=== PATIENT | female | born 1980 | race Caucasian/White ===

== ENCOUNTER 2018-12-19 12:07 | Inpatient (IN) | payer OTHER ==
[2018-12-19 12:41] VITALS: BMI 32.9
--- NOTE | 2018-12-19 13:43 | HP ---
CIWA Score Nausea/Vomitin-Mild Nausea/No Vomiting Muscle Tremors: 3 Anxiety: 2 Agitation: 1-Slight > Activity Paroxysmal Sweats: 3 Orientation: 0-Oriented Tacttile Disturbances: 0-None Auditory Disturbances: 0-None Visual Disturbances: 0-None Headache: 2-Mild CIWA-Ar Total Score: 12 - Admission Criteria OASAS Guidelines: Admission for Medically Managed Detox: Requires at least one of the followin. CIWA greater than 12 2. Seizures within the past 24 hours 3. Delirium tremens within the past 24 hours 4. Hallucinations within the past 24 hours 5. Acute intervention needed for co occurring medical disorder 6. Acute intervention needed for co occurring psychiatric disorder 7. Severe withdrawal that cannot be handled at a lower level of care (continued vomiting, continued diarrhea, abnormal vital signs) requiring intravenous medication and/or fluids 8. Admission ROS [facility] Chief Complaint: alcohol detox Allergies/Adverse Reactions: Allergies Allergy/AdvReac Type Severity Reaction Status Date / Time No Known Allergies Allergy Verified 12/19/18 12:33 History of Present Illness: Patient is a 38 yo F with a PMHx of depression, anxiety, presenting for alcohol detox. Last drink this morning. 2 budweiser margaritias. 24 oz cans. says she drinks all day and cannot estimate. Minimum 4 pints of brandon every day. Has been drinking heavy for the last 2 years. No hx of seizures or blacking out. Says she never did detox. Denies drug use. Denies cocaine use. Unemployed. Homeless. Smokes a pack a day. Exam Limitations: No Limitations - Ebola screening Have you traveled outside of the country in the last 21 days: No (N) Have you had contact with anyone from an Ebola affected area: No Do you have a fever: No - Review of Systems Respiratory: reports: Cough. denies: Shortness of Breath Cardiac: denies: Chest Pain, Palpitations Neuro: reports: Tremors. denies: Numbness Patient History - Patient Medical History Hx Chronic Obstructive Pulmonary Disease (COPD): No Hx Cancer: No Hx Cardiac Disorders: No Hx Congestive Heart Failure: No Hx Hypertension: No Hx Seizures: No Hx Diabetes: No Hx Gastrointestinal Disorders: No Hx Liver Disease: No Hx Genitourinary Disorders: No Hx Renal Disease (ESRD): No Hx Thyroid Disease: No Hx Human Immunodeficiency Virus (HIV): No Hx Hepatitis C: No Hx Depression: No Hx Suicide Attempt: No Hx Bipolar Disorder: No Hx Schizophrenia: No - Patient Surgical History Past Surgical History: Yes Hx Abdominal Surgery: Yes (gastric bypass 12/07/2013 at [facility] (lost 200lbs)) Hx Cholecystectomy: Yes (2016) - Smoking Cessation Smoking history: Current every day smoker Have you smoked in the past 12 months: Yes Aproximately how many cigarettes per day: 10 Initiated information on smoking cessation: Yes 'Breaking Loose' booklet given: 12/19/18 - Substances abused Alcohol Substance route: Oral Frequency: Daily Amount used: 5 PINTS OF E&J Age of first use: 37 Date of last use: 12/19/18 Family Disease History - Family Disease History Family Disease History: CA: Mother (, ), Other: Father (, suicide, etoh/drugs), Mother, Brother (living - healthy), Sister (living - healthy), Son (age 19 -healthy), Daughter (age 15 - healthy) Admission Physical Exam S - Vital Signs Vital Signs: Vital Signs - 24 hr 12/19/18 12:21 Temperature 97.3 F L Pulse Rate 118 H Respiratory 18 Rate Blood Pressure 139/73 - Physical General Appearance: Yes: No Apparent Distress Respiratory: Yes: No Respiratory Distress, No Accessory Muscle Use Cardiology: Yes: Regular Rhythm, S1, S2 Abdominal: Yes: Non Tender, Soft Extremities: No: Swelling - Diagnostic (1) Alcohol abuse Current Visit: Yes Status: Acute (2) Nicotine dependence Current Visit: No Status: Chronic Qualifiers: Nicotine product type: cigarettes Comment: counseled cessation - not ready Breathalyzer - Breathalyzer Breathalyzer: 0.085 Urine Drug Screen - Test Device Lot number: [id number] Expiration date: 09/14/20 - Control Is test valid?: Yes - Results Drug screen NEGATIVE: No Urine drug screen results: DORITA-Cocaine Inpatient Rehab Admission - Rehab Decision to Admit Inpatient rehab admission?: No
--- NOTE | 2018-12-19 14:02 | PN ---
Teaching Attending Note Name of Resident: Peter Schmitt ATTENDING PHYSICIAN STATEMENT I saw and evaluated the patient. I reviewed the resident's note and discussed the case with the resident. I agree with the resident's findings and plan as documented. SUBJECTIVE: 38 yo s/p gastric bypass surgery, and h/o OUD, depression. Started drinking heavily about 2years ago, after a traumatic event. Pt here for alcohol detox-last drink this morning. Denies illicit drug use. OBJECTIVE: Vital Signs - 24 hr 12/19/18 12:21 Temperature 97.3 F L Pulse Rate 118 H Respiratory 18 Rate Blood Pressure 139/73 tremulous ASSESSMENT AND PLAN: AUD- pt here for detox-
[2018-12-19] MEDS ORDERED: hydrOXYzine PAMOATE 25 MG CAPSULE (FP) PO PRN (14:14)
[2018-12-19] MEDS ORDERED: BISMUTH SUBSALICYLATE 262 MG/15 ML BTL PO PRN (14:14)
[2018-12-19] MEDS ORDERED: MAGNESIUM HYDROX 2400MG/30ML ORAL SUSPENSION 30 ML CUP PO PRN (14:14)
[2018-12-19] MEDS ORDERED: IBUPROFEN 400 MG TABLET (FP) PO PRN (14:14)
[2018-12-19] MEDS ORDERED: ACETAMINOPHEN 325 MG TABLET (FP) PO PRN ×2 (14:14)
[2018-12-19] MEDS ORDERED: METHOCARBAMOL 500 MG TABLET PO PRN (14:14)
[2018-12-19] MEDS ORDERED: MAGNESIUM CITRATE 300 ML BOTTLE PO PRN (14:14)
[2018-12-19] MEDS ORDERED: MAG HYDROX/AL HYDROX/SIMETH 30 ML UNIT-DOSE CUP PO PRN (14:14)
[2018-12-19] MEDS: chlordiazePOXIDE HCL 25 MG CAPSULE PO PRN (15:03)
[2018-12-19] MEDS: NICOTINE 14 MG/24 HOURS TOPICAL PATCH TD SCH (15:03)
[2018-12-19 17:01] LABS: HEMATOCRIT 33.2 % (32.4-45.2); HEMOGLOBIN 10.1 GM/dL (10.7-15.3); MCH 23.1 pg (25.7-33.7); MCHC 30.4 g/dl (32.0-36.0); MEAN CELL VOLUME 76.1 fl (80-96); MEAN PLT VOLUME 8.6 fl (7.5-11.1); PLATELET COUNT 303 K/MM3 (134-434); RBC 4.36 M/mm3 (3.60-5.2); RDW 19.3 % (11.6-15.6); WHITE BLOOD COUNT 12.3 K/mm3 (4.0-10.0)
[2018-12-19 17:10] LABS: ALBUMIN 3.3 g/dl (3.4-5.0); BILIRUBIN,TOTAL 0.6 mg/dL (0.2-1); BLOOD UREA NITROGEN 10.7 mg/dL (7-18); CALCIUM 8.2 mg/dL (8.5-10.1); CREATININE 0.8 mg/dL (0.55-1.3); TOT PROT 6.8 g/dl (6.4-8.2)
[2018-12-19] MEDS: chlordiazePOXIDE HCL 25 MG CAPSULE PO SCH ×2 (17:28→22:21)
[2018-12-19] MEDS: MENTHOL/PHENOL 1 EACH UD MM PRN (21:11)
--- NOTE | 2018-12-19 21:20 | EKG ---
Test Reason : Blood Pressure : / mmHG Vent. Rate : 087 BPM Atrial Rate : 087 BPM P-R Int : 126 ms QRS Dur : 086 ms QT Int : 382 ms P-R-T Axes : 054 028 031 degrees QTc Int : 459 ms NORMAL SINUS RHYTHM POSSIBLE LEFT ATRIAL ENLARGEMENT BORDERLINE ECG WHEN COMPARED WITH ECG OF 29-DEC-2013 05:33, VENT. RATE HAS INCREASED BY 35 BPM Confirmed by VICKIE MORENO, DELGADO ([id number]) on 12/19/2018 9:20:00 PM Referred By: Confirmed By:DELGADO JOHNSTON MD
[2018-12-19] MEDS: THIAMINE HCL 100 MG TABLET (FP) PO SCH (22:21)
[2018-12-19] MEDS: MELATONIN 5 MG TABLETS PO PRN (22:21)
[2018-12-20] MEDS: chlordiazePOXIDE HCL 25 MG CAPSULE PO SCH ×4 (05:57→22:01)
[2018-12-20] MEDS: PRENATAL VITAMINS W/ FOLIC ACID TABLET (FP) PO SCH (10:29)
[2018-12-20] MEDS: NICOTINE 14 MG/24 HOURS TOPICAL PATCH TD SCH (10:30)
[2018-12-20] MEDS ORDERED: NICOTINE POLACRILEX 2 MG GUM BUC PRN (12:10)
--- NOTE | 2018-12-20 12:17 | PN ---
S CIWA - CIWA Score Nausea/Vomitin Muscle Tremors: 2 Anxiety: 3 Agitation: 3 Paroxysmal Sweats: No Perspiration Orientation: 0-Oriented Tacttile Disturbances: 1-Very Mild Itch/Numbness Auditory Disturbances: 0-None Visual Disturbances: 0-None Headache: 1-Very Mild CIWA-Ar Total Score: 12 S Progress Note (SOAP) Subjective: alert,irrtiable,anxiuos,interrupted sleep,tremor Objective: 12/20/18 12:15 Vital Signs Temperature 98.6 F 12/20/18 09:42 Pulse Rate 84 12/20/18 09:42 Respiratory Rate 18 12/20/18 09:42 Blood Pressure 110/73 12/20/18 09:42 O2 Sat by Pulse Oximetry (%) 12/20/18 12:15 Laboratory Last Values WBC 12.3 K/mm3 (4.0-10.0) H 12/19/18 14:25 RBC 4.36 M/mm3 (3.60-5.2) 12/19/18 14:25 Hgb 10.1 GM/dL (10.7-15.3) L 12/19/18 14:25 Hct 33.2 % (32.4-45.2) 12/19/18 14:25 MCV 76.1 fl (80-96) L 12/19/18 14:25 MCH 23.1 pg (25.7-33.7) L 12/19/18 14:25 MCHC 30.4 g/dl (32.0-36.0) L 12/19/18 14:25 RDW 19.3 % (11.6-15.6) H 12/19/18 14:25 Plt Count 303 K/MM3 (134-434) 12/19/18 14:25 MPV 8.6 fl (7.5-11.1) 12/19/18 14:25 Sodium 143 mmol/L (136-145) 12/19/18 14:25 Potassium 4.0 mmol/L (3.5-5.1) 12/19/18 14:25 Chloride 107 mmol/L (98-107) 12/19/18 14:25 Carbon Dioxide 24 mmol/L (21-32) 12/19/18 14:25 Anion Gap 13 MMOL/L (8-16) 12/19/18 14:25 BUN 10.7 mg/dL (7-18) 12/19/18 14:25 Creatinine 0.8 mg/dL (0.55-1.3) 12/19/18 14:25 Est GFR (CKD-EPI)AfAm 107.64 12/19/18 14:25 Est GFR (CKD-EPI)NonAf 92.87 12/19/18 14:25 Random Glucose 78 mg/dL (74-106) 12/19/18 14:25 Calcium 8.2 mg/dL (8.5-10.1) L 12/19/18 14:25 Total Bilirubin 0.6 mg/dL (0.2-1) 12/19/18 14:25 AST 25 U/L (15-37) 12/19/18 14:25 ALT 14 U/L (13-61) 12/19/18 14:25 Alkaline Phosphatase 112 U/L (45-117) 12/19/18 14:25 Total Protein 6.8 g/dl (6.4-8.2) 12/19/18 14:25 Albumin 3.3 g/dl (3.4-5.0) L 12/19/18 14:25 POC Urine HCG, Qual Negative 12/19/18 13:26 Assessment: 12/20/18 12:16 withdrawal symptom Plan: continue detox librium regimen,repeat cbc in am
--- NOTE | 2018-12-20 12:20 | CONSULT ---
[facility] Psychiatric Consult - Data Date of interview: 12/20/18 Admission source: [facility] Identifying data: Patient is a 38 year old single female, mother of two, unemployed, homeless, and is supported by food stamps. This is one of multiple admissions for patient. Patient admitted to for alcohol dependence. Substance Abuse History: Smoking Cessation. Smoking history: Current every day smoker. Have you smoked in the past 12 months: Yes. Aproximately how many cigarettes per day: 10. Initiated information on smoking cessation: Yes. ' Breaking Loose' booklet given: 12/19/18. - Substances abused. Alcohol. Substance route: Oral. Frequency: Daily. Amount used: 5 PINTS OF E&J. Age of first use: 37. Date of last use: 12/19/18 Medical History: Gastric bypass 12/07/2013, Cholecystectomy (2017) Psychiatric History: Patient denies h/o psychiatric hospitalization, outpatient care, and suicide attempt. At present patient reports stable mood but is experiencing diffculty sleeping. Physical/Sexual Abuse/Trauma History: denies. Mental Status Exam - Mental Status Exam Alert and Oriented to: Time, Place, Person Cognitive Function: Good Patient Appearance: Unkempt Mood: Euthymic Affect: Mood Congruent Patient Behavior: Cooperative Speech Pattern: Appropriate Voice Loudness: Normal Thought Process: Goal Oriented Thought Disorder: Not Present Hallucinations: Denies Suicidal Ideation: Denies Homicidal Ideation: Denies Insight/Judgement: Poor Sleep: Poorly Muscle strength/Tone: Normal Gait/Station: Normal Psychiatric Findings - Problem List ([place] 1, 2,3) (1) Insomnia Status: Acute Qualifiers: Insomnia type: unspecified Qualified Code(s): G47.00 - Insomnia, unspecified (2) Alcohol abuse Status: Acute (3) Nicotine dependence Status: Chronic Qualifiers: Nicotine product type: cigarettes Substance use status: uncomplicated Qualified Code(s): F17.210 - Nicotine dependence, cigarettes, uncomplicated Comment: counseled cessation - not ready - Initial Treatment Plan Initial Treatment Plan: Psychoeducation provided. Detoxification in progress. Patient encouraged to accept Melatonin 5mg HS. Benefits and side effects discussed. Verbal consent given.
[2018-12-20] MEDS: NICOTINE 21 MG/24 HOURS TOPICAL PATCH TD SCH (13:01)
[2018-12-20] MEDS: MELATONIN 5 MG TABLETS PO PRN (22:01)
[2018-12-20] MEDS: THIAMINE HCL 100 MG TABLET (FP) PO SCH (22:01)
[2018-12-20] MEDS ORDERED: guaiFENesin/CODEINE 5 ML UNIT-DOSE CUPS PO PRN (22:49)
--- NOTE | 2018-12-20 22:51 | PN ---
Aleksandra Progress Note Note: Patient complained of cough Vital Signs Temperature 99.3 F 12/20/18 20:58 Pulse Rate 83 12/20/18 20:58 Respiratory Rate 16 12/20/18 20:58 Blood Pressure 122/87 12/20/18 20:58 O2 Sat by Pulse Oximetry (%) Action: Guaifenesin 10 ml oral BED PRN ordered
[2018-12-21] MEDS: chlordiazePOXIDE HCL 25 MG CAPSULE PO PRN (03:12)
[2018-12-21] MEDS: guaiFENesin 200 MG/10 ML 10 ML UNIT-DOSE CUPS PO PRN ×3 (03:13→22:33)
[2018-12-21] MEDS: chlordiazePOXIDE HCL 25 MG CAPSULE PO SCH ×4 (05:30→22:27)
[2018-12-21] MEDS: PRENATAL VITAMINS W/ FOLIC ACID TABLET (FP) PO SCH (10:33)
[2018-12-21] MEDS: NICOTINE 21 MG/24 HOURS TOPICAL PATCH TD SCH (10:34)
--- NOTE | 2018-12-21 14:14 | PN ---
S CIWA - CIWA Score Nausea/Vomitin Muscle Tremors: 2 Anxiety: 3 Agitation: 2 Paroxysmal Sweats: No Perspiration Orientation: 0-Oriented Tacttile Disturbances: 1-Very Mild Itch/Numbness Auditory Disturbances: 0-None Visual Disturbances: 0-None Headache: 2-Mild CIWA-Ar Total Score: 12 S Progress Note (SOAP) Subjective: alert,irritable,anxious,interrupted sleep,coughing with yellowish mucous,using albuterol inhaler and nebulizer in the past Objective: 12/21/18 14:11 Vital Signs Temperature 98.4 F 12/21/18 09:12 Pulse Rate 92 H 12/21/18 09:12 Respiratory Rate 18 12/21/18 09:12 Blood Pressure 114/65 12/21/18 09:12 O2 Sat by Pulse Oximetry (%) Laboratory Results - last 24 hr 12/19/18 14:25 RPR Titer Nonreactive 12/21/18 14:11 Laboratory Last Values WBC 12.3 K/mm3 (4.0-10.0) H 12/19/18 14:25 RBC 4.36 M/mm3 (3.60-5.2) 12/19/18 14:25 Hgb 10.1 GM/dL (10.7-15.3) L 12/19/18 14:25 Hct 33.2 % (32.4-45.2) 12/19/18 14:25 MCV 76.1 fl (80-96) L 12/19/18 14:25 MCH 23.1 pg (25.7-33.7) L 12/19/18 14:25 MCHC 30.4 g/dl (32.0-36.0) L 12/19/18 14:25 RDW 19.3 % (11.6-15.6) H 12/19/18 14:25 Plt Count 303 K/MM3 (134-434) 12/19/18 14:25 MPV 8.6 fl (7.5-11.1) 12/19/18 14:25 Sodium 143 mmol/L (136-145) 12/19/18 14:25 Potassium 4.0 mmol/L (3.5-5.1) 12/19/18 14:25 Chloride 107 mmol/L (98-107) 12/19/18 14:25 Carbon Dioxide 24 mmol/L (21-32) 12/19/18 14:25 Anion Gap 13 MMOL/L (8-16) 12/19/18 14:25 BUN 10.7 mg/dL (7-18) 12/19/18 14:25 Creatinine 0.8 mg/dL (0.55-1.3) 12/19/18 14:25 Est GFR (CKD-EPI)AfAm 107.64 12/19/18 14:25 Est GFR (CKD-EPI)NonAf 92.87 12/19/18 14:25 Random Glucose 78 mg/dL (74-106) 12/19/18 14:25 Calcium 8.2 mg/dL (8.5-10.1) L 12/19/18 14:25 Total Bilirubin 0.6 mg/dL (0.2-1) 12/19/18 14:25 AST 25 U/L (15-37) 12/19/18 14:25 ALT 14 U/L (13-61) 12/19/18 14:25 Alkaline Phosphatase 112 U/L (45-117) 12/19/18 14:25 Total Protein 6.8 g/dl (6.4-8.2) 12/19/18 14:25 Albumin 3.3 g/dl (3.4-5.0) L 12/19/18 14:25 POC Urine HCG, Qual Negative 12/19/18 13:26 RPR Titer Nonreactive (NONREACTIVE) 12/19/18 14:25 Assessment: 12/21/18 14:12 withdrawal symptom lung expiratory wheezing Plan: continue detox librium regimen,augmentin 875 mgs po bid for 7 days,albuterol inhaler and duoneb nebulizer, close monitoring
[2018-12-21] MEDS ORDERED: ALBUTEROL SO4 8 GM HFA INHALER IH PRN (14:15)
[2018-12-21] MEDS ORDERED: ALBUTEROL SO4 2.5/IPRATROPIUM 0.5 INH SOL 3 ML VIAL.NEB. NEB PRN (14:15)
[2018-12-21] MEDS: AMOX TR/POT CLAV 875MG/125MG TABLETS (FP) PO SCH (17:21)
[2018-12-21] MEDS: THIAMINE HCL 100 MG TABLET (FP) PO SCH (22:27)
[2018-12-21] MEDS: MELATONIN 5 MG TABLETS PO PRN (22:27)
[2018-12-22] MEDS ORDERED: chlordiazePOXIDE HCL 10 MG CAPSULE PO PRN
[2018-12-22] MEDS: guaiFENesin 200 MG/10 ML 10 ML UNIT-DOSE CUPS PO PRN (05:40)
[2018-12-22] MEDS: chlordiazePOXIDE HCL 10 MG CAPSULE PO SCH ×2 (05:40→10:29)
[2018-12-22] MEDS: AMOX TR/POT CLAV 875MG/125MG TABLETS (FP) PO SCH (07:32)
[2018-12-22] MEDS: PRENATAL VITAMINS W/ FOLIC ACID TABLET (FP) PO SCH (10:29)
[2018-12-22] MEDS: NICOTINE 21 MG/24 HOURS TOPICAL PATCH TD SCH (10:30)
[2018-12-22] MEDS: MENTHOL/PHENOL 1 EACH UD MM PRN (10:31)
[2018-12-22 13:35] VITALS: BP 97/62; PULSE 76; TEMP 97.2
--- NOTE | 2018-12-22 17:23 | DS ---
[facility] Detox Discharge Summary Admission Date: 12/19/18 Discharge Date: 12/22/18 - History Present History: Alcohol Dependence Additional Comments: DESPITE EFFORTS BY CHRONIC MANAGER AND BY NURSING STAFF TO ADDRESS PATIENT'S MEDICAL NEEDS / CONCERNS, PATIENT DOES NOT WISH TO REMAIN TO COMPLETE DETOX REGIMEN. RISKS OF LEAVING DETOX UNIT AGAINST MEDICAL ADVICE AND PRIOR TO COMPLETION OF DETOX REGIMEN EXPLAINED TO PATIENT. PATIENT ADVISED TO REMAIN ON DETOX UNIT IN ORDER TO HAVE CXR DONE (FOR 'INDETERMINATE' QFT /TB RESULT NOTED ON DETOX ADMISSION LABORATORY ASSESSMENT. HOWEVER, PATIENT DECLINED TO DO SO, STATING THAT SHE WISHES TO LEAVE IMMEDIATELY. PATIENT ALSO ADVISED TO GO IMMEDIATELY TO NEAREST ER SHOULD ANY INTOLERABLE WITHDRAWAL / DETOX SYMPTOMS DEVELOP AT ANY TIME. PATIENT ADVISED TO FOLLOW-UP WITH LAST REPAIRER AFTER DISCHARGE FROM DETOX FOR INDETERMINATE QFT / TB TEST RESULT NOTED ON DETOX ADMISSION LABORATORY ASSESSMENT. PATIENT VERBALIZED UNDERSTANDING OF ALL INFORMATION / RECOMMENDATIONS PRESENTED TO HER PRIOR TO DEPARTURE FROM DETOX UNIT. COPIES OF RESULTS OF ALL LABS DRAWN WHILE ADMITTED FOR DETOX GIVEN TO PATIENT AT TIME OF DISCHARGE FROM DETOX UNIT. Pertinent Past History: Nicotine Dependence, Insomnia. - Physical Exam Results Vital Signs: Vital Signs Temperature 97.2 F L 12/22/18 13:34 Pulse Rate 76 12/22/18 13:34 Respiratory Rate 18 12/22/18 13:34 Blood Pressure 97/62 12/22/18 13:34 O2 Sat by Pulse Oximetry (%) Pertinent Admission Physical Exam Findings: WITHDRAWAL SYMPTOMS. Laboratory Tests 12/19/18 12/19/18 12/19/18 13:26 14:25 14:25 WBC RBC Hgb Hct MCV MCH MCHC RDW Plt Count MPV Sodium 143 Potassium 4.0 Chloride 107 Carbon Dioxide 24 Anion Gap 13 BUN 10.7 Creatinine 0.8 Est GFR (CKD-EPI)AfAm 107.64 Est GFR (CKD-EPI)NonAf 92.87 Random Glucose 78 Calcium 8.2 L Total Bilirubin 0.6 AST 25 ALT 14 Alkaline Phosphatase 112 Total Protein 6.8 Albumin 3.3 L POC Urine HCG, Qual Negative RPR Titer TB (QFT) Incubation TB Test (QFT) Nil 0.06 TB Test (QFT) Mitogen 0.53 TB Test (QFT) Antigen 0.06 TB Test (QFT) Indeterminate H TB Positive Criteria 12/19/18 12/19/18 14:25 14:25 WBC 12.3 H RBC 4.36 Hgb 10.1 L Hct 33.2 MCV 76.1 L MCH 23.1 L MCHC 30.4 L RDW 19.3 H Plt Count 303 MPV 8.6 Sodium Potassium Chloride Carbon Dioxide Anion Gap BUN Creatinine Est GFR (CKD-EPI)AfAm Est GFR (CKD-EPI)NonAf Random Glucose Calcium Total Bilirubin AST ALT Alkaline Phosphatase Total Protein Albumin POC Urine HCG, Qual RPR Titer Nonreactive TB (QFT) Incubation TB Test (QFT) Nil TB Test (QFT) Mitogen TB Test (QFT) Antigen TB Test (QFT) TB Positive Criteria LABS NOTED. - Medication Discharge Medications: Ambulatory Orders NK [No Known Home Medication] 12/19/18 - Diagnosis (1) Alcohol abuse Status: Acute (2) Insomnia Status: Acute Qualifiers: Insomnia type: unspecified Qualified Code(s): G47.00 - Insomnia, unspecified (3) Nicotine dependence Status: Chronic Qualifiers: Nicotine product type: cigarettes Substance use status: uncomplicated Qualified Code(s): F17.210 - Nicotine dependence, cigarettes, uncomplicated - AMA Did Patient Leave Against Medical Advice: Yes (PATIENT DID NOT WISH TO REMAIN TO COMPLETE DETOX REGIMEN.) [facility] CIWA - CIWA Score Nausea/Vomitin-No Nausea/No Vomiting Muscle Tremors: 3 Anxiety: 3 Agitation: 0-Normal Activity Paroxysmal Sweats: No Perspiration Orientation: 0-Oriented Tacttile Disturbances: 2-Mild Itch/Numbness/Burn Auditory Disturbances: 0-None Visual Disturbances: 1-Very Mild Sensitivity Headache: 0-None Present CIWA-Ar Total Score: 9
[2018-12-23] MEDS ORDERED: chlordiazePOXIDE HCL 10 MG CAPSULE PO SCH (05:00)
[2018-12-24] MEDS ORDERED: chlordiazePOXIDE HCL 10 MG CAPSULE PO ONE (05:00)
== END 2018-12-22 14:15 | disposition left against medical advice (07) | DRG 770 ==
LOC: YASAS 12:07 → Y3N 14:34
PROVIDERS: ADMIT Surgery; ATTEND Surgery
PROC: HZ2ZZZZ Detoxification Services for Substance Abuse Treatment (ICD-10-PCS; principal; 2018-12-19)
DX: F10.230 Alcohol dependence with withdrawal, uncomplicated (principal); F17.210 Nicotine dependence, cigarettes, uncomplicated; G47.00 Insomnia, unspecified; R06.2 Wheezing; Z98.84 Bariatric surgery status; Z59.0 Homelessness
CPT/HCPCS: 36415; 80053; 81025; 85027; 86480; 86593; 93005; 93010

== ENCOUNTER 2018-12-26 16:46 | Inpatient (IN) | payer OTHER ==
[2018-12-26 18:19] VITALS: BMI 33.6
--- NOTE | 2018-12-26 19:20 | HP ---
CIWA Score Nausea/Vomitin Muscle Tremors: 2 Anxiety: 3 Agitation: 2 Paroxysmal Sweats: 1-Minimal Palms Moist Orientation: 0-Oriented Tacttile Disturbances: 0-None Auditory Disturbances: 0-None Visual Disturbances: 0-None Headache: 2-Mild CIWA-Ar Total Score: 12 - Admission Criteria OASAS Guidelines: Admission for Medically Managed Detox: Requires at least one of the followin. CIWA greater than 12 2. Seizures within the past 24 hours 3. Delirium tremens within the past 24 hours 4. Hallucinations within the past 24 hours 5. Acute intervention needed for co occurring medical disorder 6. Acute intervention needed for co occurring psychiatric disorder 7. Severe withdrawal that cannot be handled at a lower level of care (continued vomiting, continued diarrhea, abnormal vital signs) requiring intravenous medication and/or fluids 8. Admission ROS [facility] Allergies/Adverse Reactions: Allergies Allergy/AdvReac Type Severity Reaction Status Date / Time No Known Allergies Allergy Verified 12/26/18 18:14 History of Present Illness: Patient is a 38 yo F with a PMHx of depression, anxiety, presenting for alcohol detox. Last drink this morning. She drinks a minimum 4 pints of brandon every day. Has been drinking heavy on and off over the last 2 years. No hx of seizures or blacking out. Denies drug use. Denies cocaine use. She was here from 12/19-12/22 but said she had to leave early to take care of her kids. Unemployed. Homeless. Smokes a pack a day. Exam Limitations: No Limitations - Ebola screening Have you traveled outside of the country in the last 21 days: No Have you had contact with anyone from an Ebola affected area: No - Review of Systems Respiratory: reports: Cough. denies: Shortness of Breath Cardiac: denies: Chest Pain, Palpitations Patient History - Patient Medical History Hx Asthma: No Hx Chronic Obstructive Pulmonary Disease (COPD): No Hx Cancer: No Hx Cardiac Disorders: No Hx Congestive Heart Failure: No Hx Hypertension: No Hx Seizures: No Hx Diabetes: No Hx Gastrointestinal Disorders: No Hx Liver Disease: No Hx Genitourinary Disorders: No Hx Sexually Transmitted Disorders: No Hx Renal Disease (ESRD): No Hx Thyroid Disease: No Hx Human Immunodeficiency Virus (HIV): No Hx Hepatitis C: No Hx Depression: No Hx Suicide Attempt: No Hx Bipolar Disorder: No Hx Schizophrenia: No - Patient Surgical History Past Surgical History: Yes Hx Neurologic Surgery: No Hx Cataract Extraction: No Hx Cardiac Surgery: No Hx Lung Surgery: No Hx Breast Surgery: No Hx Breast Biopsy: No Hx Abdominal Surgery: Yes (gastric bypass 12/07/2013 at [facility] (lost 200lbs)) Hx Appendectomy: No Hx Cholecystectomy: Yes (2016) Hx Genitourinary Surgery: No Hx Section: No Hx Orthopedic Surgery: No Anesthesia Reaction: No - Smoking Cessation Smoking history: Current every day smoker Have you smoked in the past 12 months: Yes Aproximately how many cigarettes per day: 10 Initiated information on smoking cessation: Yes 'Breaking Loose' booklet given: 12/26/18 - Substances abused Alcohol Substance route: Oral Frequency: Daily Amount used: 5 PINTS OF E&J Age of first use: 37 Date of last use: 12/26/18 Family Disease History - Family Disease History Family Disease History: CA: Mother (, ), Other: Father (, suicide, etoh/drugs), Mother, Brother (living - healthy), Sister (living - healthy), Son (age 19 -healthy), Daughter (age 15 - healthy) Admission Physical Exam S - Vital Signs Vital Signs: Vital Signs - 24 hr 12/26/18 18:15 Temperature 97.9 F Pulse Rate 98 H Respiratory 20 Rate Blood Pressure 122/77 - Physical General Appearance: Yes: No Apparent Distress Respiratory: Yes: No Respiratory Distress, No Accessory Muscle Use Cardiology: Yes: Regular Rhythm, Regular Rate Abdominal: Yes: Non Tender, Soft Extremities: No: Swelling - Diagnostic (1) Alcohol abuse Current Visit: No Status: Acute (2) Opiate dependence Current Visit: No Status: Acute Qualifiers: Substance use status: uncomplicated Qualified Code(s): F11.20 - Opioid dependence, uncomplicated Comment: labs ordered - she will do them tomorrow (noted in 2013 LFTs were normal) risks and limitations of suboxone reviewed Suboxone Agreement reviewed and signed, emphasized safekeeping, need to attend [employer] groups trial suboxone 12mg daily (history of taking 1/2 strip bid) - emphasized to allow to dissolve completely under tongue (3) Cannabis dependence Current Visit: No Status: Chronic Comment: counseled cessation (4) History of gastric bypass Current Visit: No Status: Chronic Comment: ordered mvi, vitamin C (has not been taking them for 'a while') (5) Nicotine dependence Current Visit: No Status: Chronic Qualifiers: Nicotine product type: cigarettes Substance use status: uncomplicated Qualified Code(s): F17.210 - Nicotine dependence, cigarettes, uncomplicated Comment: counseled cessation - not ready Breathalyzer - Breathalyzer Breathalyzer: 0 Urine Drug Screen - Test Device Lot number: [id number] Expiration date: 09/14/20 - Control Is test valid?: Yes - Results Drug screen NEGATIVE: No Urine drug screen results: THC-Marijuana, BZO-Benzodiazepines Inpatient Rehab Admission - Rehab Decision to Admit Inpatient rehab admission?: No
[2018-12-26] MEDS ORDERED: ACETAMINOPHEN 325 MG TABLET (FP) PO PRN ×2 (19:29)
[2018-12-26] MEDS ORDERED: IBUPROFEN 400 MG TABLET (FP) PO PRN (19:29)
[2018-12-26] MEDS ORDERED: MAGNESIUM HYDROX 2400MG/30ML ORAL SUSPENSION 30 ML CUP PO PRN (19:29)
[2018-12-26] MEDS ORDERED: BISMUTH SUBSALICYLATE 262 MG/15 ML BTL PO PRN (19:29)
[2018-12-26] MEDS ORDERED: MAG HYDROX/AL HYDROX/SIMETH 30 ML UNIT-DOSE CUP PO PRN (19:29)
[2018-12-26] MEDS ORDERED: MAGNESIUM CITRATE 300 ML BOTTLE PO PRN (19:29)
--- NOTE | 2018-12-26 19:34 | PN ---
Teaching Attending Note Name of Resident: Peter Schmitt ATTENDING PHYSICIAN STATEMENT I saw and evaluated the patient. I reviewed the resident's note and discussed the case with the resident. I agree with the resident's findings and plan as documented. SUBJECTIVE: 38 yo with AUD, was last here from 12/19-12/22, left early to take care of kids- here today for detox. OBJECTIVE: Vital Signs - 24 hr 12/26/18 18:15 Temperature 97.9 F Pulse Rate 98 H Respiratory 20 Rate Blood Pressure 122/77 tremulous alert and oriented ASSESSMENT AND PLAN: AUD- detox per protocol
[2018-12-26] MEDS: chlordiazePOXIDE HCL 25 MG CAPSULE PO SCH (21:27)
[2018-12-26] MEDS: THIAMINE HCL 100 MG TABLET (FP) PO SCH (21:27)
[2018-12-26] MEDS: NICOTINE 21 MG/24 HOURS TOPICAL PATCH TD SCH (21:28)
[2018-12-26] MEDS: METHOCARBAMOL 500 MG TABLET PO PRN (23:57)
[2018-12-26] MEDS: hydrOXYzine PAMOATE 25 MG CAPSULE (FP) PO PRN (23:57)
[2018-12-27] MEDS: chlordiazePOXIDE HCL 25 MG CAPSULE PO SCH ×3 (06:49→21:49)
[2018-12-27] MEDS ORDERED: PNEUMOC 13-VAL CONJ-DIP CRM/PF 0.5 ML DISP.SYRIN IM ONE (10:00)
--- NOTE | 2018-12-27 10:14 | PN ---
S CIWA - CIWA Score Nausea/Vomitin Muscle Tremors: 2 Anxiety: 2 Agitation: 2 Paroxysmal Sweats: 1-Minimal Palms Moist Orientation: 0-Oriented Tacttile Disturbances: 1-Very Mild Itch/Numbness Auditory Disturbances: 0-None Visual Disturbances: 0-None Headache: 2-Mild CIWA-Ar Total Score: 12 BHS Progress Note (SOAP) Subjective: alert,irritable,anxious,interrupted sleep,tremor Objective: 12/27/18 10:13 Vital Signs Temperature 97.7 F 12/27/18 09:17 Pulse Rate 75 12/27/18 09:17 Respiratory Rate 16 12/27/18 09:17 Blood Pressure 102/51 L 12/27/18 09:17 O2 Sat by Pulse Oximetry (%) 12/27/18 10:13 Laboratory Last Values POC Urine HCG, Qual Negative 12/26/18 18:52 12/27/18 10:13 labs pending Assessment: 12/27/18 10:13 withdrawal symptom Plan: continue detox librium regimen
[2018-12-27] MEDS: hydrOXYzine PAMOATE 25 MG CAPSULE (FP) PO PRN (10:27)
[2018-12-27] MEDS: PRENATAL VITAMINS W/ FOLIC ACID TABLET (FP) PO SCH (10:27)
[2018-12-27] MEDS: NICOTINE 21 MG/24 HOURS TOPICAL PATCH TD SCH (10:27)
[2018-12-27] MEDS ORDERED: PNEUMOCOCCAL 23 VACCINE 0.5 ML VIAL IM ONE (12:00)
[2018-12-27] MEDS: METHOCARBAMOL 500 MG TABLET PO PRN (17:39)
[2018-12-27] MEDS: chlordiazePOXIDE HCL 10 MG CAPSULE PO PRN (17:39)
[2018-12-27] MEDS: THIAMINE HCL 100 MG TABLET (FP) PO SCH (21:49)
[2018-12-27] MEDS: MELATONIN 5 MG TABLETS PO PRN (21:49)
[2018-12-27] MEDS: MENTHOL/PHENOL 1 EACH UD MM PRN (21:51)
[2018-12-28] MEDS: chlordiazePOXIDE 5 MG CAPSULE PO SCH ×3 (05:32→22:15)
[2018-12-28] MEDS: MENTHOL/PHENOL 1 EACH UD MM PRN ×2 (05:35→19:32)
[2018-12-28] MEDS: PRENATAL VITAMINS W/ FOLIC ACID TABLET (FP) PO SCH (11:00)
--- NOTE | 2018-12-28 12:09 | PN ---
S CIWA - CIWA Score Nausea/Vomitin Muscle Tremors: 2 Anxiety: 1-Mildly Anxious Agitation: 2 Paroxysmal Sweats: No Perspiration Orientation: 0-Oriented Tacttile Disturbances: 0-None Auditory Disturbances: 0-None Visual Disturbances: 0-None Headache: 1-Very Mild CIWA-Ar Total Score: 8 BHS Progress Note (SOAP) Subjective: alert,irritable,anxious,interrupted sleep,pain in the body Objective: 12/28/18 12:07 Vital Signs Temperature 97.9 F 12/28/18 09:23 Pulse Rate 78 12/28/18 09:23 Respiratory Rate 16 12/28/18 09:23 Blood Pressure 119/66 12/28/18 09:23 O2 Sat by Pulse Oximetry (%) Laboratory Last Values POC Urine HCG, Qual Negative 12/26/18 18:52 Assessment: 12/28/18 12:08 withdrawal symptom Plan: continue detox,librium regimen
[2018-12-28] MEDS: NICOTINE 21 MG/24 HOURS TOPICAL PATCH TD SCH (14:52)
[2018-12-28] MEDS: chlordiazePOXIDE HCL 10 MG CAPSULE PO PRN (19:31)
[2018-12-28] MEDS: THIAMINE HCL 100 MG TABLET (FP) PO SCH (22:15)
[2018-12-28] MEDS: MELATONIN 5 MG TABLETS PO PRN (22:16)
[2018-12-29] MEDS ORDERED: chlordiazePOXIDE HCL 10 MG CAPSULE PO PRN
[2018-12-29] MEDS: chlordiazePOXIDE HCL 10 MG CAPSULE PO SCH ×3 (05:24→22:20)
[2018-12-29] MEDS: MENTHOL/PHENOL 1 EACH UD MM PRN ×2 (05:24→22:21)
[2018-12-29] MEDS: NICOTINE 21 MG/24 HOURS TOPICAL PATCH TD SCH (10:19)
[2018-12-29] MEDS: PRENATAL VITAMINS W/ FOLIC ACID TABLET (FP) PO SCH (10:19)
--- NOTE | 2018-12-29 10:48 | PN ---
S CIWA - CIWA Score Nausea/Vomitin-No Nausea/No Vomiting Muscle Tremors: None Anxiety: 3 Agitation: 0-Normal Activity Paroxysmal Sweats: 3 Orientation: 0-Oriented Tacttile Disturbances: 0-None Auditory Disturbances: 0-None Visual Disturbances: 0-None Headache: 1-Very Mild CIWA-Ar Total Score: 7 BHS Progress Note (SOAP) Subjective: c/o mild headache, anxiety, and sweats. Objective: 12/29/18 10:48 Vital Signs 12/29/18 12/29/18 06:58 09:13 Temperature 97.2 F L 97.7 F Pulse Rate 84 73 Respiratory 18 16 Rate Blood Pressure 146/83 132/78 Labs pending. Assessment: 12/29/18 10:48 AOX3, in no acute respiratory distress. Full ROM, ambulating in the unit. Withdrawal symptoms. Plan: continue detox.
[2018-12-29] MEDS: THIAMINE HCL 100 MG TABLET (FP) PO SCH (22:20)
[2018-12-29] MEDS: MELATONIN 5 MG TABLETS PO PRN (22:21)
[2018-12-30] MEDS: hydrOXYzine PAMOATE 25 MG CAPSULE (FP) PO PRN (00:02)
[2018-12-30] MEDS ORDERED: chlordiazePOXIDE HCL 10 MG CAPSULE PO ONE (05:00)
[2018-12-30] MEDS: MENTHOL/PHENOL 1 EACH UD MM PRN (06:08)
[2018-12-30 09:30] VITALS: BP 125/75; PULSE 94; TEMP 98.2
[2018-12-30] MEDS: PRENATAL VITAMINS W/ FOLIC ACID TABLET (FP) PO SCH (10:22)
[2018-12-30] MEDS: NICOTINE 21 MG/24 HOURS TOPICAL PATCH TD SCH (10:22)
--- NOTE | 2018-12-30 14:08 | DS ---
[facility] Detox Discharge Summary Admission Date: 12/26/18 Discharge Date: 12/30/18 - History Present History: Alcohol Dependence - Physical Exam Results Vital Signs: Vital Signs Temperature 98.2 F 12/30/18 09:29 Pulse Rate 94 H 12/30/18 09:29 Respiratory Rate 16 12/30/18 09:29 Blood Pressure 125/75 12/30/18 09:29 O2 Sat by Pulse Oximetry (%) Pertinent Admission Physical Exam Findings: ROS denies shakes, sweating, chest pain, sob and dizziness. PE alert and oriented x 3 skin warm and dry +perrla, eoms intact bl ext no tremors, amb ad angelina - Treatment Hospital Course: Detox Protocol Followed, Detoxed Safely, Responded well, Discharged Condition Good, Rehab Referral Accepted Patient has Accepted a Rehab Referral to: [facility] - Medication Discharge Medications: Ambulatory Orders NK [No Known Home Medication] 12/19/18 - AMA Did Patient Leave Against Medical Advice: No
== END 2018-12-30 13:15 | disposition other institution (70) | DRG 773 ==
LOC: YASAS 16:46 → Y6N 20:13
PROVIDERS: ADMIT Surgery; ATTEND Surgery
PROC: HZ2ZZZZ Detoxification Services for Substance Abuse Treatment (ICD-10-PCS; principal; 2018-12-26)
DX: F10.230 Alcohol dependence with withdrawal, uncomplicated (principal); F11.20 Opioid dependence, uncomplicated; F12.20 Cannabis dependence, uncomplicated; F17.210 Nicotine dependence, cigarettes, uncomplicated; Z98.84 Bariatric surgery status; Z59.0 Homelessness
CPT/HCPCS: 81025; 90732; G0009

== ENCOUNTER 2018-12-30 12:09 | Inpatient (IN) | payer OTHER ==
--- NOTE | 2018-12-30 14:20 | HP ---
[facility] Rehab Assess/Revision - Admission History Admitted to Rehab from: [facility] Date of Admission to Rehab: 12/30/2018 - Vital signs Vital Signs: Vital Signs Period Temp Pulse Resp BP Sys/Vogel Pulse Ox Last 24 Hr 97.3 F 96 18 118/77 - Findings Detox History & Physical reviewed: Yes Concur with findings: Yes Inpatient Rehab Admission - Rehab Decision to Admit Inpatient rehab admission?: Yes - Initial Determination Are CD services needed?: Yes Free of communicable disease: Yes Not in need of hospitalization: Yes - Rehab Admission Criteria Previous failed treatment: Yes Poor recovery environment: Yes Comorbidities: No Lacks judgement: No Patient is meeting Inpatient Rehab admission criteria:: Yes
[2018-12-30] MEDS ORDERED: MAGNESIUM CITRATE 300 ML BOTTLE PO PRN (14:24)
[2018-12-30] MEDS ORDERED: P-EPHED 60MG/TRIPROLIDI 2.5MG TABLET PO PRN (14:24)
[2018-12-30] MEDS ORDERED: MAGNESIUM HYDROX 2400MG/30ML ORAL SUSPENSION 30 ML CUP PO PRN (14:24)
[2018-12-30] MEDS ORDERED: guaiFENesin 200 MG/10 ML 10 ML UNIT-DOSE CUPS PO PRN (14:24)
[2018-12-30] MEDS ORDERED: MENTHOL/PHENOL 1 EACH UD MM PRN (14:24)
[2018-12-30] MEDS ORDERED: LOPERAMIDE HCL 2 MG CAPSULE PO PRN (14:24)
[2018-12-30] MEDS ORDERED: MAG HYDROX/AL HYDROX/SIMETH 30 ML UNIT-DOSE CUP PO PRN (14:24)
[2018-12-30] MEDS ORDERED: IBUPROFEN 400 MG TABLET (FP) PO PRN (14:24)
[2018-12-30] MEDS ORDERED: NICOTINE POLACRILEX 2 MG GUM BUC PRN (14:28)
[2018-12-30] MEDS: THIAMINE HCL 100 MG TABLET (FP) PO SCH (21:57)
[2018-12-30] MEDS: hydrOXYzine PAMOATE 50 MG CAPSULE (FP) PO PRN (21:57)
[2018-12-30] MEDS: MELATONIN 5 MG TABLETS PO PRN (21:57)
[2018-12-31] MEDS: PRENATAL VITAMINS W/ FOLIC ACID TABLET (FP) PO SCH (09:56)
[2018-12-31] MEDS: NICOTINE 21 MG/24 HOURS TOPICAL PATCH TD SCH (09:56)
[2018-12-31] MEDS: MELATONIN 5 MG TABLETS PO PRN (21:06)
[2018-12-31] MEDS: THIAMINE HCL 100 MG TABLET (FP) PO SCH (21:06)
[2018-12-31] MEDS: hydrOXYzine PAMOATE 50 MG CAPSULE (FP) PO PRN (21:07)
[2019-01-01] MEDS: NICOTINE 21 MG/24 HOURS TOPICAL PATCH TD SCH (10:28)
[2019-01-01] MEDS: PRENATAL VITAMINS W/ FOLIC ACID TABLET (FP) PO SCH (10:28)
[2019-01-01] MEDS: hydrOXYzine PAMOATE 50 MG CAPSULE (FP) PO PRN ×2 (10:29→17:47)
--- NOTE | 2019-01-01 13:58 | PN ---
S Progress Note Note: Pt is a 38 y/0 female admitted to rehab from detox. S/p detox since 12/30/18 c/o withdrawal sx of diarrhea,tremors and intermittent sleep. Pt was seen in bed but alert o x 3 and communicating calmly and coherently. Vital Signs - 24 hr 01/01/19 01/01/19 00:30 07:13 Temperature 97.9 F Pulse Rate 72 Respiratory 16 16 Rate Blood Pressure 110/75 A/P w/s imodium prn increase po fluids as tolerated vistaril prn for anxiety melatonin as directed for sleep pt agreed to poc
[2019-01-01] MEDS: THIAMINE HCL 100 MG TABLET (FP) PO SCH (21:36)
[2019-01-01] MEDS: MELATONIN 5 MG TABLETS PO PRN (21:36)
[2019-01-02] MEDS: PRENATAL VITAMINS W/ FOLIC ACID TABLET (FP) PO SCH (10:14)
[2019-01-02] MEDS: NICOTINE 21 MG/24 HOURS TOPICAL PATCH TD SCH (10:14)
[2019-01-02] MEDS: hydrOXYzine PAMOATE 50 MG CAPSULE (FP) PO PRN ×2 (10:16→21:32)
[2019-01-02] MEDS: ACETAMINOPHEN 325 MG TABLET (FP) PO PRN ×2 (10:16→18:11)
[2019-01-02] MEDS: THIAMINE HCL 100 MG TABLET (FP) PO SCH (21:32)
[2019-01-02] MEDS: MELATONIN 5 MG TABLETS PO PRN (21:33)
[2019-01-03 07:30] VITALS: BP 119/79; PULSE 67; TEMP 97.9
[2019-01-03] MEDS: NICOTINE 21 MG/24 HOURS TOPICAL PATCH TD SCH (09:20)
[2019-01-03] MEDS: PRENATAL VITAMINS W/ FOLIC ACID TABLET (FP) PO SCH (09:20)
--- NOTE | 2019-01-03 11:09 | DS ---
[facility] Rehab Discharge Summary - [facility] Rehab Discharge Summary Admission Date: 12/30/18 Discharge Date: 01/03/19 - History Present History: Alcohol dependence, Cannabis dependence, Opioid dependence Additional Comments: patient is medically stable for discharge and has no acute or emergent medical needs that require immediate attention. She is requesting early discharge. Pertinent Past History: History of Present Illness: Patient is a 38 yo F with a PMHx of depression, anxiety,.She drinks a minimum 4 pints of brandon every day. Has been drinking heavy on and off over the last 2 years. No hx of seizures or blacking out. Denies drug use. Denies cocaine use. She was here from 12/19-12/22 but said she had to leave early to take care of her kids. Unemployed. Homeless. Smokes a pack a day. - Discharge Physical Exam Vital Signs: Vital Signs Temperature 97.9 F 01/03/19 07:27 Pulse Rate 67 01/03/19 07:27 Respiratory Rate 18 01/03/19 07:27 Blood Pressure 119/79 01/03/19 07:27 O2 Sat by Pulse Oximetry (%) Pertinent Admission Physical Exam Findings: Physical: Findings based on observation only, patient refused physical exam. General: No apparent distress HEENTM: Normocephalic Respiratory: respirations easy and unlabored, no accessory muscle use Heart: refused examination Abd: refused examination MSK: full weight bearing, steady gait Neuro: No neurological deficits noted/ - Treatment Discharge Condition: Discharge condition good (patient refused referral to aftercare.) Hospital Course: Patient was adherent to medication regimen. - Medication Discharge Medications: Ambulatory Orders NK [No Known Home Medication] 12/19/18 - Medication-Assisted Treatment (MAT) Medication-Assisted Treatment (MAT): No - Discharge Instructions Diet, activity, other medical instructions: Diet: as tolerated Activity: as tolerated Other medical instructions:patient encouraged to seek aftercare or attend AA meetings to prevent relapse. Patient encouraged to make an appointment with PCP within two weeks of leaving rehab treatment. - Follow-up Referral Minutes to complete discharge: 15 - AMA Did Patient Leave Against Medical Advice: No Additional Comments: Patient is medically stable for discharge and has no urgent or acute medical problems that require care. She is requesting early discharge.
== END 2019-01-03 11:28 | disposition home or self-care (01) | DRG 772 ==
LOC: YASAS 12:09 → Y3E 12:10
PROVIDERS: ADMIT Neuromusculoskeletal Medicine & OMM; ATTEND Neuromusculoskeletal Medicine & OMM
PROC: HZ42ZZZ Group Counseling for Substance Abuse Treatment, Cognitive-Behavioral (ICD-10-PCS; principal; 2018-12-30)
DX: F10.20 Alcohol dependence, uncomplicated (principal); F17.210 Nicotine dependence, cigarettes, uncomplicated; F41.9 Anxiety disorder, unspecified; F32.9 Major depressive disorder, single episode, unspecified; Z98.84 Bariatric surgery status; Z59.0 Homelessness
CPT/HCPCS: 36415; 87389

== ENCOUNTER 2019-04-05 20:53 | Inpatient (IN) | payer OTHER ==
[2019-04-05 21:46] VITALS: BMI 31.8
--- NOTE | 2019-04-05 23:07 | HP ---
CIWA Score Nausea/Vomitin-No Nausea/No Vomiting Muscle Tremors: 4-Moderate,w/Arms Extend Anxiety: 1-Mildly Anxious Agitation: 1-Slight > Activity Paroxysmal Sweats: 3 (MARY: 0.124) Orientation: 2-Disoriented Date<2 days Tacttile Disturbances: 0-None Auditory Disturbances: 0-None Visual Disturbances: 0-None Headache: 0-None Present CIWA-Ar Total Score: 11 - Admission Criteria OASAS Guidelines: Admission for Medically Managed Detox: Requires at least one of the followin. CIWA greater than 12 2. Seizures within the past 24 hours 3. Delirium tremens within the past 24 hours 4. Hallucinations within the past 24 hours 5. Acute intervention needed for co occurring medical disorder 6. Acute intervention needed for co occurring psychiatric disorder 7. Severe withdrawal that cannot be handled at a lower level of care (continued vomiting, continued diarrhea, abnormal vital signs) requiring intravenous medication and/or fluids 8. Patient presents the following: Acute intervention needed for co-occurring med or psych disorder (MARY: 0.124) Admission Criteria Met: Admission criteria met Admission ROS [facility] Chief Complaint: States I can't keep drinking any more" Allergies/Adverse Reactions: Allergies Allergy/AdvReac Type Severity Reaction Status Date / Time azithromycin [From Zithromax] Allergy Hives Verified 04/05/19 21:30 History of Present Illness: 39 yo presents w/ alcohol intoxication w/ withdrawal symptoms seeking detox. MARY: 0.124 UTox: NEG HCG: NEG Denies seizures, blackouts or overdoses. Last treated for alcohol 3-4 months ago @ [facility]. States relapsed 3 weeks ago. Alcohol use since age 23. Currently drinks "all day". States "alot" Up to 5 pnis/day w/ beers in between. Past opiate use disorder. Last used percocets/oxy's 3 days ago. Nicotine use since age 15. Currently 1/2 - 1 PPD. PMHx: Gastric by-pass 2004. Hx blood clots - BLE. States was on blood thinners until 2.5 months ago. MHHx: Depression and anxiety. Does not see a MH Provider. States feels like hurting self sometimes. Denies current thoughts of harming self. SHx: Homeless. Unemployed. Denies legal problems. Patient Name: Elly Young Date: 1980 Address: [address] [place] [address] Sex: Female Rx Written Rx Dispensed Drug Quantity Days Supply Prescriber Name 05/02/2018 05/02/2018 suboxone 8 mg-2 mg sl film 7 7 Carole Posada NP, PHD 04/25/2018 04/25/2018 suboxone 8 mg-2 mg sl film 16 8 Carole Posada NP, PHD Patient Name: Elly Young Date: 1980 Address: [address] [place] [address] Sex: Female Rx Written Rx Dispensed Drug Quantity Days Supply Prescriber Name 04/18/2018 04/18/2018 suboxone 8 mg-2 mg sl film 16 8 Carole Posada NP, PHD 04/11/2018 04/11/2018 suboxone 8 mg-2 mg sl film 16 8 Carole Posada NP, PHD Exam Limitations: No Limitations - Ebola screening Have you traveled outside of the country in the last 21 days: No Have you had contact with anyone from an Ebola affected area: No Have you been sick,other than usual withdrawal symptoms: No Do you have a fever: No - Review of Systems Constitutional: Changes in sleep (Difficulty falling and staying asleep) EENT: reports: No Symptoms Reported Respiratory: reports: No Symptoms reported Cardiac: reports: No Symptoms Reported GI: reports: No Symptoms Reported : reports: No Symptoms Reported Musculoskeletal: reports: Back Pain (Intermittent back sharp/achy pain. Triggered by cold, walking too much. Improves w/ rest/relaxation/tylenol. Pain is a "5" now.) Integumentary: reports: No Symptoms Reported Neuro: reports: No Symptoms reported Endocrine: reports: No Symptoms Reported Hematology: reports: Blood Clots (4 months ago - BLE. Was on a blood thinner.) Psychiatric: reports: Orientated x3 (Unsure of exact date. Knows month and year. ), Agitated, Anxious, Depressed (Denies current thoughts of harming self or others.) Patient History - PPD History Previous Implant?: Yes Documented Results: Negative w/proof Implanted On Prior [facility] Admission?: Yes PPD to be Administered?: Yes - Reproductive History Patient is a Female of Child Bearing Age (11 -55 yrs old): Yes Last Menstrual Period: 03/09/19 Patient : No - Smoking Cessation Smoking history: Current every day smoker Have you smoked in the past 12 months: Yes Aproximately how many cigarettes per day: 15 Hx Chewing Tobacco Use: No Initiated information on smoking cessation: Yes 'Breaking Loose' booklet given: 04/05/19 - Substance & Tx. History Hx Alcohol Use: Yes Hx Substance Use: Yes Substance Use Type: Alcohol, Heroin Hx Substance Use Treatment: Yes (detox, rehab, pst suboxone. ) - Substances abused Alcohol Substance route: Oral Frequency: Daily Amount used: too much to even say./ 1 bottle of A&J / 1 beer/I just drink' drink '. Age of first use: 23 Date of last use: 04/05/19 Admission Physical Exam S - Vital Signs Vital Signs: Vital Signs - 24 hr 04/05/19 21:29 Temperature 97.0 F L Pulse Rate 89 Respiratory 16 Rate Blood Pressure 131/84 - Physical General Appearance: Yes: Nourished, Mild Distress, Tremorous, Sweating ( Increased facial moisture), Anxious HEENTM: Yes: EOMI (Jerking movement of eyes upon lateral gaze), Hearing grossly Normal, Normocephalic, Normal Voice, MEME, Pharynx Normal Respiratory: Yes: Lungs Clear (Pulse Ox + 99 %), Normal Breath Sounds, No Respiratory Distress Neck: Yes: No masses,lesions,Nodules, Supple Breast: Yes: Breast Exam Deferred Cardiology: Yes: Regular Rhythm, Regular Rate, S1, S2 Abdominal: Yes: Non Tender, Soft, Increased Bowel Sounds, Protuberent ( Increased abdominal adiposity) Genitourinary: Yes: Within Normal Limits Back: Yes: Normal Inspection Musculoskeletal: Yes: full range of Motion, Gait Steady Extremities: Yes: Normal Capillary Refill (Peripheral pulses +; No calf tenderness. No edema), Tremors Neurological: Yes: enzyme chemist II-XII NML intact (Jerking movement of eyes upon lateral gaze), Alert, Motor Strength 5/5 Integumentary: Yes: Normal Color, Warm, Moist (Increased facial moisture) Lymphatic: Yes: Within Normal Limits - Diagnostic (1) Alcohol dependence with withdrawal, uncomplicated Current Visit: Yes Status: Acute (2) Nicotine dependence, unspecified, uncomplicated Current Visit: Yes Status: Chronic Qualifiers: Nicotine product type: cigarettes Qualified Code(s): F17.210 - Nicotine dependence, cigarettes, uncomplicated (3) Chronic low back pain Current Visit: Yes Status: Chronic Qualifiers: Back pain laterality: midline Sciatica presence: without sciatica Qualified Code(s): M54.5 - Low back pain; G89.29 - Other chronic pain (4) Unspecified nystagmus Current Visit: Yes Status: Acute (5) History of DVT of lower extremity Current Visit: No Status: Chronic Cleared for Admission S - Detox or Rehab [facility] Level of Care: Medically Managed Detox Regimen/Protocol: Librium Claeared for Rehab Admission: No Breathalyzer - Breathalyzer Breathalyzer: 0.124 Urine Drug Screen - Test Device Lot number: [id number] Expiration date: 11/14/20 - Control Is test valid?: Yes - Results Drug screen NEGATIVE: Yes Inpatient Rehab Admission - Rehab Decision to Admit Inpatient rehab admission?: No
[2019-04-05] MEDS ORDERED: MAGNESIUM HYDROX 2400MG/30ML ORAL SUSPENSION 30 ML CUP PO PRN (23:37)
[2019-04-05] MEDS ORDERED: IBUPROFEN 400 MG TABLET (FP) PO PRN (23:37)
[2019-04-05] MEDS ORDERED: METHOCARBAMOL 500 MG TABLET PO PRN (23:37)
[2019-04-05] MEDS ORDERED: NICOTINE POLACRILEX 2 MG GUM BUC PRN (23:37)
[2019-04-05] MEDS ORDERED: MAGNESIUM CITRATE 300 ML BOTTLE PO PRN (23:37)
[2019-04-05] MEDS ORDERED: ACETAMINOPHEN 325 MG TABLET (FP) PO PRN ×2 (23:37)
[2019-04-05] MEDS ORDERED: BISMUTH SUBSALICYLATE 524 MG/30 ML UD PO PRN (23:37)
[2019-04-05] MEDS ORDERED: MAG HYDROX/AL HYDROX/SIMETH 30 ML UNIT-DOSE CUP PO PRN (23:37)
[2019-04-05] MEDS ORDERED: MENTHOL/PHENOL 1 EACH UD MM PRN (23:37)
[2019-04-06] MEDS: chlordiazePOXIDE HCL 25 MG CAPSULE PO SCH ×5 (01:12→22:20)
[2019-04-06] MEDS: MELATONIN 5 MG TABLETS PO PRN ×2 (01:22→22:20)
[2019-04-06 09:30] LABS: HEMATOCRIT 34.1 % (32.4-45.2); HEMOGLOBIN 10.4 GM/dL (10.7-15.3); MCH 22.5 pg (25.7-33.7); MCHC 30.6 g/dl (32.0-36.0); MEAN CELL VOLUME 73.6 fl (80-96); MEAN PLT VOLUME 9.2 fl (7.5-11.1); PLATELET COUNT 275 K/MM3 (134-434); RBC 4.63 M/mm3 (3.60-5.2); RDW 19.3 % (11.6-15.6); WHITE BLOOD COUNT 9.2 K/mm3 (4.0-10.0)
[2019-04-06] MEDS: PRENATAL VITAMINS W/ FOLIC ACID TABLET (FP) PO SCH (10:15)
[2019-04-06] MEDS: NICOTINE 14 MG/24 HOURS TOPICAL PATCH TD SCH (10:15)
[2019-04-06 10:16] LABS: ALBUMIN 3.3 g/dl (3.4-5.0); BILIRUBIN,TOTAL 0.7 mg/dL (0.2-1); CALCIUM 8.6 mg/dL (8.5-10.1); CREATININE 0.7 mg/dL (0.55-1.3); POTASSIUM 4.3 mmol/L (3.5-5.1); TOT PROT 6.3 g/dl (6.4-8.2)
[2019-04-06] MEDS ORDERED: PNEUMOC 13-VAL CONJ-DIP CRM/PF 0.5 ML DISP.SYRIN IM ONE (12:00)
[2019-04-06] MEDS ORDERED: FLU VACCINE QUAD 60 MCG/0.5 ML (MDV 19-20) IM ONE (12:00)
--- NOTE | 2019-04-06 12:04 | PN ---
S CIWA - CIWA Score Nausea/Vomitin-Mild Nausea/No Vomiting Muscle Tremors: 3 Anxiety: 2 Agitation: 2 Paroxysmal Sweats: No Perspiration Orientation: 0-Oriented Tacttile Disturbances: 0-None Auditory Disturbances: 0-None Visual Disturbances: 0-None Headache: 1-Very Mild CIWA-Ar Total Score: 9 [facility] Progress Note (SOAP) Subjective: admitted for alcohol detox O: Vital Signs - 24 hr 04/05/19 04/06/19 04/06/19 21:29 01:27 03:30 Temperature 97.0 F L 97.7 F Pulse Rate 89 82 Respiratory 16 18 16 Rate Blood Pressure 131/84 127/80 04/06/19 04/06/19 07:00 09:41 Temperature 98.1 F 98.2 F Pulse Rate 69 77 Respiratory 18 18 Rate Blood Pressure 116/68 127/80 Laboratory Tests 04/06/19 04/06/19 07:40 07:40 WBC 9.2 RBC 4.63 Hgb 10.4 L Hct 34.1 MCV 73.6 L MCH 22.5 L MCHC 30.6 L RDW 19.3 H Plt Count 275 MPV 9.2 Sodium 139 Potassium 4.3 Chloride 108 H Carbon Dioxide 26 Anion Gap 5 L BUN 14.0 Creatinine 0.7 Est GFR (CKD-EPI)AfAm 125.61 Est GFR (CKD-EPI)NonAf 108.38 Random Glucose 76 Calcium 8.6 Total Bilirubin 0.7 AST 22 ALT 16 Alkaline Phosphatase 84 Total Protein 6.3 L Albumin 3.3 L a/p: AUD- continue detox protocol
[2019-04-06] MEDS: chlordiazePOXIDE HCL 25 MG CAPSULE PO PRN (14:04)
--- NOTE | 2019-04-06 14:36 | EKG ---
Test Reason : Blood Pressure : / mmHG Vent. Rate : 073 BPM Atrial Rate : 073 BPM P-R Int : 134 ms QRS Dur : 092 ms QT Int : 404 ms P-R-T Axes : 053 047 035 degrees QTc Int : 445 ms NORMAL SINUS RHYTHM POSSIBLE LEFT ATRIAL ENLARGEMENT BORDERLINE ECG NO PREVIOUS ECGS AVAILABLE Confirmed by JONNY BENITEZ MD ([id number]) on 04/06/2019 2:35:30 PM Referred By: Confirmed By:JONNY BENITEZ MD
[2019-04-06] MEDS: THIAMINE HCL 100 MG TABLET (FP) PO SCH (22:20)
[2019-04-07] MEDS: chlordiazePOXIDE HCL 25 MG CAPSULE PO SCH ×4 (05:37→22:25)
[2019-04-07] MEDS: PRENATAL VITAMINS W/ FOLIC ACID TABLET (FP) PO SCH (10:09)
[2019-04-07] MEDS: NICOTINE 14 MG/24 HOURS TOPICAL PATCH TD SCH (10:09)
--- NOTE | 2019-04-07 11:04 | PN ---
S CIWA - CIWA Score Nausea/Vomitin-No Nausea/No Vomiting Muscle Tremors: None Anxiety: 3 Agitation: 1-Slight > Activity Paroxysmal Sweats: 3 Orientation: 0-Oriented Tacttile Disturbances: 0-None Auditory Disturbances: 0-None Visual Disturbances: 0-None Headache: 1-Very Mild CIWA-Ar Total Score: 8 [facility] Progress Note (SOAP) Subjective: c/o sweats, anxiety, and headache. Objective: 04/07/19 11:00 Vital Signs 04/07/19 04/07/19 04/07/19 03:30 05:54 09:50 Temperature 97.9 F 97.7 F Pulse Rate 67 83 Respiratory 18 18 16 Rate Blood Pressure 101/53 L 126/74 Laboratory Last Values WBC 9.2 K/mm3 (4.0-10.0) 04/06/19 07:40 RBC 4.63 M/mm3 (3.60-5.2) 04/06/19 07:40 Hgb 10.4 GM/dL (10.7-15.3) L 04/06/19 07:40 Hct 34.1 % (32.4-45.2) 04/06/19 07:40 MCV 73.6 fl (80-96) L 04/06/19 07:40 MCH 22.5 pg (25.7-33.7) L 04/06/19 07:40 MCHC 30.6 g/dl (32.0-36.0) L 04/06/19 07:40 RDW 19.3 % (11.6-15.6) H 04/06/19 07:40 Plt Count 275 K/MM3 (134-434) 04/06/19 07:40 MPV 9.2 fl (7.5-11.1) 04/06/19 07:40 Sodium 139 mmol/L (136-145) 04/06/19 07:40 Potassium 4.3 mmol/L (3.5-5.1) 04/06/19 07:40 Chloride 108 mmol/L (98-107) H 04/06/19 07:40 Carbon Dioxide 26 mmol/L (21-32) 04/06/19 07:40 Anion Gap 5 MMOL/L (8-16) L 04/06/19 07:40 BUN 14.0 mg/dL (7-18) 04/06/19 07:40 Creatinine 0.7 mg/dL (0.55-1.3) 04/06/19 07:40 Est GFR (CKD-EPI)AfAm 125.61 04/06/19 07:40 Est GFR (CKD-EPI)NonAf 108.38 04/06/19 07:40 Random Glucose 76 mg/dL (74-106) 04/06/19 07:40 Calcium 8.6 mg/dL (8.5-10.1) 04/06/19 07:40 Total Bilirubin 0.7 mg/dL (0.2-1) 04/06/19 07:40 AST 22 U/L (15-37) 04/06/19 07:40 ALT 16 U/L (13-61) 04/06/19 07:40 Alkaline Phosphatase 84 U/L (45-117) 04/06/19 07:40 Total Protein 6.3 g/dl (6.4-8.2) L 04/06/19 07:40 Albumin 3.3 g/dl (3.4-5.0) L 04/06/19 07:40 RPR Titer Nonreactive (NONREACTIVE) 04/06/19 07:40 HIV 1&2 Antibody Screen Negative 04/06/19 07:40 HIV P24 Antigen Negative 04/06/19 07:40 Labs noted with low Hgb 04/07/19 11:02 Assessment: 04/07/19 11:01 AOX3, in no acute respiratory distress. Full ROM, ambulating in the unit. Withdrawal symptoms Anemia. 04/07/19 11:02 Plan: continue detox. Ferrous sulfate 325mg po 2times daily.
[2019-04-07] MEDS: chlordiazePOXIDE HCL 25 MG CAPSULE PO PRN (13:45)
[2019-04-07] MEDS: FERROUS SO4 325 MG TABLET (FP) PO SCH (17:24)
[2019-04-07] MEDS: THIAMINE HCL 100 MG TABLET (FP) PO SCH (22:25)
[2019-04-07] MEDS: MELATONIN 5 MG TABLETS PO PRN (22:27)
[2019-04-08] MEDS ORDERED: chlordiazePOXIDE HCL 10 MG CAPSULE PO PRN
[2019-04-08] MEDS: chlordiazePOXIDE HCL 10 MG CAPSULE PO SCH ×4 (05:34→22:04)
[2019-04-08] MEDS: FERROUS SO4 325 MG TABLET (FP) PO SCH ×2 (09:00→16:54)
[2019-04-08] MEDS: PRENATAL VITAMINS W/ FOLIC ACID TABLET (FP) PO SCH (10:29)
[2019-04-08] MEDS: NICOTINE 14 MG/24 HOURS TOPICAL PATCH TD SCH (10:34)
--- NOTE | 2019-04-08 10:36 | PN ---
[facility] CIWA - CIWA Score Nausea/Vomitin Muscle Tremors: 1-None Visible, but [place] Anxiety: 2 Agitation: 2 Paroxysmal Sweats: No Perspiration Orientation: 0-Oriented Tacttile Disturbances: 1-Very Mild Itch/Numbness Auditory Disturbances: 0-None Visual Disturbances: 0-None Headache: 1-Very Mild CIWA-Ar Total Score: 9 S Progress Note (SOAP) Subjective: alert,irritable,anxious,interrupted sleep Objective: 04/08/19 10:38 Vital Signs Temperature 98.2 F 04/08/19 06:00 Pulse Rate 85 04/08/19 06:00 Respiratory Rate 18 04/08/19 06:00 Blood Pressure 116/60 04/08/19 06:00 O2 Sat by Pulse Oximetry (%) Assessment: 04/08/19 10:39 withdrawal symptom Plan: continue detox librium regimen
--- NOTE | 2019-04-08 11:04 | PN ---
[facility] Progress Note Note: patient was found in room 669 with other male client [facility],conference called,Ivonne Bardales nursing [employer] supervisor,[employer]urities,counselor Karma Snell present,[employer] on rule and regulation patient was contracted, continue detox librium regimen and close monitoring patient has no complaint,consensual presentation
[2019-04-08] MEDS: THIAMINE HCL 100 MG TABLET (FP) PO SCH (22:04)
[2019-04-08] MEDS: MELATONIN 5 MG TABLETS PO PRN (22:04)
[2019-04-09] MEDS: chlordiazePOXIDE HCL 10 MG CAPSULE PO SCH ×2 (05:05→17:51)
[2019-04-09] MEDS: FERROUS SO4 325 MG TABLET (FP) PO SCH ×2 (07:06→17:51)
--- NOTE | 2019-04-09 09:30 | PN ---
S CIWA - CIWA Score Nausea/Vomitin-No Nausea/No Vomiting Muscle Tremors: None Anxiety: 2 Agitation: 0-Normal Activity Paroxysmal Sweats: 2 Orientation: 0-Oriented Tacttile Disturbances: 0-None Auditory Disturbances: 0-None Visual Disturbances: 0-None Headache: 0-None Present CIWA-Ar Total Score: 4 [facility] Progress Note (SOAP) Subjective: c/o mild anxiety and sweats. Objective: 04/09/19 09:28 Vital Signs 04/09/19 04/09/19 04/09/19 03:30 05:55 09:21 Temperature 98.1 F 97.3 F L Pulse Rate 72 85 Respiratory 18 18 20 Rate Blood Pressure 104/62 126/70 Assessment: 04/09/19 09:29 AOX3, in no acute respiratory distress. Full ROM, ambulating in the unit. Mild Withdrawal symptoms. For d/c tomorrow. Plan: continue detox. D/C in AM.
[2019-04-09] MEDS: NICOTINE 14 MG/24 HOURS TOPICAL PATCH TD SCH (10:08)
[2019-04-09] MEDS: PRENATAL VITAMINS W/ FOLIC ACID TABLET (FP) PO SCH (10:08)
[2019-04-09 10:39] LABS: URINE APPEARANCE CLEAR; URINE BILIRUBIN NEGATIVE (NEGATIVE); URINE COLOR YELLOW; URINE GLUCOSE (UA) NEGATIVE (NEGATIVE); URINE KETONE TRACE (NEGATIVE); URINE LEUK ESTERASE NEGATIVE (NEGATIVE); URINE NITRITE NEGATIVE (NEGATIVE); URINE PROTEIN NEGATIVE (NEGATIVE)
[2019-04-09] MEDS: THIAMINE HCL 100 MG TABLET (FP) PO SCH (21:17)
[2019-04-09] MEDS ORDERED: hydrOXYzine PAMOATE 50 MG CAPSULE (FP) PO ONE (23:00)
[2019-04-10] MEDS ORDERED: chlordiazePOXIDE HCL 10 MG CAPSULE PO ONE (05:00)
[2019-04-10] MEDS: FERROUS SO4 325 MG TABLET (FP) PO SCH (07:27)
--- NOTE | 2019-04-10 09:58 | PN ---
[facility] CIWA - CIWA Score Nausea/Vomitin-No Nausea/No Vomiting Muscle Tremors: 1-None Visible, but [place] Anxiety: 1-Mildly Anxious Agitation: 1-Slight > Activity Paroxysmal Sweats: 1-Minimal Palms Moist Orientation: 0-Oriented Tacttile Disturbances: 0-None Auditory Disturbances: 0-None Visual Disturbances: 0-None Headache: 0-None Present CIWA-Ar Total Score: 4 [facility] Progress Note (SOAP) Subjective: restless agitation Objective: 04/10/19 09:57 Vital Signs Temperature 96.8 F L 04/10/19 09:15 Pulse Rate 81 04/10/19 09:15 Respiratory Rate 18 04/10/19 09:15 Blood Pressure 121/64 04/10/19 09:15 O2 Sat by Pulse Oximetry (%) aaox3 ambulating no acute distress Assessment: 04/10/19 09:57 mild withdrawals Plan: d/c in am
[2019-04-10] MEDS: PRENATAL VITAMINS W/ FOLIC ACID TABLET (FP) PO SCH (10:19)
[2019-04-10] MEDS: NICOTINE 14 MG/24 HOURS TOPICAL PATCH TD SCH (10:19)
[2019-04-10 13:16] VITALS: BP 117/68; PULSE 69; TEMP 98.2
== END 2019-04-10 12:54 | disposition other institution (70) | DRG 775 ==
LOC: YASAS 20:53 → Y6N 23:47 → MERGE 23:47
PROVIDERS: ADMIT Allergy & Immunology; ATTEND Allergy & Immunology
PROC: HZ2ZZZZ Detoxification Services for Substance Abuse Treatment (ICD-10-PCS; principal; 2019-04-05)
DX: F10.230 Alcohol dependence with withdrawal, uncomplicated (principal); F17.210 Nicotine dependence, cigarettes, uncomplicated; D64.9 Anemia, unspecified; M54.5 Low back pain; G89.29 Other chronic pain; H55.00 Unspecified nystagmus; Z98.84 Bariatric surgery status; Z86.718 Personal history of other venous thrombosis and embolism; Z88.1 Allergy status to other antibiotic agents; Z56.0 Unemployment, unspecified; Z59.0 Homelessness
CPT/HCPCS: 36415; 80053; 81003; 81025; 85027; 86593; 87389; 90670; 93005; 93010; G0008; G0009; Q2036

== ENCOUNTER 2019-04-10 12:56 | Inpatient (IN) | payer OTHER ==
[2019-04-10] MEDS ORDERED: guaiFENesin 200 MG/10 ML 10 ML UNIT-DOSE CUPS PO PRN (14:29)
[2019-04-10] MEDS ORDERED: MAGNESIUM CITRATE 300 ML BOTTLE PO PRN (14:29)
[2019-04-10] MEDS ORDERED: NICOTINE POLACRILEX 2 MG GUM BUC PRN (14:29)
[2019-04-10] MEDS ORDERED: MAGNESIUM HYDROX 2400MG/30ML ORAL SUSPENSION 30 ML CUP PO PRN (14:29)
[2019-04-10] MEDS ORDERED: LOPERAMIDE HCL 2 MG CAPSULE PO PRN (14:29)
[2019-04-10] MEDS ORDERED: P-EPHED 60MG/TRIPROLIDI 2.5MG TABLET PO PRN (14:29)
[2019-04-10] MEDS ORDERED: MENTHOL/PHENOL 1 EACH UD MM PRN (14:29)
[2019-04-10] MEDS ORDERED: MAG HYDROX/AL HYDROX/SIMETH 30 ML UNIT-DOSE CUP PO PRN (14:29)
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
[2019-04-10] MEDS: FERROUS SO4 325 MG TABLET (FP) PO SCH (17:50)
[2019-04-10] MEDS: METHOCARBAMOL 500 MG TABLET PO SCH ×2 (17:50→21:07)
[2019-04-10] MEDS: THIAMINE HCL 100 MG TABLET (FP) PO SCH (21:07)
[2019-04-10] MEDS: MELATONIN 5 MG TABLETS PO PRN (21:08)
[2019-04-10] MEDS ORDERED: MELATONIN 5 MG TABLETS PO PRN (22:00)
[2019-04-10] MEDS: hydrOXYzine PAMOATE 50 MG CAPSULE (FP) PO PRN (22:46)
[2019-04-10] MEDS: IBUPROFEN 400 MG TABLET (FP) PO PRN (23:54)
[2019-04-11] MEDS: FERROUS SO4 325 MG TABLET (FP) PO SCH ×2 (07:56→19:00)
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
[2019-04-11] MEDS: PRENATAL VITAMINS W/ FOLIC ACID TABLET (FP) PO SCH (10:06)
[2019-04-11] MEDS: NICOTINE 14 MG/24 HOURS TOPICAL PATCH TD SCH (10:06)
[2019-04-11] MEDS: METHOCARBAMOL 500 MG TABLET PO SCH ×4 (10:06→21:33)
[2019-04-11] MEDS: IBUPROFEN 400 MG TABLET (FP) PO PRN (14:26)
[2019-04-11] MEDS: ACETAMINOPHEN 325 MG TABLET (FP) PO PRN (21:32)
[2019-04-11] MEDS: SUVOREXANT 10 MG TABLET PO PRN (21:33)
[2019-04-11] MEDS: THIAMINE HCL 100 MG TABLET (FP) PO SCH (21:34)
[2019-04-12] MEDS: IBUPROFEN 400 MG TABLET (FP) PO PRN (00:34)
[2019-04-12] MEDS: ACETAMINOPHEN 325 MG TABLET (FP) PO PRN ×3 (05:53→19:51)
[2019-04-12] MEDS ORDERED: LIDOCAINE VISCOUS 2% ORAL/TOP 20 ML UNIT-DOSE CUP MM ONE (07:06)
--- NOTE | 2019-04-12 07:12 | PN ---
[facility] Progress Note Note: Patient complained of toothache Vital Signs Temperature 97.4 F L 04/11/19 06:47 Pulse Rate 78 04/11/19 06:47 Respiratory Rate 18 04/12/19 03:30 Blood Pressure 119/79 04/11/19 06:47 O2 Sat by Pulse Oximetry (%) Action: Lidocaine 2% viscous oral 20 ml MM (Cylocaine 2% viscous oral) ordered
[2019-04-12] MEDS: FERROUS SO4 325 MG TABLET (FP) PO SCH ×2 (08:13→17:43)
[2019-04-12] MEDS: METHOCARBAMOL 500 MG TABLET PO SCH ×4 (10:30→21:28)
[2019-04-12] MEDS: NICOTINE 14 MG/24 HOURS TOPICAL PATCH TD SCH (10:30)
[2019-04-12] MEDS: PRENATAL VITAMINS W/ FOLIC ACID TABLET (FP) PO SCH (10:30)
[2019-04-12] MEDS: IBUPROFEN 600 MG TABLET (FP) PO PRN ×2 (12:03→17:43)
[2019-04-12] MEDS: MAG HYDROX/ALH/SMC/DPHA/LIDO 240 ML MOUTHWASH MM SCH ×2 (12:59→17:44)
[2019-04-12] MEDS: THIAMINE HCL 100 MG TABLET (FP) PO SCH (21:28)
[2019-04-12] MEDS: SUVOREXANT 10 MG TABLET PO PRN (21:28)
[2019-04-12] MEDS: hydrOXYzine PAMOATE 50 MG CAPSULE (FP) PO PRN (21:29)
[2019-04-13] MEDS: MAG HYDROX/ALH/SMC/DPHA/LIDO 240 ML MOUTHWASH MM SCH ×4 (00:53→17:52)
[2019-04-13] MEDS: MELATONIN 5 MG TABLETS PO PRN ×2 (01:03→21:49)
[2019-04-13] MEDS: IBUPROFEN 600 MG TABLET (FP) PO PRN ×4 (01:03→22:31)
[2019-04-13] MEDS: FERROUS SO4 325 MG TABLET (FP) PO SCH ×2 (07:58→17:51)
[2019-04-13] MEDS: METHOCARBAMOL 500 MG TABLET PO SCH ×4 (09:17→21:48)
[2019-04-13] MEDS: PRENATAL VITAMINS W/ FOLIC ACID TABLET (FP) PO SCH (09:17)
[2019-04-13] MEDS: NICOTINE 14 MG/24 HOURS TOPICAL PATCH TD SCH (09:17)
[2019-04-13] MEDS ORDERED: PT OWN MED DRAWER 7, Y5N ONE (17:48)
[2019-04-13] MEDS: THIAMINE HCL 100 MG TABLET (FP) PO SCH (21:49)
[2019-04-14] MEDS: MAG HYDROX/ALH/SMC/DPHA/LIDO 240 ML MOUTHWASH MM SCH ×5 (01:16→23:03)
[2019-04-14] MEDS: IBUPROFEN 600 MG TABLET (FP) PO PRN ×2 (06:20→12:47)
[2019-04-14] MEDS ORDERED: PT OWN MED DRAWER 7, Y5N ONE (06:37)
[2019-04-14] MEDS: FERROUS SO4 325 MG TABLET (FP) PO SCH ×2 (08:15→16:52)
[2019-04-14] MEDS: PRENATAL VITAMINS W/ FOLIC ACID TABLET (FP) PO SCH (10:02)
[2019-04-14] MEDS: METHOCARBAMOL 500 MG TABLET PO SCH ×4 (10:02→21:17)
[2019-04-14] MEDS: NICOTINE 14 MG/24 HOURS TOPICAL PATCH TD SCH (10:02)
--- NOTE | 2019-04-14 12:02 | PN ---
[facility] Progress Note Note: Psychiatric nurse practitioner: Kaushala 10mg renewed X3 days. Verbal consent given.
[2019-04-14] MEDS: ACETAMINOPHEN 325 MG TABLET (FP) PO PRN ×2 (16:53→21:17)
[2019-04-14] MEDS: THIAMINE HCL 100 MG TABLET (FP) PO SCH (21:17)
[2019-04-14] MEDS ORDERED: SUVOREXANT 10 MG TABLET PO PRN (22:00)
[2019-04-15] MEDS: MELATONIN 5 MG TABLETS PO PRN ×2 (00:02→21:25)
[2019-04-15] MEDS: IBUPROFEN 600 MG TABLET (FP) PO PRN ×2 (01:16→10:16)
[2019-04-15] MEDS: MAG HYDROX/ALH/SMC/DPHA/LIDO 240 ML MOUTHWASH MM SCH ×3 (06:35→18:25)
[2019-04-15] MEDS: FERROUS SO4 325 MG TABLET (FP) PO SCH ×2 (08:35→18:24)
[2019-04-15] MEDS: PRENATAL VITAMINS W/ FOLIC ACID TABLET (FP) PO SCH (10:14)
[2019-04-15] MEDS: METHOCARBAMOL 500 MG TABLET PO SCH ×4 (10:14→21:25)
[2019-04-15] MEDS: NICOTINE 14 MG/24 HOURS TOPICAL PATCH TD SCH (10:17)
[2019-04-15] MEDS: THIAMINE HCL 100 MG TABLET (FP) PO SCH (21:24)
[2019-04-15] MEDS: hydrOXYzine PAMOATE 50 MG CAPSULE (FP) PO PRN (21:25)
[2019-04-16] MEDS: MAG HYDROX/ALH/SMC/DPHA/LIDO 240 ML MOUTHWASH MM SCH ×4 (00:30→18:30)
[2019-04-16] MEDS: IBUPROFEN 600 MG TABLET (FP) PO PRN ×3 (01:41→22:22)
[2019-04-16] MEDS ORDERED: PT OWN MED DRAWER 7, Y5N ONE (05:58)
[2019-04-16] MEDS: FERROUS SO4 325 MG TABLET (FP) PO SCH ×2 (07:46→16:55)
[2019-04-16] MEDS: NICOTINE 14 MG/24 HOURS TOPICAL PATCH TD SCH (10:15)
[2019-04-16] MEDS: PRENATAL VITAMINS W/ FOLIC ACID TABLET (FP) PO SCH (10:15)
[2019-04-16] MEDS: METHOCARBAMOL 500 MG TABLET PO SCH ×5 (10:15→21:31)
[2019-04-16] MEDS: THIAMINE HCL 100 MG TABLET (FP) PO SCH (21:31)
[2019-04-16] MEDS: MELATONIN 5 MG TABLETS PO PRN (21:31)
[2019-04-17] MEDS: MAG HYDROX/ALH/SMC/DPHA/LIDO 240 ML MOUTHWASH MM SCH ×4 (00:26→17:06)
[2019-04-17] MEDS: ACETAMINOPHEN 325 MG TABLET (FP) PO PRN ×2 (01:20→17:09)
[2019-04-17] MEDS: IBUPROFEN 600 MG TABLET (FP) PO PRN (06:25)
[2019-04-17] MEDS: FERROUS SO4 325 MG TABLET (FP) PO SCH ×2 (07:31→17:06)
[2019-04-17] MEDS: METHOCARBAMOL 500 MG TABLET PO SCH ×4 (09:55→21:09)
[2019-04-17] MEDS: NICOTINE 14 MG/24 HOURS TOPICAL PATCH TD SCH (09:55)
[2019-04-17] MEDS: PRENATAL VITAMINS W/ FOLIC ACID TABLET (FP) PO SCH (09:55)
[2019-04-17] MEDS ORDERED: PT OWN MED DRAWER 7, Y5N ONE ×2 (10:01→22:52)
--- NOTE | 2019-04-17 15:21 | PN ---
S Progress Note Note: Patient c/o toothache. Patient denies sore throat, earache and headache. Vital Signs Temperature 97.7 F 04/17/19 07:06 Pulse Rate 84 04/17/19 07:06 Respiratory Rate 18 04/17/19 07:06 Blood Pressure 145/93 04/17/19 07:06 O2 Sat by Pulse Oximetry (%) PE: alert and oriented x 3 skin warm and dry +perrla, eoms intact mouth + tooth decay and missing teeth no exudate/redness of gums noted A/P: toothache tooth decay will change ibuprofen to 800mg tid order anbesol prn pt advised to follow up with dentist upon discharge monitor clinically
[2019-04-17] MEDS: MELATONIN 5 MG TABLETS PO PRN (21:09)
[2019-04-17] MEDS: hydrOXYzine PAMOATE 50 MG CAPSULE (FP) PO PRN (21:09)
[2019-04-17] MEDS: THIAMINE HCL 100 MG TABLET (FP) PO SCH (21:09)
[2019-04-17] MEDS: SUVOREXANT 10 MG TABLET PO PRN (21:11)
[2019-04-17] MEDS: IBUPROFEN 400 MG TABLET (FP) PO SCH (21:11)
[2019-04-18] MEDS: MAG HYDROX/ALH/SMC/DPHA/LIDO 240 ML MOUTHWASH MM SCH ×4 (00:09→18:10)
[2019-04-18] MEDS: IBUPROFEN 400 MG TABLET (FP) PO SCH ×3 (06:32→21:08)
[2019-04-18] MEDS: BENZOCAINE 20 % GEL TUBE MM PRN (06:33)
[2019-04-18] MEDS: FERROUS SO4 325 MG TABLET (FP) PO SCH ×2 (07:51→17:57)
[2019-04-18] MEDS: NICOTINE 14 MG/24 HOURS TOPICAL PATCH TD SCH (10:12)
[2019-04-18] MEDS: METHOCARBAMOL 500 MG TABLET PO SCH ×4 (10:12→21:08)
[2019-04-18] MEDS: PRENATAL VITAMINS W/ FOLIC ACID TABLET (FP) PO SCH (10:12)
[2019-04-18] MEDS: THIAMINE HCL 100 MG TABLET (FP) PO SCH (21:08)
[2019-04-18] MEDS: hydrOXYzine PAMOATE 50 MG CAPSULE (FP) PO PRN (21:08)
[2019-04-18] MEDS: MELATONIN 5 MG TABLETS PO PRN (21:09)
[2019-04-18] MEDS: SUVOREXANT 10 MG TABLET PO PRN (21:10)
[2019-04-19] MEDS: MAG HYDROX/ALH/SMC/DPHA/LIDO 240 ML MOUTHWASH MM SCH ×5 (00:01→23:14)
[2019-04-19] MEDS ORDERED: PT OWN MED DRAWER 7, Y5N ONE ×3 (06:19→23:40)
[2019-04-19] MEDS: IBUPROFEN 400 MG TABLET (FP) PO SCH ×3 (06:20→21:23)
[2019-04-19] MEDS: FERROUS SO4 325 MG TABLET (FP) PO SCH ×2 (08:10→17:56)
[2019-04-19] MEDS: METHOCARBAMOL 500 MG TABLET PO SCH ×4 (09:50→21:23)
[2019-04-19] MEDS: NICOTINE 14 MG/24 HOURS TOPICAL PATCH TD SCH (09:50)
[2019-04-19] MEDS: PRENATAL VITAMINS W/ FOLIC ACID TABLET (FP) PO SCH (09:50)
[2019-04-19] MEDS: ACETAMINOPHEN 325 MG TABLET (FP) PO PRN ×2 (09:51→17:57)
[2019-04-19] MEDS: THIAMINE HCL 100 MG TABLET (FP) PO SCH (21:23)
[2019-04-19] MEDS: hydrOXYzine PAMOATE 50 MG CAPSULE (FP) PO PRN (21:23)
[2019-04-19] MEDS: SUVOREXANT 10 MG TABLET PO PRN (21:23)
[2019-04-19] MEDS: MELATONIN 5 MG TABLETS PO PRN (21:24)
[2019-04-19] MEDS: BENZOCAINE 20 % GEL TUBE MM PRN (23:39)
[2019-04-20] MEDS: ACETAMINOPHEN 325 MG TABLET (FP) PO PRN (04:09)
[2019-04-20] MEDS: IBUPROFEN 400 MG TABLET (FP) PO SCH ×3 (05:45→21:31)
[2019-04-20] MEDS: MAG HYDROX/ALH/SMC/DPHA/LIDO 240 ML MOUTHWASH MM SCH ×3 (07:03→17:57)
[2019-04-20] MEDS: FERROUS SO4 325 MG TABLET (FP) PO SCH ×2 (08:25→17:57)
[2019-04-20] MEDS: NICOTINE 14 MG/24 HOURS TOPICAL PATCH TD SCH (11:00)
[2019-04-20] MEDS: METHOCARBAMOL 500 MG TABLET PO SCH ×4 (11:00→21:31)
[2019-04-20] MEDS: PRENATAL VITAMINS W/ FOLIC ACID TABLET (FP) PO SCH (11:00)
[2019-04-20] MEDS ORDERED: PT OWN MED DRAWER 7, Y5N ONE (19:55)
[2019-04-20] MEDS: hydrOXYzine PAMOATE 50 MG CAPSULE (FP) PO PRN (21:31)
[2019-04-20] MEDS: THIAMINE HCL 100 MG TABLET (FP) PO SCH (21:31)
[2019-04-20] MEDS: SUVOREXANT 10 MG TABLET PO PRN (21:33)
[2019-04-20] MEDS: MELATONIN 5 MG TABLETS PO PRN (21:33)
[2019-04-21] MEDS: MAG HYDROX/ALH/SMC/DPHA/LIDO 240 ML MOUTHWASH MM SCH ×4 (00:15→18:20)
[2019-04-21] MEDS: BENZOCAINE 20 % GEL TUBE MM PRN (04:07)
[2019-04-21] MEDS ORDERED: PT OWN MED DRAWER 7, Y5N ONE ×2 (04:07→07:57)
[2019-04-21] MEDS: ACETAMINOPHEN 325 MG TABLET (FP) PO PRN ×2 (04:07→10:26)
[2019-04-21] MEDS: IBUPROFEN 400 MG TABLET (FP) PO SCH ×3 (06:45→21:26)
[2019-04-21] MEDS: FERROUS SO4 325 MG TABLET (FP) PO SCH ×2 (07:55→17:30)
[2019-04-21] MEDS: METHOCARBAMOL 500 MG TABLET PO SCH ×4 (10:24→21:26)
[2019-04-21] MEDS: PRENATAL VITAMINS W/ FOLIC ACID TABLET (FP) PO SCH (10:24)
[2019-04-21] MEDS: NICOTINE 14 MG/24 HOURS TOPICAL PATCH TD SCH (10:25)
[2019-04-21] MEDS: MELATONIN 5 MG TABLETS PO PRN (21:27)
[2019-04-21] MEDS: hydrOXYzine PAMOATE 50 MG CAPSULE (FP) PO PRN (21:29)
[2019-04-21] MEDS: THIAMINE HCL 100 MG TABLET (FP) PO SCH (21:30)
[2019-04-22] MEDS: MAG HYDROX/ALH/SMC/DPHA/LIDO 240 ML MOUTHWASH MM SCH ×4 (00:25→18:12)
[2019-04-22] MEDS ORDERED: SUVOREXANT 10 MG TABLET PO ONE (00:47)
[2019-04-22] MEDS: IBUPROFEN 400 MG TABLET (FP) PO SCH ×3 (06:19→21:53)
[2019-04-22] MEDS: FERROUS SO4 325 MG TABLET (FP) PO SCH ×2 (07:46→18:11)
[2019-04-22] MEDS: NICOTINE 14 MG/24 HOURS TOPICAL PATCH TD SCH (09:06)
[2019-04-22] MEDS: PRENATAL VITAMINS W/ FOLIC ACID TABLET (FP) PO SCH (09:07)
[2019-04-22] MEDS: METHOCARBAMOL 500 MG TABLET PO SCH ×4 (09:07→21:53)
[2019-04-22] MEDS ORDERED: SUVOREXANT 10 MG TABLET PO PRN (15:09)
[2019-04-22] MEDS: hydrOXYzine PAMOATE 50 MG CAPSULE (FP) PO PRN (21:53)
[2019-04-22] MEDS: THIAMINE HCL 100 MG TABLET (FP) PO SCH (21:53)
[2019-04-22] MEDS: MELATONIN 5 MG TABLETS PO PRN (21:53)
[2019-04-23] MEDS: MAG HYDROX/ALH/SMC/DPHA/LIDO 240 ML MOUTHWASH MM SCH ×4 (00:31→22:28)
[2019-04-23] MEDS: ACETAMINOPHEN 325 MG TABLET (FP) PO PRN ×2 (03:35→09:50)
[2019-04-23] MEDS: IBUPROFEN 400 MG TABLET (FP) PO SCH ×3 (06:32→21:38)
[2019-04-23] MEDS: FERROUS SO4 325 MG TABLET (FP) PO SCH ×2 (07:23→21:38)
[2019-04-23] MEDS: NICOTINE 14 MG/24 HOURS TOPICAL PATCH TD SCH (09:49)
[2019-04-23] MEDS: PRENATAL VITAMINS W/ FOLIC ACID TABLET (FP) PO SCH (09:49)
[2019-04-23] MEDS: METHOCARBAMOL 500 MG TABLET PO SCH ×4 (09:49→22:29)
[2019-04-23] MEDS: hydrOXYzine PAMOATE 50 MG CAPSULE (FP) PO PRN (21:39)
[2019-04-23] MEDS: MELATONIN 5 MG TABLETS PO PRN (21:39)
[2019-04-23] MEDS: THIAMINE HCL 100 MG TABLET (FP) PO SCH (22:29)
[2019-04-24] MEDS: MAG HYDROX/ALH/SMC/DPHA/LIDO 240 ML MOUTHWASH MM SCH ×2 (00:50→07:34)
[2019-04-24] MEDS: ACETAMINOPHEN 325 MG TABLET (FP) PO PRN (03:28)
[2019-04-24 07:34] VITALS: BP 147/87; PULSE 68; TEMP 97
[2019-04-24] MEDS: IBUPROFEN 400 MG TABLET (FP) PO SCH (07:39)
[2019-04-24] MEDS: FERROUS SO4 325 MG TABLET (FP) PO SCH (07:40)
--- NOTE | 2019-04-24 08:50 | DS ---
[facility] Rehab Discharge Summary - [facility] Rehab Discharge Summary Admission Date: 04/10/19 Discharge Date: 04/24/19 - History Present History: Alcohol dependence, Cannabis dependence, Opioid dependence Additional Comments: Pt is a 39 y/o female with a hx of SHIRLEY admitted to rehab and discharging today. Pt reports she has a PCP Dr. Power dubose on [address] [place] [address] and has been referred to [facility] for CD aftercare to follow up. Pertinent Past History: Anemia Hx DVT(not on med) Vaso Vegal Episode Gastric bypass sx Mood and sleep disorder. - Discharge Physical Exam Vital Signs: Vital Signs Temperature 97.0 F L 04/24/19 07:33 Pulse Rate 68 04/24/19 07:33 Respiratory Rate 18 04/24/19 07:33 Blood Pressure 147/87 04/24/19 07:33 O2 Sat by Pulse Oximetry (%) Alert o x 3;denies s/h/i nad oob with steady gait cardiac:s1 s2,rrr lungs:cta,patricia. abdomen:soft,+bs,nt,+fatty extremities/skin:no edema;skin intact. Pertinent Admission Physical Exam Findings: Status unchanged - Treatment Discharge Condition: Discharge condition good Hospital Course: Rehabilitated safely Pt was in detox from 04/05 to 04/10/19 and referred to rehab on 04/10/19. - Medication Discharge Medications: Ambulatory Orders Ferrous Sulfate 325 mg PO BID 04/10/19 - Medication-Assisted Treatment (MAT) Medication-Assisted Treatment (MAT): No - Discharge Instructions Diet, activity, other medical instructions: Diet:Regular Activity: oob ad angelina Other medical instructions:follow up with CD aftercare at [facility] as scheduled. Make appointment with PCP Dr. Power Dubose - Diagnosis (1) Alcohol dependence Status: Chronic Qualifiers: Substance use status: uncomplicated Qualified Code(s): F10.20 - Alcohol dependence, uncomplicated (2) Anemia Status: Chronic Qualifiers: Anemia type: iron deficiency (3) Opiate dependence Status: Chronic Qualifiers: Substance use status: uncomplicated Qualified Code(s): F11.20 - Opioid dependence, uncomplicated (4) Cannabis dependence Status: Chronic (5) Chronic low back pain Status: Chronic Qualifiers: Back pain laterality: midline Sciatica presence: without sciatica Qualified Code(s): M54.5 - Low back pain; G89.29 - Other chronic pain (6) Nicotine dependence Status: Chronic Qualifiers: Nicotine product type: cigarettes Substance use status: uncomplicated Qualified Code(s): F17.210 - Nicotine dependence, cigarettes, uncomplicated (7) History of DVT of lower extremity Status: Resolved (8) History of gastric bypass Status: Resolved - Follow-up Referral Minutes to complete discharge: 20 - AMA Did Patient Leave Against Medical Advice: No
[2019-04-24] MEDS: METHOCARBAMOL 500 MG TABLET PO SCH (09:33)
[2019-04-24] MEDS: NICOTINE 14 MG/24 HOURS TOPICAL PATCH TD SCH (09:33)
[2019-04-24] MEDS: PRENATAL VITAMINS W/ FOLIC ACID TABLET (FP) PO SCH (09:33)
== END 2019-04-24 09:50 | disposition home or self-care (01) | DRG 772 ==
LOC: YASAS 12:56 → Y3E 12:57
PROVIDERS: ADMIT Neuromusculoskeletal Medicine & OMM; ATTEND Neuromusculoskeletal Medicine & OMM
PROC: HZ42ZZZ Group Counseling for Substance Abuse Treatment, Cognitive-Behavioral (ICD-10-PCS; principal; 2019-04-10)
DX: F10.20 Alcohol dependence, uncomplicated (principal); F11.20 Opioid dependence, uncomplicated; F12.20 Cannabis dependence, uncomplicated; F10.24 Alcohol dependence with alcohol-induced mood disorder; F10.282 Alcohol dependence with alcohol-induced sleep disorder; D50.9 Iron deficiency anemia, unspecified; K08.89 Other specified disorders of teeth and supporting structures; K02.9 Dental caries, unspecified; M54.5 Low back pain; G89.29 Other chronic pain; Z86.718 Personal history of other venous thrombosis and embolism; Z98.84 Bariatric surgery status

== ENCOUNTER 2019-10-12 12:55 | Emergency (ER) | payer OTHER ==
[2019-10-12 13:09] VITALS: TEMP 97.8; BMI 32.3
[2019-10-12] MEDS ORDERED: levETIRAcetam 500 MG/5 ML INJECTION VIAL IVPB ONE (13:50)
[2019-10-12 14:02] LABS: BASO % 0.7 % (0-2.0); EOS % 1.1 % (0-4.5); HEMATOCRIT 40.9 % (32.4-45.2); HEMOGLOBIN 13.3 GM/dL (10.7-15.3); LYMPH % 33.6 % (8-40); MCH 30.3 pg (25.7-33.7); MCHC 32.6 g/dl (32.0-36.0); MEAN CELL VOLUME 93.1 fl (80-96); MEAN PLT VOLUME 8.8 fl (7.5-11.1); MONO % 9.5 % (3.8-10.2); NEUT % 55.1 % (42.8-82.8); PLATELET COUNT 130 K/MM3 (134-434); RBC 4.39 M/mm3 (3.60-5.2); RDW 16.2 % (11.6-15.6); WHITE BLOOD COUNT 5.8 K/mm3 (4.0-10.0)
[2019-10-12 14:14] LABS: URINE APPEARANCE Slightly Cloudy; URINE BILIRUBIN 1+ (NEGATIVE); URINE COLOR Dark yellow; URINE GLUCOSE (UA) Negative (NEGATIVE); URINE KETONE 2+ (NEGATIVE); URINE LEUK ESTERASE Negative (NEGATIVE); URINE NITRITE Positive (NEGATIVE); URINE PROTEIN 2+ (NEGATIVE)
[2019-10-12 14:35] LABS: ALBUMIN 3.8 g/dl (3.4-5.0); ALK PHOS 113 U/L (45-117); ANION GAP 12 MMOL/L (8-16); BILIRUBIN,TOTAL 1.7 mg/dL (0.2-1); BLOOD UREA NITROGEN 11.9 mg/dL (7-18); CHLORIDE 106 mmol/L (98-107); CO2 22 mmol/L (21-32); CREATININE 0.7 mg/dL (0.55-1.3); GLUCOSE,RANDOM 85 mg/dL (74-106); MAGNESIUM 1.7 mg/dL (1.8-2.4); POTASSIUM 3.2 mmol/L (3.5-5.1); SGOT/AST 117 U/L (15-37); SGPT/ALT 59 U/L (13-61); SODIUM 140 mmol/L (136-145); TOT PROT 6.8 g/dl (6.4-8.2)
[2019-10-12] MEDS ORDERED: MAGNESIUM OXIDE 400 MG TABLET (FP) PO ONE (15:25)
[2019-10-12] MEDS ORDERED: POTASSIUM CHLORIDE ORAL LIQUID 20 MEQ/15 ML PO ONE (15:25)
[2019-10-12] MEDS ORDERED: MAGNESIUM OXIDE 400 MG TABLET (FP) ONE (15:38)
[2019-10-12] MEDS ORDERED: POTASSIUM CHLORIDE ORAL LIQUID 20 MEQ/15 ML ONE (15:38)
[2019-10-12 16:22] VITALS: BP 127/89; PULSE 86
[2019-10-12 18:10] LABS: EPI CELLS 85.4 /uL (0-25.1); HYALINE CASTS 11.81 /uL (0-3.1); URINE RBC 19.2 /uL (0-23.9); URINE WBC 190.2 /uL (0-25.8)
[2019-10-12 18:11] LABS: URINE BACTERIA 4621.1 /uL (0-1359)
== END 2019-10-12 17:00 | disposition home or self-care (01) ==
LOC: JER 12:55
PROC: 3E033GC Introduction of Other Therapeutic Substance into Peripheral Vein, Percutaneous Approach (ICD-10-PCS; principal; 2019-10-12)
DX: R56.9 Unspecified convulsions (principal); F10.10 Alcohol abuse, uncomplicated
CPT/HCPCS: 36415; 80053; 81003; 83735; 84702; 85025; 87086; 99284-25

== ENCOUNTER 2020-01-14 20:43 | Inpatient (IN) | payer OTHER ==
--- OUTSIDE RECORDS SUMMARY | 2020-01-14 21:13 | XMS ---
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 D[facility]riy [facility] complications of COMPLICATIONS OF EDT Nv dical unspecified UNSP EXTREMITY Center extremity R60.0 Localized edema LOCALIZED EDEMA Diagnosis 08/10/2018 Rowan t 08:24:00 PM [facility] M79.669 Pain in unspecified PAIN IN UNSPECIFIED Diagnosis 019 [facility] lower leg LOWER LEG 08:24:00 PM [facility] R30.0 Dysuria DYSURIA Diagnosis 07/09/2018 [facility] 02:48:00 AM [facility] Results ID Date Data Source Urinalysis.[id number] 01/01/2020 09:30:00 PM EDT [facility] 0 Name Value Range Interpretation Description Data Sup porting Code Source(s) Document(s ) Color of Urine YELLOW <content [facility] styleCode="Ike Pruitt d">Color, [facility] Urine Center </content>YELL OW <content styleCode="Pinky lics"> (YELLOW )</content> Ketones NEGATIVE <content [facility] [Mass/volume] styleCode="Ike Ortegas in Urine by d">Urine Medical Test strip Ketone Center </content>NEGA TIVE MG/DL<content styleCode="Pinky lics"> (NEGATIVE MG/DL)</conten t> UNK CLEAR <content [facility] styleCode="Ike [place] d">Urine Medical Clarity Center </content>ELENA R <content styleCode="Pinky lics"> (CLEAR )</content> UNK NEGATIVE <content [facility] styleCode="Ike [place] d">Urine Medical Bilirubin Center </content>SMAL L <content styleCode="Pinky lics"> (NEGATIVE )</content> Glucose NEGATIVE <content [facility] [Mass/volume] styleCode="Ike [place] in Urine by d">Urine Medical Test strip Glucose Center </content>NEGA TIVE MG/DL<content styleCode="Pinky lics"> (NEGATIVE MG/DL)</conten t> Hemoglobin NEGATIVE <content [facility] [Presence] in styleCode="Ike Ortegas Urine by Test d">Urine Blood Medical strip </content>LARG Center E <content styleCode="Pinky lics"> (NEGATIVE )</content> Specific 1.015-1.02 Below low normal <content [facility] gravity of 5 styleCode="Ike Ortegas Urine by Test d">Urine Medical strip Specific Center [place] </content>1.01 0 L<content styleCode="Pinky lics"> (1.015-1.025 )</content> Urobilinogen 0.2-1.0 Above high <content [facility] [Units/volume] normal styleCode="Ike [place] in Urine by d">Urine Medical Test strip Urobilinogen Center </content>2.0 MG/DL H<content styleCode="Pinky lics"> (0.2-1.0 MG/DL)</conten t> pH of Urine by 4.5-8.0 <content [facility] Test strip styleCode="Ike Edmond d">Urine pH Medical </content>6.0 Center <content styleCode="Pinky lics"> (4.5-8.0 )</content> Protein NEGATIVE <content [facility] [Mass/volume] styleCode="Ike Pruitt in Urine by d">Urine Medical Test strip Protein Center </content>100 MG/DL<content styleCode="Pinky lics"> (NEGATIVE MG/DL)</conten t> Leukocyte NEGATIVE <content [facility] esterase styleCode="Ike Pruitt [Presence] in d">Urine Medical Urine by Test Leukocyte Center strip </content>SMAL L <content styleCode="Pinky lics"> (NEGATIVE )</content> UNK 0-3 <content [facility] styleCode="Ike Ortegas d">Urine Red Medical Blood Cell Center </content>10 - 20 HPF<content styleCode="Pinky lics"> (0-3 HPF)</content> Nitrite NEGATIVE <content [facility] [Presence] in styleCode="Ike Pruitt Urine by Test d">Urine Medical strip Nitrite Center </content>POSI TIVE <content styleCode="Pinky lics"> (NEGATIVE )</content> UNK 0-3 <content [facility] styleCode="Ike Ortegas d">Urine White Medical Blood Cell Center </content>>200 HPF<content styleCode="Pinky lics"> (0-3 HPF)</content> UNK NEGATIVE <content [facility] styleCode="Ike Ortegas d">Urine Medical Bacteria Center </content>MANY HPF<content styleCode="Pinky lics"> (NEGATIVE HPF)</content> ID Date Data Source Liver 01/01/2020 08:15:00 PM EDT [facility] Profile.[id number] Name Value Range Interpretation Description Data Sup porting Code Source(s) Document(s ) Aspartate 14-36 Above high <content [facility] aminotransferase normal styleCode="Bold"> Dmitriy hs [Enzymatic Aspartate Medical activity/volume] Aminotransferase Center in Serum or Plasma (AST) </content>115 IU/L H<content styleCode="Italic s"> (14-36 IU/L)</content> Alanine 7-30 Above high <content [facility] aminotransferase normal styleCode="Bold"> Dmitriy hs [Enzymatic Alanine Medical activity/volume] Aminotransferase Center in Serum or Plasma (ALT) </content>55 IU/L H<content styleCode="Italic s"> (7-30 IU/L)</content> Bilirubin.total 0.2-1.3 Above high <content [facility] [Mass/volume] in normal styleCode="Bold"> Dmitriy hs Serum or Plasma Bilirubin Total Medical </content>3.4 Center MG/DL H<content styleCode="Italic s"> (0.2-1.3 MG/DL)</content> Alkaline 38-126 Above high <content [facility] phosphatase normal styleCode="Bold"> [place] [Enzymatic Alkaline Medical activity/volume] Phosphatase (ALP) Cente r in Serum or Plasma </content>151 IU/L H<content styleCode="Italic s"> (38-126 IU/L)</content> UNK 0.0-0.3 <content [facility] styleCode="Bold"> [place] Bilirubin, Direct Medical </content>0.3 Center MG/DL<content styleCode="Italic s"> (0.0-0.3 MG/DL)</content> Albumin 3.5-5.0 Below low <content [facility] [Mass/volume] in normal styleCode="Bold"> Dmitriy hs Serum or Plasma Albumin Medical </content>2.2 Center G/DL L<content styleCode="Italic s"> (3.5-5.0 G/DL)</content> ID Date Data Source HematologyRou.[id number] 01/01/2020 08:15:00 PM EDT [facility] 0400 Name Value Range Interpretation Description Data Sup porting Code Source(s) Document(s ) Hemoglobin 12.3-16. Below lower <content [facility] [Mass/volume] in 0 panic limits styleCode="Bold Blane phs Blood ">Hemoglobin Medical </content><cont Center ent styleCode="Bold ">6.7 G/DL LL</content><co ntent styleCode="Ital ics"> (12.3-16.0 G/DL)</content> Leukocytes 4.4-11.0 <content [facility] [#/volume] in styleCode="Bold [place] Blood by ">White Blood Medical Automated count Cell Count Center </content>6.29 KCUMM<content styleCode="Ital ics"> (4.4-11.0 KCUMM)</content > Erythrocytes 4.0-5.1 Below low normal <content [facility] [#/volume] in styleCode="Bold [place] Blood by ">Red Blood Medical Automated count Cell Count Center </content>1.89 MCUMM L<content styleCode="Ital ics"> (4.0-5.1 MCUMM)</content > Erythrocyte mean 26.0-34. Above high <content [facility] corpuscular 0 normal styleCode="Bold [place] hemoglobin ">Mean Medical [Entitic mass] Corposcular Center by Automated Hemoglobin count </content>35.4 PG H<content styleCode="Ital ics"> (26.0-34.0 PG)</content> Erythrocyte mean 80.0-100 <content [facility] corpuscular .0 styleCode="Bold [place] volume [Entitic ">Mean Medical volume] by Corpuscular Center Automated count Volume </content>110.1 FL<content styleCode="Ital ics"> (80.0-100.0 FL)</content> Hematocrit 36.0-46. Below low normal <content [facility] [Volume 0 styleCode="Bold [place] Fraction] of ">Hematocrit Medical Blood by </content>20.8 Center Automated count % L<content styleCode="Ital ics"> (36.0-46.0 %)</content> Platelets 130-400 <content [facility] [#/volume] in styleCode="Bold [place] Blood by ">Platelet Medical Automated count Count Center </content>249 KCUMM<content styleCode="Ital ics"> (130-400 KCUMM)</content > Erythrocyte mean 32.0-37. <content [facility] corpuscular 0 styleCode="Bold [place] hemoglobin ">Mean Corpus. Medical concentration Hgb Center [Mass/volume] by Concentration Automated count (MCHC) </content>32.2 G/DL<content styleCode="Ital ics"> (32.0-37.0 G/DL)</content> Erythrocyte 11.5-14. Above high <content [facility] distribution 5 normal styleCode="Bold [place] width [Ratio] by ">Red Cell Medical Automated count Distribution Center Width </content>17.8 % H<content styleCode="Ital ics"> (11.5-14.5 %)</content> Platelet mean 8.0-11.0 Above high <content [facility] volume [Entitic normal styleCode="Bold [place] volume] in Blood ">Mean Platelet Medical by Automated Volume Center count </content>12.2 FL H<content styleCode="Ital ics"> (8.0-11.0 FL)</content> UNK 0 Above high <content [facility] normal styleCode="Bold [place] ">Nucleated Red Medical Blood Cell Center </content>0.3 /100 H<content styleCode="Ital ics"> (0 /100)</content> UNK 0.0 Above high <content [facility] normal styleCode="Bold [place] ">Nucleated Red Medical Blood Cell Center Count </content>0.02 KCUMM H<content styleCode="Ital ics"> (0.0 KCUMM)</content > UNK NORMAL <content [facility] styleCode="Bold [place] ">RBC Medical Morphology Center </content>ABNOR MAL <content styleCode="Ital ics"> (NORMAL )</content> UNK NORMAL <content [facility] styleCode="Bold [place] ">Platelet Medical Estimate Center </content>LANNY L <content styleCode="Ital ics"> (NORMAL )</content> UNK NORMAL <content [facility] styleCode="Bold [place] ">Polychromasia Medical </content>SLIGH Center T <content styleCode="Ital ics"> (NORMAL )</content> UNK NORMAL <content [facility] styleCode="Bold [place] ">Hypochromia Medical </content>SLIGH Center T <content styleCode="Ital ics"> (NORMAL )</content> UNK NORMAL <content [facility] styleCode="Bold [place] ">Macrocyte Medical </content>MODER Center ATE <content styleCode="Ital ics"> (NORMAL )</content> ID Date Data Source GFR(Creatinine).[id number] 01/01/2020 08:15:00 PM EDT [facility] 0-0400 Name Value Range Interpretation Code Description Data Ana rce(s) Supporting Document(s ) UNK > 60 Below low normal <content [facility] styleCode="Bold"> Medical Cent er EGFR </content>58 GFR L<content styleCode="Italic s"> (> 60 GFR)</content> ID Date Data Source CHMROUTINECCDA.[id number] 01/01/2020 08:15:00 PM EDT [facility] -0400 Name Value Range Interpretation Description Data Sup porting Code Source(s) Document(s ) Phosphate 2.5-4.5 Above high normal <content [facility] [Mass/volume] styleCode="Ike Edmond in Serum or d">Phosphorus Medical Plasma </content>4.6 Center MG/DL H<content styleCode="Pinky lics"> (2.5-4.5 MG/DL)</conten t> Magnesium 1.6-2.3 Below low normal <content [facility] [Mass/volume] styleCode="Ike [place] in Serum or d">Magnesium Medical Plasma </content>1.4 Center MG/DL L<content styleCode="Pinky lics"> (1.6-2.3 MG/DL)</conten t> ID Date Data Source [facility].[id number] 01/01/2020 08:15:00 PM EDT [facility] Name Value Range Interpretation Description Data Sup porting Code Source(s) Document(s ) Sodium 137-145 <content [facility] [Moles/volume] in styleCode="Bold"> Blane phs Serum or Plasma Sodium Medical </content>139 Center MEQ/L<content styleCode="Italic s"> (137-145 MEQ/L)</content> Chloride 98-107 Above high <content [facility] [Moles/volume] in normal styleCode="Bold"> Blane phs Serum or Plasma Chloride Medical </content>109 Center MEQ/L H<content styleCode="Italic s"> (98-107 MEQ/L)</content> UNK 7-17 <content [facility] styleCode="Bold"> [place] BUN </content>16 Medical MG/DL<content Center styleCode="Italic s"> (7-17 MG/DL)</content> Potassium 3.5-5.3 <content [facility] [Moles/volume] in styleCode="Bold"> Blane phs Serum or Plasma Potassium Medical </content>3.5 Center MEQ/L<content styleCode="Italic s"> (3.5-5.3 MEQ/L)</content> Carbon dioxide, 22-30 <content [facility] total styleCode="Bold"> [place] [Moles/volume] in Carbon Dioxide Medical Serum or Plasma </content>23 Center MEQ/L<content styleCode="Italic s"> (22-30 MEQ/L)</content> Glucose 74-106 <content [facility] [Mass/volume] in styleCode="Bold"> Dmitriy hs Serum or Plasma Glucose Medical </content>81 Center MG/DL<content styleCode="Italic s"> (74-106 MG/DL)</content> Creatinine 0.5-1.3 <content [facility] [Mass/volume] in styleCode="Bold"> Dmitriy hs Serum or Plasma Creatinine Medical </content>1.1 Center MG/DL<content styleCode="Italic s"> (0.5-1.3 MG/DL)</content> Calcium 8.4-10. Below low <content [facility] [Mass/volume] in 2 normal styleCode="Bold"> Dmitriy hs Serum or Plasma Calcium Medical </content>7.6 Center MG/DL L<content styleCode="Italic s"> (8.4-10.2 MG/DL)</content> Alanine 7-30 Above high <content [facility] aminotransferase normal styleCode="Bold"> Dmitriy hs [Enzymatic Alanine Medical activity/volume] Aminotransferase Center in Serum or Plasma (ALT) </content>55 IU/L H<content styleCode="Italic s"> (7-30 IU/L)</content> Aspartate 14-36 Above high <content [facility] aminotransferase normal styleCode="Bold"> Dmitriy hs [Enzymatic Aspartate Medical activity/volume] Aminotransferase Center in Serum or Plasma (AST) </content>115 IU/L H<content styleCode="Italic s"> (14-36 IU/L)</content> UNK > 60 Below low <content [facility] normal styleCode="Bold"> [place] EGFR </content>58 Medical GFR L<content Center styleCode="Italic s"> (> 60 GFR)</content> Albumin 3.5-5.0 Below low <content [facility] [Mass/volume] in normal styleCode="Bold"> Dmitriy hs Serum or Plasma Albumin Medical </content>2.2 Center G/DL L<content styleCode="Italic s"> (3.5-5.0 G/DL)</content> Alkaline 38-126 Above high <content [facility] phosphatase normal styleCode="Bold"> [place] [Enzymatic Alkaline Medical activity/volume] Phosphatase (ALP) Cente r in Serum or Plasma </content>151 IU/L H<content styleCode="Italic s"> (38-126 IU/L)</content> Bilirubin.total 0.2-1.3 Above high <content [facility] [Mass/volume] in normal styleCode="Bold"> Dmitriy hs Serum or Plasma Bilirubin Total Medical </content>3.4 Center MG/DL H<content styleCode="Italic s"> (0.2-1.3 MG/DL)</content> ID Date Data Source Hormones.[id number] 12/26/2019 04:10:00 AM EDT [facility] Name Value Range Interpretation Description Data Sup porting Code Source(s) Document(s ) Thyrotropin 0.465-4. <content [facility] [Units/volume] 68 styleCode="Ike Pruitt in Serum or d">Thyroid Medical Plasma by Stimulating Center Detection Hormone limit <= 0.05 </content>1.62 mIU/L MIU/L<content styleCode="Pinky lics"> (0.465-4.68 MIU/L)</conten t> ID Date Data Source GFR(Creatinine).[id number] 12/26/2019 04:10:00 AM EDT [facility] 0-0400 Name Value Range Interpretation Code Description Data Ana rce(s) Supporting Document(s ) UNK > 60 Below low normal <content [facility] [place] styleCode="Bold"> Medical Cent er EGFR </content>58 GFR L<content styleCode="Italic s"> (> 60 GFR)</content> ID Date Data Source CHMROUTINECCDA.[id number] 12/26/2019 04:10:00 AM EDT [facility] -0400 Name Value Range Interpretation Description Data Sup porting Code Source(s) Document(s ) Phosphate 2.5-4.5 Below low normal <content [facility] [Mass/volume] styleCode="Ike [place] in Serum or d">Phosphorus Medical Plasma </content>1.1 Center MG/DL L<content styleCode="Pinky lics"> (2.5-4.5 MG/DL)</conten t> Ammonia 9-30 Above high normal <content [facility] [Mass/volume] styleCode="Ike [place] in Plasma d">Ammonia Medical </content>45 Center UMOLL H<content styleCode="Pinky lics"> (9-30 UMOLL)</conten t> Magnesium 1.6-2.3 <content [facility] [Mass/volume] styleCode="Ike [place] in Serum or d">Magnesium Medical Plasma </content>1.6 Center MG/DL<content styleCode="Pinky lics"> (1.6-2.3 MG/DL)</conten t> ID Date Data Source [employer].[id number] 12/26/2019 04:10:00 AM EDT [facility] -0400 Name Value Range Interpretation Description Data Sup porting Code Source(s) Document(s ) Troponin < 0.034 <content [facility] I.cardiac styleCode="Bold [place] [Mass/volume ">Troponin I Medical ] in Serum </content>< Center or Plasma 0.012 NG/ML<content styleCode="Ital ics"> (< 0.034 NG/ML)</content > ID Date Data Source BMP.[id number] 12/26/2019 04:10:00 AM EDT [facility] Name Value Range Interpretation Description Data Sup porting Code Source(s) Document(s ) Sodium 137-145 Below low normal <content [facility] [Moles/volume] styleCode="Ike [place] in Serum or d">Sodium Medical Plasma </content>131 Center MEQ/L L<content styleCode="Pinky lics"> (137-145 MEQ/L)</conten t> Potassium 3.5-5.3 <content [facility] [Moles/volume] styleCode="Ike [place] in Serum or d">Potassium Medical Plasma </content>3.6 Center MEQ/L<content styleCode="Pinky lics"> (3.5-5.3 MEQ/L)</conten t> Chloride 98-107 <content [facility] [Moles/volume] styleCode="Ike [place] in Serum or d">Chloride Medical Plasma </content>100 Center MEQ/L<content styleCode="Pinky lics"> (98-107 MEQ/L)</conten t> Carbon 22-30 <content [facility] dioxide, total styleCode="Ike [place] [Moles/volume] d">Carbon Medical in Serum or Dioxide Center Plasma </content>22 MEQ/L<content styleCode="Pinky lics"> (22-30 MEQ/L)</conten t> UNK 7-17 <content [facility] styleCode="Ike [place] d">BUN Medical </content>17 Center MG/DL<content styleCode="Pinky lics"> (7-17 MG/DL)</conten t> Glucose 74-106 Above high normal <content [facility] [Mass/volume] styleCode="Ike [place] in Serum or d">Glucose Medical Plasma </content>122 Center MG/DL H<content styleCode="Pinky lics"> (74-106 MG/DL)</conten t> Creatinine 0.5-1.3 <content [facility] [Mass/volume] styleCode="Ike [place] in Serum or d">Creatinine Medical Plasma </content>1.1 Center MG/DL<content styleCode="Pinky lics"> (0.5-1.3 MG/DL)</conten t> UNK > 60 Below low normal <content [facility] styleCode="Ike [place] d">EGFR Medical </content>58 Center GFR L<content styleCode="Pinky lics"> (> 60 GFR)</content> Calcium 8.4-10.2 Below lower panic <content [facility] [Mass/volume] limits styleCode="Ike [place] in Serum or d">Calcium Medical Plasma </content><con Center tent styleCode="Ike d">6.4 MG/DL LL</content><c ontent styleCode="Pinky lics"> (8.4-10.2 MG/DL)</conten t> ID Date Data Source HematologySpeci.[id number] 12/26/2019 02:45:00 AM EDT [facility] 0-0400 Name Value Range Interpretation Code Description Data Ana rce(s) Supporting Document(s ) UNK NONE SEEN <content [facility] styleCode="Bold" Medical Cente r >Hyposegmentatio n Of Neutro </content>MARKED <content styleCode="Itali cs"> (NONE SEEN )</content> ID Date Data Source HematologyRou.[id number] 12/26/2019 02:45:00 AM EDT [facility] 0400 Name Value Range Interpretation Description Data Sup porting Code Source(s) Document(s ) Erythrocytes 4.0-5.1 Below low normal <content [facility] [#/volume] in styleCode="Bold [place] Blood by ">Red Blood Medical Automated count Cell Count Center </content>2.54 MCUMM L<content styleCode="Ital ics"> (4.0-5.1 MCUMM)</content > Leukocytes 4.4-11.0 Below low normal <content [facility] [#/volume] in styleCode="Bold [place] Blood by ">White Blood Medical Automated count Cell Count Center </content>2.83 KCUMM L<content styleCode="Ital ics"> (4.4-11.0 KCUMM)</content > Hemoglobin 12.3-16. Below low normal <content [facility] [Mass/volume] in 0 styleCode="Bold [place] Blood ">Hemoglobin Medical </content>8.8 Center G/DL L<content styleCode="Ital ics"> (12.3-16.0 G/DL)</content> Hematocrit 36.0-46. Below low normal <content [facility] [Volume 0 styleCode="Bold [place] Fraction] of ">Hematocrit Medical Blood by </content>25.0 Center Automated count % L<content styleCode="Ital ics"> (36.0-46.0 %)</content> Erythrocyte mean 26.0-34. Above high <content [facility] corpuscular 0 normal styleCode="Bold [place] hemoglobin ">Mean Medical [Entitic mass] Corposcular Center by Automated Hemoglobin count </content>34.6 PG H<content styleCode="Ital ics"> (26.0-34.0 PG)</content> Erythrocyte mean 80.0-100 <content [facility] corpuscular .0 styleCode="Bold [place] volume [Entitic ">Mean Medical volume] by Corpuscular Center Automated count Volume </content>98.4 FL<content styleCode="Ital ics"> (80.0-100.0 FL)</content> Platelets 130-400 Below lower <content [facility] [#/volume] in panic limits styleCode="Bold [place] Blood by ">Platelet Medical Automated count Count Center </content><cont ent styleCode="Bold ">22 KCUMM LL</content><co ntent styleCode="Ital ics"> (130-400 KCUMM)</content > Erythrocyte 11.5-14. Above high <content [facility] distribution 5 normal styleCode="Bold [place] width [Ratio] by ">Red Cell Medical Automated count Distribution Center Width </content>16.8 % H<content styleCode="Ital ics"> (11.5-14.5 %)</content> Erythrocyte mean 32.0-37. <content [facility] corpuscular 0 styleCode="Bold [place] hemoglobin ">Mean Corpus. Medical concentration Hgb Center [Mass/volume] by Concentration Automated count (MCHC) </content>35.2 G/DL<content styleCode="Ital ics"> (32.0-37.0 G/DL)</content> Platelet mean 8.0-11.0 Above high <content [facility] volume [Entitic normal styleCode="Bold [place] volume] in Blood ">Mean Platelet Medical by Automated Volume Center count </content>14.4 FL H<content styleCode="Ital ics"> (8.0-11.0 FL)</content> Neutrophils 36-66 Above high <content [facility] [#/volume] in normal styleCode="Bold [place] Blood by ">Neutrophil Medical Automated count </content>69.9 Center % H<content styleCode="Ital ics"> (36-66 %)</content> UNK 1.0-4.8 Below low normal <content [facility] styleCode="Bold [place] ">Lymphocyte Medical Count Center </content>0.37 KCUMM L<content styleCode="Ital ics"> (1.0-4.8 KCUMM)</content > Lymphocytes 24.0-44. Below low normal <content [facility] [#/volume] in 0 styleCode="Bold [place] Blood by ">Lymphocyte Medical Automated count </content>13.1 Center % L<content styleCode="Ital ics"> (24.0-44.0 %)</content> UNK 1.6-7.3 <content [facility] styleCode="Bold [place] ">Neutrophil Medical Count Center </content>1.98 KCUMM<content styleCode="Ital ics"> (1.6-7.3 KCUMM)</content > UNK 0.2-0.9 <content [facility] styleCode="Bold [place] ">Monocyte Medical Count Center </content>0.21 KCUMM<content styleCode="Ital ics"> (0.2-0.9 KCUMM)</content > Monocytes 3.0-10.0 <content [facility] [#/volume] in styleCode="Bold [place] Blood by ">Monocyte Medical Automated count </content>7.4 Center %<content styleCode="Ital ics"> (3.0-10.0 %)</content> UNK 0.0-0.6 <content [facility] styleCode="Bold [place] ">Eosinophil Medical Count Center </content>0.00 KCUMM<content styleCode="Ital ics"> (0.0-0.6 KCUMM)</content > Eosinophils 0-5.0 <content [facility] [#/volume] in styleCode="Bold [place] Blood by ">Eosinophil Medical Automated count </content>0.0 Center %<content styleCode="Ital ics"> (0-5.0 %)</content> Basophils 0.0-1.0 <content [facility] [#/volume] in styleCode="Bold [place] Blood by ">Basophil Medical Automated count </content>0.4 Center %<content styleCode="Ital ics"> (0.0-1.0 %)</content> UNK 0.0-0.3 <content [facility] styleCode="[facility] [place] ">Basophil Medical Count Center </content>0.01 KCUMM<content styleCode="Ital ics"> (0.0-0.3 KCUMM)</content > UNK 0 <content [facility] styleCode="[facility] [place] ">Nucleated Red Medical Blood Cell Center </content>0.0 /100<content styleCode="Ital ics"> (0 /100)</content> UNK 0.0 <content [facility] styleCode="[facility] [place] ">Nucleated Red Medical Blood Cell Center Count </content>0.00 KCUMM<content styleCode="Ital ics"> (0.0 KCUMM)</content > UNK 0-0.1 Above high <content [facility] normal styleCode="[facility]old [place] ">Immature Medical Granulocyte Center Count </content>0.26 KCUMM H<content styleCode="Ital ics"> (0-0.1 KCUMM)</content > UNK 42-75 <content [facility] styleCode="[facility] [place] ">Manual Medical Neutrophil Center count </content>68.0 %<content styleCode="Ital ics"> (42-75 %)</content> UNK 0 Above high <content [facility] normal styleCode="[facility] [place] ">Atypical Medical Lymphocyte Center </content>8.0 % H<content styleCode="Ital ics"> (0 %)</content> UNK < 1 Above high <content [facility] normal styleCode="[facility] [place] ">Immature Medical Granulocyte Center Ratio </content>9.2 % H<content styleCode="Ital ics"> (< 1 %)</content> UNK 21-51 Below low normal <content [facility] styleCode="[facility] [place] ">Manual Medical Lymphocyte Center Count </content>12.0 % L<content styleCode="Ital ics"> (21-51 %)</content> UNK < 3 Above high <content [facility] normal styleCode="[place] [place] ">Band-Manual Medical </content>6.0 % Center H<content styleCode="Ital ics"> (< 3 %)</content> UNK NONE <content [facility] SEEN styleCode="[place] [place] ">Toxic Medical Granulation Center </content>MODER ATE <content styleCode="Ital ics"> (NONE SEEN )</content> UNK NORMAL <content [facility] styleCode="[facility] [place] ">Platelet Medical Estimate Center </content>PLT. MARKEDLY DECREASED <content styleCode="Ital ics"> (NORMAL )</content> UNK 2-9 <content [facility] styleCode="[facility] [place] ">Monocyte-Manu Medical al Center </content>6.0 %<content styleCode="Ital ics"> (2-9 %)</content> UNK NORMAL <content [facility] styleCode="[facility] [place] ">RBC Medical Morphology Center </content>ABNOR MAL <content styleCode="Ital ics"> (NORMAL )</content> UNK NORMAL <content [facility] styleCode="[facility] [place] ">Hypochromia Medical </content>SLIGH Center T <content styleCode="Ital ics"> (NORMAL )</content> UNK 1.6-4.9 Above high <content [facility] normal styleCode="[place] [place] ">Immature Medical Platelet Center Fraction </content>25.0 % H<content styleCode="Ital ics"> (1.6-4.9 %)</content> ID Date Data Source Coagulation 12/26/2019 02:45:00 AM [facility] Rout.[id number] EDT Name Value Range Interpretation Description Data Sup porting Code Source(s) Document(s ) UNK 9.0-13.0 Above high normal <content [facility] styleCode="Bold" [place] >Protime Medical </content>13.3 Center SEC H<content styleCode="Itali cs"> (9.0-13.0 SEC)</content> INR in 0.80-1.2 <content [facility] Platelet poor 0 styleCode="Bold" [place] plasma by >INR Medical Coagulation </content>1.20 Center assay #<content styleCode="Itali cs"> (0.80-1.20 #)</content> aPTT in 25.1-36. <content [facility] Platelet poor 5 styleCode="Bold" [place] plasma by >Partial Medical Coagulation Thromboplastin Center assay Time </content>34.9 SEC<content styleCode="Itali cs"> (25.1-36.5 SEC)</content> ID Date Data Source Liver 12/26/2019 12:40:00 AM EDT [facility] Profile.[id number] Name Value Range Interpretation Description Data Sup porting Code Source(s) Document(s ) Aspartate 14-36 Above high <content [facility] aminotransferase normal styleCode="Bold"> Dmitriy hs [Enzymatic Aspartate Medical activity/volume] Aminotransferase Center in Serum or Plasma (AST) </content>49 IU/L H<content styleCode="Italic s"> (14-36 IU/L)</content> Alanine 7-30 <content [facility] aminotransferase styleCode="Bold"> Dmitriy hs [Enzymatic Alanine Medical activity/volume] Aminotransferase Center in Serum or Plasma (ALT) </content>20 IU/L<content styleCode="Italic s"> (7-30 IU/L)</content> Alkaline 38-126 <content [facility] phosphatase styleCode="Bold"> [place] [Enzymatic Alkaline Medical activity/volume] Phosphatase (ALP) Cente r in Serum or Plasma </content>94 IU/L<content styleCode="Italic s"> (38-126 IU/L)</content> Bilirubin.total 0.2-1.3 Above high <content [facility] [Mass/volume] in normal styleCode="Bold"> Dmitriy hs Serum or Plasma Bilirubin Total Medical </content>7.1 Center MG/DL H<content styleCode="Italic s"> (0.2-1.3 MG/DL)</content> Albumin 3.5-5.0 Below low <content [facility] [Mass/volume] in normal styleCode="Bold"> Dmitriy hs Serum or Plasma Albumin Medical </content>2.1 Center G/DL L<content styleCode="Italic s"> (3.5-5.0 G/DL)</content> ID Date Data Source HematologyRou.[id number] 12/26/2019 12:40:00 AM EDT [facility] 0400 Name Value Range Interpretation Code Description Data Supporting Source(s) Document(s ) UNK 0.018-0.1 Below low normal <content [facility] styleCode="Bold"> Medical Reticulocyte Center Absolute Count </content>0.0179 MCUMM L<content styleCode="Italic s"> (0.018-0.1 MCUMM)</content> UNK 0.5-1.5 <content [facility] styleCode="Bold"> Medical Retic % Center </content>0.70 %<content styleCode="Italic s"> (0.5-1.5 %)</content> UNK 9.3-17.4 <content [facility] styleCode="Bold"> Medical Immature Center Reticulocyte Fraction </content>13.5 %<content styleCode="Italic s"> (9.3-17.4 %)</content> UNK 30.0-38.0 Above high normal <content [facility] styleCode="Bold"> Medical Reticulocyte Center Hemoglobin Equivalent </content>38.3 PG H<content styleCode="Italic s"> (30.0-38.0 PG)</content> ID Date Data Source GFR(Creatinine).[id number] 12/26/2019 12:40:00 AM EDT [facility] 0-0400 Name Value Range Interpretation Code Description Data Ana rce(s) Supporting Document(s ) UNK > 60 Below low normal <content [facility] styleCode="Bold"> Medical Cent er EGFR </content>58 GFR L<content styleCode="Italic s"> (> 60 GFR)</content> ID Date Data Source CHMROU[place].[id number] 12/26/2019 12:40:00 AM EDT [facility] -0400 Name Value Range Interpretation Description Data Sup porting Code Source(s) Document(s ) UNK 2.3-3.5 <content [facility] styleCode="[facility] [place] ">Globulin Medical </content>2.6 Center G/DL<content styleCode="Ital ics"> (2.3-3.5 G/DL)</content> UNK >= 1.0 Below low normal <content [facility] styleCode="[facility] [place] ">AG Ratio Medical </content>0.8 Center L<content styleCode="Ital ics"> (>= 1.0 )</content> Lactate 316-618 Above high <content [facility] dehydrogenase normal styleCode="[place]old [place] [Enzymatic ">Lactate Medical activity/volume] Dehydrogenase Center in Serum or (LDH) Plasma by </content>806 Pyruvate to IU/L H<content lactate reaction styleCode="Ital ics"> (316-618 IU/L)</content> Lipase 23-300 <content [facility] [Enzymatic styleCode="[place] activity/volume] ">Lipase Medical in Serum or </content>171 Center Plasma IU/L<content styleCode="Ital ics"> (23-300 IU/L)</content> Protein 6.3-8.2 Below low normal <content [facility] [Mass/volume] in styleCode="Bold [place] Serum or Plasma ">Total Protein Medical </content>4.7 Center G/DL L<content styleCode="Ital ics"> (6.3-8.2 G/DL)</content> Magnesium 1.6-2.3 Below lower <content [facility] [Mass/volume] in panic limits styleCode="Bold Blane phs Serum or Plasma ">Magnesium Medical </content><cont Center ent styleCode="Bold ">0.6 MG/DL LL</content><co ntent styleCode="Ital ics"> (1.6-2.3 MG/DL)</content > Phosphate 2.5-4.5 Below low normal <content [facility] [Mass/volume] in styleCode="[place]old [place] Serum or Plasma ">Phosphorus Medical </content>1.6 Center MG/DL L<content styleCode="Ital ics"> (2.5-4.5 MG/DL)</content > ID Date Data Source [facility].[id number] 12/26/2019 12:40:00 AM EDT [facility] Center Name Value Range Interpretation Description Data Sup porting Code Source(s) Document(s ) Sodium 137-145 Below low <content [facility] [Moles/volume] in normal styleCode="Bold"> Blane phs Serum or Plasma Sodium Medical </content>130 Center MEQ/L L<content styleCode="Italic s"> (137-145 MEQ/L)</content> UNK 7-17 <content [facility] styleCode="Bold"> [place] BUN </content>17 Medical MG/DL<content Center styleCode="Italic s"> (7-17 MG/DL)</content> Potassium 3.5-5.3 Below lower <content [facility] [Moles/volume] in panic limits styleCode="Bold"> J osephs Serum or Plasma Potassium Medical </content><conten Center t styleCode="Bold"> 2.6 MEQ/L LL</content><cont ent styleCode="Italic s"> (3.5-5.3 MEQ/L)</content> Creatinine 0.5-1.3 <content [facility] [Mass/volume] in styleCode="Bold"> Dmitriy hs Serum or Plasma Creatinine Medical </content>1.1 Center MG/DL<content styleCode="Italic s"> (0.5-1.3 MG/DL)</content> Carbon dioxide, 22-30 <content [facility] total styleCode="Bold"> [place] [Moles/volume] in Carbon Dioxide Medical Serum or Plasma </content>23 Center MEQ/L<content styleCode="Italic s"> (22-30 MEQ/L)</content> Chloride 98-107 <content [facility] [Moles/volume] in styleCode="Bold"> Blane phs Serum or Plasma Chloride Medical </content>99 Center MEQ/L<content styleCode="Italic s"> (98-107 MEQ/L)</content> UNK > 60 Below low <content [facility] normal styleCode="Bold"> [place] EGFR </content>58 Medical GFR L<content Center styleCode="Italic s"> (> 60 GFR)</content> Calcium 8.4-10. Below lower <content [facility] [Mass/volume] in 2 panic limits styleCode="Bold"> Regine sephs Serum or Plasma Calcium Medical </content><conten Center t styleCode="Bold"> 6.3 MG/DL LL</content><cont ent styleCode="Italic s"> (8.4-10.2 MG/DL)</content> Aspartate 14-36 Above high <content [facility] aminotransferase normal styleCode="Bold"> Dmitriy hs [Enzymatic Aspartate Medical activity/volume] Aminotransferase Center in Serum or Plasma (AST) </content>49 IU/L H<content styleCode="Italic s"> (14-36 IU/L)</content> Alanine 7-30 <content [facility] aminotransferase styleCode="Bold"> Dmitriy hs [Enzymatic Alanine Medical activity/volume] Aminotransferase Center in Serum or Plasma (ALT) </content>20 IU/L<content styleCode="Italic s"> (7-30 IU/L)</content> Glucose 74-106 <content [facility] [Mass/volume] in styleCode="Bold"> Dmitriy hs Serum or Plasma Glucose Medical </content>106 Center MG/DL<content styleCode="Italic s"> (74-106 MG/DL)</content> Alkaline 38-126 <content [facility] phosphatase styleCode="Bold"> [place] [Enzymatic Alkaline Medical activity/volume] Phosphatase (ALP) Cente r in Serum or Plasma </content>94 IU/L<content styleCode="Italic s"> (38-126 IU/L)</content> Albumin 3.5-5.0 Below low <content [facility] [Mass/volume] in normal styleCode="Bold"> Dmitriy hs Serum or Plasma Albumin Medical </content>2.1 Center G/DL L<content styleCode="Italic s"> (3.5-5.0 G/DL)</content> Bilirubin.total 0.2-1.3 Above high <content [facility] [Mass/volume] in normal styleCode="Bold"> Dmitriy hs Serum or Plasma Bilirubin Total Medical </content>7.1 Center MG/DL H<content styleCode="Italic s"> (0.2-1.3 MG/DL)</content> ID Date Data Source Urinalysis.[id number] 12/25/2019 05:31:00 PM EDT [facility] 0 Name Value Range Interpretation Description Data Sup porting Code Source(s) Document(s ) Color of Urine YELLOW <content [facility] styleCode="Ike [place] d">Color, Medical Urine Center </content>AMBE R <content styleCode="Pinky lics"> (YELLOW )</content> UNK CLEAR <content [facility] styleCode="Ike [place] d">Urine Medical Clarity Center </content>HAZY <content styleCode="Pinky lics"> (CLEAR )</content> Glucose NEGATIVE <content [facility] [Mass/volume] styleCode="Ike [place] in Urine by d">Urine Medical Test strip Glucose Center </content>NEGA TIVE MG/DL<content styleCode="Pinky lics"> (NEGATIVE MG/DL)</conten t> Specific 1.015-1.02 Below low normal <content [facility] gravity of 5 styleCode="Ike [place] Urine by Test d">Urine Medical strip Specific Center [place] </content><= 1.005 L<content styleCode="Pinky lics"> (1.015-1.025 )</content> Ketones NEGATIVE <content [facility] [Mass/volume] styleCode="[place]ke [place] in Urine by d">Urine Medical Test strip Ketone Center </content>NEGA TIVE MG/DL<content styleCode="Pinky lics"> (NEGATIVE MG/DL)</conten t> UNK NEGATIVE <content [facility] styleCode="Ike [place] d">Urine Medical Bilirubin Center </content>MODE RATE <content styleCode="Pinky lics"> (NEGATIVE )</content> Hemoglobin NEGATIVE <content [facility] [Presence] in styleCode="Ike [place] Urine by Test d">Urine Blood Medical strip </content>SMAL Center L <content styleCode="Pinky lics"> (NEGATIVE )</content> pH of Urine by 4.5-8.0 <content [facility] Test strip styleCode="Ike [place] d">Urine pH Medical </content>6.0 Center <content styleCode="Pinky lics"> (4.5-8.0 )</content> Protein NEGATIVE <content [facility] [Mass/volume] styleCode="[place] in Urine by d">Urine Medical Test strip Protein Center </content>100 MG/DL<content styleCode="Pinky lics"> (NEGATIVE MG/DL)</conten t> Urobilinogen 0.2-1.0 Above high <content [facility] [Units/volume] normal styleCode="Ike [place] in Urine by d">Urine Medical Test strip Urobilinogen Center </content>4.0 MG/DL H<content styleCode="Pinky lics"> (0.2-1.0 MG/DL)</conten t> Nitrite NEGATIVE <content [facility] [Presence] in styleCode="[place]ke [place] Urine by Test d">Urine Medical strip Nitrite Center </content>POSI TIVE <content styleCode="Pinky lics"> (NEGATIVE )</content> Leukocyte NEGATIVE <content [facility] esterase styleCode="Ike [place] [Presence] in d">Urine Medical Urine by Test Leukocyte Center strip </content>MODE RATE <content styleCode="Pinky lics"> (NEGATIVE )</content> UNK 0-3 <content [facility] styleCode="Ike [place] d">Urine Red Medical Blood Cell Center </content>5 - 10 HPF<content styleCode="Pinky lics"> (0-3 HPF)</content> UNK NEGATIVE <content [facility] styleCode="Ike [place] d">Urine Medical Bacteria Center </content>MODE RATE HPF<content styleCode="Pinky lics"> (NEGATIVE HPF)</content> UNK 0-3 <content [facility] styleCode="Ike [place] d">Urine White Medical Blood Cell Center </content>100- 200 HPF<content styleCode="Pinky lics"> (0-3 HPF)</content> UNK NONE SEEN <content [facility] styleCode="Ike [place] d">Urine Mucus Medical </content>MODE Center RATE HPF<content styleCode="Pinky lics"> (NONE SEEN HPF)</content> UNK NONE SEEN <content [facility] styleCode="[facility]ke [place] d">Epithelial Medical Cell Center </content>20-2 5 HPF<content styleCode="Pinky lics"> (NONE SEEN HPF)</content> ID Date Data Source Microbiology.[id number] 12/25/2019 05:31:00 PM EDT [facility] 400 Name Value Range Interpretation Code Description Data Ana rce(s) Supporting Document(s ) UNK <item><content [facility] styleCode="Bold"> Medical Cent er Culture Report </content>
<t able><tbody><tr>< td>Specimen Number:</td><td>[id number]</td></tr ><tr><td>Sample Collection Date/Time: </td><td>12/25/2019 5:31 PM</td></tr><tr>< td>Specimen Source:</td><td>U RINE</td></tr><tr ><td>Urine Culture:</td><td> Collection Plate Date: 12/25/2019 17:34 </td></tr><tr><td >Culture Status:</td><td>P reliminary </td></tr><tr><td >Culture Report:</td><td>C ulture in progress </td></tr></tbody ></table></item> UNK <item><content [facility] styleCode="Bold"> Medical Cent er Culture Status </content>
<t able><tbody><tr>< td>Specimen Number:</td><td>[id number]</td></tr ><tr><td>Sample Collection Date/Time: </td><td>12/25/2019 5:31 PM</td></tr><tr>< td>Specimen Source:</td><td>U RINE</td></tr><tr ><td>Culture Status:</td><td>P reliminary </td></tr><tr><td >Culture Report:</td><td>C ulture in progress </td></tr><tr><td >Urine Culture:</td><td> Collection Plate Date: 12/25/2019 17:34 </td></tr></tbody ></table></item> ID Date Data Source CHMROUTINECCDA.[id number] 12/25/2019 05:31:00 PM EDT [facility] -0400 Name Value Range Interpretation Description Data Sup porting Code Source(s) Document(s ) Cannabinoids <content [facility] [Presence] in styleCode="[place] Urine by Screen d">Cannabinoid Medical method >50 ng/mL s Center </content>NEGA TIVE NG/ML (Reference Range: not available)<br/ > ID Date Data Source Liver 12/25/2019 05:20:00 PM EDT [facility] Profile.[id number] Name Value Range Interpretation Description Data Sup porting Code Source(s) Document(s ) Aspartate 14-36 Above high <content [facility] aminotransferase normal styleCode="Bold"> Dmitriy hs [Enzymatic Aspartate Medical activity/volume] Aminotransferase Center in Serum or Plasma (AST) </content>57 IU/L H<content styleCode="Italic s"> (14-36 IU/L)</content> Alanine 7-30 <content [facility] aminotransferase styleCode="Bold"> Dmitriy hs [Enzymatic Alanine Medical activity/volume] Aminotransferase Center in Serum or Plasma (ALT) </content>23 IU/L<content styleCode="Italic s"> (7-30 IU/L)</content> Bilirubin.total 0.2-1.3 Above high <content [facility] [Mass/volume] in normal styleCode="Bold"> Dmitriy hs Serum or Plasma Bilirubin Total Medical </content>6.4 Center MG/DL H<content styleCode="Italic s"> (0.2-1.3 MG/DL)</content> Alkaline 38-126 <content [facility] phosphatase styleCode="Bold"> [place] [Enzymatic Alkaline Medical activity/volume] Phosphatase (ALP) Cente r in Serum or Plasma </content>105 IU/L<content styleCode="Italic s"> (38-126 IU/L)</content> UNK 0.0-0.3 Above high <content [facility] normal styleCode="Bold"> [place] Bilirubin, Direct Medical </content>3.1 Center MG/DL H<content styleCode="Italic s"> (0.0-0.3 MG/DL)</content> Albumin 3.5-5.0 Below low <content [facility] [Mass/volume] in normal styleCode="Bold"> Dmitriy hs Serum or Plasma Albumin Medical </content>2.4 Center G/DL L<content styleCode="Italic s"> (3.5-5.0 G/DL)</content> ID Date Data Source HematologyRou.[id number] 12/25/2019 05:20:00 PM EDT [facility] 0400 Name Value Range Interpretation Description Data Sup porting Code Source(s) Document(s ) Erythrocytes 4.0-5.1 Below low normal <content [facility] [#/volume] in styleCode="Bold [facility] Blood by ">Red Blood Medical Automated count Cell Count Center </content>2.74 MCUMM L<content styleCode="Ital ics"> (4.0-5.1 MCUMM)</content > Leukocytes 4.4-11.0 Below low normal <content [facility] [#/volume] in styleCode="Bold [place] Blood by ">White Blood Medical Automated count Cell Count Center </content>3.39 KCUMM L<content styleCode="Ital ics"> (4.4-11.0 KCUMM)</content > Hematocrit 36.0-46. Below low normal <content [facility] [Volume 0 styleCode="Bold [place] Fraction] of ">Hematocrit Medical Blood by </content>27.0 Center Automated count % L<content styleCode="Ital ics"> (36.0-46.0 %)</content> Hemoglobin 12.3-16. Below low normal <content [facility] [Mass/volume] in 0 styleCode="Bold [place] Blood ">Hemoglobin Medical </content>9.3 Center G/DL L<content styleCode="Ital ics"> (12.3-16.0 G/DL)</content> Erythrocyte mean 26.0-34. <content [facility] corpuscular 0 styleCode="Bold [place] hemoglobin ">Mean Medical [Entitic mass] Corposcular Center by Automated Hemoglobin count </content>33.9 PG<content styleCode="Ital ics"> (26.0-34.0 PG)</content> Erythrocyte mean 80.0-100 <content [facility] corpuscular .0 styleCode="Bold [place] volume [Entitic ">Mean Medical volume] by Corpuscular Center Automated count Volume </content>98.5 FL<content styleCode="Ital ics"> (80.0-100.0 FL)</content> Erythrocyte mean 32.0-37. <content [facility] corpuscular 0 styleCode="Bold [place] hemoglobin ">Mean Corpus. Medical concentration Hgb Center [Mass/volume] by Concentration Automated count (MCHC) </content>34.4 G/DL<content styleCode="Ital ics"> (32.0-37.0 G/DL)</content> Platelets 130-400 Below lower <content [facility] [#/volume] in panic limits styleCode="Bold [place] Blood by ">Platelet Medical Automated count Count Center </content><cont ent styleCode="Bold ">25 KCUMM LL</content><co ntent styleCode="Ital ics"> (130-400 KCUMM)</content > Erythrocyte 11.5-14. Above high <content [facility] distribution 5 normal styleCode="Bold [place] width [Ratio] by ">Red Cell Medical Automated count Distribution Center Width </content>17.1 % H<content styleCode="Ital ics"> (11.5-14.5 %)</content> UNK 0.0 <content [facility] styleCode="Bold [place] ">Nucleated Red Medical Blood Cell Center Count </content>0.00 KCUMM<content styleCode="Ital ics"> (0.0 KCUMM)</content > Platelet mean 8.0-11.0 Above high <content [facility] volume [Entitic normal styleCode="Bold [place] volume] in Blood ">Mean Platelet Medical by Automated Volume Center count </content>13.0 FL H<content styleCode="Ital ics"> (8.0-11.0 FL)</content> UNK 0 <content [facility] styleCode="Bold [place] ">Nucleated Red Medical Blood Cell Center </content>0.0 /100<content styleCode="Ital ics"> (0 /100)</content> UNK 1.6-4.9 Above high <content [facility] normal styleCode="Bold [place] ">Immature Medical Platelet Center Fraction </content>21.5 % H<content styleCode="Ital ics"> (1.6-4.9 %)</content> ID Date Data Source GFR(Creatinine).[id number] 12/25/2019 05:20:00 PM EDT [facility] 0-0400 Name Value Range Interpretation Code Description Data Ana rce(s) Supporting Document(s ) UNK > 60 Below low normal <content [facility] styleCode="Bold"> Medical Cent er EGFR </content>53 GFR L<content styleCode="Italic s"> (> 60 GFR)</content> ID Date Data Source BMP.[id number] 12/25/2019 05:20:00 PM EDT [facility] Name Value Range Interpretation Description Data Sup porting Code Source(s) Document(s ) Sodium 137-145 Below low <content [facility] [Moles/volume] in normal styleCode="Bold"> Blane phs Serum or Plasma Sodium Medical </content>132 Center MEQ/L L<content styleCode="Italic s"> (137-145 MEQ/L)</content> Potassium 3.5-5.3 Below lower <content [facility] [Moles/volume] in panic limits styleCode="Bold"> J osephs Serum or Plasma Potassium Medical </content><conten Center t styleCode="Bold"> 2.5 MEQ/L LL</content><cont ent styleCode="Italic s"> (3.5-5.3 MEQ/L)</content> Chloride 98-107 <content [facility] [Moles/volume] in styleCode="Bold"> Blane phs Serum or Plasma Chloride Medical </content>100 Center MEQ/L<content styleCode="Italic s"> (98-107 MEQ/L)</content> Carbon dioxide, 22-30 Below low <content [facility] total normal styleCode="Bold"> [place] [Moles/volume] in Carbon Dioxide Medical Serum or Plasma </content>19 Center MEQ/L L<content styleCode="Italic s"> (22-30 MEQ/L)</content> Creatinine 0.5-1.3 <content [facility] [Mass/volume] in styleCode="Bold"> Dmitriy hs Serum or Plasma Creatinine Medical </content>1.2 Center MG/DL<content styleCode="Italic s"> (0.5-1.3 MG/DL)</content> UNK 7-17 Above high <content [facility] normal styleCode="Bold"> [place] BUN </content>19 Medical MG/DL H<content Center styleCode="Italic s"> (7-17 MG/DL)</content> Glucose 74-106 Above high <content [facility] [Mass/volume] in normal styleCode="Bold"> Dmitriy hs Serum or Plasma Glucose Medical </content>128 Center MG/DL H<content styleCode="Italic s"> (74-106 MG/DL)</content> UNK > 60 Below low <content [facility] normal styleCode="Bold"> [place] EGFR </content>53 Medical GFR L<content Center styleCode="Italic s"> (> 60 GFR)</content> Calcium 8.4-10. Below lower <content [facility] [Mass/volume] in 2 panic limits styleCode="Bold"> Regine sephs Serum or Plasma Calcium Medical </content><conten Center t styleCode="Bold"> 6.6 MG/DL LL</content><cont ent styleCode="Italic s"> (8.4-10.2 MG/DL)</content> Alanine 7-30 <content [facility] aminotransferase styleCode="Bold"> Dmitriy hs [Enzymatic Alanine Medical activity/volume] Aminotransferase Center in Serum or Plasma (ALT) </content>23 IU/L<content styleCode="Italic s"> (7-30 IU/L)</content> Aspartate 14-36 Above high <content [facility] aminotransferase normal styleCode="Bold"> Dmitriy hs [Enzymatic Aspartate Medical activity/volume] Aminotransferase Center in Serum or Plasma (AST) </content>57 IU/L H<content styleCode="Italic s"> (14-36 IU/L)</content> Alkaline 38-126 <content [facility] phosphatase styleCode="Bold"> [place] [Enzymatic Alkaline Medical activity/volume] Phosphatase (ALP) Cente r in Serum or Plasma </content>105 IU/L<content styleCode="Italic s"> (38-126 IU/L)</content> Albumin 3.5-5.0 Below low <content [facility] [Mass/volume] in normal styleCode="Bold"> Dmitriy hs Serum or Plasma Albumin Medical </content>2.4 Center G/DL L<content styleCode="Italic s"> (3.5-5.0 G/DL)</content> Bilirubin.total 0.2-1.3 Above high <content [facility] [Mass/volume] in normal styleCode="Bold"> Dmitriy hs Serum or Plasma Bilirubin Total Medical </content>6.4 Center MG/DL H<content styleCode="Italic s"> (0.2-1.3 MG/DL)</content> ID Date Data Source [id number] 12/25/2019 12:00:00 AM EDT [facility] Name Value Range Interpretation Code Description Data Ana rce(s) Supporting Document(s ) 2019-nCoV [facility] RNA XXX GLORIA+probe- Imp This lab was ordered by [facility] and reported by [employer] NTD. ID Date Data Source HematologyRou.[id number] 12/21/2019 02:04:00 AM EDT [facility] 0400 Name Value Range Interpretation Description Data Sup porting Code Source(s) Document(s ) Hematocrit 36.0-46. Below low normal <content [facility] [Volume 0 styleCode="Bold [place] Fraction] of ">Hematocrit Medical Blood by </content>31.4 Center Automated count % L<content styleCode="Ital ics"> (36.0-46.0 %)</content> Hemoglobin 12.3-16. Below low normal <content [facility] [Mass/volume] in 0 styleCode="Bold [place] Blood ">Hemoglobin Medical </content>10.7 Center G/DL L<content styleCode="Ital ics"> (12.3-16.0 G/DL)</content> Erythrocytes 4.0-5.1 Below low normal <content [facility] [#/volume] in styleCode="Bold [place] Blood by ">Red Blood Medical Automated count Cell Count Center </content>3.09 MCUMM L<content styleCode="Ital ics"> (4.0-5.1 MCUMM)</content > Leukocytes 4.4-11.0 Below low normal <content [facility] [#/volume] in styleCode="Bold [place] Blood by ">White Blood Medical Automated count Cell Count Center </content>4.04 KCUMM L<content styleCode="Ital ics"> (4.4-11.0 KCUMM)</content > Platelets 130-400 Below low normal <content Saint [#/volume] in styleCode="Bold [place] Blood by ">Platelet Medical Automated count Count Center </content>69 KCUMM L<content styleCode="Ital ics"> (130-400 KCUMM)</content > Erythrocyte 11.5-14. Above high <content [facility] distribution 5 normal styleCode="Bold [place] width [Ratio] by ">Red Cell Medical Automated count Distribution Center Width </content>17.4 % H<content styleCode="Ital ics"> (11.5-14.5 %)</content> Erythrocyte mean 26.0-34. Above high <content [facility] corpuscular 0 normal styleCode="Bold [place] hemoglobin ">Mean Medical [Entitic mass] Corposcular Center by Automated Hemoglobin count </content>34.6 PG H<content styleCode="Ital ics"> (26.0-34.0 PG)</content> Erythrocyte mean 80.0-100 <content [facility] corpuscular .0 styleCode="Bold [place] volume [Entitic ">Mean Medical volume] by Corpuscular Center Automated count Volume </content>101.6 FL<content styleCode="Ital ics"> (80.0-100.0 FL)</content> Platelet mean 8.0-11.0 <content [facility] volume [Entitic styleCode="Bold [place] volume] in Blood ">Mean Platelet Medical by Automated Volume Center count </content>11.0 FL<content styleCode="Ital ics"> (8.0-11.0 FL)</content> Erythrocyte mean 32.0-37. <content [facility] corpuscular 0 styleCode="Bold [place] hemoglobin ">Mean Corpus. Medical concentration Hgb Center [Mass/volume] by Concentration Automated count (MCHC) </content>34.1 G/DL<content styleCode="Ital ics"> (32.0-37.0 G/DL)</content> UNK 1.6-4.9 Above high <content [facility] normal styleCode="Bold [place] ">Immature Medical Platelet Center Fraction </content>6.9 % H<content styleCode="Ital ics"> (1.6-4.9 %)</content> UNK 0.0 <content Saint styleCode="Bold [place] ">Nucleated Red Medical Blood Cell Center Count </content>0.00 KCUMM<content styleCode="Ital ics"> (0.0 KCUMM)</content > UNK 0 <content Saint styleCode="Bold [place] ">Nucleated Red Medical Blood Cell Center </content>0.0 /100<content styleCode="Ital ics"> (0 /100)</content> UNK NORMAL <content Saint styleCode="Bold [place] ">Platelet Medical Estimate Center </content>PLT. SLIGHTLY DECREASED <content styleCode="Ital ics"> (NORMAL )</content> ID Date Data Source GFR(Creatinine).[id number] 12/21/2019 02:04:00 AM EDT [facility] 0-0400 Name Value Range Interpretation Code Description Data Ana rce(s) Supporting Document(s ) UNK > 60 <content [place] styleCode="Bold"> Medical Cent er EGFR </content>118 GFR<content styleCode="Italic s"> (> 60 GFR)</content> ID Date Data Source MROUTINECCDA.[id number] 12/21/2019 02:04:00 AM EDT [facility] -0400 Name Value Range Interpretation Description Data Sup porting Code Source(s) Document(s ) Lactate 0.7-2.0 <content [facility] [place] [Mass/volum styleCode="Bold Medical e] in Serum ">Lactic Acid Center or Plasma </content>2.0 MMOLL<content styleCode="Ital ics"> (0.7-2.0 MMOLL)</content > ID Date Data Source [facility].[id number] 12/21/2019 02:04:00 AM EDT [facility] Name Value Range Interpretation Description Data Sup porting Code Source(s) Document(s ) Chloride 98-107 Above high normal <content [facility] [Moles/volume] styleCode="Ike [place] in Serum or d">Chloride Medical Plasma </content>109 Center MEQ/L H<content styleCode="Pinky lics"> (98-107 MEQ/L)</conten t> Potassium 3.5-5.3 Below lower panic <content [facility] [Moles/volume] limits styleCode="Ike [place] in Serum or d">Potassium Medical Plasma </content><con Center tent styleCode="Ike d">2.8 MEQ/L LL</content><c ontent styleCode="Pinky lics"> (3.5-5.3 MEQ/L)</conten t> Sodium 137-145 <content Saint [Moles/volume] styleCode="Ike [place] in Serum or d">Sodium Medical Plasma </content>142 Center MEQ/L<content styleCode="Pinky lics"> (137-145 MEQ/L)</conten t> Calcium 8.4-10.2 Below low normal <content [facility] [Mass/volume] styleCode="Ike [place] in Serum or d">Calcium Medical Plasma </content>7.6 Center MG/DL L<content styleCode="Pinky lics"> (8.4-10.2 MG/DL)</conten t> Creatinine 0.5-1.3 <content [facility] [Mass/volume] styleCode="Ike [place] in Serum or d">Creatinine Medical Plasma </content>0.6 Center MG/DL<content styleCode="Pinky lics"> (0.5-1.3 MG/DL)</conten t> Glucose 74-106 <content [facility] [Mass/volume] styleCode="Ike [place] in Serum or d">Glucose Medical Plasma </content>97 Center MG/DL<content styleCode="Pinky lics"> (74-106 MG/DL)</conten t> Carbon 22-30 Below low normal <content Saint dioxide, total styleCode="Ike [place] [Moles/volume] d">Carbon Medical in Serum or Dioxide Center Plasma </content>20 MEQ/L L<content styleCode="Pinky lics"> (22-30 MEQ/L)</conten t> UNK 7-17 <content Saint styleCode="[place] d">BUN Medical </content>9 Center MG/DL<content styleCode="Pinky lics"> (7-17 MG/DL)</conten t> UNK > 60 <content Saint styleCode="Ike [place] d">EGFR Medical </content>118 Center GFR<content styleCode="Pinky lics"> (> 60 GFR)</content> ID Date Data Source [id number] 12/21/2019 12:00:00 AM EDT [facility] Name Value Range Interpretation Code Description Data Ana rce(s) Supporting Document(s ) 2019-nCoV [facility] RNA XXX GLORIA+probe- Imp This lab was ordered by [facility] and reported by [employer] NTD. ID Date Data Source Liver 12/06/2019 06:15:00 PM EDT [facility] Profile.[id number] Name Value Range Interpretation Description Data Sup porting Code Source(s) Document(s ) Aspartate 14-36 Above high <content [facility] aminotransferase normal styleCode="Bold"> Dmitriy hs [Enzymatic Aspartate Medical activity/volume] Aminotransferase Center in Serum or Plasma (AST) </content>210 IU/L H<content styleCode="Italic s"> (14-36 IU/L)</content> Alanine 7-30 Above high <content [facility] aminotransferase normal styleCode="Bold"> Dmitriy hs [Enzymatic Alanine Medical activity/volume] Aminotransferase Center in Serum or Plasma (ALT) </content>49 IU/L H<content styleCode="Italic s"> (7-30 IU/L)</content> Alkaline 38-126 Above high <content [facility] phosphatase normal styleCode="Bold"> [place] [Enzymatic Alkaline Medical activity/volume] Phosphatase (ALP) Cente r in Serum or Plasma </content>161 IU/L H<content styleCode="Italic s"> (38-126 IU/L)</content> Bilirubin.total 0.2-1.3 <content [facility] [Mass/volume] in styleCode="Bold"> Dmitriy hs Serum or Plasma Bilirubin Total Medical </content>1.1 Center MG/DL<content styleCode="Italic s"> (0.2-1.3 MG/DL)</content> UNK 0.0-0.3 <content Saint styleCode="Bold"> [place] Bilirubin, Direct Medical </content>< 0.2 Center MG/DL<content styleCode="Italic s"> (0.0-0.3 MG/DL)</content> Albumin 3.5-5.0 Below low <content [facility] [Mass/volume] in normal styleCode="Bold"> Dmitriy hs Serum or Plasma Albumin Medical </content>3.0 Center G/DL L<content styleCode="Italic s"> (3.5-5.0 G/DL)</content> ID Date Data Source HematologyRou.[id number] 12/06/2019 06:15:00 PM EDT [facility] 0400 Name Value Range Interpretation Description Data Sup porting Code Source(s) Document(s ) Leukocytes 4.4-11.0 Below low normal <content [facility] [#/volume] in styleCode="Bold [place] Blood by ">White Blood Medical Automated count Cell Count Center </content>4.07 KCUMM L<content styleCode="Ital ics"> (4.4-11.0 KCUMM)</content > Erythrocytes 4.0-5.1 Below low normal <content Saint [#/volume] in styleCode="Bold [place] Blood by ">Red Blood Medical Automated count Cell Count Center </content>3.44 MCUMM L<content styleCode="Ital ics"> (4.0-5.1 MCUMM)</content > Hemoglobin 12.3-16. Below low normal <content [facility] [Mass/volume] in 0 styleCode="Bold [place] Blood ">Hemoglobin Medical </content>11.4 Center G/DL L<content styleCode="Ital ics"> (12.3-16.0 G/DL)</content> Hematocrit 36.0-46. Below low normal <content [facility] [Volume 0 styleCode="Bold [facility] Fraction] of ">Hematocrit Medical Blood by </content>34.1 Center Automated count % L<content styleCode="Ital ics"> (36.0-46.0 %)</content> Erythrocyte mean 80.0-100 <content [facility] corpuscular .0 styleCode="Bold [place] volume [Entitic ">Mean Medical volume] by Corpuscular Center Automated count Volume </content>99.1 FL<content styleCode="Ital ics"> (80.0-100.0 FL)</content> Erythrocyte mean 26.0-34. <content [facility] corpuscular 0 styleCode="Bold [place] hemoglobin ">Mean Medical [Entitic mass] Corposcular Center by Automated Hemoglobin count </content>33.1 PG<content styleCode="Ital ics"> (26.0-34.0 PG)</content> Erythrocyte mean 32.0-37. <content [facility] corpuscular 0 styleCode="Bold [place] hemoglobin ">Mean Corpus. Medical concentration Hgb Center [Mass/volume] by Concentration Automated count (MCHC) </content>33.4 G/DL<content styleCode="Ital ics"> (32.0-37.0 G/DL)</content> Platelets 130-400 Below low normal <content Saint [#/volume] in styleCode="Bold [place] Blood by ">Platelet Medical Automated count Count Center </content>102 KCUMM L<content styleCode="Ital ics"> (130-400 KCUMM)</content > Erythrocyte 11.5-14. Above high <content [facility] distribution 5 normal styleCode="Bold [place] width [Ratio] by ">Red Cell Medical Automated count Distribution Center Width </content>17.5 % H<content styleCode="Ital ics"> (11.5-14.5 %)</content> Platelet mean 8.0-11.0 Above high <content [facility] volume [Entitic normal styleCode="Bold [place] volume] in Blood ">Mean Platelet Medical by Automated Volume Center count </content>11.3 FL H<content styleCode="Ital ics"> (8.0-11.0 FL)</content> UNK 0 <content Saint styleCode="Bold [place] ">Nucleated Red Medical Blood Cell Center </content>0.0 /100<content styleCode="Ital ics"> (0 /100)</content> UNK 0.0 <content Saint styleCode="Bold [place] ">Nucleated Red Medical Blood Cell Center Count </content>0.00 KCUMM<content styleCode="Ital ics"> (0.0 KCUMM)</content > ID Date Data Source GFR(Creatinine).[id number] 12/06/2019 06:15:00 PM EDT [facility] 0-0400 Name Value Range Interpretation Code Description Data Ana rce(s) Supporting Document(s ) UNK > 60 <content [facility] styleCode="Bold"> Medical Cent er EGFR </content>99 GFR<content styleCode="Italic s"> (> 60 GFR)</content> ID Date Data Source BMP.[id number] 12/06/2019 06:15:00 PM EDT [facility] Name Value Range Interpretation Description Data Sup porting Code Source(s) Document(s ) Sodium 137-145 <content Saint [Moles/volume] in styleCode="Bold"> Blane phs Serum or Plasma Sodium Medical </content>141 Center MEQ/L<content styleCode="Italic s"> (137-145 MEQ/L)</content> Chloride 98-107 Above high <content [facility] [Moles/volume] in normal styleCode="Bold"> Blane phs Serum or Plasma Chloride Medical </content>109 Center MEQ/L H<content styleCode="Italic s"> (98-107 MEQ/L)</content> Potassium 3.5-5.3 Below lower <content [facility] [Moles/volume] in panic limits styleCode="Bold"> J osephs Serum or Plasma Potassium Medical </content><conten Center t styleCode="Bold"> 3.0 MEQ/L LL</content><cont ent styleCode="Italic s"> (3.5-5.3 MEQ/L)</content> Carbon dioxide, 22-30 <content Saint total styleCode="Bold"> [place] [Moles/volume] in Carbon Dioxide Medical Serum or Plasma </content>22 Center MEQ/L<content styleCode="Italic s"> (22-30 MEQ/L)</content> UNK 7-17 <content Saint styleCode="Bold"> [place] BUN </content>12 Medical MG/DL<content Center styleCode="Italic s"> (7-17 MG/DL)</content> Creatinine 0.5-1.3 <content Saint [Mass/volume] in styleCode="Bold"> Dmitriy hs Serum or Plasma Creatinine Medical </content>0.7 Center MG/DL<content styleCode="Italic s"> (0.5-1.3 MG/DL)</content> Glucose 74-106 Above high <content [facility] [Mass/volume] in normal styleCode="Bold"> Dmitriy hs Serum or Plasma Glucose Medical </content>117 Center MG/DL H<content styleCode="Italic s"> (74-106 MG/DL)</content> Calcium 8.4-10. Below low <content [facility] [Mass/volume] in 2 normal styleCode="Bold"> Dmitriy hs Serum or Plasma Calcium Medical </content>7.7 Center MG/DL L<content styleCode="Italic s"> (8.4-10.2 MG/DL)</content> Aspartate 14-36 Above high <content [facility] aminotransferase normal styleCode="Bold"> Dmitriy hs [Enzymatic Aspartate Medical activity/volume] Aminotransferase Center in Serum or Plasma (AST) </content>210 IU/L H<content styleCode="Italic s"> (14-36 IU/L)</content> UNK > 60 <content Saint styleCode="Bold"> [place] EGFR </content>99 Medical GFR<content Center styleCode="Italic s"> (> 60 GFR)</content> Alanine 7-30 Above high <content [facility] aminotransferase normal styleCode="Bold"> Dmitriy hs [Enzymatic Alanine Medical activity/volume] Aminotransferase Center in Serum or Plasma (ALT) </content>49 IU/L H<content styleCode="Italic s"> (7-30 IU/L)</content> Alkaline 38-126 Above high <content [facility] phosphatase normal styleCode="Bold"> [place] [Enzymatic Alkaline Medical activity/volume] Phosphatase (ALP) Cente r in Serum or Plasma </content>161 IU/L H<content styleCode="Italic s"> (38-126 IU/L)</content> Bilirubin.total 0.2-1.3 <content [facility] [Mass/volume] in styleCode="Bold"> Dmitriy hs Serum or Plasma Bilirubin Total Medical </content>1.1 Center MG/DL<content styleCode="Italic s"> (0.2-1.3 MG/DL)</content> Albumin 3.5-5.0 Below low <content [facility] [Mass/volume] in normal styleCode="Bold"> Dmitriy hs Serum or Plasma Albumin Medical </content>3.0 Center G/DL L<content styleCode="Italic s"> (3.5-5.0 G/DL)</content> ID Date Data Source Urinalysis.[id number] 11/25/2019 05:10:00 PM EDT [facility] 0 Name Value Range Interpretation Description Data Sup porting Code Source(s) Document(s ) UNK CLEAR <content Saint styleCode="[place] d">Urine Medical Clarity Center </content>ELNEA R <content styleCode="Pinky lics"> (CLEAR )</content> Glucose NEGATIVE <content Saint [Mass/volume] styleCode="[facility] in Urine by d">Urine Medical Test strip Glucose Center </content>NEGA TIVE MG/DL<content styleCode="Pinky lics"> (NEGATIVE MG/DL)</conten t> Color of Urine YELLOW <content Saint styleCode="[place] d">Color, Medical Urine Center </content>YELL OW <content styleCode="Pinky lics"> (YELLOW )</content> Specific 1.015-1.02 Below low normal <content Saint gravity of 5 styleCode="[place] Urine by Test d">Urine Medical strip Specific Center [place] </content><= 1.005 L<content styleCode="Pinky lics"> (1.015-1.025 )</content> Ketones NEGATIVE <content Saint [Mass/volume] styleCode="Ike [place] in Urine by d">Urine Medical Test strip Ketone Center </content>NEGA TIVE MG/DL<content styleCode="Pinky lics"> (NEGATIVE MG/DL)</conten t> UNK NEGATIVE <content Saint styleCode="Ike [place] d">Urine Medical Bilirubin Center </content>NEGA TIVE <content styleCode="Pinky lics"> (NEGATIVE )</content> Hemoglobin NEGATIVE <content Saint [Presence] in styleCode="[place]ke [place] Urine by Test d">Urine Blood Medical strip </content>NEGA Center TIVE <content styleCode="Pinky lics"> (NEGATIVE )</content> Urobilinogen 0.2-1.0 <content Saint [Units/volume] styleCode="[place] in Urine by d">Urine Medical Test strip Urobilinogen Center </content>0.2 MG/DL<content styleCode="Pinky lics"> (0.2-1.0 MG/DL)</conten t> Protein NEGATIVE <content Saint [Mass/volume] styleCode="[place] in Urine by d">Urine Medical Test strip Protein Center </content>NEGA TIVE MG/DL<content styleCode="Pinky lics"> (NEGATIVE MG/DL)</conten t> pH of Urine by 4.5-8.0 <content Saint Test strip styleCode="[place] d">Urine pH Medical </content>6.0 Center <content styleCode="Pinky lics"> (4.5-8.0 )</content> Leukocyte NEGATIVE <content Saint esterase styleCode="Ike [place] [Presence] in d">Urine Medical Urine by Test Leukocyte Center strip </content>NEGA TIVE <content styleCode="Pinky lics"> (NEGATIVE )</content> Nitrite NEGATIVE <content Saint [Presence] in styleCode="Ike [place] Urine by Test d">Urine Medical strip Nitrite Center </content>NEGA TIVE <content styleCode="Pinky lics"> (NEGATIVE )</content> ID Date Data Source Liver 11/25/2019 04:08:00 PM EDT [facility] Profile.[id number] Name Value Range Interpretation Description Data Sup porting Code Source(s) Document(s ) Aspartate 14-36 Above high <content [facility] aminotransferase normal styleCode="Bold"> Dmitriy hs [Enzymatic Aspartate Medical activity/volume] Aminotransferase Center in Serum or Plasma (AST) </content>108 IU/L H<content styleCode="Italic s"> (14-36 IU/L)</content> Alkaline 38-126 <content [facility] phosphatase styleCode="Bold"> [place] [Enzymatic Alkaline Medical activity/volume] Phosphatase (ALP) Cente r in Serum or Plasma </content>88 IU/L<content styleCode="Italic s"> (38-126 IU/L)</content> Bilirubin.total 0.2-1.3 Above high <content Saint [Mass/volume] in normal styleCode="Bold"> Dmitriy hs Serum or Plasma Bilirubin Total Medical </content>1.4 Center MG/DL H<content styleCode="Italic s"> (0.2-1.3 MG/DL)</content> Alanine 7-30 <content [facility] aminotransferase styleCode="Bold"> Dmitriy hs [Enzymatic Alanine Medical activity/volume] Aminotransferase Center in Serum or Plasma (ALT) </content>30 IU/L<content styleCode="Italic s"> (7-30 IU/L)</content> Albumin 3.5-5.0 Below low <content Saint [Mass/volume] in normal styleCode="Bold"> Dmitriy hs Serum or Plasma Albumin Medical </content>2.9 Center G/DL L<content styleCode="Italic s"> (3.5-5.0 G/DL)</content> ID Date Data Source HematologyRou.[id number] 11/25/2019 04:08:00 PM EDT [facility] nt [facility] 0400 Name Value Range Interpretation Description Data Sup porting Code Source(s) Document(s ) Erythrocytes 4.0-5.1 Below low normal <content Saint [#/volume] in styleCode="Bold [place] Blood by ">Red Blood Medical Automated count Cell Count Center </content>3.70 MCUMM L<content styleCode="Ital ics"> (4.0-5.1 MCUMM)</content > Hematocrit 36.0-46. <content Saint [Volume 0 styleCode="Bold [place] Fraction] of ">Hematocrit Medical Blood by </content>36.1 Center Automated count %<content styleCode="Ital ics"> (36.0-46.0 %)</content> Hemoglobin 12.3-16. Below low normal <content [facility] [Mass/volume] in 0 styleCode="Bold [place] Blood ">Hemoglobin Medical </content>11.8 Center G/DL L<content styleCode="Ital ics"> (12.3-16.0 G/DL)</content> Leukocytes 4.4-11.0 Below low normal <content Saint [#/volume] in styleCode="Bold [place] Blood by ">White Blood Medical Automated count Cell Count Center </content>4.18 KCUMM L<content styleCode="Ital ics"> (4.4-11.0 KCUMM)</content > Erythrocyte mean 32.0-37. <content [facility] corpuscular 0 styleCode="Bold [place] hemoglobin ">Mean Corpus. Medical concentration Hgb Center [Mass/volume] by Concentration Automated count (MCHC) </content>32.7 G/DL<content styleCode="Ital ics"> (32.0-37.0 G/DL)</content> Erythrocyte mean 80.0-100 <content [facility] corpuscular .0 styleCode="Bold [place] volume [Entitic ">Mean Medical volume] by Corpuscular Center Automated count Volume </content>97.6 FL<content styleCode="Ital ics"> (80.0-100.0 FL)</content> Erythrocyte mean 26.0-34. <content [facility] corpuscular 0 styleCode="Bold [place] hemoglobin ">Mean Medical [Entitic mass] Corposcular Center by Automated Hemoglobin count </content>31.9 PG<content styleCode="Ital ics"> (26.0-34.0 PG)</content> Platelet mean 8.0-11.0 Above high <content Saint volume [Entitic normal styleCode="Bold [place] volume] in Blood ">Mean Platelet Medical by Automated Volume Center count </content>11.2 FL H<content styleCode="Ital ics"> (8.0-11.0 FL)</content> Platelets 130-400 Below low normal <content Saint [#/volume] in styleCode="Bold [place] Blood by ">Platelet Medical Automated count Count Center </content>101 KCUMM L<content styleCode="Ital ics"> (130-400 KCUMM)</content > Erythrocyte 11.5-14. Above high <content [facility] distribution 5 normal styleCode="Bold [place] width [Ratio] by ">Red Cell Medical Automated count Distribution Center Width </content>15.9 % H<content styleCode="Ital ics"> (11.5-14.5 %)</content> Neutrophils 36-66 Above high <content Saint [#/volume] in normal styleCode="Bold [place] Blood by ">Neutrophil Medical Automated count </content>66.6 Center % H<content styleCode="Ital ics"> (36-66 %)</content> UNK 1.6-7.3 <content Saint styleCode="Bold [place] ">Neutrophil Medical Count Center </content>2.78 KCUMM<content styleCode="Ital ics"> (1.6-7.3 KCUMM)</content > UNK 1.0-4.8 Below low normal <content Saint styleCode="Bold [place] ">Lymphocyte Medical Count Center </content>0.99 KCUMM L<content styleCode="Ital ics"> (1.0-4.8 KCUMM)</content > Monocytes 3.0-10.0 <content Saint [#/volume] in styleCode="Bold [place] Blood by ">Monocyte Medical Automated count </content>8.1 Center %<content styleCode="Ital ics"> (3.0-10.0 %)</content> Lymphocytes 24.0-44. Below low normal <content [facility] [#/volume] in 0 styleCode="Bold [place] Blood by ">Lymphocyte Medical Automated count </content>23.7 Center % L<content styleCode="Ital ics"> (24.0-44.0 %)</content> Eosinophils 0-5.0 <content Saint [#/volume] in styleCode="Bold [place] Blood by ">Eosinophil Medical Automated count </content>0.2 Center %<content styleCode="Ital ics"> (0-5.0 %)</content> UNK 0.2-0.9 <content Saint styleCode="Bold [place] ">Monocyte Medical Count Center </content>0.34 KCUMM<content styleCode="Ital ics"> (0.2-0.9 KCUMM)</content > UNK 0.0-0.6 <content Saint styleCode="Bold [place] ">Eosinophil Medical Count Center </content>0.01 KCUMM<content styleCode="Ital ics"> (0.0-0.6 KCUMM)</content > UNK 0.0-0.3 <content Saint styleCode="Bold [place] ">Basophil Medical Count Center </content>0.03 KCUMM<content styleCode="Ital ics"> (0.0-0.3 KCUMM)</content > UNK 0.0 <content Saint styleCode="Bold [place] ">Nucleated Red Medical Blood Cell Center Count </content>0.00 KCUMM<content styleCode="Ital ics"> (0.0 KCUMM)</content > Basophils 0.0-1.0 <content Saint [#/volume] in styleCode="Bold [place] Blood by ">Basophil Medical Automated count </content>0.7 Center %<content styleCode="Ital ics"> (0.0-1.0 %)</content> UNK 0 <content Saint styleCode="Bold [place] ">Nucleated Red Medical Blood Cell Center </content>0.0 /100<content styleCode="Ital ics"> (0 /100)</content> UNK < 1 <content Saint styleCode="Bold [place] ">Immature Medical Granulocyte Center Ratio </content>0.7 %<content styleCode="Ital ics"> (< 1 %)</content> UNK 0-0.1 <content Saint styleCode="Bold [place] ">Immature Medical Granulocyte Center Count </content>0.03 KCUMM<content styleCode="Ital ics"> (0-0.1 KCUMM)</content > ID Date Data Source GFR(Creatinine).[id number] 11/25/2019 04:08:00 PM EDT [facility] 0-0400 Name Value Range Interpretation Code Description Data Ana rce(s) Supporting Document(s ) UNK > 60 <content [facility] styleCode="Bold"> Medical Cent er EGFR </content>118 GFR<content styleCode="Italic s"> (> 60 GFR)</content> ID Date Data Source Coagulation 11/25/2019 04:08:00 PM [facility] Center Rout.[id number] EDT Name Value Range Interpretation Description Data Sup porting Code Source(s) Document(s ) INR in 0.80-1.2 <content [facility] Platelet poor 0 styleCode="Bold" [facility] plasma by >INR Medical Coagulation </content>1.05 Center assay #<content styleCode="Itali cs"> (0.80-1.20 #)</content> UNK 9.0-13.0 <content [facility] styleCode="Bold" [place] >Protime Medical </content>11.7 Center SEC<content styleCode="Itali cs"> (9.0-13.0 SEC)</content> aPTT in 25.1-36. <content [facility] Platelet poor 5 styleCode="Bold" [facility] plasma by >Partial Medical Coagulation Thromboplastin Center assay Time </content>29.3 SEC<content styleCode="Itali cs"> (25.1-36.5 SEC)</content> ID Date Data Source CHMROUTINECCDA.[id number] 11/25/2019 04:08:00 PM EDT [facility] -0400 Name Value Range Interpretation Description Data Sup porting Code Source(s) Document(s ) UNK >= 1.0 <content [facility] styleCode="Bold Medical ">AG Ratio Center </content>1.1 <content styleCode="Ital ics"> (>= 1.0 )</content> UNK 2.3-3.5 <content [facility] styleCode="Bold Medical ">Globulin Center </content>2.6 G/DL<content styleCode="Ital ics"> (2.3-3.5 G/DL)</content> Protein 6.3-8.2 Below low normal <content [facility] [Mass/volum styleCode="Bold Medical e] in Serum ">Total Protein Center or Plasma </content>5.5 G/DL L<content styleCode="Ital ics"> (6.3-8.2 G/DL)</content> ID Date Data Source [facility].[id number] 11/25/2019 04:08:00 PM EDT [facility] Name Value Range Interpretation Description Data Sup porting Code Source(s) Document(s ) Potassium 3.5-5.3 Below lower <content [facility] [Moles/volume] in panic limits styleCode="Bold"> J osephs Serum or Plasma Potassium Medical </content><conten Center t styleCode="Bold"> 2.7 MEQ/L LL</content><cont ent styleCode="Italic s"> (3.5-5.3 MEQ/L)</content> Sodium 137-145 <content [facility] [Moles/volume] in styleCode="Bold"> Blane phs Serum or Plasma Sodium Medical </content>140 Center MEQ/L<content styleCode="Italic s"> (137-145 MEQ/L)</content> Chloride 98-107 Above high <content [facility] [Moles/volume] in normal styleCode="Bold"> Blane phs Serum or Plasma Chloride Medical </content>112 Center MEQ/L H<content styleCode="Italic s"> (98-107 MEQ/L)</content> Creatinine 0.5-1.3 <content [facility] [Mass/volume] in styleCode="Bold"> Dmitriy hs Serum or Plasma Creatinine Medical </content>0.6 Center MG/DL<content styleCode="Italic s"> (0.5-1.3 MG/DL)</content> UNK 7-17 <content [facility] styleCode="Bold"> [place] BUN </content>10 Medical MG/DL<content Center styleCode="Italic s"> (7-17 MG/DL)</content> Carbon dioxide, 22-30 Below low <content [facility] total normal styleCode="Bold"> [place] [Moles/volume] in Carbon Dioxide Medical Serum or Plasma </content>19 Center MEQ/L L<content styleCode="Italic s"> (22-30 MEQ/L)</content> Aspartate 14-36 Above high <content [facility] aminotransferase normal styleCode="Bold"> Dmitriy hs [Enzymatic Aspartate Medical activity/volume] Aminotransferase Center in Serum or Plasma (AST) </content>108 IU/L H<content styleCode="Italic s"> (14-36 IU/L)</content> UNK > 60 <content [facility] styleCode="Bold"> [place] EGFR Medical </content>118 Center GFR<content styleCode="Italic s"> (> 60 GFR)</content> Glucose 74-106 <content [facility] [Mass/volume] in styleCode="Bold"> Dmitriy hs Serum or Plasma Glucose Medical </content>80 Center MG/DL<content styleCode="Italic s"> (74-106 MG/DL)</content> Calcium 8.4-10. Below low <content [facility] [Mass/volume] in 2 normal styleCode="Bold"> Dmitriy hs Serum or Plasma Calcium Medical </content>7.4 Center MG/DL L<content styleCode="Italic s"> (8.4-10.2 MG/DL)</content> Bilirubin.total 0.2-1.3 Above high <content [facility] [Mass/volume] in normal styleCode="Bold"> Dmitriy hs Serum or Plasma Bilirubin Total Medical </content>1.4 Center MG/DL H<content styleCode="Italic s"> (0.2-1.3 MG/DL)</content> Alkaline 38-126 <content [facility] phosphatase styleCode="Bold"> [place] [Enzymatic Alkaline Medical activity/volume] Phosphatase (ALP) Cente r in Serum or Plasma </content>88 IU/L<content styleCode="Italic s"> (38-126 IU/L)</content> Albumin 3.5-5.0 Below low <content [facility] [Mass/volume] in normal styleCode="Bold"> Dmitriy hs Serum or Plasma Albumin Medical </content>2.9 Center G/DL L<content styleCode="Italic s"> (3.5-5.0 G/DL)</content> Alanine 7-30 <content [facility] aminotransferase styleCode="Bold"> Dmitriy hs [Enzymatic Alanine Medical activity/volume] Aminotransferase Center in Serum or Plasma (ALT) </content>30 IU/L<content styleCode="Italic s"> (7-30 IU/L)</content> ID Date Data Source Urinalysis.[id number] 11/19/2019 01:25:00 PM EDT [facility] 0 Name Value Range Interpretation Description Data Sup porting Code Source(s) Document(s ) Color of Urine YELLOW <content [facility] styleCode="Ike [place] d">Color, Medical Urine Center </content>YELL OW <content styleCode="Pinky lics"> (YELLOW )</content> UNK CLEAR <content [facility] styleCode="Ike [place] d">Urine Medical Clarity Center </content>ELENA R <content styleCode="Pinky lics"> (CLEAR )</content> Specific 1.015-1.02 <content [facility] gravity of 5 styleCode="Ike [place] Urine by Test d">Urine Medical strip Specific Center [place] </content>1.02 5 <content styleCode="Pinky lics"> (1.015-1.025 )</content> Ketones NEGATIVE <content [facility] [Mass/volume] styleCode="Ike [place] in Urine by d">Urine Medical Test strip Ketone Center </content>TRAC E MG/DL<content styleCode="Pinky lics"> (NEGATIVE MG/DL)</conten t> UNK NEGATIVE <content [facility] styleCode="Ike [place] d">Urine Medical Bilirubin Center </content>MODE RATE <content styleCode="Pinky lics"> (NEGATIVE )</content> Glucose NEGATIVE <content [facility] [Mass/volume] styleCode="Ike [place] in Urine by d">Urine Medical Test strip Glucose Center </content>NEGA TIVE MG/DL<content styleCode="Pinky lics"> (NEGATIVE MG/DL)</conten t> Protein NEGATIVE <content [facility] [Mass/volume] styleCode="Ike [place] in Urine by d">Urine Medical Test strip Protein Center </content>30 MG/DL<content styleCode="Pinky lics"> (NEGATIVE MG/DL)</conten t> Hemoglobin NEGATIVE <content [facility] [Presence] in styleCode="Ike [place] Urine by Test d">Urine Blood Medical strip </content>NEGA Center TIVE <content styleCode="Pinky lics"> (NEGATIVE )</content> Urobilinogen 0.2-1.0 Above high <content [facility] [Units/volume] normal styleCode="Ike [place] in Urine by d">Urine Medical Test strip Urobilinogen Center </content>2.0 MG/DL H<content styleCode="Pinky lics"> (0.2-1.0 MG/DL)</conten t> pH of Urine by 4.5-8.0 <content [facility] Test strip styleCode="Ike [place] d">Urine pH Medical </content>6.0 Center <content styleCode="Pinky lics"> (4.5-8.0 )</content> UNK 0-3 <content [facility] styleCode="Ike [place] d">Urine Red Medical Blood Cell Center </content>0-3 HPF<content styleCode="Pinky lics"> (0-3 HPF)</content> Nitrite NEGATIVE <content [facility] [Presence] in styleCode="Ike [place] Urine by Test d">Urine Medical strip Nitrite Center </content>POSI TIVE <content styleCode="Pinky lics"> (NEGATIVE )</content> Leukocyte NEGATIVE <content [facility] esterase styleCode="Ike [place] [Presence] in d">Urine Medical Urine by Test Leukocyte Center strip </content>NEGA TIVE <content styleCode="Pinky lics"> (NEGATIVE )</content> UNK 0-3 <content [facility] styleCode="I[facility] [place] d">Urine White Medical Blood Cell Center </content>0-3 HPF<content styleCode="Pinky lics"> (0-3 HPF)</content> UNK NEGATIVE <content styleCode="Ike [place]tegas d">Urine Medical Bacteria Center </content>MODE RATE HPF<content styleCode="Pinky lics"> (NEGATIVE HPF)</content> UNK NONE SEEN <content [facility] styleCode="Ike [place] d">Epithelial Medical Cell Center </content>20-2 5 HPF<content styleCode="Pinky lics"> (NONE SEEN HPF)</content> UNK NONE SEEN <content [facility] styleCode="Ike [place] d">Urine Mucus Medical </content>MANY Center HPF<content styleCode="Pinky lics"> (NONE SEEN HPF)</content> ID Date Data Source Microbiology.[id number] 11/19/2019 01:25:00 PM EDT [facility] 400 Name Value Range Interpretation Code Description Data Ana rce(s) Supporting Document(s ) UNK <item><content [facility] styleCode="Bold"> Medical [facility] er Culture Status </content>
<t able><tbody><tr>< td>Specimen Number:</td><td>[id number]</td></tr ><tr><td>Sample Collection Date/Time: </td><td>11/19/2019 1:25 PM</td></tr><tr>< td>Specimen Source:</td><td>U RINE</td></tr><tr ><td>Culture Status:</td><td>P reliminary </td></tr><tr><td >Culture Report:</td><td>C ulture in progress </td></tr><tr><td >Urine Culture:</td><td> Collection Plate Date: 11/19/2019 13:27 </td></tr></tbody ></table></item> UNK <item><content [facility] styleCode="Bold"> Medical Cent er Culture Report </content>
<t able><tbody><tr>< td>Specimen Number:</td><td>[id number]</td></tr ><tr><td>Sample Collection Date/Time: </td><td>11/19/2019 1:25 PM</td></tr><tr>< td>Specimen Source:</td><td>U RINE</td></tr><tr ><td>Urine Culture:</td><td> Collection Plate Date: 11/19/2019 13:27 </td></tr><tr><td >Culture Status:</td><td>P reliminary </td></tr><tr><td >Culture Report:</td><td>C ulture in progress </td></tr></tbody ></table></item> ID Date Data Source Coagulation 11/19/2019 01:25:00 PM [facility] Rout.[id number] EDT Name Value Range Interpretation Description Data Sup porting Code Source(s) Document(s ) aPTT in 25.1-36. <content [facility] Platelet poor 5 styleCode="Bold" [place] plasma by >Partial Medical Coagulation Thromboplastin Center assay Time </content>28.3 SEC<content styleCode="Itali cs"> (25.1-36.5 SEC)</content> INR in 0.80-1.2 <content [facility] Platelet poor 0 styleCode="Bold" [place] plasma by >INR Medical Coagulation </content>1.00 Center assay #<content styleCode="Itali cs"> (0.80-1.20 #)</content> UNK 9.0-13.0 <content [facility] styleCode="Bold" [place] >Protime Medical </content>11.1 Center SEC<content styleCode="Itali cs"> (9.0-13.0 SEC)</content> ID Date Data Source CHMROUTINECCDA.[id number] 11/19/2019 01:25:00 PM EDT [facility] -0400 Name Value Range Interpretation Description Data Sup porting Code Source(s) Document(s ) Cannabinoids <content [facility] [Presence] in styleCode="Ike [facility] Urine by Screen d">Cannabinoid Medical method >50 ng/mL s Center </content>NEGA TIVE NG/ML (Reference Range: not available)<br/ > ID Date Data Source Liver 11/19/2019 12:55:00 PM EDT [facility] Profile.[id number] Name Value Range Interpretation Description Data Sup porting Code Source(s) Document(s ) Alanine 7-30 Above high <content [facility] aminotransferase normal styleCode="Bold"> Dmitriy hs [Enzymatic Alanine Medical activity/volume] Aminotransferase Center in Serum or Plasma (ALT) </content>42 IU/L H<content styleCode="Italic s"> (7-30 IU/L)</content> Aspartate 14-36 Above high <content [facility] aminotransferase normal styleCode="Bold"> Dmitriy hs [Enzymatic Aspartate Medical activity/volume] Aminotransferase Center in Serum or Plasma (AST) </content>195 IU/L H<content styleCode="Italic s"> (14-36 IU/L)</content> UNK 0.0-0.3 <content [facility] styleCode="Bold"> [facility] Bilirubin, Direct Medical </content>< 0.2 Center MG/DL<content styleCode="Italic s"> (0.0-0.3 MG/DL)</content> Albumin 3.5-5.0 <content [facility] [Mass/volume] in styleCode="Bold"> Dmitriy hs Serum or Plasma Albumin Medical </content>3.5 Center G/DL<content styleCode="Italic s"> (3.5-5.0 G/DL)</content> Bilirubin.total 0.2-1.3 Above high <content [facility] [Mass/volume] in normal styleCode="Bold"> Dmitriy hs Serum or Plasma Bilirubin Total Medical </content>1.5 Center MG/DL H<content styleCode="Italic s"> (0.2-1.3 MG/DL)</content> Alkaline 38-126 <content [facility] phosphatase styleCode="Bold"> [place] [Enzymatic Alkaline Medical activity/volume] Phosphatase (ALP) Cente r in Serum or Plasma </content>95 IU/L<content styleCode="Italic s"> (38-126 IU/L)</content> ID Date Data Source HematologyRou.[id number] 11/19/2019 12:55:00 PM EDT [facility] 0400 Name Value Range Interpretation Description Data Sup porting Code Source(s) Document(s ) Leukocytes 4.4-11.0 <content [facility] [#/volume] in styleCode="Bold [place] Blood by ">White Blood Medical Automated count Cell Count Center </content>6.19 KCUMM<content styleCode="Ital ics"> (4.4-11.0 KCUMM)</content > Erythrocytes 4.0-5.1 <content [facility] [#/volume] in styleCode="Bold [place] Blood by ">Red Blood Medical Automated count Cell Count Center </content>4.00 MCUMM<content styleCode="Ital ics"> (4.0-5.1 MCUMM)</content > Erythrocyte mean 80.0-100 <content [facility] corpuscular .0 styleCode="Bold [place] volume [Entitic ">Mean Medical volume] by Corpuscular Center Automated count Volume </content>95.5 FL<content styleCode="Ital ics"> (80.0-100.0 FL)</content> Hemoglobin 12.3-16. <content [facility] [Mass/volume] in 0 styleCode="Bold [place] Blood ">Hemoglobin Medical </content>12.7 Center G/DL<content styleCode="Ital ics"> (12.3-16.0 G/DL)</content> Hematocrit 36.0-46. <content [facility] [Volume 0 styleCode="Bold [place] Fraction] of ">Hematocrit Medical Blood by </content>38.2 Center Automated count %<content styleCode="Ital ics"> (36.0-46.0 %)</content> Erythrocyte mean 26.0-34. <content [facility] corpuscular 0 styleCode="Bold [place] hemoglobin ">Mean Medical [Entitic mass] Corposcular Center by Automated Hemoglobin count </content>31.8 PG<content styleCode="Ital ics"> (26.0-34.0 PG)</content> Erythrocyte mean 32.0-37. <content [facility] corpuscular 0 styleCode="Bold [place] hemoglobin ">Mean Corpus. Medical concentration Hgb Center [Mass/volume] by Concentration Automated count (MCHC) </content>33.2 G/DL<content styleCode="Ital ics"> (32.0-37.0 G/DL)</content> Platelets 130-400 <content [facility] [#/volume] in styleCode="Bold [place] Blood by ">Platelet Medical Automated count Count Center </content>145 KCUMM<content styleCode="Ital ics"> (130-400 KCUMM)</content > Platelet mean 8.0-11.0 <content [facility] volume [Entitic styleCode="Bold [place] volume] in Blood ">Mean Platelet Medical by Automated Volume Center count </content>10.7 FL<content styleCode="Ital ics"> (8.0-11.0 FL)</content> Erythrocyte 11.5-14. Above high <content [facility] distribution 5 normal styleCode="Bold [place] width [Ratio] by ">Red Cell Medical Automated count Distribution Center Width </content>15.4 % H<content styleCode="Ital ics"> (11.5-14.5 %)</content> UNK 0 <content [facility] styleCode="Bold [place] ">Nucleated Red Medical Blood Cell Center </content>0.0 /100<content styleCode="Ital ics"> (0 /100)</content> UNK 0.0 <content [facility] styleCode="Bold [place] ">Nucleated Red Medical Blood Cell Center Count </content>0.00 KCUMM<content styleCode="Ital ics"> (0.0 KCUMM)</content > ID Date Data Source GFR(Creatinine).[id number] 11/19/2019 12:55:00 PM EDT [facility] 0-0400 Name Value Range Interpretation Code Description Data Ana rce(s) Supporting Document(s ) UNK > 60 <content [facility] styleCode="Bold"> Medical Cent er EGFR </content>118 GFR<content styleCode="Italic s"> (> 60 GFR)</content> ID Date Data Source CHTAMARACCDA.[id number] 11/19/2019 12:55:00 PM EDT [facility] -0400 Name Value Range Interpretation Description Data Sup porting Code Source(s) Document(s ) Lactate 0.7-2.0 Above upper panic <content [facility] [Mass/volum limits styleCode="Bold Medical e] in Serum ">Lactic Acid Center or Plasma </content><cont ent styleCode="Bold ">2.9 MMOLL HH</content><co ntent styleCode="Ital ics"> (0.7-2.0 MMOLL)</content > ID Date Data Source [employer].[id number] 11/19/2019 12:55:00 PM EDT [facility] -0400 Name Value Range Interpretation Description Data Sup porting Code Source(s) Document(s ) Creatine 30-135 Above high normal <content [facility] kinase styleCode="Bold [place] [Enzymatic ">CK Medical activity/vol </content>204 Center ume] in IU/L H<content Serum or styleCode="Ital Plasma ics"> (30-135 IU/L)</content> Troponin < 0.034 <content [facility] I.cardiac styleCode="Bold [place] [Mass/volume ">Troponin I Medical ] in Serum </content>< Center or Plasma 0.012 NG/ML<content styleCode="Ital ics"> (< 0.034 NG/ML)</content > ID Date Data Source BMP.[id number] 11/19/2019 12:55:00 PM EDT [facility] Name Value Range Interpretation Description Data Sup porting Code Source(s) Document(s ) Potassium 3.5-5.3 Below low <content [facility] [Moles/volume] in normal styleCode="Bold"> Blane phs Serum or Plasma Potassium Medical </content>3.2 Center MEQ/L L<content styleCode="Italic s"> (3.5-5.3 MEQ/L)</content> Sodium 137-145 <content [facility] [Moles/volume] in styleCode="Bold"> Blane phs Serum or Plasma Sodium Medical </content>137 Center MEQ/L<content styleCode="Italic s"> (137-145 MEQ/L)</content> Chloride 98-107 <content [facility] [Moles/volume] in styleCode="Bold"> Blane phs Serum or Plasma Chloride Medical </content>105 Center MEQ/L<content styleCode="Italic s"> (98-107 MEQ/L)</content> UNK 7-17 <content [facility] styleCode="Bold"> [place] BUN </content>9 Medical MG/DL<content Center styleCode="Italic s"> (7-17 MG/DL)</content> Carbon dioxide, 22-30 <content [facility] total styleCode="Bold"> [place] [Moles/volume] in Carbon Dioxide Medical Serum or Plasma </content>22 Center MEQ/L<content styleCode="Italic s"> (22-30 MEQ/L)</content> Creatinine 0.5-1.3 <content [facility] [Mass/volume] in styleCode="Bold"> Dmitriy hs Serum or Plasma Creatinine Medical </content>0.6 Center MG/DL<content styleCode="Italic s"> (0.5-1.3 MG/DL)</content> Glucose 74-106 Above high <content [facility] [Mass/volume] in normal styleCode="Bold"> Dmitriy hs Serum or Plasma Glucose Medical </content>114 Center MG/DL H<content styleCode="Italic s"> (74-106 MG/DL)</content> UNK > 60 <content [facility] styleCode="Bold"> [place] EGFR Medical </content>118 Center GFR<content styleCode="Italic s"> (> 60 GFR)</content> Calcium 8.4-10. Below low <content [facility] [Mass/volume] in 2 normal styleCode="Bold"> Dmitriy hs Serum or Plasma Calcium Medical </content>8.3 Center MG/DL L<content styleCode="Italic s"> (8.4-10.2 MG/DL)</content> Aspartate 14-36 Above high <content [facility] aminotransferase normal styleCode="Bold"> Dmitriy hs [Enzymatic Aspartate Medical activity/volume] Aminotransferase Center in Serum or Plasma (AST) </content>195 IU/L H<content styleCode="Italic s"> (14-36 IU/L)</content> Alkaline 38-126 <content [facility] phosphatase styleCode="Bold"> [place] [Enzymatic Alkaline Medical activity/volume] Phosphatase (ALP) Cente r in Serum or Plasma </content>95 IU/L<content styleCode="Italic s"> (38-126 IU/L)</content> Bilirubin.total 0.2-1.3 Above high <content [facility] [Mass/volume] in normal styleCode="Bold"> Dmitriy hs Serum or Plasma Bilirubin Total Medical </content>1.5 Center MG/DL H<content styleCode="Italic s"> (0.2-1.3 MG/DL)</content> Alanine 7-30 Above high <content [facility] aminotransferase normal styleCode="Bold"> Dmitriy hs [Enzymatic Alanine Medical activity/volume] Aminotransferase Center in Serum or Plasma (ALT) </content>42 IU/L H<content styleCode="Italic s"> (7-30 IU/L)</content> Albumin 3.5-5.0 <content [facility] [Mass/volume] in styleCode="Bold"> Dmitriy hs Serum or Plasma Albumin Medical </content>3.5 Center G/DL<content styleCode="Italic s"> (3.5-5.0 G/DL)</content> ID Date Data Source Urinalysis.[id number] 09/09/2019 02:27:00 PM EDT [facility] 0 Name Value Range Interpretation Description Data Sup porting Code Source(s) Document(s ) UNK CLEAR <content [facility] styleCode="Ike Ortegas d">Urine Medical Clarity Center </content>ELENA R <content styleCode="Pinky lics"> (CLEAR )</content> Color of Urine YELLOW <content [facility] styleCode="Ike [place] d">Color, Medical Urine Center </content>YELL OW <content styleCode="Pinky lics"> (YELLOW )</content> Specific 1.015-1.02 Below low normal <content [facility] gravity of 5 styleCode="Ike [place] Urine by Test d">Urine Medical strip Specific Center [place] </content><= 1.005 L<content styleCode="Pinky lics"> (1.015-1.025 )</content> Glucose NEGATIVE <content [facility] [Mass/volume] styleCode="Ike [place] in Urine by d">Urine Medical Test strip Glucose Center </content>NEGA TIVE MG/DL<content styleCode="Pinky lics"> (NEGATIVE MG/DL)</conten t> Ketones NEGATIVE <content [facility] [Mass/volume] styleCode="Ike [place] in Urine by d">Urine Medical Test strip Ketone Center </content>TRAC E MG/DL<content styleCode="Pinky lics"> (NEGATIVE MG/DL)</conten t> UNK NEGATIVE <content [facility] styleCode="Ike [place] d">Urine Medical Bilirubin Center </content>NEGA TIVE <content styleCode="Pinky lics"> (NEGATIVE )</content> Urobilinogen 0.2-1.0 <content [facility] [Units/volume] styleCode="Ike [place] in Urine by d">Urine Medical Test strip Urobilinogen Center </content>0.2 MG/DL<content styleCode="Pinky lics"> (0.2-1.0 MG/DL)</conten t> Hemoglobin NEGATIVE <content [facility] [Presence] in styleCode="Ike [place] Urine by Test d">Urine Blood Medical strip </content>NEGA Center TIVE <content styleCode="Pinky lics"> (NEGATIVE )</content> Protein NEGATIVE <content [facility] [Mass/volume] styleCode="Ike [place] in Urine by d">Urine Medical Test strip Protein Center </content>NEGA TIVE MG/DL<content styleCode="Pinky lics"> (NEGATIVE MG/DL)</conten t> pH of Urine by 4.5-8.0 <content [facility] Test strip styleCode="Ike [place]tegas d">Urine pH Medical </content>6.5 Center <content styleCode="Pinky lics"> (4.5-8.0 )</content> UNK 0-3 <content [facility] styleCode="Ike [place] d">Urine Red Medical Blood Cell Center </content>0-3 HPF<content styleCode="Pinky lics"> (0-3 HPF)</content> Leukocyte NEGATIVE <content [facility] esterase styleCode="Ike [place] [Presence] in d">Urine Medical Urine by Test Leukocyte Center strip </content>TRAC E <content styleCode="Pinky lics"> (NEGATIVE )</content> Nitrite NEGATIVE <content [facility] [Presence] in styleCode="Ike [place] Urine by Test d">Urine Medical strip Nitrite Center </content>NEGA TIVE <content styleCode="Pinky lics"> (NEGATIVE )</content> UNK 0-3 <content [facility] styleCode="Ike [place] d">Urine White Medical Blood Cell Center </content>0-3 HPF<content styleCode="Pinky lics"> (0-3 HPF)</content> UNK NONE SEEN <content [facility] styleCode="Ike [place] d">Epithelial Medical Cell Center </content>0-2 HPF<content styleCode="Pinky lics"> (NONE SEEN HPF)</content> ID Date Data Source Microbiology.[id number] 09/09/2019 02:27:00 PM EDT [facility] 400 Name Value Range Interpretation Code Description Data Ana rce(s) Supporting Document(s ) UNK <item><content [facility] styleCode="Bold"> Medical Cent er Culture Status </content>
<t able><tbody><tr>< td>Specimen Number:</td><td>[id number]</td></tr ><tr><td>Sample Collection Date/Time: </td><td> 0 2:27 PM</td></tr><tr>< td>Specimen Source:</td><td>U RINE</td></tr><tr ><td>Culture Status:</td><td>P reliminary </td></tr><tr><td >Culture Report:</td><td>C ulture in progress </td></tr><tr><td >Urine Culture:</td><td> Collection Plate Date: 09/09/2019 14:29 </td></tr></tbody ></table></item> UNK <item><content [facility] styleCode="Bold"> Medical Cent er Culture Report </content>
<t able><tbody><tr>< td>Specimen Number:</td><td>[id number]</td></tr ><tr><td>Sample Collection Date/Time: </td><td> 0 2:27 PM</td></tr><tr>< td>Specimen Source:</td><td>U RINE</td></tr><tr ><td>Urine Culture:</td><td> Collection Plate Date: 09/09/2019 14:29 </td></tr><tr><td >Culture Status:</td><td>P reliminary </td></tr><tr><td >Culture Report:</td><td>C ulture in progress </td></tr></tbody ></table></item> ID Date Data Source CHMROUTINECCDA.[id number] 09/09/2019 02:27:00 PM EDT [facility] -0400 Name Value Range Interpretation Description Data Sup porting Code Source(s) Document(s ) Cannabinoids <content [facility] [Presence] in styleCode="Ike [place] Urine by Screen d">Cannabinoid Medical method >50 ng/mL s Center </content>NEGA TIVE NG/ML (Reference Range: not available)<br/ > ID Date Data Source Liver 09/09/2019 01:50:00 PM EDT [facility] Profile.[id number] Name Value Range Interpretation Description Data Sup porting Code Source(s) Document(s ) Alanine 7-30 Above high <content [facility] aminotransferase normal styleCode="Bold"> Dmitriy hs [Enzymatic Alanine Medical activity/volume] Aminotransferase Center in Serum or Plasma (ALT) </content>44 IU/L H<content styleCode="Italic s"> (7-30 IU/L)</content> Aspartate 14-36 Above high <content [facility] aminotransferase normal styleCode="Bold"> Dmitriy hs [Enzymatic Aspartate Medical activity/volume] Aminotransferase Center in Serum or Plasma (AST) </content>146 IU/L H<content styleCode="Italic s"> (14-36 IU/L)</content> Bilirubin.total 0.2-1.3 Above high <content [facility] [Mass/volume] in normal styleCode="Bold"> Dmitriy hs Serum or Plasma Bilirubin Total Medical </content>2.3 Center MG/DL H<content styleCode="Italic s"> (0.2-1.3 MG/DL)</content> Alkaline 38-126 <content [facility] phosphatase styleCode="Bold"> [place] [Enzymatic Alkaline Medical activity/volume] Phosphatase (ALP) Cente r in Serum or Plasma </content>92 IU/L<content styleCode="Italic s"> (38-126 IU/L)</content> Albumin 3.5-5.0 <content [facility] [Mass/volume] in styleCode="Bold"> Dmitriy hs Serum or Plasma Albumin Medical </content>3.8 Center G/DL<content styleCode="Italic s"> (3.5-5.0 G/DL)</content> ID Date Data Source HematologyRou.[id number] 09/09/2019 01:50:00 PM EDT [facility] 0400 Name Value Range Interpretation Description Data Sup porting Code Source(s) Document(s ) Leukocytes 4.4-11.0 <content [facility] [#/volume] in styleCode="Bold [facility] Blood by ">White Blood Medical Automated count Cell Count Center </content>4.42 KCUMM<content styleCode="Ital ics"> (4.4-11.0 KCUMM)</content > Hemoglobin 12.3-16. Below low normal <content [facility] [Mass/volume] in 0 styleCode="Bold [place] Blood ">Hemoglobin Medical </content>11.9 Center G/DL L<content styleCode="Ital ics"> (12.3-16.0 G/DL)</content> Erythrocyte mean 26.0-34. <content [facility] corpuscular 0 styleCode="Bold [place] hemoglobin ">Mean Medical [Entitic mass] Corposcular Center by Automated Hemoglobin count </content>29.3 PG<content styleCode="Ital ics"> (26.0-34.0 PG)</content> Hematocrit 36.0-46. <content [facility] [Volume 0 styleCode="Bold [place] Fraction] of ">Hematocrit Medical Blood by </content>37.7 Center Automated count %<content styleCode="Ital ics"> (36.0-46.0 %)</content> Erythrocyte mean 80.0-100 <content [facility] corpuscular .0 styleCode="Bold [place] volume [Entitic ">Mean Medical volume] by Corpuscular Center Automated count Volume </content>92.9 FL<content styleCode="Ital ics"> (80.0-100.0 FL)</content> Erythrocytes 4.0-5.1 <content [facility] [#/volume] in styleCode="Bold [place] Blood by ">Red Blood Medical Automated count Cell Count Center </content>4.06 MCUMM<content styleCode="Ital ics"> (4.0-5.1 MCUMM)</content > Erythrocyte 11.5-14. Above high <content [facility] distribution 5 normal styleCode="Bold [place] width [Ratio] by ">Red Cell Medical Automated count Distribution Center Width </content>17.2 % H<content styleCode="Ital ics"> (11.5-14.5 %)</content> Platelets 130-400 Below low normal <content [facility] [#/volume] in styleCode="Bold [place] Blood by ">Platelet Medical Automated count Count Center </content>113 KCUMM L<content styleCode="Ital ics"> (130-400 KCUMM)</content > Erythrocyte mean 32.0-37. Below low normal <content [facility] corpuscular 0 styleCode="Bold [place] hemoglobin ">Mean Corpus. Medical concentration Hgb Center [Mass/volume] by Concentration Automated count (MCHC) </content>31.6 G/DL L<content styleCode="Ital ics"> (32.0-37.0 G/DL)</content> Platelet mean 8.0-11.0 <content [facility] volume [Entitic styleCode="Bold [place] volume] in Blood ">Mean Platelet Medical by Automated Volume Center count </content>10.7 FL<content styleCode="Ital ics"> (8.0-11.0 FL)</content> Neutrophils 36-66 Above high <content [facility] [#/volume] in normal styleCode="Bold [place] Blood by ">Neutrophil Medical Automated count </content>68.5 Center % H<content styleCode="Ital ics"> (36-66 %)</content> UNK 1.0-4.8 Below low normal <content [facility] styleCode="Bold [place] ">Lymphocyte Medical Count Center </content>0.73 KCUMM L<content styleCode="Ital ics"> (1.0-4.8 KCUMM)</content > Lymphocytes 24.0-44. Below low normal <content [facility] [#/volume] in 0 styleCode="Bold [place] Blood by ">Lymphocyte Medical Automated count </content>16.5 Center % L<content styleCode="Ital ics"> (24.0-44.0 %)</content> UNK 1.6-7.3 <content [facility] styleCode="Bold [place] ">Neutrophil Medical Count Center </content>3.03 KCUMM<content styleCode="Ital ics"> (1.6-7.3 KCUMM)</content > UNK 0.0-0.6 <content [facility] styleCode="Bold [place] ">Eosinophil Medical Count Center </content>0.05 KCUMM<content styleCode="Ital ics"> (0.0-0.6 KCUMM)</content > UNK 0.2-0.9 <content [facility] styleCode="Bold [place] ">Monocyte Medical Count Center </content>0.56 KCUMM<content styleCode="Ital ics"> (0.2-0.9 KCUMM)</content > Eosinophils 0-5.0 <content [facility] [#/volume] in styleCode="Bold [place] Blood by ">Eosinophil Medical Automated count </content>1.1 Center %<content styleCode="Ital ics"> (0-5.0 %)</content> Monocytes 3.0-10.0 Above high <content [facility] [#/volume] in normal styleCode="Bold [place] Blood by ">Monocyte Medical Automated count </content>12.7 Center % H<content styleCode="Ital ics"> (3.0-10.0 %)</content> UNK 0.0 <content [facility] styleCode="Bold [place] ">Nucleated Red Medical Blood Cell Center Count </content>0.00 KCUMM<content styleCode="Ital ics"> (0.0 KCUMM)</content > UNK 0-0.1 <content [facility] styleCode="Bold [place] ">Immature Medical Granulocyte Center Count </content>0.03 KCUMM<content styleCode="Ital ics"> (0-0.1 KCUMM)</content > UNK 0 <content [facility] styleCode="Bold [place] ">Nucleated Red Medical Blood Cell Center </content>0.0 /100<content styleCode="Ital ics"> (0 /100)</content> Basophils 0.0-1.0 <content [facility] [#/volume] in styleCode="Bold [place] Blood by ">Basophil Medical Automated count </content>0.5 Center %<content styleCode="Ital ics"> (0.0-1.0 %)</content> UNK 0.0-0.3 <content [facility] styleCode="Bold [place] ">Basophil Medical Count Center </content>0.02 KCUMM<content styleCode="Ital ics"> (0.0-0.3 KCUMM)</content > UNK < 1 <content [facility] styleCode="Bold [place] ">Immature Medical Granulocyte Center Ratio </content>0.7 %<content styleCode="Ital ics"> (< 1 %)</content> ID Date Data Source GFR(Creatinine).[id number] 09/09/2019 01:50:00 PM EDT [facility] 0-0400 Name Value Range Interpretation Code Description Data Ana rce(s) Supporting Document(s ) UNK > 60 <content [facility] styleCode="Bold"> Medical Cent er EGFR </content>99 GFR<content styleCode="Italic s"> (> 60 GFR)</content> ID Date Data Source CHMROUTINECCDA.[id number] 09/09/2019 01:50:00 PM EDT [facility] -0400 Name Value Range Interpretation Description Data Sup porting Code Source(s) Document(s ) UNK >= 1.0 <content [facility] styleCode="Bold Medical ">AG Ratio Center </content>1.4 <content styleCode="Ital ics"> (>= 1.0 )</content> UNK 2.3-3.5 <content [facility] styleCode="Bold Medical ">Globulin Center </content>2.7 G/DL<content styleCode="Ital ics"> (2.3-3.5 G/DL)</content> Protein 6.3-8.2 <content [facility] [Mass/volum styleCode="Bold Medical e] in Serum ">Total Protein Center or Plasma </content>6.5 G/DL<content styleCode="Ital ics"> (6.3-8.2 G/DL)</content> ID Date Data Source BMP.[id number] 09/09/2019 01:50:00 PM EDT [facility] Name Value Range Interpretation Description Data Sup porting Code Source(s) Document(s ) Potassium 3.5-5.3 Below lower <content [facility] [Moles/volume] in panic limits styleCode="Bold"> J osephs Serum or Plasma Potassium Medical </content><conten Center t styleCode="Bold"> 2.9 MEQ/L LL</content><cont ent styleCode="Italic s"> (3.5-5.3 MEQ/L)</content> Sodium 137-145 <content [facility] [Moles/volume] in styleCode="Bold"> Blane phs Serum or Plasma Sodium Medical </content>138 Center MEQ/L<content styleCode="Italic s"> (137-145 MEQ/L)</content> Creatinine 0.5-1.3 <content [facility] [Mass/volume] in styleCode="Bold"> Dmitriy hs Serum or Plasma Creatinine Medical </content>0.7 Center MG/DL<content styleCode="Italic s"> (0.5-1.3 MG/DL)</content> Chloride 98-107 <content [facility] [Moles/volume] in styleCode="Bold"> Blane phs Serum or Plasma Chloride Medical </content>105 Center MEQ/L<content styleCode="Italic s"> (98-107 MEQ/L)</content> Carbon dioxide, 22-30 Below low <content [facility] total normal styleCode="Bold"> [place] [Moles/volume] in Carbon Dioxide Medical Serum or Plasma </content>18 Center MEQ/L L<content styleCode="Italic s"> (22-30 MEQ/L)</content> UNK 7-17 <content [facility] styleCode="Bold"> [place] BUN </content>12 Medical MG/DL<content Center styleCode="Italic s"> (7-17 MG/DL)</content> UNK > 60 <content [facility] styleCode="Bold"> [place] EGFR </content>99 Medical GFR<content Center styleCode="Italic s"> (> 60 GFR)</content> Calcium 8.4-10. <content [facility] [Mass/volume] in 2 styleCode="Bold"> Dmitriy hs Serum or Plasma Calcium Medical </content>8.4 Center MG/DL<content styleCode="Italic s"> (8.4-10.2 MG/DL)</content> Alanine 7-30 Above high <content [facility] aminotransferase normal styleCode="Bold"> Dmitriy hs [Enzymatic Alanine Medical activity/volume] Aminotransferase Center in Serum or Plasma (ALT) </content>44 IU/L H<content styleCode="Italic s"> (7-30 IU/L)</content> Glucose 74-106 <content [facility] [Mass/volume] in styleCode="Bold"> Dmitriy hs Serum or Plasma Glucose Medical </content>106 Center MG/DL<content styleCode="Italic s"> (74-106 MG/DL)</content> Aspartate 14-36 Above high <content [facility] aminotransferase normal styleCode="Bold"> Dmitriy hs [Enzymatic Aspartate Medical activity/volume] Aminotransferase Center in Serum or Plasma (AST) </content>146 IU/L H<content styleCode="Italic s"> (14-36 IU/L)</content> Bilirubin.total 0.2-1.3 Above high <content [facility] [Mass/volume] in normal styleCode="Bold"> Dmitriy hs Serum or Plasma Bilirubin Total Medical </content>2.3 Center MG/DL H<content styleCode="Italic s"> (0.2-1.3 MG/DL)</content> Alkaline 38-126 <content [facility] phosphatase styleCode="Bold"> [place] [Enzymatic Alkaline Medical activity/volume] Phosphatase (ALP) Cente r in Serum or Plasma </content>92 IU/L<content styleCode="Italic s"> (38-126 IU/L)</content> Albumin 3.5-5.0 <content [facility] [Mass/volume] in styleCode="Bold"> Dmitriy hs Serum or Plasma Albumin Medical </content>3.8 Center G/DL<content styleCode="Italic s"> (3.5-5.0 G/DL)</content> ID Date Data Source HematologyRou.[id number] 02/27/2019 05:10:00 AM LINSEY adhikari [facility] 0500 Name Value Range Interpretation Description Data Sup porting Code Source(s) Document(s ) Erythrocytes 4.0-5.1 Below low normal <content [facility] [#/volume] in styleCode="Bold [place] Blood by ">Red Blood Medical Automated count Cell Count Center </content>3.82 MCUMM L<content styleCode="Ital ics"> (4.0-5.1 MCUMM)</content > Hematocrit 36.0-46. Below low normal <content [facility] [Volume 0 styleCode="Bold [place] Fraction] of ">Hematocrit Medical Blood by </content>29.2 Center Automated count % L<content styleCode="Ital ics"> (36.0-46.0 %)</content> Hemoglobin 12.3-16. Below low normal <content [facility] [Mass/volume] in 0 styleCode="Bold [place] Blood ">Hemoglobin Medical </content>8.6 Center G/DL L<content styleCode="Ital ics"> (12.3-16.0 G/DL)</content> Leukocytes 4.4-11.0 <content [facility] [#/volume] in styleCode="Bold [place] Blood by ">White Blood Medical Automated count Cell Count Center </content>5.99 KCUMM<content styleCode="Ital ics"> (4.4-11.0 KCUMM)</content > Erythrocyte mean 26.0-34. Below low normal <content [facility] corpuscular 0 styleCode="Bold [place] hemoglobin ">Mean Medical [Entitic mass] Corposcular Center by Automated Hemoglobin count </content>22.5 PG L<content styleCode="Ital ics"> (26.0-34.0 PG)</content> Erythrocyte mean 80.0-100 <content [facility] corpuscular .0 styleCode="Bold [place] volume [Entitic ">Mean Medical volume] by Corpuscular Center Automated count Volume </content>76.4 FL<content styleCode="Ital ics"> (80.0-100.0 FL)</content> Erythrocyte 11.5-14. Above high <content [facility] distribution 5 normal styleCode="Bold [place] width [Ratio] by ">Red Cell Medical Automated count Distribution Center Width </content>18.5 % H<content styleCode="Ital ics"> (11.5-14.5 %)</content> Erythrocyte mean 32.0-37. Below low normal <content [facility] corpuscular 0 styleCode="Bold [place] hemoglobin ">Mean Corpus. Medical concentration Hgb Center [Mass/volume] by Concentration Automated count (MCHC) </content>29.5 G/DL L<content styleCode="Ital ics"> (32.0-37.0 G/DL)</content> Platelets 130-400 <content [facility] [#/volume] in styleCode="Bold [place] Blood by ">Platelet Medical Automated count Count Center </content>174 KCUMM<content styleCode="Ital ics"> (130-400 KCUMM)</content > UNK 0.0 <content [facility] styleCode="Bold [place] ">Nucleated Red Medical Blood Cell Center Count </content>0.00 KCUMM<content styleCode="Ital ics"> (0.0 KCUMM)</content > UNK 0 <content [facility] styleCode="Bold [place] ">Nucleated Red Medical Blood Cell Center </content>0.0 /100<content styleCode="Ital ics"> (0 /100)</content> Platelet mean 8.0-11.0 <content [facility] volume [Entitic styleCode="Bold [place] volume] in Blood ">Mean Platelet Medical by Automated Volume Center count </content>10.3 FL<content styleCode="Ital ics"> (8.0-11.0 FL)</content> ID Date Data Source GFR(Creatinine).[id number] 02/27/2019 05:10:00 AM [facility] 0-0500 Name Value Range Interpretation Code Description Data Ana rce(s) Supporting Document(s ) UNK > 60 <content [facility] styleCode="Bold"> Medical Cent er EGFR </content>118 GFR<content styleCode="Italic s"> (> 60 GFR)</content> ID Date Data Source CHMROUTINECCDA.[id number] 02/27/2019 05:10:00 AM [facility] -0500 Name Value Range Interpretation Description Data Sup porting Code Source(s) Document(s ) Phosphate 2.5-4.5 Above high normal <content [facility] [Mass/volume] styleCode="Ike [place] in Serum or d">Phosphorus Medical Plasma </content>4.6 Center MG/DL H<content styleCode="Pinky lics"> (2.5-4.5 MG/DL)</conten t> Magnesium 1.6-2.3 <content [facility] [Mass/volume] styleCode="Ike [place] in Serum or d">Magnesium Medical Plasma </content>1.8 Center MG/DL<content styleCode="Pinky lics"> (1.6-2.3 MG/DL)</conten t> ID Date Data Source [facility].[id number] 02/27/2019 05:10:00 AM EST [facility] Name Value Range Interpretation Description Data Sup porting Code Source(s) Document(s ) Sodium 137-145 <content [facility] [Moles/volume] styleCode="Ike [place] in Serum or d">Sodium Medical Plasma </content>138 Center MEQ/L<content styleCode="Pinky lics"> (137-145 MEQ/L)</conten t> Potassium 3.5-5.3 <content [facility] [Moles/volume] styleCode="Ike [place] in Serum or d">Potassium Medical Plasma </content>4.3 Center MEQ/L<content styleCode="Pinky lics"> (3.5-5.3 MEQ/L)</conten t> Carbon 22-30 <content [facility] dioxide, total styleCode="Ike [place] [Moles/volume] d">Carbon Medical in Serum or Dioxide Center Plasma </content>26 MEQ/L<content styleCode="Pinky lics"> (22-30 MEQ/L)</conten t> Creatinine 0.5-1.3 <content [facility] [Mass/volume] styleCode="Ike [place] in Serum or d">Creatinine Medical Plasma </content>0.6 Center MG/DL<content styleCode="Pinky lics"> (0.5-1.3 MG/DL)</conten t> Chloride 98-107 Above high normal <content [facility] [Moles/volume] styleCode="Ike [place] in Serum or d">Chloride Medical Plasma </content>109 Center MEQ/L H<content styleCode="Pinky lics"> (98-107 MEQ/L)</conten t> Calcium 8.4-10.2 <content [facility] [Mass/volume] styleCode="Ike [place] in Serum or d">Calcium Medical Plasma </content>8.9 Center MG/DL<content styleCode="Pinky lics"> (8.4-10.2 MG/DL)</conten t> Glucose 74-106 <content [facility] [Mass/volume] styleCode="Ike [place] in Serum or d">Glucose Medical Plasma </content>87 Center MG/DL<content styleCode="Pinky lics"> (74-106 MG/DL)</conten t> UNK 7-17 <content [facility] styleCode="Ike [place] d">BUN Medical </content>16 Center MG/DL<content styleCode="Pinky lics"> (7-17 MG/DL)</conten t> UNK > 60 <content [facility] styleCode="Ike [place] d">EGFR Medical </content>118 Center GFR<content styleCode="Pinky lics"> (> 60 GFR)</content> ID Date Data Source HematologyRou.[id number] 02/26/2019 05:53:00 AM LINSEY Josue [facility] 0500 Name Value Range Interpretation Description Data Sup porting Code Source(s) Document(s ) Erythrocytes 4.0-5.1 Below low normal <content [facility] [#/volume] in styleCode="Bold [place] Blood by ">Red Blood Medical Automated count Cell Count Center </content>3.80 MCUMM L<content styleCode="Ital ics"> (4.0-5.1 MCUMM)</content > Leukocytes 4.4-11.0 <content [facility] [#/volume] in styleCode="Bold [place] Blood by ">White Blood Medical Automated count Cell Count Center </content>6.18 KCUMM<content styleCode="Ital ics"> (4.4-11.0 KCUMM)</content > Hemoglobin 12.3-16. Below low normal <content [facility] [Mass/volume] in 0 styleCode="Bold [place] Blood ">Hemoglobin Medical </content>8.5 Center G/DL L<content styleCode="Ital ics"> (12.3-16.0 G/DL)</content> Hematocrit 36.0-46. Below low normal <content [facility] [Volume 0 styleCode="Bold [place] Fraction] of ">Hematocrit Medical Blood by </content>28.7 Center Automated count % L<content styleCode="Ital ics"> (36.0-46.0 %)</content> Erythrocyte mean 26.0-34. Below low normal <content [facility] corpuscular 0 styleCode="Bold [place] hemoglobin ">Mean Medical [Entitic mass] Corposcular Center by Automated Hemoglobin count </content>22.4 PG L<content styleCode="Ital ics"> (26.0-34.0 PG)</content> Erythrocyte mean 80.0-100 <content [facility] corpuscular .0 styleCode="Bold [place] volume [Entitic ">Mean Medical volume] by Corpuscular Center Automated count Volume </content>75.5 FL<content styleCode="Ital ics"> (80.0-100.0 FL)</content> Erythrocyte mean 32.0-37. Below low normal <content [facility] corpuscular 0 styleCode="Bold [place] hemoglobin ">Mean Corpus. Medical concentration Hgb Center [Mass/volume] by Concentration Automated count (MCHC) </content>29.6 G/DL L<content styleCode="Ital ics"> (32.0-37.0 G/DL)</content> Platelets 130-400 <content [facility] [#/volume] in styleCode="Bold [place] Blood by ">Platelet Medical Automated count Count Center </content>182 KCUMM<content styleCode="Ital ics"> (130-400 KCUMM)</content > Erythrocyte 11.5-14. Above high <content [facility] distribution 5 normal styleCode="Bold [place] width [Ratio] by ">Red Cell Medical Automated count Distribution Center Width </content>18.4 % H<content styleCode="Ital ics"> (11.5-14.5 %)</content> Platelet mean 8.0-11.0 <content [facility] volume [Entitic styleCode="Bold [place] volume] in Blood ">Mean Platelet Medical by Automated Volume Center count </content>10.2 FL<content styleCode="Ital ics"> (8.0-11.0 FL)</content> UNK 0 <content [facility] styleCode="Bold [place] ">Nucleated Red Medical Blood Cell Center </content>0.0 /100<content styleCode="Ital ics"> (0 /100)</content> UNK 0.0 <content [facility] styleCode="Bold [place] ">Nucleated Red Medical Blood Cell Center Count </content>0.00 KCUMM<content styleCode="Ital ics"> (0.0 KCUMM)</content > ID Date Data Source GFR(Creatinine).[id number] 02/26/2019 05:53:00 AM [facility] 0-0500 Name Value Range Interpretation Code Description Data Ana rce(s) Supporting Document(s ) UNK > 60 <content [facility] [place] styleCode="Bold"> Medical Cent er EGFR </content>118 GFR<content styleCode="Italic s"> (> 60 GFR)</content> ID Date Data Source CHMROUTINECCDA.[id number] 02/26/2019 05:53:00 AM [facility] -0500 Name Value Range Interpretation Description Data Sup porting Code Source(s) Document(s ) Magnesium 1.6-2.3 <content [facility] [Mass/volume] styleCode="Ike [place] in Serum or d">Magnesium Medical Plasma </content>1.7 Center MG/DL<content styleCode="Pinky lics"> (1.6-2.3 MG/DL)</conten t> Phosphate 2.5-4.5 <content [facility] [Mass/volume] styleCode="Ike [place] in Serum or d">Phosphorus Medical Plasma </content>4.0 Center MG/DL<content styleCode="Pinky lics"> (2.5-4.5 MG/DL)</conten t> ID Date Data Source [employer].[id number] 02/26/2019 05:53:00 AM LINSEY adhikari [facility] -0500 Name Value Range Interpretation Description Data Sup porting Code Source(s) Document(s ) Creatine 30-135 Above high normal <content [facility] kinase styleCode="Bold Medical [Enzymatic ">CK Center activity/vol </content>150 ume] in IU/L H<content Serum or styleCode="Ital Plasma ics"> (30-135 IU/L)</content> ID Date Data Source BMP.[id number] 02/26/2019 05:53:00 AM EST [facility] Name Value Range Interpretation Description Data Sup porting Code Source(s) Document(s ) Sodium 137-145 <content [facility] [Moles/volume] styleCode="Ike [place] in Serum or d">Sodium Medical Plasma </content>137 Center MEQ/L<content styleCode="Pinky lics"> (137-145 MEQ/L)</conten t> Potassium 3.5-5.3 <content [facility] [Moles/volume] styleCode="Ike [place] in Serum or d">Potassium Medical Plasma </content>4.2 Center MEQ/L<content styleCode="Pinky lics"> (3.5-5.3 MEQ/L)</conten t> Glucose 74-106 <content [facility] [Mass/volume] styleCode="Ike [place] in Serum or d">Glucose Medical Plasma </content>105 Center MG/DL<content styleCode="Pinky lics"> (74-106 MG/DL)</conten t> Carbon 22-30 <content [facility] dioxide, total styleCode="Ike [place] [Moles/volume] d">Carbon Medical in Serum or Dioxide Center Plasma </content>26 MEQ/L<content styleCode="Pinky lics"> (22-30 MEQ/L)</conten t> UNK 7-17 <content [facility] styleCode="Ike [place] d">BUN Medical </content>13 Center MG/DL<content styleCode="Pinky lics"> (7-17 MG/DL)</conten t> Chloride 98-107 <content [facility] [Moles/volume] styleCode="Ike [place] in Serum or d">Chloride Medical Plasma </content>106 Center MEQ/L<content styleCode="Pinky lics"> (98-107 MEQ/L)</conten t> Creatinine 0.5-1.3 <content [facility] [Mass/volume] styleCode="Ike [place] in Serum or d">Creatinine Medical Plasma </content>0.6 Center MG/DL<content styleCode="Pinky lics"> (0.5-1.3 MG/DL)</conten t> UNK > 60 <content [facility] styleCode="Ike [place] d">EGFR Medical </content>118 Center GFR<content styleCode="Pinky lics"> (> 60 GFR)</content> Calcium 8.4-10.2 <content [facility] [Mass/volume] styleCode="Ike [place] in Serum or d">Calcium Medical Plasma </content>9.0 Center MG/DL<content styleCode="Pinky lics"> (8.4-10.2 MG/DL)</conten t> ID Date Data Source Liver 02/25/2019 06:55:00 AM EST [facility] Profile.[id number] Name Value Range Interpretation Description Data Sup porting Code Source(s) Document(s ) Aspartate 14-36 Above high <content [facility] aminotransferase normal styleCode="Bold"> Dmitriy hs [Enzymatic Aspartate Medical activity/volume] Aminotransferase Center in Serum or Plasma (AST) </content>40 IU/L H<content styleCode="Italic s"> (14-36 IU/L)</content> Alkaline 38-126 <content [facility] phosphatase styleCode="Bold"> [place] [Enzymatic Alkaline Medical activity/volume] Phosphatase (ALP) Cente r in Serum or Plasma </content>78 IU/L<content styleCode="Italic s"> (38-126 IU/L)</content> Albumin 3.5-5.0 Below low <content [facility] [Mass/volume] in normal styleCode="Bold"> Dmitriy hs Serum or Plasma Albumin Medical </content>3.3 Center G/DL L<content styleCode="Italic s"> (3.5-5.0 G/DL)</content> Alanine 7-30 <content [facility] aminotransferase styleCode="Bold"> Dmitriy hs [Enzymatic Alanine Medical activity/volume] Aminotransferase Center in Serum or Plasma (ALT) </content>13 IU/L<content styleCode="Italic s"> (7-30 IU/L)</content> Bilirubin.total 0.2-1.3 Above high <content [facility] [Mass/volume] in normal styleCode="Bold"> Dmitriy hs Serum or Plasma Bilirubin Total Medical </content>1.5 Center MG/DL H<content styleCode="Italic s"> (0.2-1.3 MG/DL)</content> ID Date Data Source HematologyRou.[id number] 02/25/2019 06:55:00 AM LINSEY Salas [facility] 0500 Name Value Range Interpretation Description Data Sup porting Code Source(s) Document(s ) Leukocytes 4.4-11.0 <content [facility] [#/volume] in styleCode="Bold [facility] Blood by ">White Blood Medical Automated count Cell Count Center </content>6.81 KCUMM<content styleCode="Ital ics"> (4.4-11.0 KCUMM)</content > Hematocrit 36.0-46. Below low normal <content [facility] [Volume 0 styleCode="Bold [facility] Fraction] of ">Hematocrit Medical Blood by </content>30.4 Center Automated count % L<content styleCode="Ital ics"> (36.0-46.0 %)</content> Hemoglobin 12.3-16. Below low normal <content [facility] [Mass/volume] in 0 styleCode="Bold [place] Blood ">Hemoglobin Medical </content>9.0 Center G/DL L<content styleCode="Ital ics"> (12.3-16.0 G/DL)</content> Erythrocytes 4.0-5.1 <content [facility] [#/volume] in styleCode="[facility]old [place] Blood by ">Red Blood Medical Automated count Cell Count Center </content>4.01 MCUMM<content styleCode="Ital ics"> (4.0-5.1 MCUMM)</content > Erythrocyte mean 32.0-37. Below low normal <content [facility] corpuscular 0 styleCode="[place]old [place] hemoglobin ">Mean Corpus. Medical concentration Hgb Center [Mass/volume] by Concentration Automated count (MCHC) </content>29.6 G/DL L<content styleCode="Ital ics"> (32.0-37.0 G/DL)</content> Erythrocyte mean 26.0-34. Below low normal <content [facility] corpuscular 0 styleCode="[place] [place] hemoglobin ">Mean Medical [Entitic mass] Corposcular Center by Automated Hemoglobin count </content>22.4 PG L<content styleCode="Ital ics"> (26.0-34.0 PG)</content> Erythrocyte 11.5-14. Above high <content [facility] distribution 5 normal styleCode="[place] [place] width [Ratio] by ">Red Cell Medical Automated count Distribution Center Width </content>18.5 % H<content styleCode="Ital ics"> (11.5-14.5 %)</content> Erythrocyte mean 80.0-100 <content [facility] corpuscular .0 styleCode="[place]old [place] volume [Entitic ">Mean Medical volume] by Corpuscular Center Automated count Volume </content>75.8 FL<content styleCode="Ital ics"> (80.0-100.0 FL)</content> Platelets 130-400 <content [facility] [#/volume] in styleCode="[place]old [place] Blood by ">Platelet Medical Automated count Count Center </content>202 KCUMM<content styleCode="Ital ics"> (130-400 KCUMM)</content > UNK 1.6-7.3 <content [facility] styleCode="[facility] [place] ">Neutrophil Medical Count Center </content>4.24 KCUMM<content styleCode="Ital ics"> (1.6-7.3 KCUMM)</content > Lymphocytes 24.0-44. <content [facility] [#/volume] in 0 styleCode="[place] Blood by ">Lymphocyte Medical Automated count </content>29.1 Center %<content styleCode="Ital ics"> (24.0-44.0 %)</content> Neutrophils 36-66 <content [facility] [#/volume] in styleCode="[place] [place] Blood by ">Neutrophil Medical Automated count </content>62.2 Center %<content styleCode="Ital ics"> (36-66 %)</content> Platelet mean 8.0-11.0 <content [facility] volume [Entitic styleCode="[place]old [place] volume] in Blood ">Mean Platelet Medical by Automated Volume Center count </content>9.9 FL<content styleCode="Ital ics"> (8.0-11.0 FL)</content> Eosinophils 0-5.0 <content [facility] [#/volume] in styleCode="[place] Blood by ">Eosinophil Medical Automated count </content>1.6 Center %<content styleCode="Ital ics"> (0-5.0 %)</content> UNK 0.2-0.9 <content [facility] styleCode="[facility] [place] ">Monocyte Medical Count Center </content>0.44 KCUMM<content styleCode="Ital ics"> (0.2-0.9 KCUMM)</content > Monocytes 3.0-10.0 <content [facility] [#/volume] in styleCode="[place] Blood by ">Monocyte Medical Automated count </content>6.5 Center %<content styleCode="Ital ics"> (3.0-10.0 %)</content> UNK 1.0-4.8 <content [facility] styleCode="[facility] [place] ">Lymphocyte Medical Count Center </content>1.98 KCUMM<content styleCode="Ital ics"> (1.0-4.8 KCUMM)</content > UNK 0.0 <content [facility] styleCode="[facility] [place] ">Nucleated Red Medical Blood Cell Center Count </content>0.00 KCUMM<content styleCode="Ital ics"> (0.0 KCUMM)</content > Basophils 0.0-1.0 <content [facility] [#/volume] in styleCode="[place] Blood by ">Basophil Medical Automated count </content>0.3 Center %<content styleCode="Ital ics"> (0.0-1.0 %)</content> UNK 0 <content [facility] styleCode="[place] [place] ">Nucleated Red Medical Blood Cell Center </content>0.0 /100<content styleCode="Ital ics"> (0 /100)</content> UNK 0.0-0.3 <content [facility] styleCode="[facility] [place] ">Basophil Medical Count Center </content>0.02 KCUMM<content styleCode="Ital ics"> (0.0-0.3 KCUMM)</content > UNK 0.0-0.6 <content [facility] styleCode="[facility] [place] ">Eosinophil Medical Count Center </content>0.11 KCUMM<content styleCode="Ital ics"> (0.0-0.6 KCUMM)</content > UNK 0-0.1 <content [facility] styleCode="[place] [place] ">Immature Medical Granulocyte Center Count </content>0.02 KCUMM<content styleCode="Ital ics"> (0-0.1 KCUMM)</content > UNK < 1 <content [facility] styleCode="[facility] [place] ">Immature Medical Granulocyte Center Ratio </content>0.3 %<content styleCode="Ital ics"> (< 1 %)</content> ID Date Data Source GFR(Creatinine).[id number] 02/25/2019 06:55:00 AM [facility] 0-0500 Name Value Range Interpretation Code Description Data Ana rce(s) Supporting Document(s ) UNK > 60 <content [facility] styleCode="Bold"> Medical Cent er EGFR </content>145 GFR<content styleCode="Italic s"> (> 60 GFR)</content> ID Date Data Source ChemistrySpecia.[id number] 02/25/2019 06:55:00 AM [facility] 0-0500 Name Value Range Interpretation Description Data Sup porting Code Source(s) Document(s ) Cobalamin 239-931 Below low normal <content [facility] (Vitamin B12) styleCode="Ike [place] [Mass/volume] d">Vitamin B12 Medical in Serum or </content>177 Center Plasma PG/ML L<content styleCode="Pinky lics"> (239-931 PG/ML)</conten t> ID Date Data Source CHMROUTINECCDA.[id number] 02/25/2019 06:55:00 AM LINSEY Salas [facility] -0500 Name Value Range Interpretation Description Data Sup porting Code Source(s) Document(s ) Ferritin 11-264 Below low normal <content [facility] [Mass/volume styleCode="[place]old [place] ] in Serum ">Ferritin Medical or Plasma </content>9.20 Center NG/ML L<content styleCode="Ital ics"> (11-264 NG/ML)</content > UNK 2.3-3.5 <content [facility] styleCode="[facility] [place] ">Globulin Medical </content>2.7 Center G/DL<content styleCode="Ital ics"> (2.3-3.5 G/DL)</content> UNK >= 1.0 <content [facility] styleCode="[facility]old [place] ">AG Ratio Medical </content>1.2 Center <content styleCode="Ital ics"> (>= 1.0 )</content> Iron 37-170 <content [facility] [Mass/volume styleCode="[place]old [place] ] in Serum ">Iron Medical or Plasma </content>79 Center UG/DL<content styleCode="Ital ics"> (37-170 UG/DL)</content > Protein 6.3-8.2 Below low normal <content [facility] [Mass/volume styleCode="[place] ] in Serum ">Total Protein Medical or Plasma </content>6.0 Center G/DL L<content styleCode="Ital ics"> (6.3-8.2 G/DL)</content> UNK 265-497 <content [facility] styleCode="[place] [place] ">TIBC Medical </content>428 Center UG/DL<content styleCode="Ital ics"> (265-497 UG/DL)</content > ID Date Data Source [facility].[id number] 02/25/2019 06:55:00 AM EST [facility] Name Value Range Interpretation Description Data Sup porting Code Source(s) Document(s ) Sodium 137-145 Below low <content [facility] [Moles/volume] in normal styleCode="Bold"> Blane phs Serum or Plasma Sodium Medical </content>136 Center MEQ/L L<content styleCode="Italic s"> (137-145 MEQ/L)</content> Glucose 74-106 <content [facility] [Mass/volume] in styleCode="Bold"> Dmitriy hs Serum or Plasma Glucose Medical </content>82 Center MG/DL<content styleCode="Italic s"> (74-106 MG/DL)</content> Carbon dioxide, 22-30 <content [facility] total styleCode="Bold"> [place] [Moles/volume] in Carbon Dioxide Medical Serum or Plasma </content>26 Center MEQ/L<content styleCode="Italic s"> (22-30 MEQ/L)</content> Chloride 98-107 <content [facility] [Moles/volume] in styleCode="Bold"> Blane phs Serum or Plasma Chloride Medical </content>105 Center MEQ/L<content styleCode="Italic s"> (98-107 MEQ/L)</content> Creatinine 0.5-1.3 <content [facility] [Mass/volume] in styleCode="Bold"> Dmitriy hs Serum or Plasma Creatinine Medical </content>0.5 Center MG/DL<content styleCode="Italic s"> (0.5-1.3 MG/DL)</content> Potassium 3.5-5.3 <content [facility] [Moles/volume] in styleCode="Bold"> Blane phs Serum or Plasma Potassium Medical </content>4.0 Center MEQ/L<content styleCode="Italic s"> (3.5-5.3 MEQ/L)</content> UNK 7-17 <content [facility] styleCode="Bold"> [place] BUN </content>16 Medical MG/DL<content Center styleCode="Italic s"> (7-17 MG/DL)</content> Calcium 8.4-10. <content [facility] [Mass/volume] in 2 styleCode="Bold"> Dmitriy hs Serum or Plasma Calcium Medical </content>9.0 Center MG/DL<content styleCode="Italic s"> (8.4-10.2 MG/DL)</content> Alanine 7-30 <content [facility] aminotransferase styleCode="Bold"> Dmitriy hs [Enzymatic Alanine Medical activity/volume] Aminotransferase Center in Serum or Plasma (ALT) </content>13 IU/L<content styleCode="Italic s"> (7-30 IU/L)</content> Aspartate 14-36 Above high <content [facility] aminotransferase normal styleCode="Bold"> Dmitriy hs [Enzymatic Aspartate Medical activity/volume] Aminotransferase Center in Serum or Plasma (AST) </content>40 IU/L H<content styleCode="Italic s"> (14-36 IU/L)</content> UNK > 60 <content [facility] styleCode="Bold"> [place] EGFR Medical </content>145 Center GFR<content styleCode="Italic s"> (> 60 GFR)</content> Alkaline 38-126 <content [facility] phosphatase styleCode="Bold"> [place] [Enzymatic Alkaline Medical activity/volume] Phosphatase (ALP) Cente r in Serum or Plasma </content>78 IU/L<content styleCode="Italic s"> (38-126 IU/L)</content> Bilirubin.total 0.2-1.3 Above high <content [facility] [Mass/volume] in normal styleCode="Bold"> Dmitriy hs Serum or Plasma Bilirubin Total Medical </content>1.5 Center MG/DL H<content styleCode="Italic s"> (0.2-1.3 MG/DL)</content> Albumin 3.5-5.0 Below low <content [facility] [Mass/volume] in normal styleCode="Bold"> Dmitriy hs Serum or Plasma Albumin Medical </content>3.3 Center G/DL L<content styleCode="Italic s"> (3.5-5.0 G/DL)</content> ID Date Data Source Urinalysis.[id number] 02/24/2019 02:15:00 PM LINSEY Salas [facility] 0 Name Value Range Interpretation Description Data Sup porting Code Source(s) Document(s ) UNK CLEAR <content [facility] styleCode="Ike [place] d">Urine Medical Clarity Center </content>ELENA R <content styleCode="Pinky lics"> (CLEAR )</content> Color of Urine YELLOW <content [facility] styleCode="[place]ke [place] d">Color, Medical Urine Center </content>YELL OW <content styleCode="Pinky lics"> (YELLOW )</content> Glucose NEGATIVE <content [facility] [Mass/volume] styleCode="Ike [place]ru[place] in Urine by d">Urine Medical Test strip Glucose Center </content>NEGA TIVE MG/DL<content styleCode="Pinky lics"> (NEGATIVE MG/DL)</conten t> Specific 1.015-1.02 Above high <content [facility] gravity of 5 normal styleCode="Ike [place]ruitt Urine by Test d">Urine Medical strip Specific Center [place] </content>>= 1.030 H<content styleCode="Pinky lics"> (1.015-1.025 )</content> Hemoglobin NEGATIVE <content [facility] [Presence] in styleCode="Ike [place]ru[place] Urine by Test d">Urine Blood Medical strip </content>TRAC Center E <content styleCode="Pinky lics"> (NEGATIVE )</content> Ketones NEGATIVE <content [facility] [Mass/volume] styleCode="[place]ke [place] in Urine by d">Urine Medical Test strip Ketone Center </content>NEGA TIVE MG/DL<content styleCode="Pinky lics"> (NEGATIVE MG/DL)</conten t> UNK NEGATIVE <content [facility] styleCode="[place]ke [place] d">Urine Medical Bilirubin Center </content>NEGA TIVE <content styleCode="Pinky lics"> (NEGATIVE )</content> pH of Urine by 4.5-8.0 <content [facility] Test strip styleCode="[place]ke [place] d">Urine pH Medical </content>5.5 Center <content styleCode="Pinky lics"> (4.5-8.0 )</content> Protein NEGATIVE <content [facility] [Mass/volume] styleCode="Ike [place]ru[place] in Urine by d">Urine Medical Test strip Protein Center </content>NEGA TIVE MG/DL<content styleCode="Pinky lics"> (NEGATIVE MG/DL)</conten t> Urobilinogen 0.2-1.0 <content [facility] [Units/volume] styleCode="[place]ke [place] in Urine by d">Urine Medical Test strip Urobilinogen Center </content>0.2 MG/DL<content styleCode="Pinky lics"> (0.2-1.0 MG/DL)</conten t> Nitrite NEGATIVE <content [facility] [Presence] in styleCode="Ike [place]ru[place] Urine by Test d">Urine Medical strip Nitrite Center </content>NEGA TIVE <content styleCode="Pinky lics"> (NEGATIVE )</content> Leukocyte NEGATIVE <content [facility] esterase styleCode="Ike [place]ruitt [Presence] in d">Urine Medical Urine by Test Leukocyte Center strip </content>NEGA TIVE <content styleCode="Pinky lics"> (NEGATIVE )</content> UNK 0-3 <content [facility] styleCode="Ike [place] d">Urine White Medical Blood Cell Center </content>0-3 HPF<content styleCode="Pinky lics"> (0-3 HPF)</content> UNK 0-3 <content [facility] styleCode="Ike [place] d">Urine Red Medical Blood Cell Center </content>0-3 HPF<content styleCode="Pinky lics"> (0-3 HPF)</content> ID Date Data Source CHMROUTINECCDA.[id number] 02/24/2019 02:15:00 PM LINSEY Salas [facility] -0500 Name Value Range Interpretation Description Data Sup porting Code Source(s) Document(s ) Cannabinoids <content [facility] [Presence] in styleCode="Ike [place]ru[place] Urine by Screen d">Cannabinoid Medical method >50 ng/mL s Center </content>NEGA TIVE NG/ML (Reference Range: not available)<br/ > ID Date Data Source Liver 02/24/2019 01:30:00 PM [facility] Profile.[id number] Name Value Range Interpretation Description Data Sup porting Code Source(s) Document(s ) Aspartate 14-36 Above high <content [facility] aminotransferase normal styleCode="Bold"> Dmitriy hs [Enzymatic Aspartate Medical activity/volume] Aminotransferase Center in Serum or Plasma (AST) </content>54 IU/L H<content styleCode="Italic s"> (14-36 IU/L)</content> Alkaline 38-126 <content [facility] phosphatase styleCode="Bold"> [place] [Enzymatic Alkaline Medical activity/volume] Phosphatase (ALP) Cente r in Serum or Plasma </content>81 IU/L<content styleCode="Italic s"> (38-126 IU/L)</content> Alanine 7-30 <content [facility] aminotransferase styleCode="Bold"> Dmitriy hs [Enzymatic Alanine Medical activity/volume] Aminotransferase Center in Serum or Plasma (ALT) </content>15 IU/L<content styleCode="Italic s"> (7-30 IU/L)</content> UNK 0.0-0.3 <content [facility] styleCode="Bold"> [place] Bilirubin, Direct Medical </content>< 0.2 Center MG/DL<content styleCode="Italic s"> (0.0-0.3 MG/DL)</content> Bilirubin.total 0.2-1.3 <content [facility] [Mass/volume] in styleCode="Bold"> Dmitriy hs Serum or Plasma Bilirubin Total Medical </content>0.6 Center MG/DL<content styleCode="Italic s"> (0.2-1.3 MG/DL)</content> Albumin 3.5-5.0 <content [facility] [Mass/volume] in styleCode="Bold"> Dmitriy hs Serum or Plasma Albumin Medical </content>3.8 Center G/DL<content styleCode="Italic s"> (3.5-5.0 G/DL)</content> ID Date Data Source LIPID.[id number] 02/24/2019 01:30:00 PM [facility] Name Value Range Interpretation Description Data Sup porting Code Source(s) Document(s ) Triglyceride < 150 <content [facility] [Mass/volume] in styleCode="Ike [place] Serum or Plasma d">Triglycerid Medical es Center </content>52 MG/DL<content styleCode="Pinky lics"> (< 150 MG/DL)</conten t> UNK < 100 <content Saint styleCode="Ike [place] d">LDL-Cholest [facility] </content>27 MG/DL<content styleCode="Pinky lics"> (< 100 MG/DL)</conten t> Cholesterol -<200 <content [facility] [Mass/volume] in styleCode="Ike [place] Serum or Plasma d">Cholesterol Medical </content>136 Center MG/DL<content styleCode="Pinky lics"> (-<200 MG/DL)</conten t> UNK > 60 <content [facility] styleCode="[place]ke [place] d">HDL- Medical Cholesterol Center </content>99 MG/DL<content styleCode="Pinky lics"> (> 60 MG/DL)</conten t> ID Date Data Source HematologyRou.[id number] 02/24/2019 01:30:00 PM EST Josue [facility] 0500 Name Value Range Interpretation Description Data Sup porting Code Source(s) Document(s ) Hemoglobin 12.3-16. Below low normal <content [facility] [Mass/volume] in 0 styleCode="Bold [place] Blood ">Hemoglobin Medical </content>9.8 Center G/DL L<content styleCode="Ital ics"> (12.3-16.0 G/DL)</content> Hematocrit 36.0-46. Below low normal <content [facility] [Volume 0 styleCode="Bold [place] Fraction] of ">Hematocrit Medical Blood by </content>33.1 Center Automated count % L<content styleCode="Ital ics"> (36.0-46.0 %)</content> Leukocytes 4.4-11.0 <content [facility] [#/volume] in styleCode="Bold [place] Blood by ">White Blood Medical Automated count Cell Count Center </content>9.07 KCUMM<content styleCode="Ital ics"> (4.4-11.0 KCUMM)</content > Erythrocytes 4.0-5.1 <content [facility] [#/volume] in styleCode="Bold [place] Blood by ">Red Blood Medical Automated count Cell Count Center </content>4.36 MCUMM<content styleCode="Ital ics"> (4.0-5.1 MCUMM)</content > Erythrocyte mean 26.0-34. Below low normal <content [facility] corpuscular 0 styleCode="Bold [place] hemoglobin ">Mean Medical [Entitic mass] Corposcular Center by Automated Hemoglobin count </content>22.5 PG L<content styleCode="Ital ics"> (26.0-34.0 PG)</content> Erythrocyte 11.5-14. Above high <content [facility] distribution 5 normal styleCode="[place]old [place] width [Ratio] by ">Red Cell Medical Automated count Distribution Center Width </content>18.9 % H<content styleCode="Ital ics"> (11.5-14.5 %)</content> Erythrocyte mean 80.0-100 <content [facility] corpuscular .0 styleCode="Bold [place] volume [Entitic ">Mean Medical volume] by Corpuscular Center Automated count Volume </content>75.9 FL<content styleCode="Ital ics"> (80.0-100.0 FL)</content> Erythrocyte mean 32.0-37. Below low normal <content [facility] corpuscular 0 styleCode="Bold [place] hemoglobin ">Mean Corpus. Medical concentration Hgb Center [Mass/volume] by Concentration Automated count (MCHC) </content>29.6 G/DL L<content styleCode="Ital ics"> (32.0-37.0 G/DL)</content> UNK 0.0 <content [facility] styleCode="Bold [place] ">Nucleated Red Medical Blood Cell Center Count </content>0.00 KCUMM<content styleCode="Ital ics"> (0.0 KCUMM)</content > UNK 0 <content [facility] styleCode="Bold [place] ">Nucleated Red Medical Blood Cell Center </content>0.0 /100<content styleCode="Ital ics"> (0 /100)</content> Platelet mean 8.0-11.0 <content [facility] volume [Entitic styleCode="Bold [place] volume] in Blood ">Mean Platelet Medical by Automated Volume Center count </content>9.4 FL<content styleCode="Ital ics"> (8.0-11.0 FL)</content> Platelets 130-400 <content [facility] [#/volume] in styleCode="Bold [place] Blood by ">Platelet Medical Automated count Count Center </content>253 KCUMM<content styleCode="Ital ics"> (130-400 KCUMM)</content > ID Date Data Source GFR(Creatinine).[id number] 02/24/2019 01:30:00 PM [facility] 0-0500 Name Value Range Interpretation Code Description Data Ana rce(s) Supporting Document(s ) UNK > 60 <content [facility] styleCode="Bold"> Medical Cent er EGFR </content>145 GFR<content styleCode="Italic s"> (> 60 GFR)</content> ID Date Data Source CHMROUTINECCDA.[id number] 02/24/2019 01:30:00 PM [facility] -0500 Name Value Range Interpretation Code Description Data Ana rce(s) Supporting Document(s ) UNK 4.2-5.8 <content [facility] styleCode="Bold" Medical Cente r >Hemoglobin A1C </content>5.1 %<content styleCode="Itali cs"> (4.2-5.8 %)</content> ID Date Data Source [facility].[id number] 02/24/2019 01:30:00 PM [facility] Name Value Range Interpretation Description Data Sup porting Code Source(s) Document(s ) Sodium 137-145 <content [facility] [Moles/volume] in styleCode="Bold"> Blane [facility] Serum or Plasma Sodium Medical </content>143 Center MEQ/L<content styleCode="Italic s"> (137-145 MEQ/L)</content> Potassium 3.5-5.3 <content [facility] [Moles/volume] in styleCode="Bold"> Blane phs Serum or Plasma Potassium Medical </content>4.0 Center MEQ/L<content styleCode="Italic s"> (3.5-5.3 MEQ/L)</content> Calcium 8.4-10. <content [facility] [Mass/volume] in 2 styleCode="Bold"> Dmitriy hs Serum or Plasma Calcium Medical </content>8.9 Center MG/DL<content styleCode="Italic s"> (8.4-10.2 MG/DL)</content> Glucose 74-106 Above high <content [facility] [Mass/volume] in normal styleCode="Bold"> Dmitriy hs Serum or Plasma Glucose Medical </content>133 Center MG/DL H<content styleCode="Italic s"> (74-106 MG/DL)</content> Creatinine 0.5-1.3 <content [facility] [Mass/volume] in styleCode="Bold"> Dmitriy hs Serum or Plasma Creatinine Medical </content>0.5 Center MG/DL<content styleCode="Italic s"> (0.5-1.3 MG/DL)</content> Chloride 98-107 Above high <content [facility] [Moles/volume] in normal styleCode="Bold"> Blane phs Serum or Plasma Chloride Medical </content>111 Center MEQ/L H<content styleCode="Italic s"> (98-107 MEQ/L)</content> UNK 7-17 <content [facility] styleCode="Bold"> [place] BUN </content>11 Medical MG/DL<content Center styleCode="Italic s"> (7-17 MG/DL)</content> Carbon dioxide, 22-30 Below low <content [facility] total normal styleCode="Bold"> [place] [Moles/volume] in Carbon Dioxide Medical Serum or Plasma </content>20 Center MEQ/L L<content styleCode="Italic s"> (22-30 MEQ/L)</content> UNK > 60 <content [facility] styleCode="Bold"> [place] EGFR Medical </content>145 Center GFR<content styleCode="Italic s"> (> 60 GFR)</content> Alanine 7-30 <content [facility] aminotransferase styleCode="Bold"> Dmitriy hs [Enzymatic Alanine Medical activity/volume] Aminotransferase Center in Serum or Plasma (ALT) </content>15 IU/L<content styleCode="Italic s"> (7-30 IU/L)</content> Aspartate 14-36 Above high <content [facility] aminotransferase normal styleCode="Bold"> Dmitriy hs [Enzymatic Aspartate Medical activity/volume] Aminotransferase Center in Serum or Plasma (AST) </content>54 IU/L H<content styleCode="Italic s"> (14-36 IU/L)</content> Bilirubin.total 0.2-1.3 <content [facility] [Mass/volume] in styleCode="Bold"> Dmitriy hs Serum or Plasma Bilirubin Total Medical </content>0.6 Center MG/DL<content styleCode="Italic s"> (0.2-1.3 MG/DL)</content> Alkaline 38-126 <content [facility] phosphatase styleCode="Bold"> [place] [Enzymatic Alkaline Medical activity/volume] Phosphatase (ALP) Cente r in Serum or Plasma </content>81 IU/L<content styleCode="Italic s"> (38-126 IU/L)</content> Albumin 3.5-5.0 <content [facility] [Mass/volume] in styleCode="Bold"> Dmitriy hs Serum or Plasma Albumin Medical </content>3.8 Center G/DL<content styleCode="Italic s"> (3.5-5.0 G/DL)</content> ID Date Data Source Urinalysis.[id number] 02/22/2019 08:07:00 AM EST Josue nt [facility] 0 Name Value Range Interpretation Description Data Sup porting Code Source(s) Document(s ) UNK NEGATIVE <content [facility] styleCode="Ike Pruitt d">Urine Medical Bilirubin Center </content>NEGA TIVE <content styleCode="Pinky lics"> (NEGATIVE )</content> UNK CLEAR <content [facility] styleCode="Ike Ortegas d">Urine Medical Clarity Center </content>ELENA R <content styleCode="Pinky lics"> (CLEAR )</content> Specific 1.015-1.02 <content [facility] gravity of 5 styleCode="Ike Pruitt Urine by Test d">Urine Medical strip Specific Center [place] </content>1.02 5 <content styleCode="Pinky lics"> (1.015-1.025 )</content> Color of Urine YELLOW <content [facility] styleCode="Ike [place] d">Color, Medical Urine Center </content>YELL OW <content styleCode="Pinky lics"> (YELLOW )</content> Ketones NEGATIVE <content [facility] [Mass/volume] styleCode="Ike Pruitt in Urine by d">Urine Medical Test strip Ketone Center </content>TRAC E MG/DL<content styleCode="Pinky lics"> (NEGATIVE MG/DL)</conten t> Glucose NEGATIVE <content [facility] [Mass/volume] styleCode="Ike [place]ruitt in Urine by d">Urine Medical Test strip Glucose Center </content>NEGA TIVE MG/DL<content styleCode="Pinky lics"> (NEGATIVE MG/DL)</conten t> Hemoglobin NEGATIVE <content [facility] [Presence] in styleCode="Ike Pruitt Urine by Test d">Urine Blood Medical strip </content>MODE Center RATE <content styleCode="Pinky lics"> (NEGATIVE )</content> Urobilinogen 0.2-1.0 <content [facility] [Units/volume] styleCode="Ike Ortegas in Urine by d">Urine Medical Test strip Urobilinogen Center </content>1.0 MG/DL<content styleCode="Pinky lics"> (0.2-1.0 MG/DL)</conten t> Nitrite NEGATIVE <content [facility] [Presence] in styleCode="Ike Pruitt Urine by Test d">Urine Medical strip Nitrite Center </content>NEGA TIVE <content styleCode="Pinky lics"> (NEGATIVE )</content> Protein NEGATIVE <content [facility] [Mass/volume] styleCode="Ike [place] in Urine by d">Urine Medical Test strip Protein Center </content>NEGA TIVE MG/DL<content styleCode="Pinky lics"> (NEGATIVE MG/DL)</conten t> pH of Urine by 4.5-8.0 <content [facility] Test strip styleCode="Ike [place] d">Urine pH Medical </content>6.0 Center <content styleCode="Pinky lics"> (4.5-8.0 )</content> UNK NONE SEEN <content [facility] styleCode="[facility] [place] d">Epithelial Medical Cell Center </content>2-5 HPF<content styleCode="Pinky lics"> (NONE SEEN HPF)</content> Leukocyte NEGATIVE <content [facility] esterase styleCode="Ike Ortegas [Presence] in d">Urine Medical Urine by Test Leukocyte Center strip </content>NEGA TIVE <content styleCode="Pinky lics"> (NEGATIVE )</content> UNK 0-3 <content [facility] styleCode="[facility]ke [place] d">Urine White Medical Blood Cell Center </content>0-3 HPF<content styleCode="Pinky lics"> (0-3 HPF)</content> UNK 0-3 <content [facility] styleCode="Ike [place] d">Urine Red Medical Blood Cell Center </content>5 - 10 HPF<content styleCode="Pinky lics"> (0-3 HPF)</content> ID Date Data Source CHMROUTINECCDA.[id number] 02/22/2019 08:07:00 AM EST [facility] Name Value Range Interpretation Description Data Sup porting Code Source(s) Document(s ) Cannabinoids <content [facility] [Presence] in styleCode="Ike Pruitt Urine by Screen d">Cannabinoid Medical method >50 ng/mL s Center </content>NEGA TIVE NG/ML (Reference Range: not available)<br/ > ID Date Data Source Liver 02/21/2019 07:02:00 PM EST [facility] Profile.[id number] Name Value Range Interpretation Description Data Sup porting Code Source(s) Document(s ) Alanine 7-30 <content [facility] aminotransferase styleCode="Bold"> Dmitriy hs [Enzymatic Alanine Medical activity/volume] Aminotransferase Center in Serum or Plasma (ALT) </content>16 IU/L<content styleCode="Italic s"> (7-30 IU/L)</content> Aspartate 14-36 Above high <content [facility] aminotransferase normal styleCode="Bold"> Dmitriy hs [Enzymatic Aspartate Medical activity/volume] Aminotransferase Center in Serum or Plasma (AST) </content>39 IU/L H<content styleCode="Italic s"> (14-36 IU/L)</content> Albumin 3.5-5.0 <content [facility] [Mass/volume] in styleCode="Bold"> Dmitriy hs Serum or Plasma Albumin Medical </content>4.3 Center G/DL<content styleCode="Italic s"> (3.5-5.0 G/DL)</content> Alkaline 38-126 <content [facility] phosphatase styleCode="Bold"> [place] [Enzymatic Alkaline Medical activity/volume] Phosphatase (ALP) Cente r in Serum or Plasma </content>109 IU/L<content styleCode="Italic s"> (38-126 IU/L)</content> UNK 0.0-0.3 <content [facility] styleCode="Bold"> [place] Bilirubin, Direct Medical </content>< 0.2 Center MG/DL<content styleCode="Italic s"> (0.0-0.3 MG/DL)</content> Bilirubin.total 0.2-1.3 <content [facility] [Mass/volume] in styleCode="Bold"> Dmitriy hs Serum or Plasma Bilirubin Total Medical </content>0.4 Center MG/DL<content styleCode="Italic s"> (0.2-1.3 MG/DL)</content> ID Date Data Source LIPID.[id number] 02/21/2019 07:02:00 PM EST [facility] Name Value Range Interpretation Description Data Sup porting Code Source(s) Document(s ) Triglyceride < 150 <content [facility] [Mass/volume] in styleCode="Ike [place] Serum or Plasma d">Triglycerid Medical es Center </content>60 MG/DL<content styleCode="Pinky lics"> (< 150 MG/DL)</conten t> UNK < 100 <content [facility] styleCode="[facility] d">LDL-Cholest [facility] </content>26 MG/DL<content styleCode="Pinky lics"> (< 100 MG/DL)</conten t> Cholesterol -<200 <content [facility] [Mass/volume] in styleCode="[place] Serum or Plasma d">Cholesterol Medical </content>143 Center MG/DL<content styleCode="Pinky lics"> (-<200 MG/DL)</conten t> UNK > 60 <content [facility] styleCode="[facility] d">HDL- Medical Cholesterol Center </content>105 MG/DL<content styleCode="Pinky lics"> (> 60 MG/DL)</conten t> ID Date Data Source HematologyRou.[id number] 02/21/2019 07:02:00 PM LINSEY [facility] 0500 Name Value Range Interpretation Description Data Sup porting Code Source(s) Document(s ) Hemoglobin 12.3-16. Below low normal <content [facility] [Mass/volume] in 0 styleCode="Bold [place] Blood ">Hemoglobin Medical </content>9.8 Center G/DL L<content styleCode="Ital ics"> (12.3-16.0 G/DL)</content> Leukocytes 4.4-11.0 Above high <content [facility] [#/volume] in normal styleCode="Bold [place] Blood by ">White Blood Medical Automated count Cell Count Center </content>11.03 KCUMM H<content styleCode="Ital ics"> (4.4-11.0 KCUMM)</content > Erythrocytes 4.0-5.1 <content [facility] [#/volume] in styleCode="Bold [place] Blood by ">Red Blood Medical Automated count Cell Count Center </content>4.43 MCUMM<content styleCode="Ital ics"> (4.0-5.1 MCUMM)</content > Erythrocyte mean 80.0-100 <content [facility] corpuscular .0 styleCode="Bold [place] volume [Entitic ">Mean Medical volume] by Corpuscular Center Automated count Volume </content>76.3 FL<content styleCode="Ital ics"> (80.0-100.0 FL)</content> Hematocrit 36.0-46. Below low normal <content [facility] [Volume 0 styleCode="Bold [place] Fraction] of ">Hematocrit Medical Blood by </content>33.8 Center Automated count % L<content styleCode="Ital ics"> (36.0-46.0 %)</content> Erythrocyte 11.5-14. Above high <content [facility] distribution 5 normal styleCode="Bold [place] width [Ratio] by ">Red Cell Medical Automated count Distribution Center Width </content>18.9 % H<content styleCode="Ital ics"> (11.5-14.5 %)</content> Platelet mean 8.0-11.0 <content [facility] volume [Entitic styleCode="Bold [place] volume] in Blood ">Mean Platelet Medical by Automated Volume Center count </content>9.9 FL<content styleCode="Ital ics"> (8.0-11.0 FL)</content> Platelets 130-400 <content [facility] [#/volume] in styleCode="Bold [place] Blood by ">Platelet Medical Automated count Count Center </content>314 KCUMM<content styleCode="Ital ics"> (130-400 KCUMM)</content > Erythrocyte mean 32.0-37. Below low normal <content [facility] corpuscular 0 styleCode="Bold [place] hemoglobin ">Mean Corpus. Medical concentration Hgb Center [Mass/volume] by Concentration Automated count (MCHC) </content>29.0 G/DL L<content styleCode="Ital ics"> (32.0-37.0 G/DL)</content> UNK 0 <content [facility] styleCode="Bold [place] ">Nucleated Red Medical Blood Cell Center </content>0.0 /100<content styleCode="Ital ics"> (0 /100)</content> Erythrocyte mean 26.0-34. Below low normal <content [facility] corpuscular 0 styleCode="Bold [place] hemoglobin ">Mean Medical [Entitic mass] Corposcular Center by Automated Hemoglobin count </content>22.1 PG L<content styleCode="Ital ics"> (26.0-34.0 PG)</content> UNK 0.0 <content [facility] styleCode="Bold [place] ">Nucleated Red Medical Blood Cell Center Count </content>0.00 KCUMM<content styleCode="Ital ics"> (0.0 KCUMM)</content > ID Date Data Source GFR(Creatinine).[id number] 02/21/2019 07:02:00 PM [facility] 0-0500 Name Value Range Interpretation Code Description Data Ana rce(s) Supporting Document(s ) UNK > 60 <content [facility] styleCode="Bold"> Medical Cent er EGFR </content>118 GFR<content styleCode="Italic s"> (> 60 GFR)</content> ID Date Data Source CHMROUTINECCDA.[id number] 02/21/2019 07:02:00 PM [facility] -0500 Name Value Range Interpretation Code Description Data Ana rce(s) Supporting Document(s ) UNK 4.2-5.8 <content [facility] styleCode="Bold" Medical Cente r >Hemoglobin A1C </content>4.9 %<content styleCode="Itali cs"> (4.2-5.8 %)</content> ID Date Data Source [facility].[id number] 02/21/2019 07:02:00 PM [facility] Name Value Range Interpretation Description Data Sup porting Code Source(s) Document(s ) Sodium 137-145 <content [facility] [Moles/volume] in styleCode="Bold"> Blane phs Serum or Plasma Sodium Medical </content>144 Center MEQ/L<content styleCode="Italic s"> (137-145 MEQ/L)</content> Potassium 3.5-5.3 <content [facility] [Moles/volume] in styleCode="Bold"> Blane phs Serum or Plasma Potassium Medical </content>4.3 Center MEQ/L<content styleCode="Italic s"> (3.5-5.3 MEQ/L)</content> Creatinine 0.5-1.3 <content [facility] [Mass/volume] in styleCode="Bold"> Dmitriy hs Serum or Plasma Creatinine Medical </content>0.6 Center MG/DL<content styleCode="Italic s"> (0.5-1.3 MG/DL)</content> Calcium 8.4-10. <content [facility] [Mass/volume] in 2 styleCode="Bold"> Dmitriy hs Serum or Plasma Calcium Medical </content>8.8 Center MG/DL<content styleCode="Italic s"> (8.4-10.2 MG/DL)</content> UNK 7-17 <content [facility] styleCode="Bold"> [place] BUN </content>14 Medical MG/DL<content Center styleCode="Italic s"> (7-17 MG/DL)</content> Chloride 98-107 Above high <content [facility] [Moles/volume] in normal styleCode="Bold"> Blane phs Serum or Plasma Chloride Medical </content>112 Center MEQ/L H<content styleCode="Italic s"> (98-107 MEQ/L)</content> Carbon dioxide, 22-30 Below low <content [facility] total normal styleCode="Bold"> [place] [Moles/volume] in Carbon Dioxide Medical Serum or Plasma </content>21 Center MEQ/L L<content styleCode="Italic s"> (22-30 MEQ/L)</content> Glucose 74-106 <content [facility] [Mass/volume] in styleCode="Bold"> Dmitriy hs Serum or Plasma Glucose Medical </content>102 Center MG/DL<content styleCode="Italic s"> (74-106 MG/DL)</content> Alkaline 38-126 <content [facility] phosphatase styleCode="Bold"> [place] [Enzymatic Alkaline Medical activity/volume] Phosphatase (ALP) Cente r in Serum or Plasma </content>109 IU/L<content styleCode="Italic s"> (38-126 IU/L)</content> UNK > 60 <content [facility] styleCode="Bold"> [place] EGFR Medical </content>118 Center GFR<content styleCode="Italic s"> (> 60 GFR)</content> Aspartate 14-36 Above high <content [facility] aminotransferase normal styleCode="Bold"> Dmitriy hs [Enzymatic Aspartate Medical activity/volume] Aminotransferase Center in Serum or Plasma (AST) </content>39 IU/L H<content styleCode="Italic s"> (14-36 IU/L)</content> Alanine 7-30 <content [facility] aminotransferase styleCode="Bold"> Dmitriy hs [Enzymatic Alanine Medical activity/volume] Aminotransferase Center in Serum or Plasma (ALT) </content>16 IU/L<content styleCode="Italic s"> (7-30 IU/L)</content> Albumin 3.5-5.0 <content [facility] [Mass/volume] in styleCode="Bold"> Dmitriy hs Serum or Plasma Albumin Medical </content>4.3 Center G/DL<content styleCode="Italic s"> (3.5-5.0 G/DL)</content> Bilirubin.total 0.2-1.3 <content [facility] [Mass/volume] in styleCode="Bold"> Dmitriy hs Serum or Plasma Bilirubin Total Medical </content>0.4 Center MG/DL<content styleCode="Italic s"> (0.2-1.3 MG/DL)</content> ID Date Data Source Urinalysis.[id number] 01/18/2019 09:24:00 PM EDT [facility] 0 Name Value Range Interpretation Description Data Sup porting Code Source(s) Document(s ) Glucose NEGATIVE <content [facility] [Mass/volume] styleCode="Ike Pruitt in Urine by d">Urine Medical Test strip Glucose Center </content>NEGA TIVE MG/DL<content styleCode="Pinky lics"> (NEGATIVE MG/DL)</conten t> Color of Urine YELLOW <content [facility] styleCode="Ike [place] d">Color, Medical Urine Center </content>YELL OW <content styleCode="Pinky lics"> (YELLOW )</content> UNK CLEAR <content [facility] styleCode="Ike Ortegas d">Urine Medical Clarity Center </content>ELENA R <content styleCode="Pinky lics"> (CLEAR )</content> Ketones NEGATIVE <content [facility] [Mass/volume] styleCode="Ike [place] in Urine by d">Urine Medical Test strip Ketone Center </content>NEGA TIVE MG/DL<content styleCode="Pinky lics"> (NEGATIVE MG/DL)</conten t> pH of Urine by 4.5-8.0 <content [facility] Test strip styleCode="Ike Edmond d">Urine pH Medical </content>5.5 Center <content styleCode="Pinky lics"> (4.5-8.0 )</content> UNK NEGATIVE <content [facility] styleCode="Ike [place] d">Urine Medical Bilirubin Center </content>NEGA TIVE <content styleCode="Pinky lics"> (NEGATIVE )</content> Specific 1.015-1.02 Below low normal <content [facility] gravity of 5 styleCode="Ike Ortegas Urine by Test d">Urine Medical strip Specific Center [place] </content><= 1.005 L<content styleCode="Pinky lics"> (1.015-1.025 )</content> Hemoglobin NEGATIVE <content [facility] [Presence] in styleCode="Ike Ortegas Urine by Test d">Urine Blood Medical strip </content>NEGA Center TIVE <content styleCode="Pinky lics"> (NEGATIVE )</content> Protein NEGATIVE <content [facility] [Mass/volume] styleCode="Ike [place] in Urine by d">Urine Medical Test strip Protein Center </content>NEGA TIVE MG/DL<content styleCode="Pinky lics"> (NEGATIVE MG/DL)</conten t> Urobilinogen 0.2-1.0 <content [facility] [Units/volume] styleCode="Ike [place] in Urine by d">Urine Medical Test strip Urobilinogen Center </content>0.2 MG/DL<content styleCode="Pinky lics"> (0.2-1.0 MG/DL)</conten t> Nitrite NEGATIVE <content [facility] [Presence] in styleCode="Ike Ortegas Urine by Test d">Urine Medical strip Nitrite Center </content>NEGA TIVE <content styleCode="Pinky lics"> (NEGATIVE )</content> Leukocyte NEGATIVE <content [facility] esterase styleCode="Ike [place] [Presence] in d">Urine Medical Urine by Test Leukocyte Center strip </content>NEGA TIVE <content styleCode="Pinky lics"> (NEGATIVE )</content> ID Date Data Source HematologyRou.[id number] 11/25/2018 05:47:00 PM EDT [facility] 0400 Name Value Range Interpretation Description Data Sup porting Code Source(s) Document(s ) Erythrocytes 4.0-5.1 <content [facility] [#/volume] in styleCode="Bold [place] Blood by ">Red Blood Medical Automated count Cell Count Center </content>4.22 MCUMM<content styleCode="Ital ics"> (4.0-5.1 MCUMM)</content > Erythrocyte mean 26.0-34. Below low normal <content [facility] corpuscular 0 styleCode="Bold [place] hemoglobin ">Mean Medical [Entitic mass] Corposcular Center by Automated Hemoglobin count </content>24.2 PG L<content styleCode="Ital ics"> (26.0-34.0 PG)</content> Erythrocyte mean 80.0-100 <content [facility] corpuscular .0 styleCode="Bold Ed[place] volume [Entitic ">Mean Medical volume] by Corpuscular Center Automated count Volume </content>78.9 FL<content styleCode="Ital ics"> (80.0-100.0 FL)</content> Hematocrit 36.0-46. Below low normal <content [facility] [Volume 0 styleCode="Bold Edmond Fraction] of ">Hematocrit Medical Blood by </content>33.3 Center Automated count % L<content styleCode="Ital ics"> (36.0-46.0 %)</content> Leukocytes 4.4-11.0 <content [facility] [#/volume] in styleCode="Bold [place] Blood by ">White Blood Medical Automated count Cell Count Center </content>6.16 KCUMM<content styleCode="Ital ics"> (4.4-11.0 KCUMM)</content > Hemoglobin 12.3-16. Below low normal <content [facility] [Mass/volume] in 0 styleCode="Bold [place] Blood ">Hemoglobin Medical </content>10.2 Center G/DL L<content styleCode="Ital ics"> (12.3-16.0 G/DL)</content> Platelets 130-400 <content [facility] [#/volume] in styleCode="Bold [place] Blood by ">Platelet Medical Automated count Count Center </content>162 KCUMM<content styleCode="Ital ics"> (130-400 KCUMM)</content > UNK 0 <content [facility] styleCode="Bold [place] ">Nucleated Red Medical Blood Cell Center </content>0.0 /100<content styleCode="Ital ics"> (0 /100)</content> Erythrocyte mean 32.0-37. Below low normal <content [facility] corpuscular 0 styleCode="Bold [place] hemoglobin ">Mean Corpus. Medical concentration Hgb Center [Mass/volume] by Concentration Automated count (MCHC) </content>30.6 G/DL L<content styleCode="Ital ics"> (32.0-37.0 G/DL)</content> Erythrocyte 11.5-14. Above high <content [facility] distribution 5 normal styleCode="Bold [place] width [Ratio] by ">Red Cell Medical Automated count Distribution Center Width </content>19.9 % H<content styleCode="Ital ics"> (11.5-14.5 %)</content> Platelet mean 8.0-11.0 <content [facility] volume [Entitic styleCode="Bold [place] volume] in Blood ">Mean Platelet Medical by Automated Volume Center count </content>10.6 FL<content styleCode="Ital ics"> (8.0-11.0 FL)</content> UNK 0.0 <content [facility] styleCode="Bold [place] ">Nucleated Red Medical Blood Cell Center Count </content>0.00 KCUMM<content styleCode="Ital ics"> (0.0 KCUMM)</content > ID Date Data Source GFR(Creatinine).[id number] 11/25/2018 05:47:00 PM EDT [facility] 0-0400 Name Value Range Interpretation Code Description Data Ana rce(s) Supporting Document(s ) UNK > 60 <content [facility] styleCode="Bold"> Medical Cent er EGFR </content>118 GFR<content styleCode="Italic s"> (> 60 GFR)</content> ID Date Data Source Coagulation 11/25/2018 05:47:00 PM [facility] Center Rout.[id number] EDT Name Value Range Interpretation Description Data Sup porting Code Source(s) Document(s ) aPTT in 25.1-36. <content [facility] Platelet poor 5 styleCode="Bold" [place] plasma by >Partial Medical Coagulation Thromboplastin Center assay Time </content>27.9 SEC<content styleCode="Itali cs"> (25.1-36.5 SEC)</content> INR in 0.80-1.2 <content [facility] Platelet poor 0 styleCode="Bold" [place] plasma by >INR Medical Coagulation </content>1.07 Center assay #<content styleCode="Itali cs"> (0.80-1.20 #)</content> UNK 9.0-13.0 <content [facility] styleCode="Bold" [place] >Protime Medical </content>11.9 Center SEC<content styleCode="Itali cs"> (9.0-13.0 SEC)</content> ID Date Data Source [employer].[id number] 11/25/2018 05:47:00 PM EDT [facility] -0400 Name Value Range Interpretation Description Data Sup porting Code Source(s) Document(s ) Troponin < 0.034 <content [facility] I.cardiac styleCode="Bold [place] [Mass/volume ">Troponin I Medical ] in Serum </content>< Center or Plasma 0.012 NG/ML<content styleCode="Ital ics"> (< 0.034 NG/ML)</content > ID Date Data Source BMP.[id number] 11/25/2018 05:47:00 PM EDT [facility] Name Value Range Interpretation Description Data Sup porting Code Source(s) Document(s ) Carbon 22-30 <content [facility] dioxide, total styleCode="Ike [place]mond [Moles/volume] d">Carbon Medical in Serum or Dioxide Center Plasma </content>27 MEQ/L<content styleCode="Pinky lics"> (22-30 MEQ/L)</conten t> UNK 7-17 <content [facility] styleCode="Ike [place] d">BUN Medical </content>14 Center MG/DL<content styleCode="Pinky lics"> (7-17 MG/DL)</conten t> Chloride 98-107 <content [facility] [Moles/volume] styleCode="Ike [place] in Serum or d">Chloride Medical Plasma </content>107 Center MEQ/L<content styleCode="Pinky lics"> (98-107 MEQ/L)</conten t> Sodium 137-145 <content [facility] [Moles/volume] styleCode="Ike Ed[place] in Serum or d">Sodium Medical Plasma </content>143 Center MEQ/L<content styleCode="Pinky lics"> (137-145 MEQ/L)</conten t> Potassium 3.5-5.3 <content [facility] [Moles/volume] styleCode="Ike Edmond in Serum or d">Potassium Medical Plasma </content>3.6 Center MEQ/L<content styleCode="Pinky lics"> (3.5-5.3 MEQ/L)</conten t> UNK > 60 <content [facility] styleCode="Ike [place] d">EGFR Medical </content>118 Center GFR<content styleCode="Pinky lics"> (> 60 GFR)</content> Creatinine 0.5-1.3 <content [facility] [Mass/volume] styleCode="Ike Edmond in Serum or d">Creatinine Medical Plasma </content>0.6 Center MG/DL<content styleCode="Pinky lics"> (0.5-1.3 MG/DL)</conten t> Glucose 74-106 <content [facility] [Mass/volume] styleCode="Ike Ed[place] in Serum or d">Glucose Medical Plasma </content>82 Center MG/DL<content styleCode="Pinky lics"> (74-106 MG/DL)</conten t> Calcium 8.4-10.2 <content [facility] [Mass/volume] styleCode="Ike Ed[place] in Serum or d">Calcium Medical Plasma </content>8.8 Center MG/DL<content styleCode="Pinky lics"> (8.4-10.2 MG/DL)</conten t> ID Date Data Source HematologyRou 09/05/2018 11:13:00 AM EDT [facility] Name Value Range Interpretation Description Data Sup porting Code Source(s) Document(s ) Hematocrit 36.0-46. Below low normal <content [facility] [Volume 0 styleCode="Bold [place] Fraction] of ">Hematocrit Medical Blood by </content>27.0 Center Automated count % L<content styleCode="Ital ics"> (36.0-46.0 %)</content> Hemoglobin 12.3-16. Below low normal <content [facility] [Mass/volume] in 0 styleCode="Bold [place] Blood ">Hemoglobin Medical </content>8.4 Center G/DL L<content styleCode="Ital ics"> (12.3-16.0 G/DL)</content> Leukocytes 4.4-11.0 <content [facility] [#/volume] in styleCode="Bold [place] Blood by ">White Blood Medical Automated count Cell Count Center </content>10.39 KCUMM<content styleCode="Ital ics"> (4.4-11.0 KCUMM)</content > Erythrocytes 4.0-5.1 Below low normal <content [facility] [#/volume] in styleCode="Bold [place] Blood by ">Red Blood Medical Automated count Cell Count Center </content>2.83 MCUMM L<content styleCode="Ital ics"> (4.0-5.1 MCUMM)</content > Platelets 130-400 <content [facility] [#/volume] in styleCode="Bold [place] Blood by ">Platelet Medical Automated count Count Center </content>288 KCUMM<content styleCode="Ital ics"> (130-400 KCUMM)</content > Erythrocyte 11.5-14. Above high <content [facility] distribution 5 normal styleCode="Bold [place] width [Ratio] by ">Red Cell Medical Automated count Distribution Center Width </content>17.2 % H<content styleCode="Ital ics"> (11.5-14.5 %)</content> Erythrocyte mean 80.0-100 <content [facility] corpuscular .0 styleCode="Bold [place] volume [Entitic ">Mean Medical volume] by Corpuscular Center Automated count Volume </content>95.4 FL<content styleCode="Ital ics"> (80.0-100.0 FL)</content> Erythrocyte mean 32.0-37. Below low normal <content [facility] corpuscular 0 styleCode="Bold [place] hemoglobin ">Mean Corpus. Medical concentration Hgb Center [Mass/volume] by Concentration Automated count (MCHC) </content>31.1 G/DL L<content styleCode="Ital ics"> (32.0-37.0 G/DL)</content> Erythrocyte mean 26.0-34. <content [facility] corpuscular 0 styleCode="Bold [place] hemoglobin ">Mean Medical [Entitic mass] Corposcular Center by Automated Hemoglobin count </content>29.7 PG<content styleCode="Ital ics"> (26.0-34.0 PG)</content> UNK 0 Above high <content [facility] normal styleCode="Bold [place] ">Nucleated Red Medical Blood Cell Center </content>0.2 /100 H<content styleCode="Ital ics"> (0 /100)</content> Platelet mean 8.0-11.0 <content [facility] volume [Entitic styleCode="Bold [place] volume] in Blood ">Mean Platelet Medical by Automated Volume Center count </content>10.2 FL<content styleCode="Ital ics"> (8.0-11.0 FL)</content> UNK 0.0 Above high <content [facility] normal styleCode="Bold [place] ">Nucleated Red Medical Blood Cell Center Count </content>0.02 KCUMM H<content styleCode="Ital ics"> (0.0 KCUMM)</content > Leukocytes 4.4-11.0 <content [facility] [#/volume] in styleCode="Bold [place] Blood by ">White Blood Medical Automated count Cell Count Center </content>6.07 KCUMM<content styleCode="Ital ics"> (4.4-11.0 KCUMM)</content > Erythrocyte mean 26.0-34. Below low normal <content [facility] corpuscular 0 styleCode="Bold [place] hemoglobin ">Mean Medical [Entitic mass] Corposcular Center by Automated Hemoglobin count </content>25.3 PG L<content styleCode="Ital ics"> (26.0-34.0 PG)</content> Erythrocyte mean 80.0-100 <content [facility] corpuscular .0 styleCode="Bold [place] volume [Entitic ">Mean Medical volume] by Corpuscular Center Automated count Volume </content>85.6 FL<content styleCode="Ital ics"> (80.0-100.0 FL)</content> Hematocrit 36.0-46. Below low normal <content [facility] [Volume 0 styleCode="Bold [place] Fraction] of ">Hematocrit Medical Blood by </content>34.5 Center Automated count % L<content styleCode="Ital ics"> (36.0-46.0 %)</content> Hemoglobin 12.3-16. Below low normal <content [facility] [Mass/volume] in 0 styleCode="Bold [place] Blood ">Hemoglobin Medical </content>10.2 Center G/DL L<content styleCode="Ital ics"> (12.3-16.0 G/DL)</content> Erythrocytes 4.0-5.1 <content [facility] [#/volume] in styleCode="Bold [place] Blood by ">Red Blood Medical Automated count Cell Count Center </content>4.03 MCUMM<content styleCode="Ital ics"> (4.0-5.1 MCUMM)</content > UNK 0 <content [facility] styleCode="Bold [place] ">Nucleated Red Medical Blood Cell Center </content>0.0 /100<content styleCode="Ital ics"> (0 /100)</content> Platelet mean 8.0-11.0 <content [facility] volume [Entitic styleCode="Bold [place] volume] in Blood ">Mean Platelet Medical by Automated Volume Center count </content>9.9 FL<content styleCode="Ital ics"> (8.0-11.0 FL)</content> Platelets 130-400 <content [facility] [#/volume] in styleCode="Bold [place] Blood by ">Platelet Medical Automated count Count Center </content>338 KCUMM<content styleCode="Ital ics"> (130-400 KCUMM)</content > Erythrocyte 11.5-14. Above high <content [facility] distribution 5 normal styleCode="Bold [place] width [Ratio] by ">Red Cell Medical Automated count Distribution Center Width </content>18.9 % H<content styleCode="Ital ics"> (11.5-14.5 %)</content> Erythrocyte mean 32.0-37. Below low normal <content [facility] corpuscular 0 styleCode="Bold [place] hemoglobin ">Mean [facility] [Mass/volume] by Concentration Automated count (MCHC) </content>29.6 G/DL L<content styleCode="Ital ics"> (32.0-37.0 G/DL)</content> UNK 0.0 <content [facility] styleCode="B[facility] [place] ">Nucleated Red Medical Blood Cell Center Count </content>0.00 KCUMM<content styleCode="Ital ics"> (0.0 KCUMM)</content > ID Date Data Source GFR(Creatinine) 09/05/2018 11:13:00 AM EDT [facility] Name Value Range Interpretation Code Description Data Ana rce(s) Supporting Document(s ) UNK > 60 <content [facility] styleCode="Bold"> Medical Cent er EGFR </content>146 GFR<content styleCode="Italic s"> (> 60 GFR)</content> UNK > 60 <content [facility] styleCode="Bold"> Medical Cent er EGFR </content>146 GFR<content styleCode="Italic s"> (> 60 GFR)</content> ID Date Data Source [facility] 09/05/2018 11:13:00 AM EDT [facility] Name Value Range Interpretation Description Data Sup porting Code Source(s) Document(s ) Sodium 137-145 <content [facility] [Moles/volume] styleCode="[facility] in Serum or d">Sodium Medical Plasma </content>143 Center MEQ/L<content styleCode="Pinky lics"> (137-145 MEQ/L)</conten t> Carbon 22-30 Below low normal <content [facility] dioxide, total styleCode="[facility] [Moles/volume] d">Carbon Medical in Serum or Dioxide Center Plasma </content>21 MEQ/L L<content styleCode="Pinky lics"> (22-30 MEQ/L)</conten t> UNK 7-17 <content [facility] styleCode="[facility] d">BUN Medical </content>13 Center MG/DL<content styleCode="Pinky lics"> (7-17 MG/DL)</conten t> Potassium 3.5-5.3 Below low normal <content [facility] [Moles/volume] styleCode="[facility] in Serum or d">Potassium Medical Plasma </content>3.3 Center MEQ/L L<content styleCode="Pinky lics"> (3.5-5.3 MEQ/L)</conten t> Chloride 98-107 Above high normal <content [facility] [Moles/volume] styleCode="[facility] in Serum or d">Chloride Medical Plasma </content>114 Center MEQ/L H<content styleCode="Pinky lics"> (98-107 MEQ/L)</conten t> Calcium 8.4-10.2 Below low normal <content [facility] [Mass/volume] styleCode="[facility] in Serum or d">Calcium Medical Plasma </content>8.3 Center MG/DL L<content styleCode="Pinky lics"> (8.4-10.2 MG/DL)</conten t> Glucose 74-106 <content [facility] [Mass/volume] styleCode="[facility] in Serum or d">Glucose Medical Plasma </content>74 Center MG/DL<content styleCode="Pinky lics"> (74-106 MG/DL)</conten t> Creatinine 0.5-1.3 <content [facility] [Mass/volume] styleCode="[facility] in Serum or d">Creatinine Medical Plasma </content>0.5 Center MG/DL<content styleCode="Pinky lics"> (0.5-1.3 MG/DL)</conten t> UNK > 60 <content [facility] styleCode="[facility] d">EGFR Medical </content>146 Center GFR<content styleCode="Pinky lics"> (> 60 GFR)</content> Chloride 98-107 Above high normal <content [facility] [Moles/volume] styleCode="[facility] in Serum or d">Chloride Medical Plasma </content>111 Center MEQ/L H<content styleCode="Pinky lics"> (98-107 MEQ/L)</conten t> Potassium 3.5-5.3 <content [facility] [Moles/volume] styleCode="[facility] in Serum or d">Potassium Medical Plasma </content>4.3 Center MEQ/L<content styleCode="Pinky lics"> (3.5-5.3 MEQ/L)</conten t> Sodium 137-145 Above high normal <content [facility] [Moles/volume] styleCode="[facility] in Serum or d">Sodium Medical Plasma </content>146 Center MEQ/L H<content styleCode="Pinky lics"> (137-145 MEQ/L)</conten t> Calcium 8.4-10.2 <content [facility] [Mass/volume] styleCode="[facility] in Serum or d">Calcium Medical Plasma </content>8.7 Center MG/DL<content styleCode="Pinky lics"> (8.4-10.2 MG/DL)</conten t> Glucose 74-106 <content [facility] [Mass/volume] styleCode="[facility] in Serum or d">Glucose Medical Plasma </content>82 Center MG/DL<content styleCode="Pinky lics"> (74-106 MG/DL)</conten t> Creatinine 0.5-1.3 <content [facility] [Mass/volume] styleCode="[facility] in Serum or d">Creatinine Medical Plasma </content>0.5 Center MG/DL<content styleCode="Pinky lics"> (0.5-1.3 MG/DL)</conten t> UNK 7-17 <content [facility] styleCode="[facility] d">BUN Medical </content>7 Center MG/DL<content styleCode="Pinky lics"> (7-17 MG/DL)</conten t> Carbon 22-30 Above high normal <content [facility] dioxide, total styleCode="Ike Pruitt [Moles/volume] d">Carbon Medical in Serum or Dioxide Center Plasma </content>31 MEQ/L H<content styleCode="Pinky lics"> (22-30 MEQ/L)</conten t> UNK > 60 <content [facility] styleCode="[facility] d">EGFR Medical </content>146 Center GFR<content styleCode="Pinky lics"> (> 60 GFR)</content> ID Date Data Source Urinalysis 07/28/2018 01:27:00 AM EDT [facility] Name Value Range Interpretation Description Data Sup porting Code Source(s) Document(s ) Glucose NEGATIVE <content [facility] [Mass/volume] styleCode="Ike Pru[place] in Urine by d">Urine Medical Test strip Glucose Center </content>NEGA TIVE MG/DL<content styleCode="Pinky lics"> (NEGATIVE MG/DL)</conten t> UNK CLEAR <content [facility] styleCode="[facility] d">Urine Medical Clarity Center </content>Sl CLOUDY <content styleCode="Pinky lics"> (CLEAR )</content> Color of Urine YELLOW <content [facility] styleCode="[facility] d">Color, Medical Urine Center </content>YELL OW <content styleCode="Pinky lics"> (YELLOW )</content> UNK NEGATIVE <content [facility] styleCode="[facility] [place] d">Urine Medical Bilirubin Center </content>SMAL L <content styleCode="Pinky lics"> (NEGATIVE )</content> Hemoglobin NEGATIVE <content [facility] [Presence] in styleCode="[facility] Urine by Test d">Urine Blood Medical strip </content>TRAC Center E <content styleCode="Pinky lics"> (NEGATIVE )</content> Ketones NEGATIVE <content [facility] [Mass/volume] styleCode="[facility] [place] in Urine by d">Urine Medical Test strip Ketone Center </content>TRAC E MG/DL<content styleCode="Pinky lics"> (NEGATIVE MG/DL)</conten t> Specific 1.015-1.02 Above high <content [facility] gravity of 5 normal styleCode="[facility] Urine by Test d">Urine Medical strip Specific Center [place] </content>>= 1.030 H<content styleCode="Pinky lics"> (1.015-1.025 )</content> Urobilinogen 0.2-1.0 Above high <content [facility] [Units/volume] normal styleCode="[facility] in Urine by d">Urine Medical Test strip Urobilinogen Center </content>2.0 MG/DL H<content styleCode="Pinky lics"> (0.2-1.0 MG/DL)</conten t> Protein NEGATIVE <content [facility] [Mass/volume] styleCode="[facility] [place] in Urine by d">Urine Medical Test strip Protein Center </content>NEGA TIVE MG/DL<content styleCode="Pinky lics"> (NEGATIVE MG/DL)</conten t> pH of Urine by 4.5-8.0 <content [facility] Test strip styleCode="[facility] [place] d">Urine pH Medical </content>6.5 Center <content styleCode="Pinky lics"> (4.5-8.0 )</content> Nitrite NEGATIVE <content [facility] [Presence] in styleCode="[facility] Urine by Test d">Urine Medical strip Nitrite Center </content>NEGA TIVE <content styleCode="Pinky lics"> (NEGATIVE )</content> Leukocyte NEGATIVE <content [facility] esterase styleCode="Ike Pruitt [Presence] in d">Urine Medical Urine by Test Leukocyte Center strip </content>SMAL L <content styleCode="Pinky lics"> (NEGATIVE )</content> UNK 0-3 <content [facility] styleCode="[facility] [place] d">Urine Red Medical Blood Cell Center </content>0-3 HPF<content styleCode="Pinky lics"> (0-3 HPF)</content> UNK <content [facility] styleCode="[facility] [place] d">Epithelial Medical Cell Center </content>20-2 5 LPF (Reference Range: not available)<br/ > UNK NEGATIVE <content [facility] styleCode="[facility] d">Urine Medical Bacteria Center </content>FEW HPF<content styleCode="Pinky lics"> (NEGATIVE HPF)</content> UNK 0-3 <content [facility] styleCode="[facility] [place] d">Urine White Medical Blood Cell Center </content>3-5 HPF<content styleCode="Pinky lics"> (0-3 HPF)</content> Glucose NEGATIVE <content [facility] [Mass/volume] styleCode="Ike Pruitt in Urine by d">Urine Medical Test strip Glucose Center </content>NEGA TIVE MG/DL<content styleCode="Pinky lics"> (NEGATIVE MG/DL)</conten t> UNK CLEAR <content [facility] styleCode="[facility] [place] d">Urine Medical Clarity Center </content>HAZY <content styleCode="Pinky lics"> (CLEAR )</content> Color of Urine YELLOW <content [facility] styleCode="Ike [place] d">Color, Medical Urine Center </content>YELL OW <content styleCode="Pinky lics"> (YELLOW )</content> Hemoglobin NEGATIVE <content [facility] [Presence] in styleCode="[facility] [place] Urine by Test d">Urine Blood Medical strip </content>NEGA Center TIVE <content styleCode="Pinky lics"> (NEGATIVE )</content> Specific 1.015-1.02 Below low normal <content [facility] gravity of 5 styleCode="[facility] Urine by Test d">Urine Medical strip Specific Center [place] </content>1.01 0 L<content styleCode="Pinky lics"> (1.015-1.025 )</content> Ketones NEGATIVE <content [facility] [Mass/volume] styleCode="[facility] [place] in Urine by d">Urine Medical Test strip Ketone Center </content>NEGA TIVE MG/DL<content styleCode="Pinky lics"> (NEGATIVE MG/DL)</conten t> UNK NEGATIVE <content [facility] styleCode="[facility] [place] d">Urine Medical Bilirubin Center </content>NEGA TIVE <content styleCode="Pinky lics"> (NEGATIVE )</content> Nitrite NEGATIVE <content [facility] [Presence] in styleCode="[facility] Urine by Test d">Urine Medical strip Nitrite Center </content>NEGA TIVE <content styleCode="Pinky lics"> (NEGATIVE )</content> Urobilinogen 0.2-1.0 <content [facility] [Units/volume] styleCode="[facility] [place] in Urine by d">Urine Medical Test strip Urobilinogen Center </content>0.2 MG/DL<content styleCode="Pinky lics"> (0.2-1.0 MG/DL)</conten t> Protein NEGATIVE <content [facility] [Mass/volume] styleCode="[facility]ke [place] in Urine by d">Urine Medical Test strip Protein Center </content>NEGA TIVE MG/DL<content styleCode="Pinky lics"> (NEGATIVE MG/DL)</conten t> pH of Urine by 4.5-8.0 <content [facility] Test strip styleCode="Ike [place] d">Urine pH Medical </content>6.0 Center <content styleCode="Pinky lics"> (4.5-8.0 )</content> UNK NEGATIVE <content [facility] styleCode="[facility] [place] d">Urine Medical Bacteria Center </content>MODE RATE HPF<content styleCode="Pinky lics"> (NEGATIVE HPF)</content> UNK 0-3 <content [facility] styleCode="[facility] [place] d">Urine White Medical Blood Cell Center </content>10 - 20 HPF<content styleCode="Pinky lics"> (0-3 HPF)</content> UNK 0-3 <content [facility] styleCode="[facility] [place] d">Urine Red Medical Blood Cell Center </content>0-3 HPF<content styleCode="Pinky lics"> (0-3 HPF)</content> Leukocyte NEGATIVE <content esterase styleCode="Ike Pruitt [Presence] in d">Urine Medical Urine by Test Leukocyte Center strip </content>SMAL L <content styleCode="Pinky lics"> (NEGATIVE )</content> UNK NONE SEEN <content [facility] styleCode="[facility] [place] d">Urine Mucus Medical </content>MODE Center RATE LPF<content styleCode="Pinky lics"> (NONE SEEN LPF)</content> UNK <content styleCode="Ike Pruitt d">Epithelial Medical Cell Center </content>10 - 20 LPF (Reference Range: not available)<br/ > ID Date Data Source Microbiology 07/28/2018 01:27:00 AM EDT [facility] Name Value Range Interpretation Code Description Data Ana rce(s) Supporting Document(s ) UNK <item><content [facility] styleCode="Bold"> Medical Cent er Culture Report </content>
<t able><tbody><tr>< td>Specimen Number:</td><td>[id number]</td></tr ><tr><td>Sample Collection Date/Time: </td><td> 9 3:20 AM</td></tr><tr>< td>Specimen Source:</td><td>U RINE</td></tr><tr ><td>Urine Culture:</td><td> Collection Plate Date: 07/09/2018 03:48 </td></tr><tr><td >Culture Status:</td><td>P reliminary </td></tr><tr><td >Culture Report:</td><td>C ulture in progress </td></tr></tbody ></table></item> UNK <item><content [facility] melissaCode="Bold"> Medical [facility] Culture Status </content>
<t able><tbody><tr>< td>Specimen Number:</td><td>[id number]</td></tr ><tr><td>Sample Collection Date/Time: </td><td> 9 3:20 AM</td></tr><tr>< td>Specimen Source:</td><td>U RINE</td></tr><tr ><td>Culture Status:</td><td>P reliminary </td></tr><tr><td >Culture Report:</td><td>C ulture in progress </td></tr><tr><td >Urine Culture:</td><td> Collection Plate Date: 07/09/2018 03:48 </td></tr></tbody ></table></item> UNK <item><content [facility] torresCode="Bold"> Medical [facility] Culture Report </content>
<t able><tbody><tr>< td>Specimen Number:</td><td>[id number]</td></tr ><tr><td>Sample Collection Date/Time: </td><td> 9 1:27 AM</td></tr><tr>< td>Specimen Source:</td><td>U RINE</td></tr><tr ><td>Urine Culture:</td><td> Collection Plate Date: 07/28/2018 01:32 </td></tr><tr><td >Culture Status:</td><td>P reliminary </td></tr><tr><td >Culture Report:</td><td>C ulture in progress </td></tr></tbody ></table></item> UNK <item><content [facility] styleCode="Bold"> Medical Cent er Culture Status </content>
<t able><tbody><tr>< td>Specimen Number:</td><td>[id number]</td></tr ><tr><td>Sample Collection Date/Time: </td><td> 9 1:27 AM</td></tr><tr>< td>Specimen Source:</td><td>U RINE</td></tr><tr ><td>Culture Status:</td><td>P reliminary </td></tr><tr><td >Culture Report:</td><td>C ulture in progress </td></tr><tr><td >Urine Culture:</td><td> Collection Plate Date: 07/28/2018 01:32 </td></tr></tbody ></table></item> Procedure Social History Code Duration Value Status Description Data Source(s ) Smoking 01/01/2020 Daily Smoker completed Daily Smoker [facility] 04:30:00 PM EDT Medical C enter Smoking 01/01/2020 Daily Smoker completed Daily Smoker [facility] 04:17:00 PM EDT Medical C enter Smoking 12/26/2019 Daily Smoker completed Daily Smoker [facility] 03:07:00 AM EDT Medical C enter Smoking 12/25/2019 Daily Smoker completed Daily Smoker [facility] 08:59:00 PM EDT Medical C enter Smoking 12/25/2019 Daily Smoker completed Daily Smoker [facility] 08:54:00 PM EDT Medical C enter Smoking 12/25/2019 Daily Smoker completed Daily Smoker [facility] 04:00:00 PM EDT Medical C enter Smoking 12/25/2019 Daily Smoker completed Daily Smoker [facility] 03:14:00 PM EDT Medical C enter Smoking 12/21/2019 Daily Smoker completed Daily Smoker [facility] 03:12:00 AM EDT Medical C enter Smoking 12/21/2019 Daily Smoker completed Daily Smoker [facility] 02:59:00 AM EDT Medical C enter Smoking 12/21/2019 Daily Smoker completed Daily Smoker [facility] 01:06:00 AM EDT Medical C enter Smoking 12/06/2019 Daily Smoker completed Daily Smoker [facility] 06:19:00 PM EDT Medical C enter Smoking 12/06/2019 Daily Smoker completed Daily Smoker [facility] 05:20:00 PM EDT Medical C enter Smoking 12/06/2019 Daily Smoker completed Daily Smoker [facility] 05:08:00 PM EDT Medical C enter Smoking 11/25/2019 Daily Smoker completed Daily Smoker [facility] 03:45:00 PM EDT Medical C enter Smoking 11/19/2019 Daily Smoker completed Daily Smoker [facility] 03:14:00 PM EDT Medical C enter Smoking 11/19/2019 Daily Smoker completed Daily Smoker [facility] 02:14:00 PM EDT Medical C enter Smoking 11/19/2019 Daily Smoker completed Daily Smoker [facility] 12:26:00 PM EDT Medical C enter Smoking 11/06/2019 Daily Smoker completed Daily Smoker [facility] 01:27:00 PM EDT Medical C enter Smoking 11/06/2019 Daily Smoker completed Daily Smoker [facility] 12:45:00 PM EDT Medical C enter Smoking 11/06/2019 Daily Smoker completed Daily Smoker [facility] 12:29:00 PM EDT Medical C enter Smoking 11/05/2019 Daily Smoker completed Daily Smoker [facility] 06:27:00 PM EDT Medical C enter Smoking 11/05/2019 Daily Smoker completed Daily Smoker [facility] 05:58:00 PM EDT Medical C enter Smoking 09/11/2019 Daily Smoker completed Daily Smoker [facility] 10:09:00 PM EDT Medical C enter Smoking 09/11/2019 Daily Smoker completed Daily Smoker [facility] 10:00:00 PM EDT Medical C enter Smoking 09/09/2019 Daily Smoker completed Daily Smoker [facility] 01:38:00 PM EDT Medical C enter Smoking 09/09/2019 Daily Smoker completed Daily Smoker [facility] 01:38:00 PM EDT Medical C enter Smoking 09/09/2019 Daily Smoker completed Daily Smoker [facility] 01:35:00 PM EDT Medical C enter Smoking 06/28/2019 Daily Smoker completed Daily Smoker [facility] 04:59:00 PM EDT Medical C enter Smoking 06/28/2019 Daily Smoker completed Daily Smoker [facility] 03:51:00 PM EDT Medical C enter Smoking 06/28/2019 Daily Smoker completed Daily Smoker [facility] 03:32:00 PM EDT Medical C enter Smoking 06/06/2019 Daily Smoker completed Daily Smoker [facility] 11:45:00 PM EST Medical C enter Smoking 06/06/2019 Daily Smoker completed Daily Smoker [facility] 11:35:00 PM EST Medical C enter Smoking 06/06/2019 Daily Smoker completed Daily Smoker [facility] 10:37:00 PM EST Medical C enter Smoking 05/05/2019 Daily Smoker completed Daily Smoker [facility] 11:23:00 PM EST Medical C enter Smoking 05/05/2019 Daily Smoker completed Daily Smoker [facility] 11:06:00 PM EST Medical C enter Smoking 05/05/2019 Daily Smoker completed Daily Smoker [facility] 10:50:00 PM EST Medical C enter Smoking 05/04/2019 Daily Smoker completed Daily Smoker [facility] 06:43:00 PM EST Medical C enter Smoking 05/04/2019 Daily Smoker completed Daily Smoker [facility] 06:39:00 PM EST Medical C enter Smoking 05/03/2019 Daily Smoker completed Daily Smoker [facility] 08:55:00 PM EST Medical C enter Smoking 05/03/2019 Daily Smoker completed Daily Smoker [facility] 08:25:00 PM EST Medical C enter Smoking 05/03/2019 Daily Smoker completed Daily Smoker [facility] 08:18:00 PM EST Medical C enter Smoking 05/01/2019 Daily Smoker completed Daily Smoker [facility] 12:20:00 AM EST Medical C enter Smoking 04/30/2019 Daily Smoker completed Daily Smoker [facility] 11:05:00 PM EST Medical C enter Smoking 04/30/2019 Daily Smoker completed Daily Smoker [facility] 10:59:00 PM EST Medical C enter Smoking 04/29/2019 Daily Smoker completed Daily Smoker [facility] 02:19:00 AM EST Medical C enter Smoking 04/29/2019 Daily Smoker completed Daily Smoker [facility] 01:22:00 AM EST Medical C enter Smoking 04/29/2019 Daily Smoker completed Daily Smoker [facility] 01:16:00 AM EST Medical C enter Smoking 04/25/2019 Daily Smoker completed Daily Smoker [facility] 04:05:00 AM EST Medical C enter Smoking 04/25/2019 Daily Smoker completed Daily Smoker [facility] 03:05:00 AM EST Medical C enter Smoking 04/25/2019 Daily Smoker completed Daily Smoker [facility] 02:57:00 AM EST Medical C enter Smoking 03/19/2019 Daily Smoker completed Daily Smoker [facility] 03:06:00 AM EST Medical C enter Smoking 03/18/2019 Daily Smoker completed Daily Smoker [facility] 09:28:00 PM EST Medical C enter Smoking 03/18/2019 Daily Smoker completed Daily Smoker [facility] 08:43:00 PM EST Medical C enter Smoking 02/24/2019 Daily Smoker completed Daily Smoker [facility] 10:50:00 PM EST Medical C enter Smoking 02/24/2019 Daily Smoker completed Daily Smoker [facility] 06:26:00 PM EST Medical C enter Smoking 02/24/2019 Daily Smoker completed Daily Smoker [facility] 11:12:00 AM EST Medical C enter Smoking 02/24/2019 Daily Smoker completed Daily Smoker [facility] 11:04:00 AM EST Medical C enter Smoking 02/24/2019 Daily Smoker completed Daily Smoker [facility] 10:44:00 AM EST Medical C enter Smoking 02/23/2019 Daily Smoker completed Daily Smoker [facility] 10:33:00 PM EST Medical C enter Smoking 02/23/2019 Daily Smoker completed Daily Smoker [facility] 09:34:00 PM EST Medical C enter Smoking 02/23/2019 Daily Smoker completed Daily Smoker [facility] 09:24:00 PM EST Medical C enter Smoking 02/22/2019 Daily Smoker completed Daily Smoker [facility] 07:07:00 AM EST Medical C enter Smoking 02/22/2019 Daily Smoker completed Daily Smoker [facility] 02:55:00 AM EST Medical C enter Smoking 02/21/2019 Daily Smoker completed Daily Smoker [facility] 11:35:00 PM EST Medical C enter Smoking 02/21/2019 Daily Smoker completed Daily Smoker [facility] 06:57:00 PM EST Medical C enter Smoking 02/21/2019 Daily Smoker completed Daily Smoker [facility] 06:48:00 PM EST Medical C enter Smoking 01/20/2019 Daily Smoker completed Daily Smoker [facility] 03:41:00 PM EDT Medical C enter Smoking 01/20/2019 Daily Smoker completed Daily Smoker [facility] 03:33:00 PM EDT Medical C enter Smoking 01/20/2019 Daily Smoker completed Daily Smoker [facility] 03:27:00 PM EDT Medical C enter Smoking 01/18/2019 Daily Smoker completed Daily Smoker [facility] 10:00:00 PM EDT Medical C enter Smoking 01/18/2019 Daily Smoker completed Daily Smoker [facility] 09:18:00 PM EDT Medical C enter Smoking 01/18/2019 Daily Smoker completed Daily Smoker [facility] 07:58:00 PM EDT Medical C enter Smoking 11/25/2018 Daily Smoker completed Daily Smoker [facility] 05:45:00 PM EDT Medical C enter Smoking 11/25/2018 Daily Smoker completed Daily Smoker [facility] 05:23:00 PM EDT Medical C enter Smoking 11/25/2018 Daily Smoker completed Daily Smoker [facility] 05:17:00 PM EDT Medical C enter Smoking 09/05/2018 Daily Smoker completed Daily Smoker [facility] 10:29:00 AM EDT Medical C enter Smoking 09/05/2018 Daily Smoker completed Daily Smoker [facility] 10:05:00 AM EDT Medical C enter Smoking 09/05/2018 Daily Smoker completed Daily Smoker [facility] 09:56:00 AM EDT Medical C enter Smoking 09/05/2018 Daily Smoker completed Daily Smoker [facility] 07:45:00 AM EDT Medical C enter Smoking 08/10/2018 Daily Smoker completed Daily Smoker [facility] 10:04:00 PM EDT Medical C enter Smoking 08/10/2018 Daily Smoker completed Daily Smoker [facility] 08:34:00 PM EDT Medical C enter Smoking 08/10/2018 Daily Smoker completed Daily Smoker [facility] 08:32:00 PM EDT Medical C enter Smoking 07/28/2018 Daily Smoker completed Daily Smoker [facility] 02:19:00 AM EDT Medical C enter Smoking 07/28/2018 Daily Smoker completed Daily Smoker [facility] 01:30:00 AM EDT Medical C enter Smoking 07/28/2018 Daily Smoker completed Daily Smoker [facility] 01:26:00 AM EDT Medical C enter Smoking 07/11/2018 Daily Smoker completed Daily Smoker [facility] 01:35:00 AM EDT Medical C enter Smoking 07/11/2018 Daily Smoker completed Daily Smoker [facility] 01:30:00 AM EDT Medical C enter Smoking 07/11/2018 Daily Smoker completed Daily Smoker [facility] 01:03:00 AM EDT Medical C enter Smoking 07/09/2018 Daily Smoker completed Daily Smoker [facility] 03:10:00 AM EDT Medical C enter Smoking 07/09/2018 Daily Smoker completed Daily Smoker [facility] 02:52:00 AM EDT Medical C enter Smoking 07/09/2018 Daily Smoker completed Daily Smoker [facility] 02:51:00 AM EDT Medical C enter Smoking Unknown if ever completed Unknown if ever Rowan Pruitt smoked smoked [facility] Vital Signs ID Date Data Source UNK Name Value Range Interpretation Code Description Data Source(s) Body temperature 36.192519 Aishwarya 36.319305 Aishwarya [facility] Respiratory rate 18 /min 18 /min [facility] Oxygen 98 % 98 % [facility] saturation in Medical Arterial blood Center by Pulse oximetry Heart rate 79 /min 79 /min [facility] Diastolic blood 66 mm[Hg] 66 mm[Hg] [facility] [place] Systolic blood 119 mm[Hg] 119 mm[Hg] [facility] Body temperature 36.967542 Aishwarya 36.095049 Aishwarya [facility] Respiratory rate 18 /min 18 /min [facility] Oxygen 98 % 98 % [facility] saturation in Medical Arterial blood Center by Pulse oximetry Heart rate 88 /min 88 /min [facility] Diastolic blood 50 mm[Hg] 50 mm[Hg] [facility] Systolic blood 110 mm[Hg] 110 mm[Hg] [facility] Body temperature [id number] Aishwarya 36.503779 Aishwarya [facility] Respiratory rate 18 /min 18 /min [facility] Oxygen 100 % 100 % [facility] saturation in Medical Arterial blood Center by Pulse oximetry Heart rate 90 /min 90 /min [facility] Diastolic blood 47 mm[Hg] 47 mm[Hg] [facility] Systolic blood 103 mm[Hg] 103 mm[Hg] [facility] Body temperature 36.237239 Aishwarya 36.437960 Aishwarya [facility] Respiratory rate 18 /min 18 /min [facility] Oxygen 98 % 98 % [facility] saturation in Medical Arterial blood Center by Pulse oximetry Heart rate 100 /min 100 /min [facility] Diastolic blood 69 mm[Hg] 69 mm[Hg] [facility] Systolic blood 105 mm[Hg] 105 mm[Hg] [facility] Body temperature 36.633635 Aishwarya 36.947247 Aishwarya [facility] Respiratory rate 20 /min 20 /min [facility] Heart rate 92 /min 92 /min [facility] Diastolic blood 77 mm[Hg] 77 mm[Hg] [facility] pressure [facility] Center Systolic blood 124 mm[Hg] 124 mm[Hg] [facility] Body temperature 37.810882 Aishwarya 37.453723 Aishwarya [facility] Respiratory rate 20 /min 20 /min [facility] Heart rate 92 /min 92 /min [facility] Diastolic blood 87 mm[Hg] 87 mm[Hg] [facility] Systolic blood 133 mm[Hg] 133 mm[Hg] [facility] Body temperature 36.661969 Aishwarya 36.506611 Aishwarya [facility] Respiratory rate 18 /min 18 /min [facility] Oxygen 97 % 97 % [facility] saturation in Medical Arterial blood Center by Pulse oximetry Heart rate 78 /min 78 /min [facility] Diastolic blood 80 mm[Hg] 80 mm[Hg] [facility] Systolic blood 126 mm[Hg] 126 mm[Hg] [facility] Body weight 84.056301 kg 84.265989 kg [facility] [place] Body temperature 37.018957 Aishwarya 37.869746 Aishwarya [facility] Respiratory rate 20 /min 20 /min [facility] Heart rate 103 /min 103 /min [facility] Body height 167.764997 cm 167.599012 cm [facility] Diastolic blood 102 mm[Hg] 102 mm[Hg] [facility] Systolic blood 138 mm[Hg] 138 mm[Hg] [facility] Body mass index 30.17 kg/m2 30.17 kg/m2 [facility] (BMI) [Ratio] Medical Center Systolic blood 127 mm[Hg] 127 mm[Hg] [facility] Body temperature 37.073744 Aishwarya 37.130135 Aishwarya [facility] Respiratory rate 18 /min 18 /min [facility] Oxygen 98 % 98 % [facility] saturation in Medical Arterial blood Center by Pulse oximetry Heart rate 88 /min 88 /min [facility] Diastolic blood 71 mm[Hg] 71 mm[Hg] [facility] Body weight 72.342898 kg 72.273971 kg [facility] Oxygen 98 % 98 % [facility] saturation in Medical Arterial blood Center by Pulse oximetry Body height 167.911023 cm 167.328800 cm [facility] Body mass index 25.8 kg/m2 25.8 kg/m2 [facility] (BMI) [Ratio] [facility] Center Body temperature 36.692018 Aishwarya 36.542680 Aishwarya [facility] Respiratory rate 16 /min 16 /min [facility] Oxygen 99 % 99 % [facility] saturation in Medical Arterial blood Center by Pulse oximetry Heart rate 85 /min 85 /min [facility] Diastolic blood 64 mm[Hg] 64 mm[Hg] [facility] Systolic blood 105 mm[Hg] 105 mm[Hg] [facility] Body temperature 37.209056 Aishwarya 37.739654 Aishwarya [facility] Oxygen 95 % 95 % [facility] saturation in Medical Arterial blood Center by Pulse oximetry Heart rate 96 /min 96 /min [facility] Diastolic blood 68 mm[Hg] 68 mm[Hg] [facility] Systolic blood 118 mm[Hg] 118 mm[Hg] [facility] Body weight 72.516202 kg 72.719035 kg [facility] Body temperature 38.646469 Aishwarya 38.374523 Aishwarya [facility] Respiratory rate 20 /min 20 /min [facility] Oxygen 95 % 95 % [facility] saturation in Medical Arterial blood Center by Pulse oximetry Heart rate 90 /min 90 /min [facility] Body height 165.135648 cm 165.499148 cm [facility] Diastolic blood 65 mm[Hg] 65 mm[Hg] [facility] Systolic blood 108 mm[Hg] 108 mm[Hg] [facility] Body mass index 26.6 kg/m2 26.6 kg/m2 [place] (BMI) [Ratio] [facility] Center Body weight 75.037188 kg 75.637561 kg [facility] Body temperature 36.806638 Aishwarya 36.783926 Aishwarya [facility] Respiratory rate 18 /min 18 /min [facility] Oxygen 98 % 98 % [facility] saturation in Medical Arterial blood Center by Pulse oximetry Heart rate 90 /min 90 /min [facility] Body height 167.643239 cm 167.178745 cm [facility] Diastolic blood 71 mm[Hg] 71 mm[Hg] [facility] Systolic blood 105 mm[Hg] 105 mm[Hg] [facility] Body mass index 26.6 kg/m2 26.6 kg/m2 [facility] (BMI) [Ratio] [facility] Center Body weight 79.535444 kg 79.785095 kg [facility] Body temperature 36.636196 Aishwarya 36.478550 Aishwarya [facility] Respiratory rate 19 /min 19 /min [facility] Oxygen 99 % 99 % [facility] saturation in Medical Arterial blood Center by Pulse oximetry Heart rate 87 /min 87 /min [facility] Body height 167.716068 cm 167.569896 cm [facility] Diastolic blood 60 mm[Hg] 60 mm[Hg] [facility] Systolic blood 110 mm[Hg] 110 mm[Hg] [facility] Body mass index 28.2 kg/m2 28.2 kg/m2 [facility] (BMI) [Ratio] [facility] Center Body temperature 37.988619 Aishwarya 37.130347 Aishwarya [facility] Respiratory rate 18 /min 18 /min [facility] Oxygen 98 % 98 % [facility] saturation in Medical Arterial blood Center by Pulse oximetry Heart rate 79 /min 79 /min [facility] Diastolic blood 86 mm[Hg] 86 mm[Hg] [facility] Systolic blood 141 mm[Hg] 141 mm[Hg] [facility] Body temperature 37.906258 Aishwarya 37.284801 Aishwarya [facility] Respiratory rate 18 /min 18 /min [facility] Oxygen 98 % 98 % [facility] saturation in Medical Arterial blood Center by Pulse oximetry Heart rate 74 /min 74 /min [facility] Diastolic blood 88 mm[Hg] 88 mm[Hg] [facility] Systolic blood 138 mm[Hg] 138 mm[Hg] [facility] Body weight 68.589194 kg 68.978608 kg [facility] Body temperature 36.739538 Aishwarya 36.487780 Aishwarya [facility] Respiratory rate 18 /min 18 /min [facility] Oxygen 98 % 98 % [facility] saturation in Medical Arterial blood Center by Pulse oximetry Heart rate 89 /min 89 /min [facility] Body height 164.441628 cm 164.569003 cm [facility] Diastolic blood mm[Hg] [facility] Systolic blood mm[Hg] [facility] Body mass index 24.9 kg/m2 24.9 kg/m2 [facility] (BMI) [Ratio] [facility] Body weight 78.029815 kg 78.235600 kg [facility] Body temperature 36.922783 Aishwarya 36.344490 Aishwarya [facility] Respiratory rate 18 /min 18 /min [facility] Oxygen 97 % 97 % [facility] saturation in Medical Arterial blood Center by Pulse oximetry Heart rate 85 /min 85 /min [facility] Body height 165.481739 cm 165.225556 cm [facility] Diastolic blood 75 mm[Hg] 75 mm[Hg] [place] Systolic blood 122 mm[Hg] 122 mm[Hg] [facility] Body mass index 28.6 kg/m2 28.6 kg/m2 [facility] (BMI) [Ratio] [facility] Body weight 85.530515 kg 85.583854 kg [facility] Body temperature 36.770181 Aishwarya 36.412743 Aishwarya [facility] Respiratory rate 18 /min 18 /min [facility] Oxygen 97 % 97 % [facility] saturation in Medical Arterial blood Center by Pulse oximetry Heart rate 89 /min 89 /min [facility] Body height 165.725297 cm 165.771856 cm [facility] Diastolic blood 66 mm[Hg] 66 mm[Hg] [facility] Center Systolic blood 119 mm[Hg] 119 mm[Hg] [facility] Body mass index 31.1 kg/m2 31.1 kg/m2 [facility] (BMI) [Ratio] [facility] Body weight 81.561564 kg 81.393325 kg [facility] Body temperature 36.149034 Aishwarya 36.227777 Aishwarya [facility] Respiratory rate 18 /min 18 /min [facility] Oxygen 99 % 99 % [facility] saturation in Medical Arterial blood Center by Pulse oximetry Heart rate 86 /min 86 /min [facility] Body height 167.304340 cm 167.262916 cm [facility] Diastolic blood 88 mm[Hg] 88 mm[Hg] [facility] Systolic blood 134 mm[Hg] 134 mm[Hg] [facility] Body mass index 29.0 kg/m2 29.0 kg/m2 [place] (BMI) [Ratio] [facility] Body weight 81.077233 kg 81.512287 kg [facility] Body temperature 36.448501 Aishwarya 36.191579 Aishwarya [facility] Respiratory rate 18 /min 18 /min [facility] Oxygen 99 % 99 % [facility] saturation in Medical Arterial blood Center by Pulse oximetry Heart rate 86 /min 86 /min [facility] Body height 167.723304 cm 167.775738 cm [facility] Diastolic blood 88 mm[Hg] 88 mm[Hg] [facility] Systolic blood 134 mm[Hg] 134 mm[Hg] [facility] Body mass index 29.0 kg/m2 29.0 kg/m2 [place] (BMI) [Ratio] [facility] Center Body weight 80.800037 kg 80.537162 kg [facility] Body temperature 37.716149 Aishwarya 37.474728 Aishwarya [facility] Respiratory rate 17 /min 17 /min [facility] Oxygen 95 % 95 % [facility] saturation in Medical Arterial blood Center by Pulse oximetry Heart rate 70 /min 70 /min [facility] Body height 170.876569 cm 170.612432 cm [facility] Diastolic blood 90 mm[Hg] 90 mm[Hg] [place] Center Systolic blood 150 mm[Hg] 150 mm[Hg] [facility] Body mass index 27.7 kg/m2 27.7 kg/m2 [facility] (BMI) [Ratio] [facility] Body temperature 36.168897 Aishwarya 36.957608 Aishwarya [facility] Respiratory rate 17 /min 17 /min [facility] Oxygen 97 % 97 % [facility] saturation in Medical Arterial blood Center by Pulse oximetry Heart rate 77 /min 77 /min [facility] Diastolic blood 80 mm[Hg] 80 mm[Hg] [facility] Systolic blood 139 mm[Hg] 139 mm[Hg] [facility] Body weight 80.867613 kg 80.678592 kg [facility] [place] Respiratory rate 18 /min 18 /min [facility] Heart rate 95 /min 95 /min [facility] Body height 165.761042 cm 165.757266 cm [facility] Diastolic blood 73 mm[Hg] 73 mm[Hg] [facility] Systolic blood 117 mm[Hg] 117 mm[Hg] [facility] Body mass index 29.3 kg/m2 29.3 kg/m2 [facility] (BMI) [Ratio] [facility] Center Body temperature 37.857895 Aishwarya 37.491058 Aishwarya [facility] Respiratory rate 18 /min 18 /min [facility] Heart rate 84 /min 84 /min [facility] Diastolic blood 84 mm[Hg] 84 mm[Hg] [facility] Systolic blood 145 mm[Hg] 145 mm[Hg] [facility] Body temperature 37.682986 Aishwarya 37.429064 Aishwarya [facility] Respiratory rate 18 /min 18 /min [facility] Heart rate 94 /min 94 /min [facility] Diastolic blood 100 mm[Hg] 100 mm[Hg] [facility] Systolic blood 159 mm[Hg] 159 mm[Hg] [facility] Body temperature 36.054245 Aishwarya 36.248067 Aishwarya [facility] Respiratory rate 18 /min 18 /min [facility] Oxygen 98 % 98 % [facility] saturation in Medical Arterial blood Center by Pulse oximetry Heart rate 72 /min 72 /min [facility] Diastolic blood 70 mm[Hg] 70 mm[Hg] [facility] Systolic blood 110 mm[Hg] 110 mm[Hg] [facility] Body temperature 36.866299 Aishwarya 36.560235 Aishwarya [facility] Respiratory rate 17 /min 17 /min [facility] Oxygen 99 % 99 % [facility] saturation in Medical Arterial blood Center by Pulse oximetry Heart rate 81 /min 81 /min [facility] Diastolic blood 77 mm[Hg] 77 mm[Hg] [facility] Systolic blood 122 mm[Hg] 122 mm[Hg] [facility] [place] Body temperature 36.208458 Aishwarya 36.647927 Aishwarya [facility] Respiratory rate 17 /min 17 /min [facility] Oxygen 97 % 97 % [facility] saturation in Medical Arterial blood Center by Pulse oximetry Heart rate 81 /min 81 /min [facility] Diastolic blood 77 mm[Hg] 77 mm[Hg] [facility] Systolic blood 122 mm[Hg] 122 mm[Hg] [facility] Body temperature 36.059613 Aishwarya 36.010348 Aishwarya [facility] Respiratory rate 17 /min 17 /min [facility] Oxygen 99 % 99 % [facility] saturation in Medical Arterial blood Center by Pulse oximetry Heart rate 88 /min 88 /min [facility] Diastolic blood 78 mm[Hg] 78 mm[Hg] [facility] Systolic blood 132 mm[Hg] 132 mm[Hg] [facility] Body temperature 36.802962 Aishwarya 36.539980 Aishwarya [facility] Respiratory rate 18 /min 18 /min [facility] Oxygen 97 % 97 % [facility] saturation in Medical Arterial blood Center by Pulse oximetry Heart rate 72 /min 72 /min [facility] Diastolic blood 85 mm[Hg] 85 mm[Hg] [facility] Systolic blood 151 mm[Hg] 151 mm[Hg] [facility] Body temperature 37.284274 Aishwarya 37.707046 Aishwarya [facility] Respiratory rate 18 /min 18 /min [facility] Oxygen 99 % 99 % [facility] saturation in Medical Arterial blood Center by Pulse oximetry Heart rate 78 /min 78 /min [facility] Diastolic blood 66 mm[Hg] 66 mm[Hg] [facility] Systolic blood 107 mm[Hg] 107 mm[Hg] [facility] [place] Body temperature 36.320738 Aishwarya 36.416450 Aishwarya [facility] Respiratory rate 18 /min 18 /min [facility] Oxygen 99 % 99 % [facility] saturation in Medical Arterial blood Center by Pulse oximetry Heart rate 84 /min 84 /min [facility] Diastolic blood 88 mm[Hg] 88 mm[Hg] [facility] [place] Systolic blood 146 mm[Hg] 146 mm[Hg] [facility] [place] Body temperature 35.454116 Aishwarya 35.013410 Aishwarya [facility] Respiratory rate 18 /min 18 /min [facility] Oxygen 99 % 99 % [facility] saturation in Medical Arterial blood Center by Pulse oximetry Heart rate 81 /min 81 /min [facility] Diastolic blood 88 mm[Hg] 88 mm[Hg] [facility] [place] Systolic blood 144 mm[Hg] 144 mm[Hg] [facility] [place] Body temperature 36.294743 Aishwarya 36.533623 Aishwarya [facility] Respiratory rate 17 /min 17 /min [facility] Oxygen 97 % 97 % [facility] saturation in Medical Arterial blood Center by Pulse oximetry Heart rate 77 /min 77 /min [facility] Diastolic blood 91 mm[Hg] 91 mm[Hg] [facility] [place] Systolic blood 135 mm[Hg] 135 mm[Hg] [facility] Body temperature 36.022592 Aishwarya 36.979713 Aishwarya [facility] Respiratory rate 17 /min 17 /min [facility] Oxygen 98 % 98 % [facility] saturation in Medical Arterial blood Center by Pulse oximetry Heart rate 75 /min 75 /min [facility] Diastolic blood 65 mm[Hg] 65 mm[Hg] [facility] Systolic blood 133 mm[Hg] 133 mm[Hg] [facility] [place] Body temperature 36.103238 Aishwarya 36.042641 Aishwarya [facility] Respiratory rate 17 /min 17 /min [facility] Oxygen 98 % 98 % [facility] saturation in Medical Arterial blood Center by Pulse oximetry Heart rate 75 /min 75 /min [facility] Diastolic blood 68 mm[Hg] 68 mm[Hg] [facility] pressure [facility] Systolic blood 129 mm[Hg] 129 mm[Hg] [facility] Body temperature 36.813594 Aishwarya 36.310706 Aishwarya [facility] Respiratory rate 17 /min 17 /min [facility] Oxygen 98 % 98 % [facility] saturation in Medical Arterial blood Center by Pulse oximetry Heart rate 75 /min 75 /min [facility] Diastolic blood 68 mm[Hg] 68 mm[Hg] [facility] Systolic blood 124 mm[Hg] 124 mm[Hg] [facility] [place] Body temperature 36.127558 Aishwarya 36.916471 Aishwarya [facility] Respiratory rate 17 /min 17 /min [facility] Oxygen 99 % 99 % [facility] saturation in Medical Arterial blood Center by Pulse oximetry Heart rate 85 /min 85 /min [facility] Diastolic blood 77 mm[Hg] 77 mm[Hg] [facility] Systolic blood 116 mm[Hg] 116 mm[Hg] [facility] [place] Body temperature 36.081714 Aishwarya 36.942275 Aishwarya [facility] Respiratory rate 17 /min 17 /min [facility] Oxygen 98 % 98 % [facility] saturation in Medical Arterial blood Center by Pulse oximetry Heart rate 81 /min 81 /min [facility] Diastolic blood 68 mm[Hg] 68 mm[Hg] [facility] Systolic blood 122 mm[Hg] 122 mm[Hg] [facility] [place] Body temperature 36.403004 Aishwarya 36.144290 Aishwarya [facility] Respiratory rate 17 /min 17 /min [facility] Oxygen 98 % 98 % [facility] saturation in Medical Arterial blood Center by Pulse oximetry Heart rate 89 /min 89 /min [facility] Diastolic blood 68 mm[Hg] 68 mm[Hg] [facility] Systolic blood 129 mm[Hg] 129 mm[Hg] [facility] [place] Body temperature 36.722107 Aishwarya 36.172235 Aishwarya [facility] Respiratory rate 18 /min 18 /min [facility] Oxygen 98 % 98 % [facility] saturation in Medical Arterial blood Center by Pulse oximetry Heart rate 87 /min 87 /min [facility] Diastolic blood 82 mm[Hg] 82 mm[Hg] [facility] Systolic blood 146 mm[Hg] 146 mm[Hg] [facility] pressure [facility] Center Body temperature 36.774759 Aishwarya 36.610659 Aishwarya [facility] Respiratory rate 18 /min 18 /min [facility] Oxygen 97 % 97 % [facility] saturation in Medical Arterial blood Center by Pulse oximetry Heart rate 85 /min 85 /min [facility] Diastolic blood 88 mm[Hg] 88 mm[Hg] [facility] Systolic blood 150 mm[Hg] 150 mm[Hg] [facility] pressure [facility] Center Body weight 202 lbs 202 lbs [facility] Diastolic blood 68 mmHg 68 mmHg [facility] Systolic blood 136 mmHg 136 mmHg [facility] Respiratory rate 18 bpm 18 bpm [facility] Heart rate 83 bpm 83 bpm [facility] Body temperature 97.8 Fahrenheit 97.8 Fahrenh t [facility] Diastolic blood 76 mmHg 76 mmHg [facility] Systolic blood 130 mmHg 130 mmHg [facility] Respiratory rate 16 bpm 16 bpm [facility] Heart rate 94 bpm 94 bpm [facility] Body temperature 96.8 Fahrenheit 96.8 Fahrenh t [facility] Diastolic blood 81 mmHg 81 mmHg [facility] Systolic blood 141 mmHg 141 mmHg [facility] Respiratory rate 18 bpm 18 bpm [facility] Heart rate 93 bpm 93 bpm [facility] Body weight 84.007851 kg 84.723181 kg [facility] Oxygen 96 % 96 % [facility] saturation in Medical Arterial blood Center by Pulse oximetry Body height 165.508502 cm 165.474275 cm [facility] Body mass index 31.11 kg/m2 31.11 kg/m2 [facility] (BMI) [Ratio] Medical Center Body temperature 36.940901 Aishwarya 36.902918 Aishwarya [facility] Respiratory rate 18 /min 18 /min [facility] Heart rate 69 /min 69 /min [facility] Diastolic blood 76 mm[Hg] 76 mm[Hg] [facility] Systolic blood 119 mm[Hg] 119 mm[Hg] [facility] Body temperature 37.067728 Aishwarya 37.220277 Aishwarya [facility] Respiratory rate 18 /min 18 /min [facility] Oxygen 97 % 97 % [facility] saturation in Medical Arterial blood Center by Pulse oximetry Heart rate 69 /min 69 /min [facility] Diastolic blood 78 mm[Hg] 78 mm[Hg] [facility] Systolic blood 136 mm[Hg] 136 mm[Hg] [facility] Body temperature 36.392795 Aishwarya 36.231678 Aishwarya [facility] Respiratory rate 18 /min 18 /min [facility] Heart rate 82 /min 82 /min [facility] Diastolic blood 83 mm[Hg] 83 mm[Hg] [facility] Systolic blood 130 mm[Hg] 130 mm[Hg] [facility] Body temperature 36.125222 Aishwarya 36.030574 Aishwarya [facility] Respiratory rate 18 /min 18 /min [facility] Oxygen 97 % 97 % [facility] saturation in Medical Arterial blood Center by Pulse oximetry Heart rate 76 /min 76 /min [facility] Diastolic blood 75 mm[Hg] 75 mm[Hg] [facility] Systolic blood 124 mm[Hg] 124 mm[Hg] [facility] Body temperature 36.169023 Aishwarya 36.123659 Aishwarya [facility] Respiratory rate 18 /min 18 /min [facility] Heart rate 88 /min 88 /min [facility] Diastolic blood 83 mm[Hg] 83 mm[Hg] [facility] Systolic blood 147 mm[Hg] 147 mm[Hg] [facility] Body weight 84.625729 kg 84.622772 kg [facility] Body height 165.385508 cm 165.197738 cm [facility] Body mass index 31.11 kg/m2 31.11 kg/m2 [facility] (BMI) [Ratio] Medical Center Body temperature 37.979656 Aishwarya 37.043985 Aishwarya [facility] Respiratory rate 18 /min 18 /min [facility] Heart rate 86 /min 86 /min [facility] Diastolic blood 77 mm[Hg] 77 mm[Hg] [facility] pressure [facility] Systolic blood 137 mm[Hg] 137 mm[Hg] [facility] Body temperature 36.405575 Aishwarya 36.197432 Aishwarya [facility] Respiratory rate 18 /min 18 /min [facility] Heart rate 78 /min 78 /min [facility] Diastolic blood 78 mm[Hg] 78 mm[Hg] [facility] Systolic blood 137 mm[Hg] 137 mm[Hg] [facility] Oxygen 97 % 97 % [facility] saturation in Medical Arterial blood Center by Pulse oximetry Body temperature 36.862946 Aishwarya 36.003382 Aishwarya [facility] Respiratory rate 20 /min 20 /min [facility] Heart rate 79 /min 79 /min [facility] Diastolic blood 65 mm[Hg] 65 mm[Hg] [facility] Systolic blood 133 mm[Hg] 133 mm[Hg] [facility] Body weight 84.417732 kg 84.978188 kg [facility] [place] Body height 165.864603 cm 165.280135 cm [facility] Body mass index 31.12 kg/m2 31.12 kg/m2 [facility] (BMI) [Ratio] Medical Center Body temperature 36.780228 Aishwarya 36.125856 Aishwarya [facility] Respiratory rate 18 /min 18 /min [facility] Heart rate 76 /min 76 /min [facility] Diastolic blood 76 mm[Hg] 76 mm[Hg] [facility] Systolic blood 133 mm[Hg] 133 mm[Hg] [facility] Center Oxygen 98 % 98 % [facility] saturation in Medical Arterial blood Center by Pulse oximetry Body temperature 37.906715 Aishwarya 37.900598 Aishwarya [facility] Respiratory rate 18 /min 18 /min [facility] Oxygen 98 % 98 % [facility] saturation in Medical Arterial blood Center by Pulse oximetry Heart rate 78 /min 78 /min [facility] Diastolic blood 78 mm[Hg] 78 mm[Hg] [facility] Systolic blood 138 mm[Hg] 138 mm[Hg] [facility] Medical Center Oxygen 100 % 100 % [facility] saturation in Medical Arterial blood Center by Pulse oximetry Body temperature 36.669819 Aishwarya 36.544935 Aishwarya [facility] Respiratory rate 18 /min 18 /min [facility] Oxygen 100 % 100 % [facility] saturation in Medical Arterial blood Center by Pulse oximetry Heart rate 82 /min 82 /min [facility] Diastolic blood 92 mm[Hg] 92 mm[Hg] [facility] Systolic blood 152 mm[Hg] 152 mm[Hg] [facility] Body temperature 37.325492 Aishwarya 37.689693 Aishwarya [facility] Respiratory rate 18 /min 18 /min [facility] Oxygen 97 % 97 % [facility] saturation in Medical Arterial blood Center by Pulse oximetry Heart rate 100 /min 100 /min [facility] Diastolic blood 81 mm[Hg] 81 mm[Hg] [facility] [place] Systolic blood 141 mm[Hg] 141 mm[Hg] [facility] Body temperature 36.780309 Aishwarya 36.780738 Aishwarya [facility] Respiratory rate 18 /min 18 /min [facility] Oxygen 98 % 98 % [facility] saturation in Medical Arterial blood Center by Pulse oximetry Heart rate 82 /min 82 /min [facility] Diastolic blood 66 mm[Hg] 66 mm[Hg] [facility] [place] Systolic blood 122 mm[Hg] 122 mm[Hg] [facility] Body temperature 36.740335 Aishwarya 36.468288 Aishwraya [facility] Respiratory rate 18 /min 18 /min [facility] Oxygen 96 % 96 % [facility] saturation in Medical Arterial blood Center by Pulse oximetry Heart rate 84 /min 84 /min [facility] Diastolic blood 65 mm[Hg] 65 mm[Hg] [facility] Systolic blood 125 mm[Hg] 125 mm[Hg] [facility] Body temperature 37.837530 Aishwarya 37.396645 Aishwarya [facility] Respiratory rate 20 /min 20 /min [facility] Oxygen 99 % 99 % [facility] saturation in Medical Arterial blood Center by Pulse oximetry Heart rate 92 /min 92 /min [facility] Diastolic blood 81 mm[Hg] 81 mm[Hg] [facility] pressure [facility] Center Systolic blood 139 mm[Hg] 139 mm[Hg] [facility] Body temperature 37.042765 Aishwarya 37.564206 Aishwarya [facility] Respiratory rate 18 /min 18 /min [facility] Oxygen 97 % 97 % [facility] saturation in Medical Arterial blood Center by Pulse oximetry Heart rate 89 /min 89 /min [facility] Diastolic blood 69 mm[Hg] 69 mm[Hg] [facility] pressure [facility] Center Systolic blood 144 mm[Hg] 144 mm[Hg] [facility] Body temperature 36.223197 Aishwarya 36.732969 Aishwarya [facility] Respiratory rate 18 /min 18 /min [facility] Oxygen 99 % 99 % [facility] saturation in Medical Arterial blood Center by Pulse oximetry Heart rate 102 /min 102 /min [facility] Diastolic blood 75 mm[Hg] 75 mm[Hg] [facility] pressure [facility] Center Systolic blood 147 mm[Hg] 147 mm[Hg] [facility] Body weight 65.874087 kg 65.105382 kg [facility] Body temperature 36.341816 Aishwarya 36.838814 Aishwarya [facility] Respiratory rate 18 /min 18 /min [facility] Oxygen 99 % 99 % [facility] saturation in Medical Arterial blood Center by Pulse oximetry Heart rate 101 /min 101 /min [facility] Body height 157.281182 cm 157.413770 cm [facility] Diastolic blood 68 mm[Hg] 68 mm[Hg] [facility] pressure [facility] Center Systolic blood 135 mm[Hg] 135 mm[Hg] [facility] Body mass index 26.2 kg/m2 26.2 kg/m2 [facility] (BMI) [Ratio] Medical Center Body temperature 36.723590 Aishwarya 36.308836 Aishwarya [facility] Respiratory rate 17 /min 17 /min [facility] Oxygen 99 % 99 % [facility] saturation in Medical Arterial blood Center by Pulse oximetry Heart rate 84 /min 84 /min [facility] Diastolic blood 86 mm[Hg] 86 mm[Hg] [facility] pressure [facility] Center Systolic blood 137 mm[Hg] 137 mm[Hg] [facility] Body temperature 36.436725 Aishwarya 36.444346 Aishwarya [facility] Respiratory rate 17 /min 17 /min [facility] Oxygen 97 % 97 % [facility] saturation in Medical Arterial blood Center by Pulse oximetry Heart rate 95 /min 95 /min [facility] Diastolic blood 90 mm[Hg] 90 mm[Hg] [facility] pressure [facility] Center Systolic blood 132 mm[Hg] 132 mm[Hg] [facility] Body temperature 36.800248 Aishwarya 36.797634 Aishwarya [facility] Respiratory rate 18 /min 18 /min [facility] Oxygen 98 % 98 % [facility] saturation in Medical Arterial blood Center by Pulse oximetry Heart rate 78 /min 78 /min [facility] Diastolic blood 82 mm[Hg] 82 mm[Hg] [facility] Systolic blood 134 mm[Hg] 134 mm[Hg] [facility] Body weight 74.535623 kg 74.837918 kg [facility] Body temperature 36.364289 Aishwarya 36.816184 Aishwarya [facility] Respiratory rate 18 /min 18 /min [facility] Oxygen 97 % 97 % [facility] saturation in Medical Arterial blood Center by Pulse oximetry Heart rate 80 /min 80 /min [facility] Body height 165.223928 cm 165.246944 cm [facility] Diastolic blood 84 mm[Hg] 84 mm[Hg] [facility] pressure [facility] Center Systolic blood 132 mm[Hg] 132 mm[Hg] [facility] Body mass index 27.4 kg/m2 27.4 kg/m2 [facility] (BMI) [Ratio] Medical Center Body temperature 37.743453 Aishwarya 37.724315 Aishwarya [facility] Respiratory rate 18 /min 18 /min [facility] Oxygen 97 % 97 % [facility] saturation in Medical Arterial blood Center by Pulse oximetry Heart rate 97 /min 97 /min [facility] Diastolic blood 68 mm[Hg] 68 mm[Hg] [facility] pressure [facility] Center Systolic blood 117 mm[Hg] 117 mm[Hg] [facility] Body temperature 36.689193 Aishwarya 36.229709 Aishwarya [facility] Respiratory rate 18 /min 18 /min [facility] Oxygen 98 % 98 % [facility] saturation in Medical Arterial blood Center by Pulse oximetry Heart rate 70 /min 70 /min [facility] Diastolic blood 70 mm[Hg] 70 mm[Hg] [facility] Systolic blood 110 mm[Hg] 110 mm[Hg] [facility] Body temperature 36.873851 Aishwarya 36.483991 Aishwarya [facility] Respiratory rate 17 /min 17 /min [facility] Oxygen 100 % 100 % [facility] saturation in Medical Arterial blood Center by Pulse oximetry Heart rate 71 /min 71 /min [facility] Diastolic blood 48 mm[Hg] 48 mm[Hg] [facility] Systolic blood 111 mm[Hg] 111 mm[Hg] [facility] Body temperature 35.210880 Aishwarya 35.789570 Aishwarya [facility] Respiratory rate 18 /min 18 /min [facility] Oxygen 99 % 99 % [facility] saturation in Medical Arterial blood Center by Pulse oximetry Heart rate 84 /min 84 /min [facility] Diastolic blood 94 mm[Hg] 94 mm[Hg] [facility] Systolic blood 126 mm[Hg] 126 mm[Hg] [facility] Body temperature 37.499398 Aishwarya 37.371093 Aishwarya [facility] Respiratory rate 18 /min 18 /min [facility] Oxygen 97 % 97 % [facility] saturation in Medical Arterial blood Center by Pulse oximetry Heart rate 105 /min 105 /min [facility] Diastolic blood 109 mm[Hg] 109 mm[Hg] [facility] Systolic blood 160 mm[Hg] 160 mm[Hg] [facility] Body temperature 36.515160 Aishwarya 36.728641 Aishwarya [facility] Respiratory rate 17 /min 17 /min [facility] Oxygen 97 % 97 % [facility] saturation in Medical Arterial blood Center by Pulse oximetry Heart rate 81 /min 81 /min [facility] Diastolic blood 85 mm[Hg] 85 mm[Hg] [facility] Systolic blood 142 mm[Hg] 142 mm[Hg] [facility] Body weight 83.868700 kg 83.287165 kg [facility] Measured [facility] Body temperature 36.106973 Aishwarya 36.541521 Aishwarya [facility] Respiratory rate 17 /min 17 /min [facility] Oxygen 99 % 99 % [facility] saturation in Medical Arterial blood Center by Pulse oximetry Heart rate 94 /min 94 /min [facility] Diastolic blood 90 mm[Hg] 90 mm[Hg] [facility] pressure [facility] Center Systolic blood 136 mm[Hg] 136 mm[Hg] [facility] [place] Body weight 70.266730 kg 70.339503 kg [facility] Measured [facility] Body temperature 37.165802 Aishwarya 37.871082 Aishwarya [facility] Respiratory rate 18 /min 18 /min [facility] Oxygen 97 % 97 % [facility] saturation in Medical Arterial blood Center by Pulse oximetry Heart rate 109 /min 109 /min [facility] Body height 165.379825 cm 165.429472 cm [facility] Diastolic blood 94 mm[Hg] 94 mm[Hg] [facility] Systolic blood 163 mm[Hg] 163 mm[Hg] [facility] Body mass index 25.6 kg/m2 25.6 kg/m2 [facility] (BMI) [Ratio] Medical Center Patient Treatment Plan of Care Planned Activity Planned Date Details Description Data Source (s) Cephalexin 250 MG Oral Capsule [facility] Folic Acid 1 MG Oral Tablet [facility] Vitamin B 12 0.1 MG Oral [facility] Metoclopramide 10 MG Oral [facility] Saccharomyces boulardii lyo [facility] 250 MG Oral Capsule Center [Florastor] Ondansetron 4 MG Oral Tablet [facility] Levetiracetam 500 MG Oral [facility] doxycycline monohydrate 100 mg [facility] Levetiracetam 500 MG Oral [facility] Levetiracetam 500 MG Oral [facility] Levetiracetam 500 MG Oral [facility] Ibuprofen 400 MG Oral Tablet [facility] 24 HR Nicotine 0.583 MG/HR S [facility] Transdermal Patch Center Thiamine 100 MG Oral Tablet [facility] Folic Acid 1 MG Oral Tablet [facility] ferrous gluconate 324 MG Oral [facility] Vitamin B 12 0.5 MG Oral [facility] Tablet [place] Amoxicillin 80 MG/ML Oral [facility] Suspension [place] Ibuprofen 400 MG Oral Tablet [facility] Sulfamethoxazole 800 MG / Sa [facility] Trimethoprim [address] Tablet Phenazopyridine hydrochloride [facility] 200 MG Oral Tablet Center Ciprofloxacin 250 MG Oral [facility]
[2020-01-14 21:47] VITALS: BMI 29.9
--- NOTE | 2020-01-14 21:53 | HP ---
CIWA Score Nausea/Vomitin-Mild Nausea/No Vomiting Muscle Tremors: 4-Moderate,w/Arms Extend Anxiety: 4-Mod. Anxious/Guarded Agitation: 4-Moderately Restless Paroxysmal Sweats: 4-Forehead w/Sweat Beads Orientation: 1-Uncertain about Date Tacttile Disturbances: 0-None Auditory Disturbances: 0-None Visual Disturbances: 0-None Headache: 0-None Present CIWA-Ar Total Score: 18 - Admission Criteria OASAS Guidelines: Admission for Medically Managed Detox: Requires at least one of the followin. CIWA greater than 12 2. Seizures within the past 24 hours 3. Delirium tremens within the past 24 hours 4. Hallucinations within the past 24 hours 5. Acute intervention needed for co occurring medical disorder 6. Acute intervention needed for co occurring psychiatric disorder 7. Severe withdrawal that cannot be handled at a lower level of care (continued vomiting, continued diarrhea, abnormal vital signs) requiring intravenous medication and/or fluids 8. Patient presents the following: CIWA greater than 12 Admission Criteria Met: Admission criteria met Admitting History and Physical - Past Medical History ...LMP: 03/09/19 - Smoking History Smoking history: Current every day smoker Have you smoked in the past 12 months: Yes Aproximately how many cigarettes per day: 10 - Alcohol/Substance Use Hx Alcohol Use: No Admission ROS S - [facility] Chief Complaint: SEEKING ALCOHOL DETOX. C/O WITHDRAWAL SX'S Allergies/Adverse Reactions: Allergies Allergy/AdvReac Type Severity Reaction Status Date / Time azithromycin [From Zithromax] Allergy Verified 10/12/19 12:59 History of Present Illness: HERE FOR ALCOHOL DETOX. CLIENT IS REFERRED BY HER [facility]. SHE IS KNOWN TO THIS PROGRAM. LAST HERE 04/2019. CLIENT REPORTS BEING CLEAN FOR THE PAST 8 MONTHS RELAPSING 1 MONTH AGO. SHE REPORTS DAILY ALCOHOL ABUSE " I DRINK ALL DAY EVERY DAY". PRESENTS INTOXICATED BUT A/O X3 WITH C/O WITHDRAWAL SX'S. 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 REPORTS LAST EPISODE THIS MORNING WHILE SLEEPING, WITNESSED BY FRIEND. DID NOT HIT HER HEAD LIVES IN [place], UNEMPLOYED, DENIES LEGALS Exam Limitations: Intoxication - Ebola screening Have you traveled outside of the country in the last 21 days: No Have you had contact with anyone from an Ebola affected area: No Have you been sick,other than usual withdrawal symptoms: No Do you have a fever: No - Review of Systems Constitutional: Chills, Loss of Appetite, Night Sweats, Changes in sleep EENT: reports: Dental Problems (MISSING TEETH) Respiratory: reports: No Symptoms reported Cardiac: reports: Edema (BLE) GI: reports: Nausea, Poor Appetite, Poor Fluid Intake, Vomiting : reports: No Symptoms Reported Musculoskeletal: reports: No Symptoms Reported Integumentary: reports: Flushing Neuro: reports: Seizure, Tremors Endocrine: reports: No Symptoms Reported Hematology: reports: Easy Bruising Psychiatric: reports: Anxious, Depressed Other Systems: Reviewed and Negative Patient History - Patient Medical History Hx Anemia: No Hx Asthma: No Hx Chronic Obstructive Pulmonary Disease (COPD): No Hx Cancer: No Hx Cardiac Disorders: No Hx Congestive Heart Failure: No Hx Hypertension: No Hx Hypercholesterolemia: No Hx Pacemaker: No HX Cerebrovascular Accident: No Hx Seizures: Yes (ON KEPPRA) Hx Dementia: No Hx Diabetes: No Hx Gastrointestinal Disorders: No Hx Liver Disease: No Hx Genitourinary Disorders: No Hx Sexually Transmitted Disorders: No Hx Renal Disease (ESRD): No Hx Thyroid Disease: No Hx Human Immunodeficiency Virus (HIV): No Hx Hepatitis C: No Hx Depression: Yes (NO MEDS) Hx Suicide Attempt: No Hx Bipolar Disorder: No Hx Schizophrenia: No Other Medical History: DENIES - Patient Surgical History Past Surgical History: Yes Hx Neurologic Surgery: No Hx Cataract Extraction: No Hx Cardiac Surgery: No Hx Lung Surgery: No Hx Breast Surgery: No Hx Breast Biopsy: No Hx Abdominal Surgery: Yes (Cholecystectomy) Hx Appendectomy: No Hx Cholecystectomy: No Hx Genitourinary Surgery: No Hx Section: No Hx Orthopedic Surgery: No Other Surgical History: gastric bypass 2013 Anesthesia Reaction: No - PPD History Previous Implant?: Yes Documented Results: Negative w/proof Implanted On Prior R Admission?: Yes Date: 04/08/19 Results: 0mm PPD to be Administered?: No - Reproductive History Patient is a Female of Child Bearing Age (11 -55 yrs old): Yes Last Menstrual Period: 11/13/19 LMP comment: IR[facility] Patient : [facility] - Smoking Cessation Smoking history: Current every day smoker Have you smoked in the past 12 months: Yes Aproximately how many cigarettes per day: 20 Cigars Per Day: 0 Hx Chewing Tobacco Use: No Initiated information on smoking cessation: Yes 'Breaking Loose' booklet given: 01/14/20 - Substance & Tx. History Hx Alcohol Use: Yes Hx Substance Use: Yes Substance Use Type: Alcohol Hx Substance Use Treatment: Yes ([facility]) - Substances abused Alcohol Other (specify): LIQUOR Substance route: Oral Frequency: Daily Amount used: 2 GALLONS Age of first use: 36 Date of last use: 01/14/20 Admission Physical Exam S - Vital Signs Vital Signs: Vital Signs - 24 hr 01/14/20 21:44 Temperature 97.3 F L Pulse Rate 85 Respiratory 18 Rate Blood Pressure 115/80 - Physical General Appearance: Yes: Disheveled, Moderate Distress, Tremorous, Sweating, Anxious HEENTM: Yes: EOMI, Normocephalic, Normal Voice, MEME, Pharynx Normal, Other (poor dentition) Respiratory: Yes: Chest Non-Tender, Lungs Clear, Normal Breath Sounds, No Respiratory Distress, No Accessory Muscle Use Neck: Yes: No masses,lesions,Nodules, Supple, Trachea in good position Breast: Yes: Breasts Symetrical Cardiology: Yes: Regular Rhythm, Regular Rate, S1, S2 Abdominal: Yes: Normal Bowel Sounds, Non Tender, Soft, Protuberent Genitourinary: Yes: Within Normal Limits Back: Yes: Normal Inspection Musculoskeletal: Yes: full range of Motion, Gait Steady Extremities: Yes: Normal Range of Motion, Non-Tender, Tremors, Other (ble edema) Neurological: Yes: Within Normal Limits, Fully Oriented, Alert, Depressed Affect Integumentary: Yes: Dry, Warm, Other (poor skin tugor multiple areas of bruising noted to both legs) Lymphatic: Yes: Within Normal Limits - Diagnostic (1) Alcohol dependence with withdrawal, uncomplicated Current Visit: Yes Status: Acute (2) 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 (3) Insomnia Current Visit: Yes Status: Chronic Qualifiers: Insomnia type: unspecified Qualified Code(s): G47.00 - Insomnia, unspecified (4) Seizure Current Visit: Yes Status: Chronic (5) Nicotine dependence Current Visit: Yes Status: Chronic Qualifiers: Nicotine product type: cigarettes Substance use status: uncomplicated Qualified Code(s): F17.210 - Nicotine dependence, cigarettes, uncomplicated Comment: counseled cessation - not ready (6) Depressed affect Current Visit: Yes Status: Suspected (7) At risk for dehydration due to poor fluid intake Current Visit: Yes Status: Acute (8) Skin turgor poor Current Visit: Yes Status: Acute (9) Superficial bruising of lower leg Current Visit: Yes Status: Acute Qualifiers: Encounter type: initial encounter Cleared for Admission S - Detox or Rehab [facility] Level of Care: Medically Managed Detox Regimen/Protocol: Librium Claeared for Rehab Admission: No Breathalyzer - Breathalyzer Breathalyzer: 0.157 Urine Drug Screen - Test Device Lot number: [id number] Expiration date: 07/23/21 - Control Is test valid?: Yes - Results Drug screen NEGATIVE: Yes Urine drug screen results: BZO-Benzodiazepines, THC-Marijuana Inpatient Rehab Admission - Rehab Decision to Admit Inpatient rehab admission?: No
[2020-01-14] MEDS ORDERED: hydrOXYzine PAMOATE 25 MG CAPSULE (FP) PO PRN (21:58)
[2020-01-14] MEDS ORDERED: IBUPROFEN 400 MG TABLET (FP) PO PRN (21:58)
[2020-01-14] MEDS ORDERED: MAGNESIUM CITRATE 300 ML BOTTLE PO PRN (21:58)
[2020-01-14] MEDS ORDERED: MAG HYDROX/AL HYDROX/SIMETH 30 ML UNIT-DOSE CUP PO PRN (21:58)
[2020-01-14] MEDS ORDERED: guaiFENesin 200 MG/10 ML 10 ML UNIT-DOSE CUPS PO PRN (21:58)
[2020-01-14] MEDS ORDERED: NICOTINE POLACRILEX 2 MG GUM BUC PRN (21:58)
[2020-01-14] MEDS ORDERED: P-EPHED 60MG/TRIPROLIDI 2.5MG TABLET PO PRN (21:58)
[2020-01-14] MEDS ORDERED: MENTHOL/PHENOL 1 EACH UD MM PRN (21:58)
[2020-01-14] MEDS ORDERED: BISMUTH SUBSALICYLATE 524 MG/30 ML UD PO PRN (21:58)
[2020-01-14] MEDS ORDERED: METHOCARBAMOL 500 MG TABLET PO PRN (21:58)
[2020-01-14] MEDS ORDERED: ONDANSETRON *ODT* 4 MG TABLET SL PRN (21:58)
[2020-01-14] MEDS ORDERED: MAGNESIUM HYDROX 2400MG/30ML ORAL SUSPENSION 30 ML CUP PO PRN (21:58)
[2020-01-14] MEDS ORDERED: ACETAMINOPHEN 325 MG TABLET (FP) PO PRN ×2 (21:58)
[2020-01-14] MEDS ORDERED: chlordiazePOXIDE HCL 25 MG CAPSULE PO PRN (21:58)
[2020-01-14] MEDS ORDERED: DICYCLOMINE HCL 10 MG CAPSULE PO PRN (21:58)
[2020-01-14] MEDS: MELATONIN 5 MG TABLETS PO SCH (22:30)
[2020-01-14] MEDS ORDERED: TRIMETHOBENZAMIDE HCL 200MG/2ML INJ IM ONE (23:00)
--- OUTSIDE RECORDS SUMMARY | 2020-01-14 23:03 | XMS ---
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 [facility] Blood by ">Red Blood Medical Automated count [...] ics"> (1.6-4.9 %)</content> ID Date Data Source GFR(Creatinine).[id number] 12/25/2019 05:20:00 PM EDT [facility] 0-0400 Name Value Range Interpretation Code Description Data Ana rce(s) Supporting Document(s ) UNK > 60 Below low normal <content [facility] styleCode="Bold"> Medical Cent er EGFR </content>53 GFR L<content styleCode="Italic s"> (> 60 GFR)</content> ID Date Data Source BMP.[id number] 12/25/2019 05:20:00 PM EDT [facility] [...] s"> (0.2-1.3 MG/DL)</content> ID Date Data Source [id number] 12/25/2019 12:00:00 AM EDT [facility] Name Value Range Interpretation Code Description Data Ana rce(s) Supporting Document(s ) 2019-nCoV [facility] RNA XXX GLORIA+probe- Imp This lab was ordered by [facility] and reported by [employer]. ID Date Data Source HematologyRou.[id number] 12/21/2019 02:04:00 AM EDT [facility] 0400 Name Value Range Interpretation Description Data [...] ics"> (NORMAL )</content> ID Date Data Source GFR(Creatinine).[id number] 12/21/2019 02:04:00 AM EDT [facility] 0-0400 Name Value Range Interpretation Code Description Data Ana rce(s) Supporting Document(s ) UNK > 60 <content [place] styleCode="Bold"> Medical Cent er EGFR </content>118 GFR<content styleCode="Italic s"> (> 60 GFR)</content> ID Date Data Source MROUTINECCDA.[id number] 12/21/2019 02:04:00 AM EDT [facility] -0400 Name Value Range Interpretation Description Data Sup porting Code Source(s) Document(s ) Lactate 0.7-2.0 <content [facility] [Mass/volum styleCode="Bold Medical e] in Serum ">Lactic Acid Center or Plasma </content>2.0 MMOLL<content styleCode="Ital ics"> (0.7-2.0 MMOLL)</content > ID Date Data Source [facility].[id number] 12/21/2019 02:04:00 AM EDT [facility] Name Value Range Interpretation Description Data [...] (> 60 GFR)</content> ID Date Data Source [id number] 12/21/2019 12:00:00 AM EDT [facility] Name Value Range Interpretation Code Description Data Ana rce(s) Supporting Document(s ) 2019-nCoV [facility] RNA XXX GLORIA+probe- Imp This lab was ordered by [facility] and reported by [employer]. ID Date Data Source Liver 12/06/2019 06:15:00 PM EDT [facility] Profile.[id number] Name Value Range Interpretation Description Data Sup [...] s"> (3.5-5.0 G/DL)</content> ID Date Data Source HematologyRou.[id number] 12/06/2019 06:15:00 PM EDT [facility] 0400 Name Value Range Interpretation Description Data [...] low normal <content [facility] [Volume 0 styleCode="Bold [facility] Fraction] of ">Hematocrit Medical Blood by </content>34.1 [...] (0.0 KCUMM)</content > ID Date Data Source GFR(Creatinine).[id number] 12/06/2019 06:15:00 PM EDT [facility] 0-0400 Name Value Range Interpretation Code Description Data Ana rce(s) Supporting Document(s ) UNK > 60 <content [facility] styleCode="Bold"> Medical Cent er EGFR </content>99 GFR<content styleCode="Italic s"> (> 60 GFR)</content> ID Date Data Source BMP.[id number] 12/06/2019 06:15:00 PM EDT [facility] Name Value Range Interpretation Description Data [...] s"> (3.5-5.0 G/DL)</content> ID Date Data Source Urinalysis.[id number] 11/25/2019 05:10:00 PM EDT [facility] 0 Name Value Range Interpretation Description Data Sup porting Code Source(s) Document(s ) UNK CLEAR <content [facility] styleCode="[facility] d">Urine Medical Clarity Center </content>ELENA R <content styleCode="Pinky lics"> (CLEAR )</content> Glucose NEGATIVE <content [facility] [Mass/volume] styleCode="[facility] in Urine by d">Urine Medical Test strip Glucose Center </content>NEGA TIVE MG/DL<content styleCode="Pinky lics"> (NEGATIVE MG/DL)</conten t> Color of Urine YELLOW <content [facility] styleCode="[facility] d">Color, Medical Urine Center </content>YELL OW <content styleCode="Pinky lics"> (YELLOW )</content> Specific 1.015-1.02 Below low normal <content [facility] gravity of 5 styleCode="[facility] Urine by Test d">Urine Medical strip Specific [place] </content><= 1.005 L<content styleCode="Pinky lics"> (1.015-1.025 )</content> [...] Data Source Liver 11/25/2019 04:08:00 PM EDT [facility] Profile.[id number] Name Value Range Interpretation Description Data Sup [...] s"> (3.5-5.0 G/DL)</content> ID Date Data Source HematologyRou.[id number] 11/25/2019 04:08:00 PM EDT [facility] 0400 Name Value Range Interpretation Description [...] (0-0.1 KCUMM)</content > ID Date Data Source GFR(Creatinine).[id number] 11/25/2019 04:08:00 PM EDT [facility] 0-0400 Name Value Range Interpretation Code Description Data Ana rce(s) Supporting Document(s ) UNK > 60 <content [facility] styleCode="Bold"> Medical Cent er EGFR </content>118 GFR<content styleCode="Italic s"> (> 60 GFR)</content> ID Date Data Source Coagulation 11/25/2019 04:08:00 PM [facility] Rout.[id number] EDT Name Value Range Interpretation Description Data Sup porting Code Source(s) Document(s ) INR in 0.80-1.2 <content [facility] Platelet poor 0 styleCode="Bold" [facility] plasma by >INR Medical Coagulation </content>1.05 Center assay #<content styleCode="Itali cs"> (0.80-1.20 #)</content> UNK 9.0-13.0 <content [facility] styleCode="Bold" [place] >Protime Medical </content>11.7 Center SEC<content styleCode="Itali cs"> (9.0-13.0 SEC)</content> aPTT in 25.1-36. <content [facility] Platelet poor 5 styleCode="Bold" [facility] plasma by >Partial Medical Coagulation Thromboplastin Center assay Time </content>29.3 SEC<content styleCode="Itali cs"> (25.1-36.5 SEC)</content> ID Date Data Source CHMROUTINECCDA.[id number] 11/25/2019 04:08:00 PM EDT [facility] -0400 Name Value Range Interpretation Description Data Sup porting Code Source(s) Document(s ) UNK >= 1.0 <content [facility] styleCode="Bold Medical ">AG Ratio Center </content>1.1 <content styleCode="Ital ics"> (>= 1.0 )</content> UNK 2.3-3.5 <content [facility] styleCode="Bold Medical ">Globulin Center </content>2.6 G/DL<content styleCode="Ital ics"> (2.3-3.5 G/DL)</content> Protein 6.3-8.2 Below low normal <content [facility] [Mass/volum styleCode="Bold Medical e] in Serum ">Total Protein Center or Plasma </content>5.5 G/DL L<content styleCode="Ital ics"> (6.3-8.2 G/DL)</content> ID Date Data Source [facility].[id number] 11/25/2019 04:08:00 PM EDT [facility] Name Value Range Interpretation Description [...] s"> (7-30 IU/L)</content> ID Date Data Source Urinalysis.[id number] 11/19/2019 01:25:00 PM EDT [facility] 0 Name Value Range Interpretation Description Data [...] by Test d">Urine Medical strip Specific [place] </content>1.02 5 <content styleCode="Pinky lics"> (1.015-1.025 )</content> [...] (NONE SEEN HPF)</content> ID Date Data Source Microbiology.[id number] 11/19/2019 01:25:00 PM EDT [facility] 400 Name Value Range Interpretation Code Description Data Ana rce(s) Supporting Document(s ) UNK <item><content [facility] styleCode="Bold"> Medical [facility] er Culture Status </content>
<t able><tbody><tr>< td>Specimen Number:</td><td>[id number]</td></tr ><tr><td>Sample Collection Date/Time: </td><td>11/19/2019 1:25 PM</td></tr><tr>< td>Specimen Source:</td><td>U RINE</td></tr><tr ><td>Culture Status:</td><td>P reliminary </td></tr><tr><td >Culture Report:</td><td>C ulture in progress </td></tr><tr><td >Urine Culture:</td><td> Collection Plate Date: 11/19/2019 13:27 </td></tr></tbody ></table></item> UNK <item><content [facility] styleCode="Bold"> Medical Cent er Culture Report </content>
<t able><tbody><tr>< td>Specimen Number:</td><td>[id number]</td></tr ><tr><td>Sample Collection Date/Time: </td><td>11/19/2019 1:25 PM</td></tr><tr>< td>Specimen Source:</td><td>U RINE</td></tr><tr ><td>Urine Culture:</td><td> Collection Plate Date: 11/19/2019 13:27 </td></tr><tr><td >Culture Status:</td><td>P reliminary </td></tr><tr><td >Culture Report:</td><td>C ulture in progress </td></tr></tbody ></table></item> ID Date Data Source Coagulation 11/19/2019 01:25:[address] [facility] Rout.[id number] EDT Name Value Range Interpretation Description Data [...] cs"> (9.0-13.0 SEC)</content> ID Date Data Source CHMROUTINECCDA.[id number] 11/19/2019 01:25:00 PM EDT [facility] -0400 Name Value Range Interpretation Description Data Sup porting Code Source(s) Document(s ) Cannabinoids <content [facility] [Presence] in styleCode="Ike [facility] Urine by Screen d">Cannabinoid Medical method >50 ng/mL s Center </content>NEGA TIVE NG/ML (Reference Range: not available)<br/ > ID Date Data Source Liver 11/19/2019 12:55:00 PM EDT [facility] Profile.[id number] Name Value Range Interpretation Description Data Sup [...] (14-36 IU/L)</content> UNK 0.0-0.3 <content [facility] styleCode="Bold"> [facility] Bilirubin, Direct Medical </content>< 0.2 Center MG/DL<content [...] s"> (38-126 IU/L)</content> ID Date Data Source HematologyRou.[id number] 11/19/2019 12:55:00 PM EDT [facility] 0400 Name Value Range Interpretation Description [...] (0.0 KCUMM)</content > ID Date Data Source GFR(Creatinine).[id number] 11/19/2019 12:55:00 PM EDT [facility] 0-0400 Name Value Range Interpretation Code Description Data Ana rce(s) Supporting Document(s ) UNK > 60 <content [facility] styleCode="Bold"> Medical Cent er EGFR </content>118 GFR<content styleCode="Italic s"> (> 60 GFR)</content> ID Date Data Source CHTAMARACCDA.[id number] 11/19/2019 12:55:00 PM EDT [facility] -0400 Name Value Range Interpretation Description Data Sup porting Code Source(s) Document(s ) Lactate 0.7-2.0 Above upper panic <content [facility] s [Mass/volum limits styleCode="Bold Medical e] in Serum ">Lactic Acid Center or Plasma </content><cont ent styleCode="Bold ">2.9 MMOLL HH</content><co ntent styleCode="Ital ics"> (0.7-2.0 MMOLL)</content > ID Date Data Source CardiacMarkers.[id number] 11/19/2019 12:55:00 PM EDT [facility] -0400 Name Value Range Interpretation Description [...] 0.034 NG/ML)</content > ID Date Data Source BMP.[id number] 11/19/2019 12:55:00 PM EDT [facility] Name Value Range Interpretation Description Data [...] s"> (3.5-5.0 G/DL)</content> ID Date Data Source Urinalysis.[id number] 09/09/2019 02:27:00 PM EDT [facility] 0 Name Value Range Interpretation Description [...] by Test d">Urine Medical strip Specific [place] </content><= 1.005 L<content styleCode="Pinky lics"> (1.015-1.025 )</content> [...] (NONE SEEN HPF)</content> ID Date Data Source Microbiology.[id number] 09/09/2019 02:27:00 PM EDT [facility] 400 Name Value Range Interpretation Code Description Data Ana rce(s) Supporting Document(s ) UNK <item><content [facility] styleCode="Bold"> Medical Cent er Culture Status </content>
<t able><tbody><tr>< td>Specimen Number:</td><td>[id number]</td></tr ><tr><td>Sample Collection Date/Time: </td><td> 0 2:27 PM</td></tr><tr>< td>Specimen Source:</td><td>U RINE</td></tr><tr ><td>Culture Status:</td><td>P reliminary </td></tr><tr><td >Culture Report:</td><td>C ulture in progress </td></tr><tr><td >Urine Culture:</td><td> Collection Plate Date: 09/09/2019 14:29 </td></tr></tbody ></table></item> UNK <item><content [facility] styleCode="Bold"> Medical Cent er Culture Report </content>
<t able><tbody><tr>< td>Specimen Number:</td><td>[id number]</td></tr ><tr><td>Sample Collection Date/Time: </td><td> 0 2:27 PM</td></tr><tr>< td>Specimen Source:</td><td>U RINE</td></tr><tr ><td>Urine Culture:</td><td> Collection Plate Date: 09/09/2019 14:29 </td></tr><tr><td >Culture Status:</td><td>P reliminary </td></tr><tr><td >Culture Report:</td><td>C ulture in progress </td></tr></tbody ></table></item> ID Date Data Source CHMROUTINECCDA.[id number] 09/09/2019 02:27:00 PM EDT [facility] -0400 Name Value Range Interpretation Description Data Sup porting Code Source(s) Document(s ) Cannabinoids <content [facility] [Presence] in styleCode="[facility] [place] Urine by Screen d">Cannabinoid Medical method >50 ng/mL s Center </content>NEGA TIVE NG/ML (Reference Range: not available)<br/ > ID Date Data Source Liver 09/09/2019 01:50:00 PM EDT [facility] Profile.[id number] Name Value Range Interpretation Description Data Sup [...] s"> (3.5-5.0 G/DL)</content> ID Date Data Source HematologyRou.[id number] 09/09/2019 01:50:00 PM EDT [facility] 0400 Name Value Range Interpretation Description Data Sup porting Code Source(s) Document(s ) Leukocytes 4.4-11.0 <content [facility] [#/volume] in styleCode="Bold [facility] Blood by ">White Blood Medical Automated count [...] (< 1 %)</content> ID Date Data Source GFR(Creatinine).[id number] 09/09/2019 01:50:00 PM EDT [facility] 0-0400 Name Value Range Interpretation Code Description Data Ana rce(s) Supporting Document(s ) UNK > 60 <content [facility] [place] styleCode="Bold"> Medical Cent er EGFR </content>99 GFR<content styleCode="Italic s"> (> 60 GFR)</content> ID Date Data Source CHMROUTINECCDA.[id number] 09/09/2019 01:50:00 PM EDT [facility] -0400 Name Value Range Interpretation Description [...] ics"> (6.3-8.2 G/DL)</content> ID Date Data Source BMP.[id number] 09/09/2019 01:50:00 PM EDT [facility] Name Value Range Interpretation Description Data [...] s"> (3.5-5.0 G/DL)</content> ID Date Data Source HematologyRou.[id number] 02/27/2019 05:10:00 AM LINSEY adhikari [facility] 0500 Name Value Range Interpretation Description [...] ics"> (8.0-11.0 FL)</content> ID Date Data Source GFR(Creatinine).[id number] 02/27/2019 05:10:[address] [facility] 0-0500 Name Value Range Interpretation Code Description Data Ana rce(s) Supporting Document(s ) UNK > 60 <content [facility] styleCode="Bold"> Medical Cent er EGFR </content>118 GFR<content styleCode="Italic s"> (> 60 GFR)</content> ID Date Data Source CHMROUTINECCDA.[id number] 02/27/2019 05:10:[address] [facility] -0500 Name Value Range Interpretation Description [...] (1.6-2.3 MG/DL)</conten t> ID Date Data Source [facility].[id number] 02/27/2019 05:10:00 AM EST [facility] Name Value Range Interpretation Description [...] (> 60 GFR)</content> ID Date Data Source HematologyRou.[id number] 02/26/2019 05:53:00 AM LINSEY [facility] 0500 Name Value Range Interpretation Description Data [...] (0 /100)</content> UNK 0.0 <content [facility] styleCode="Bold [facility] ">Nucleated Red Medical Blood Cell Center Count </content>0.00 KCUMM<content styleCode="Ital ics"> (0.0 KCUMM)</content > ID Date Data Source GFR(Creatinine).[id number] 02/26/2019 05:53:[address] [facility] 0-0500 Name Value Range Interpretation Code Description Data Ana rce(s) Supporting Document(s ) UNK > 60 <content [facility] styleCode="Bold"> Medical Cent er EGFR </content>118 GFR<content styleCode="Italic s"> (> 60 GFR)</content> ID Date Data Source CHMROUTINECCDA.[id number] 02/26/2019 05:53:[address] [facility] -0500 Name Value Range Interpretation Description Data Sup porting Code Source(s) Document(s ) Magnesium 1.6-2.3 <content [facility] [Mass/volume] styleCode="[facility] [place] in Serum or d">Magnesium Medical Plasma </content>1.7 Center MG/DL<content styleCode="Pinky lics"> (1.6-2.3 MG/DL)</conten t> Phosphate 2.5-4.5 <content [facility] [Mass/volume] styleCode="[facility] [place] in Serum or d">Phosphorus Medical Plasma </content>4.0 Center MG/DL<content styleCode="Pinky lics"> (2.5-4.5 MG/DL)</conten t> ID Date Data Source CardiacMarkers.[id number] 02/26/2019 05:53:00 AM LINSEY adhikari [facility] -0500 Name Value Range Interpretation Description Data Sup porting Code Source(s) Document(s ) Creatine 30-135 Above high normal <content Arvilla s kinase styleCode="Bold Medical [Enzymatic ">CK Center activity/vol </content>150 ume] in IU/L H<content Serum or styleCode="Ital Plasma ics"> (30-135 IU/L)</content> ID Date Data Source BMP.[id number] 02/26/2019 05:53:00 AM EST [facility] Name Value Range Interpretation Description Data [...] Data Source Liver 02/25/2019 06:55:00 AM EST [facility] Profile.[id number] Name Value Range Interpretation Description Data Sup [...] s"> (0.2-1.3 MG/DL)</content> ID Date Data Source HematologyRou.[id number] 02/25/2019 06:55:00 AM LINSEY [facility]as [facility] 0500 Name Value Range Interpretation Description Data Sup porting Code Source(s) Document(s ) Leukocytes 4.4-11.0 <content [facility] [#/volume] in styleCode="Bold [facility] Blood by ">White Blood Medical Automated count Cell Count Center </content>6.81 KCUMM<content styleCode="Ital ics"> (4.4-11.0 KCUMM)</content > Hematocrit 36.0-46. Below low normal <content [facility] [Volume 0 styleCode="Bold [facility] Fraction] of ">Hematocrit Medical Blood by </content>30.4 [...] (< 1 %)</content> ID Date Data Source GFR(Creatinine).[id number] 02/25/2019 06:55:[address] [facility] 0-0500 Name Value Range Interpretation Code Description Data Ana rce(s) Supporting Document(s ) UNK > 60 <content [facility] styleCode="Bold"> Medical Cent er EGFR </content>145 GFR<content styleCode="Italic s"> (> 60 GFR)</content> ID Date Data Source ChemistrySpecia.[id number] 02/25/2019 06:55:[address] [facility] 0-0500 Name Value Range Interpretation Description Data Sup porting Code Source(s) Document(s ) Cobalamin 239-931 Below low normal <content [facility] (Vitamin B12) styleCode="[facility] [place] [Mass/volume] d">Vitamin B12 Medical in Serum or </content>177 Center Plasma PG/ML L<content styleCode="Pinky lics"> (239-931 PG/ML)</conten t> ID Date Data Source CHMROUTINECCDA.[id number] 02/25/2019 06:55:00 AM LINSEY Salas [facility] -0500 Name Value Range Interpretation Description Data [...] (265-497 UG/DL)</content > ID Date Data Source [facility].[id number] 02/25/2019 06:55:00 AM EST [facility] Name Value Range Interpretation [...] s"> (3.5-5.0 G/DL)</content> ID Date Data Source Urinalysis.[id number] 02/24/2019 02:15:00 PM LINSEY Salas [facility] 0 Name Value Range Interpretation Description Data [...] by Test d">Urine Medical strip Specific [place] </content>>= 1.030 H<content styleCode="Pinky lics"> (1.015-1.025 )</content> [...] lics"> (0-3 HPF)</content> ID Date Data Source CHMROUTINECCDA.[id number] 02/24/2019 02:15:00 PM LINSEY Salas [facility] -0500 Name Value Range Interpretation Description Data Sup porting Code Source(s) Document(s ) Cannabinoids <content [facility] [Presence] in styleCode="[facility] Urine by Screen d">Cannabinoid Medical method >50 ng/mL s Center </content>NEGA TIVE NG/ML (Reference Range: not available)<br/ > ID Date Data Source Liver 02/24/2019 01:30:00 PM [facility] Profile.[id number] Name Value Range Interpretation Description Data Sup [...] s"> (3.5-5.0 G/DL)</content> ID Date Data Source LIPID.[id number] 02/24/2019 01:30:00 PM [facility] Name Value Range Interpretation Description Data Sup porting Code Source(s) Document(s ) Triglyceride < 150 <content [facility] [Mass/volume] in styleCode="Ike [place] Serum or Plasma d">Triglycerid Medical es Center </content>52 MG/DL<content styleCode="Pinky lics"> (< 150 MG/DL)</conten t> UNK < 100 <content Saint styleCode="Ike [place] d">LDL-Cholest [facility] </content>27 MG/DL<content styleCode="Pinky lics"> (< 100 MG/DL)</conten t> Cholesterol -<200 <content Saint [Mass/volume] in styleCode="Ike [place] Serum or Plasma d">Cholesterol Medical </content>136 Center MG/DL<content styleCode="Pinky lics"> (-<200 MG/DL)</conten t> UNK > 60 <content Saint styleCode="Ike [place] d">HDL- Medical Cholesterol Center </content>99 MG/DL<content styleCode="Pinky lics"> (> 60 MG/DL)</conten t> ID Date Data Source HematologyRou.[id number] 02/24/2019 01:30:00 PM EST [facility] 0500 Name Value Range Interpretation Description Data [...] (130-400 KCUMM)</content > ID Date Data Source GFR(Creatinine).[id number] 02/24/2019 01:30:[address] [facility] 0-0500 Name Value Range Interpretation Code Description Data Ana rce(s) Supporting Document(s ) UNK > 60 <content [facility] styleCode="Bold"> Medical Cent er EGFR </content>145 GFR<content styleCode="Italic s"> (> 60 GFR)</content> ID Date Data Source CHMROUTINECCDA.[id number] 02/24/2019 01:30:[address] [facility] -0500 Name Value Range Interpretation Code Description Data Ana rce(s) Supporting Document(s ) UNK 4.2-5.8 <content [facility] styleCode="Bold" Medical Cente r >Hemoglobin A1C </content>5.1 %<content styleCode="Itali cs"> (4.2-5.8 %)</content> ID Date Data Source [facility].[id number] 02/24/2019 01:30:00 PM [facility] Name Value Range Interpretation Description Data Sup porting Code Source(s) Document(s ) Sodium 137-145 <content Saint [Moles/volume] in styleCode="Bold"> [facility] Serum or Plasma Sodium Medical </content>143 Center [...] s"> (3.5-5.0 G/DL)</content> ID Date Data Source Urinalysis.[id number] 02/22/2019 08:07:00 AM EST Josue nt [facility] 0 Name Value Range Interpretation Description [...] by Test d">Urine Medical strip Specific Center [place] </content>1.02 5 <content styleCode="Pinky lics"> (1.015-1.025 )</content> [...] Medical strip Nitrite Center </content>NEGA TIVE <content styleCode="Pniky lics"> (NEGATIVE )</content> Protein NEGATIVE <content Saint [...] lics"> (0-3 HPF)</content> ID Date Data Source CHMROUTINECCDA.[id number] 02/22/2019 08:07:00 AM [facility] Name Value Range Interpretation Description Data Sup porting Code Source(s) Document(s ) Cannabinoids <content Saint [Presence] in styleCode="Ike [place]ru[place] Urine by Screen d">Cannabinoid Medical method >50 ng/mL s Center </content>NEGA TIVE NG/ML (Reference Range: not available)<br/ > ID Date Data Source Liver 02/21/2019 07:02:00 PM EST [facility] Profile.[id number] Name Value Range Interpretation Description Data Sup [...] s"> (0.2-1.3 MG/DL)</content> ID Date Data Source LIPID.[id number] 02/21/2019 07:02:00 PM EST [facility] Name Value Range Interpretation Description Data Sup porting Code Source(s) Document(s ) Triglyceride < 150 <content [facility] [Mass/volume] in styleCode="Ike [place] Serum or Plasma d">Triglycerid Medical es Center </content>60 MG/DL<content styleCode="Pinky lics"> (< 150 MG/DL)</conten t> UNK < 100 <content Saint styleCode="[facility] d">LDL-Cholest [facility] Center </content>26 MG/DL<content styleCode="Pinky lics"> (< 100 MG/DL)</conten t> Cholesterol -<200 <content [facility] [Mass/volume] in styleCode="[facility] Serum or Plasma d">Cholesterol Medical </content>143 Center MG/DL<content styleCode="Pinky lics"> (-<200 MG/DL)</conten t> UNK > 60 <content Saint styleCode="[facility] d">HDL- Medical Cholesterol Center </content>105 MG/DL<content styleCode="Pinky lics"> (> 60 MG/DL)</conten t> ID Date Data Source HematologyRou.[id number] 02/21/2019 07:02:00 PM LINSEY [facility] 0500 Name Value Range Interpretation Description Data [...] Platelets 130-400 <content Saint [#/volume] in styleCode="Bold Edmodn Blood by ">Platelet Medical Automated count Count [...] (0.0 KCUMM)</content > ID Date Data Source GFR(Creatinine).[id number] 02/21/2019 07:02:[address] [facility] 0-0500 Name Value Range Interpretation Code Description Data Ana rce(s) Supporting Document(s ) UNK > 60 <content [facility] styleCode="Bold"> Medical Cent er EGFR </content>118 GFR<content styleCode="Italic s"> (> 60 GFR)</content> ID Date Data Source CHMROUTINECCDA.[id number] 02/21/2019 07:02:[address] [facility] -0500 Name Value Range Interpretation Code Description Data Ana rce(s) Supporting Document(s ) UNK 4.2-5.8 <content [facility] styleCode="Bold" Medical Cente r >Hemoglobin A1C </content>4.9 %<content styleCode="Itali cs"> (4.2-5.8 %)</content> ID Date Data Source [facility].[id number] 02/21/2019 07:02:00 PM [facility] Name Value Range Interpretation Description Data [...] s"> (0.2-1.3 MG/DL)</content> ID Date Data Source Urinalysis.[id number] 01/18/2019 09:24:00 PM EDT [facility] 0 Name Value Range Interpretation Description [...] by Test d">Urine Medical strip Specific [facility] [place] </content><= 1.005 L<content styleCode="Pinky lics"> (1.015-1.025 )</content> [...] lics"> (NEGATIVE )</content> ID Date Data Source HematologyRou.[id number] 11/25/2018 05:47:00 PM EDT [facility] 0400 Name Value Range Interpretation Description Data [...] (0.0 KCUMM)</content > ID Date Data Source GFR(Creatinine).[id number] 11/25/2018 05:47:00 PM EDT [facility] 0-0400 Name Value Range Interpretation Code Description Data Ana rce(s) Supporting Document(s ) UNK > 60 <content [facility] styleCode="Bold"> Medical Cent er EGFR </content>118 GFR<content styleCode="Italic s"> (> 60 GFR)</content> ID Date Data Source Coagulation 11/25/2018 05:47:00 PM [facility] Rout.[id number] EDT Name Value Range Interpretation Description Data Sup porting Code Source(s) Document(s ) aPTT in 25.1-36. <content Saint Platelet poor 5 styleCode="Bold" [place] plasma by >Partial Medical Coagulation Thromboplastin Center assay Time </content>27.9 SEC<content styleCode="Itali cs"> (25.1-36.5 SEC)</content> INR in 0.80-1.2 <content Saint Platelet poor 0 styleCode="Bold" [place] plasma by >INR Medical Coagulation </content>1.07 Center assay #<content styleCode="Itali cs"> (0.80-1.20 #)</content> UNK 9.0-13.0 <content Saint styleCode="Bold" [place] >Protime Medical </content>11.9 Center SEC<content styleCode="Itali cs"> (9.0-13.0 SEC)</content> ID Date Data Source CardiacMarkers.[id number] 11/25/2018 05:47:00 PM EDT [facility] -0400 Name Value Range Interpretation Description Data Sup porting Code Source(s) Document(s ) Troponin < 0.034 <content Saint I.cardiac styleCode="Bold [place] [Mass/volume ">Troponin I Medical ] in Serum </content>< Center or Plasma 0.012 NG/ML<content styleCode="Ital ics"> (< 0.034 NG/ML)</content > ID Date Data Source BMP.[id number] 11/25/2018 05:47:00 PM EDT [facility] Name Value Range Interpretation [...] Data Source HematologyRou 09/05/2018 11:13:00 AM EDT [facility] Name Value Range Interpretation Description Data [...] Data Source GFR(Creatinine) 09/05/2018 11:13:00 AM EDT [facility] Name Value Range Interpretation Code Description Data Ana rce(s) Supporting Document(s ) UNK > 60 <content [facility] styleCode="Bold"> Medical Cent er EGFR </content>146 GFR<content styleCode="Italic s"> (> 60 GFR)</content> UNK > 60 <content [facility] [place] styleCode="Bold"> Medical Cent er EGFR </content>146 GFR<content styleCode="Italic s"> (> 60 GFR)</content> ID Date Data Source [facility] 09/05/2018 11:13:00 AM EDT [facility] Name Value Range Interpretation Description Data [...] 3.5-5.3 Below low normal <content Saint [Moles/volume] styleCode="Iek Ortegas in Serum or d">Potassium Medical Plasma [...] Data Source Urinalysis 07/28/2018 01:27:00 AM EDT [facility] Name Value Range Interpretation Description Data [...] by Test d">Urine Medical strip Specific [facility] [place] </content>>= 1.030 H<content styleCode="Pinky lics"> (1.015-1.025 )</content> [...] by Test d">Urine Medical strip Specific [facility] [place] </content>1.01 0 L<content styleCode="Pinky lics"> (1.015-1.025 )</content> [...] Data Source Microbiology 07/28/2018 01:27:00 AM EDT [facility] Name Value Range Interpretation Code Description Data Ana rce(s) Supporting Document(s ) UNK <item><content [facility] [place] styleCode="Bold"> Medical Cent er Culture Report </content>
<t able><tbody><tr>< td>Specimen Number:</td><td>[id number]</td></tr ><tr><td>Sample Collection Date/Time: </td><td> 9 3:20 AM</td></tr><tr>< td>Specimen Source:</td><td>U RINE</td></tr><tr ><td>Urine Culture:</td><td> Collection Plate Date: 07/09/2018 03:48 </td></tr><tr><td >Culture Status:</td><td>P reliminary </td></tr><tr><td >Culture Report:</td><td>C ulture in progress </td></tr></tbody ></table></item> UNK <item><content [place] melissaCode="Bold"> Medical [facility] Culture Status </content>
<t able><tbody><tr>< td>Specimen Number:</td><td>[id number]</td></tr ><tr><td>Sample Collection Date/Time: </td><td> 9 3:20 AM</td></tr><tr>< td>Specimen Source:</td><td>U RINE</td></tr><tr ><td>Culture Status:</td><td>P reliminary </td></tr><tr><td >Culture Report:</td><td>C ulture in progress </td></tr><tr><td >Urine Culture:</td><td> Collection Plate Date: 07/09/2018 03:48 </td></tr></tbody ></table></item> UNK <item><content [facility] [place] torresCode="Bold"> Medical [facility] Culture Report </content>
<t able><tbody><tr>< td>Specimen Number:</td><td>[id number]</td></tr ><tr><td>Sample Collection Date/Time: </td><td> 9 1:27 AM</td></tr><tr>< td>Specimen Source:</td><td>U RINE</td></tr><tr ><td>Urine Culture:</td><td> Collection Plate Date: 07/28/2018 01:32 </td></tr><tr><td >Culture Status:</td><td>P reliminary </td></tr><tr><td >Culture Report:</td><td>C ulture in progress </td></tr></tbody ></table></item> UNK <item><content [facility] styleCode="Bold"> Medical Cent er Culture Status </content>
<t able><tbody><tr>< td>Specimen Number:</td><td>[id number]</td></tr ><tr><td>Sample Collection Date/Time: </td><td> 9 1:27 AM</td></tr><tr>< [...] 04/25/2019 Daily Smoker completed Daily Smoker [facility] 04:05:00 AM EST Medical C enter [...] Smoker completed Daily Smoker [facility] 11:12:00 AM EST Medical C enter [...] Daily Smoker completed Daily Smoker [facility]gu[facility] 02:51:00 AM EDT Medical C enter Smoking Unknown if ever completed Unknown if ever Rowan Pruitt smoked smoked Medical Center Vital Signs ID Date Data Source UNK Name Value Range Interpretation Code Description Data Source(s) Body temperature 36.624232 Aishwarya 36.985030 Aishwarya [facility] Respiratory rate 18 /min 18 /min [facility] Oxygen 98 % 98 % [facility] [place] saturation in Medical Arterial blood Center by Pulse oximetry Heart rate 79 /min 79 /min [facility] Diastolic blood 66 mm[Hg] 66 mm[Hg] [facility] Medical [place] Systolic blood 119 mm[Hg] 119 mm[Hg] [facility] Body temperature 36.127914 Aishwarya 36.903767 Aishwarya [facility] Respiratory rate 18 /min 18 /min [facility] Oxygen 98 % 98 % [facility] [place] saturation in Medical Arterial blood Center by Pulse oximetry Heart rate 88 /min 88 /min [facility] Diastolic blood 50 mm[Hg] 50 mm[Hg] [facility] Center Systolic blood 110 mm[Hg] 110 mm[Hg] [facility] Body temperature 36.818270 Aishwarya 36.670610 Aishwarya [facility] Respiratory rate 18 /min 18 /min [facility] Oxygen 100 % 100 % [facility] [place] saturation in Medical Arterial blood Center by Pulse oximetry Heart rate 90 /min 90 /min [facility] Diastolic blood 47 mm[Hg] 47 mm[Hg] [facility] Medical Center Systolic blood 103 mm[Hg] 103 mm[Hg] [facility] Body temperature 36.072757 Aishwarya 36.862709 Aishwarya [facility] Respiratory rate 18 /min 18 /min [facility] Oxygen 98 % 98 % [facility] [place] saturation in Medical Arterial blood Center by Pulse oximetry Heart rate 100 /min 100 /min [facility] Diastolic blood 69 mm[Hg] 69 mm[Hg] [facility] Center Systolic blood 105 mm[Hg] 105 mm[Hg] [facility] Body temperature 36.304597 Aishwarya 36.893789 [facility]ishw[facility] Respiratory rate 20 /min 20 /min [facility] Heart rate 92 /min 92 /min [facility] Diastolic blood 77 mm[Hg] 77 mm[Hg] Psychiatric pressure Medical Center Systolic blood 124 mm[Hg] 124 mm[Hg] [facility] Medical Center Body temperature 37.545599 Aishwarya 37.323458 Aishwarya [facility] Respiratory rate 20 /min 20 /min [facility] Heart rate 92 /min 92 /min [facility] Diastolic blood 87 mm[Hg] 87 mm[Hg] [facility] Medical Center Systolic blood 133 mm[Hg] 133 mm[Hg] [facility] Center Body temperature 36.650166 Aishwarya 36.424721 Aishwarya [facility] Respiratory rate 18 /min 18 /min [facility] Oxygen 97 % 97 % [facility] saturation in Medical Arterial blood Center by Pulse oximetry Heart rate 78 /min 78 /min [facility] Diastolic blood 80 mm[Hg] 80 mm[Hg] [facility] Medical Center Systolic blood 126 mm[Hg] 126 mm[Hg] [facility] Body weight 84.014406 kg 84.521979 kg [facility] Medical [place] Body temperature 37.899006 Aishwarya 37.279203 Aishwarya [facility] Respiratory rate 20 /min 20 /min [facility] Heart rate 103 /min 103 /min [facility] Body height 167.457344 cm 167.886299 cm [facility] Diastolic blood 102 mm[Hg] 102 mm[Hg] [facility] Medical Center Systolic blood 138 mm[Hg] 138 mm[Hg] [facility] Medical Center Body mass index 30.17 kg/m2 30.17 kg/m2 [facility] (BMI) [Ratio] Medical Center Systolic blood 127 mm[Hg] 127 mm[Hg] [facility] Center Body temperature 37.852413 Aishwarya 37.103682 [facility]warya [facility] Respiratory rate 18 /min 18 /min [facility] Oxygen 98 % 98 % [facility] saturation in Medical Arterial blood Center by Pulse oximetry Heart rate 88 /min 88 /min [facility] Diastolic blood 71 mm[Hg] 71 mm[Hg] [facility] Medical Center Body weight 72.216869 kg 72.704682 kg [facility] Oxygen 98 % 98 % [facility] [place] saturation in Medical Arterial blood Center by Pulse oximetry Body height 167.266045 cm 167.900121 cm [facility] Body mass index 25.8 kg/m2 25.8 kg/m2 Psychiatric (BMI) [Ratio] Medical Center Body temperature 36.300398 Aishwarya 36.758424 [facility]ishwarya [facility] Respiratory rate 16 /min 16 /min [facility] Oxygen 99 % 99 % [facility] [place] saturation in Medical Arterial blood Center by Pulse oximetry Heart rate 85 /min 85 /min [facility] Diastolic blood 64 mm[Hg] 64 mm[Hg] [facility] Medical Center Systolic blood 105 mm[Hg] 105 mm[Hg] [facility] Center Body temperature 37.653248 Aishwarya 37.982131 Aishwarya [facility] Oxygen 95 % 95 % [facility] [place] saturation in Medical Arterial blood Center by Pulse oximetry Heart rate 96 /min 96 /min [facility] Diastolic blood 68 mm[Hg] 68 mm[Hg] [facility] Medical Center Systolic blood 118 mm[Hg] 118 mm[Hg] [facility] Center Body weight 72.996174 kg 72.970259 kg [facility] Body temperature 38.917337 Aishwarya 38.081861 [facility] Respiratory rate 20 /min 20 /min [facility] Oxygen 95 % 95 % [facility] [place] saturation in Medical Arterial blood Center by Pulse oximetry Heart rate 90 /min 90 /min [facility] Body height 165.701032 cm 165.304992 cm [facility] Diastolic blood 65 mm[Hg] 65 mm[Hg] [facility] Medical Center Systolic blood 108 mm[Hg] 108 mm[Hg] [facility] Medical Center Body mass index 26.6 kg/m2 26.6 kg/m2 [place] [facility] (BMI) [Ratio] Medical Center Body weight 75.255860 kg 75.938929 kg [facility] Measured Medical Center Body temperature 36.816149 Aishwarya 36.344668 [facility] Respiratory rate 18 /min 18 /min [facility] Oxygen 98 % 98 % [facility] [place] saturation in Medical Arterial blood Center by Pulse oximetry Heart rate 90 /min 90 /min [facility] Body height 167.367878 cm 167.539324 cm [facility] Diastolic blood 71 mm[Hg] 71 mm[Hg] Psychiatric pressure Medical Center Systolic blood 105 mm[Hg] 105 mm[Hg] [facility] Center Body mass index 26.6 kg/m2 26.6 kg/m2 Psychiatric (BMI) [Ratio] Medical Center Body weight 79.505737 kg 79.189846 kg [facility] Body temperature 36.668442 Aishwarya 36.899616 [facility] Respiratory rate 19 /min 19 /min [facility] Oxygen 99 % 99 % [facility] [place] saturation in Medical Arterial blood Center by Pulse oximetry Heart rate 87 /min 87 /min [facility] Body height 167.631422 cm 167.892152 cm [facility] Diastolic blood 60 mm[Hg] 60 mm[Hg] [facility] Medical Center Systolic blood 110 mm[Hg] 110 mm[Hg] [facility] Center Body mass index 28.2 kg/m2 28.2 kg/m2 Psychiatric (BMI) [Ratio] Medical Center Body temperature 37.611101 Aishwarya 37.330859 [facility] Respiratory rate 18 /min 18 /min [facility] Oxygen 98 % 98 % [facility] [place] saturation in Medical Arterial blood Center by Pulse oximetry Heart rate 79 /min 79 /min [facility] Diastolic blood 86 mm[Hg] 86 mm[Hg] [facility] Medical Center Systolic blood 141 mm[Hg] 141 mm[Hg] [facility] Medical Center Body temperature 37.348129 Aishwarya 37.168621 [facility] Respiratory rate 18 /min 18 /min [facility] Center Oxygen 98 % 98 % [facility] [place] saturation in Medical Arterial blood Center by Pulse oximetry Heart rate 74 /min 74 /min [facility] Diastolic blood 88 mm[Hg] 88 mm[Hg] [facility] Medical Center Systolic blood 138 mm[Hg] 138 mm[Hg] [facility] Medical Center Body weight 68.870901 kg 68.306680 kg [facility] Measured [facility] Center Body temperature 36.688381 Aishwarya 36.066776 [facility] Respiratory rate 18 /min 18 /min [facility] Oxygen 98 % 98 % [facility] [place] saturation in Medical Arterial blood Center by Pulse oximetry Heart rate 89 /min 89 /min [facility] Body height 164.880756 cm 164.147647 cm [facility] Diastolic blood mm[Hg] Psychiatric pressure Medical Center Systolic blood mm[Hg] [facility] Medical Center Body mass index 24.9 kg/m2 24.9 kg/m2 [facility] (BMI) [Ratio] Medical Center Body weight 78.474433 kg 78.051704 kg [facility] Measured [facility] Center Body temperature 36.814418 Aishwarya 36.655666 [facility] Respiratory rate 18 /min 18 /min [facility] Oxygen 97 % 97 % [facility] [place] saturation in Medical Arterial blood Center by Pulse oximetry Heart rate 85 /min 85 /min [facility] Body height 165.748812 cm 165.985682 cm [facility] Diastolic blood 75 mm[Hg] 75 mm[Hg] [place] Center Systolic blood 122 mm[Hg] 122 mm[Hg] [facility] Medical Center Body mass index 28.6 kg/m2 28.6 kg/m2 [facility] (BMI) [Ratio] Medical Center Body weight 85.080366 kg 85.435352 kg [facility] Measured [facility] Center Body temperature 36.703953 Aishwarya 36.418882 [facility] Respiratory rate 18 /min 18 /min [facility] Oxygen 97 % 97 % [facility] [place] saturation in Medical Arterial blood Center by Pulse oximetry Heart rate 89 /min 89 /min [facility] Body height 165.577033 cm 165.147993 cm [facility] Diastolic blood 66 mm[Hg] 66 mm[Hg] [facility] pressure Medical Center Systolic blood 119 mm[Hg] 119 mm[Hg] [facility] Medical Center Body mass index 31.1 kg/m2 31.1 kg/m2 [facility] (BMI) [Ratio] Medical Center Body weight 81.545306 kg 81.001710 kg [facility] Measured Medical Center Body temperature 36.491283 Aishwarya 36.063510 [facility] Respiratory rate 18 /min 18 /min [facility] Oxygen 99 % 99 % [facility] [place] saturation in Medical Arterial blood Center by Pulse oximetry Heart rate 86 /min 86 /min [facility] Body height 167.995888 cm 167.749283 cm [facility] Diastolic blood 88 mm[Hg] 88 mm[Hg] [facility] Medical Center Systolic blood 134 mm[Hg] 134 mm[Hg] [facility] Body mass index 29.0 kg/m2 29.0 kg/m2 [place] [facility] (BMI) [Ratio] Medical Center Body weight 81.060062 kg 81.601835 kg [facility] Measured Medical Center Body temperature 36.721451 Aishwarya 36.321266 [facility] Respiratory rate 18 /min 18 /min [facility] Oxygen 99 % 99 % [facility] [place] saturation in Medical Arterial blood Center by Pulse oximetry Heart rate 86 /min 86 /min [facility] Body height 167.655881 cm 167.436943 cm [facility] Diastolic blood 88 mm[Hg] 88 mm[Hg] [facility] Medical Center Systolic blood 134 mm[Hg] 134 mm[Hg] [facility] Body mass index 29.0 kg/m2 29.0 kg/m2 [place] [facility] (BMI) [Ratio] Medical Center Body weight 80.209408 kg 80.143521 kg [facility] Measured Medical Center Body temperature 37.133448 Aishwarya 37.021430 [facility] Respiratory rate 17 /min 17 /min [facility] Oxygen 95 % 95 % [facility] [place] saturation in Medical Arterial blood Center by Pulse oximetry Heart rate 70 /min 70 /min [facility] Body height 170.844016 cm 170.435679 cm [facility] Diastolic blood 90 mm[Hg] 90 mm[Hg] [place] [facility] pressure Medical Center Systolic blood 150 mm[Hg] 150 mm[Hg] [facility] Body mass index 27.7 kg/m2 27.7 kg/m2 Psychiatric (BMI) [Ratio] Medical Center Body temperature 36.695132 Aishwarya 36.976954 [facility] Respiratory rate 17 /min 17 /min [facility] Oxygen 97 % 97 % [facility] saturation in Medical Arterial blood Center by Pulse oximetry Heart rate 77 /min 77 /min [facility] Diastolic blood 80 mm[Hg] 80 mm[Hg] [facility] Medical Center Systolic blood 139 mm[Hg] 139 mm[Hg] [facility] Body weight 80.928149 kg 80.139291 kg [facility] [facility] [place] Respiratory rate 18 /min 18 /min [facility] Heart rate 95 /min 95 /min [facility] Body height 165.880615 cm 165.496951 cm [facility] Diastolic blood 73 mm[Hg] 73 mm[Hg] [facility] Systolic blood 117 mm[Hg] 117 mm[Hg] [facility] Body mass index 29.3 kg/m2 29.3 kg/m2 [facility] (BMI) [Ratio] [facility] Body temperature 37.527814 Aishwarya 37.902528 [facility] Respiratory rate 18 /min 18 /min [facility] Heart rate 84 /min 84 /min [facility] Diastolic blood 84 mm[Hg] 84 mm[Hg] [facility] Systolic blood 145 mm[Hg] 145 mm[Hg] [facility] Body temperature 37.782189 Aishwarya 37.322811 [facility] Respiratory rate 18 /min 18 /min [facility] Heart rate 94 /min 94 /min [facility] Diastolic blood 100 mm[Hg] 100 mm[Hg] [facility] Systolic blood 159 mm[Hg] 159 mm[Hg] [facility] Body temperature 36.762672 Aishwarya 36.993327 [facility] Respiratory rate 18 /min 18 /min [facility] Oxygen 98 % 98 % [facility] saturation in Medical Arterial blood Center by Pulse oximetry Heart rate 72 /min 72 /min [facility] Diastolic blood 70 mm[Hg] 70 mm[Hg] [facility] Systolic blood 110 mm[Hg] 110 mm[Hg] [facility] Body temperature 36.115213 Aishwarya 36.933433 [facility] Respiratory rate 17 /min 17 /min [facility] Oxygen 99 % 99 % [facility] saturation in Medical Arterial blood Center by Pulse oximetry Heart rate 81 /min 81 /min [facility] Diastolic blood 77 mm[Hg] 77 mm[Hg] [facility] Systolic blood 122 mm[Hg] 122 mm[Hg] [facility] [place] Body temperature 36.306558 Aishwarya 36.413722 [facility] Respiratory rate 17 /min 17 /min [facility] Oxygen 97 % 97 % [facility] saturation in Medical Arterial blood Center by Pulse oximetry Heart rate 81 /min 81 /min [facility] Diastolic blood 77 mm[Hg] 77 mm[Hg] [facility] Systolic blood 122 mm[Hg] 122 mm[Hg] [facility] Body temperature 36.487304 Aishwarya 36.223434 [facility] Respiratory rate 17 /min 17 /min [facility] Oxygen 99 % 99 % [facility] saturation in Medical Arterial blood Center by Pulse oximetry Heart rate 88 /min 88 /min [facility] Diastolic blood 78 mm[Hg] 78 mm[Hg] [facility] Systolic blood 132 mm[Hg] 132 mm[Hg] [facility] Body temperature 36.901347 Aishwarya 36.726978 [facility] Respiratory rate 18 /min 18 /min [facility] Oxygen 97 % 97 % [facility] saturation in Medical Arterial blood Center by Pulse oximetry Heart rate 72 /min 72 /min [facility] Diastolic blood 85 mm[Hg] 85 mm[Hg] [facility] Systolic blood 151 mm[Hg] 151 mm[Hg] [facility] Body temperature 37.809266 Aishwarya 37.665511 [facility] Respiratory rate 18 /min 18 /min [facility] Oxygen 99 % 99 % [facility] saturation in Medical Arterial blood Center by Pulse oximetry Heart rate 78 /min 78 /min [facility] Diastolic blood 66 mm[Hg] 66 mm[Hg] [facility] Systolic blood 107 mm[Hg] 107 mm[Hg] [facility] [place] Body temperature 36.354369 Aishwarya 36.390796 [facility] Respiratory rate 18 /min 18 /min [facility] Oxygen 99 % 99 % [facility] saturation in Medical Arterial blood Center by Pulse oximetry Heart rate 84 /min 84 /min [facility] Diastolic blood 88 mm[Hg] 88 mm[Hg] [facility] [place] Systolic blood 146 mm[Hg] 146 mm[Hg] [facility] [place] Body temperature 35.679933 Aishwarya 35.024209 [facility] Respiratory rate 18 /min 18 /min [facility] Oxygen 99 % 99 % [facility] saturation in Medical Arterial blood Center by Pulse oximetry Heart rate 81 /min 81 /min [facility] Diastolic blood 88 mm[Hg] 88 mm[Hg] [facility] [place] Systolic blood 144 mm[Hg] 144 mm[Hg] [facility] [place] Body temperature 36.905330 Aishwarya 36.141439 [facility] Respiratory rate 17 /min 17 /min [facility] Oxygen 97 % 97 % [facility] saturation in Medical Arterial blood Center by Pulse oximetry Heart rate 77 /min 77 /min [facility] Diastolic blood 91 mm[Hg] 91 mm[Hg] [facility] [place] Systolic blood 135 mm[Hg] 135 mm[Hg] [facility] Body temperature 36.519124 Aishwarya 36.636607 [facility] Respiratory rate 17 /min 17 /min [facility] Oxygen 98 % 98 % [facility] saturation in Medical Arterial blood Center by Pulse oximetry Heart rate 75 /min 75 /min [facility] Diastolic blood 65 mm[Hg] 65 mm[Hg] [facility] Systolic blood 133 mm[Hg] 133 mm[Hg] [facility] [place] Body temperature 36.312969 Aishwarya 36.231997 [facility] Respiratory rate 17 /min 17 /min [facility] Oxygen 98 % 98 % [facility] saturation in Medical Arterial blood Center by Pulse oximetry Heart rate 75 /min 75 /min [facility] Diastolic blood 68 mm[Hg] 68 mm[Hg] [facility] Systolic blood 129 mm[Hg] 129 mm[Hg] [facility] Body temperature 36.907594 Aishwarya 36.163530 [facility] Respiratory rate 17 /min 17 /min [facility] Oxygen 98 % 98 % [facility] saturation in Medical Arterial blood Center by Pulse oximetry Heart rate 75 /min 75 /min [facility] Diastolic blood 68 mm[Hg] 68 mm[Hg] [facility] Systolic blood 124 mm[Hg] 124 mm[Hg] [facility] [place] Body temperature 36.807970 Aishwarya 36.230371 [facility] Respiratory rate 17 /min 17 /min [facility] Oxygen 99 % 99 % [facility] saturation in Medical Arterial blood Center by Pulse oximetry Heart rate 85 /min 85 /min [facility] Diastolic blood 77 mm[Hg] 77 mm[Hg] [facility] Systolic blood 116 mm[Hg] 116 mm[Hg] [facility] [place] Body temperature 36.948761 Aishwarya 36.719343 [facility] Respiratory rate 17 /min 17 /min [facility] Oxygen 98 % 98 % [facility] saturation in Medical Arterial blood Center by Pulse oximetry Heart rate 81 /min 81 /min [facility] Diastolic blood 68 mm[Hg] 68 mm[Hg] [facility] Systolic blood 122 mm[Hg] 122 mm[Hg] [facility] [place] Body temperature 36.618169 Aishwarya 36.537727 [facility] Respiratory rate 17 /min 17 /min [facility] Oxygen 98 % 98 % [facility] saturation in Medical Arterial blood Center by Pulse oximetry Heart rate 89 /min 89 /min [facility] Diastolic blood 68 mm[Hg] 68 mm[Hg] [facility] Systolic blood 129 mm[Hg] 129 mm[Hg] [facility] [place] Body temperature 36.620082 Aishwarya 36.491449 [facility] Respiratory rate 18 /min 18 /min [facility] Oxygen 98 % 98 % [facility] saturation in Medical Arterial blood Center by Pulse oximetry Heart rate 87 /min 87 /min [facility] Diastolic blood 82 mm[Hg] 82 mm[Hg] [facility] Systolic blood 146 mm[Hg] 146 mm[Hg] [facility] pressure [facility] Body temperature 36.519660 Aishwarya 36.130615 [facility] Respiratory rate 18 /min 18 /min [facility] Oxygen 97 % 97 % [facility] saturation in Medical Arterial blood Center by Pulse oximetry Heart rate 85 /min 85 /min [facility] Diastolic blood 88 mm[Hg] 88 mm[Hg] [facility] Systolic blood 150 mm[Hg] 150 mm[Hg] [facility] pressure [facility] Center Body weight 202 lbs 202 lbs [facility] Diastolic blood 68 mmHg 68 mmHg [facility] Systolic blood 136 mmHg 136 mmHg [facility] Respiratory rate 18 bpm 18 bpm [facility] Heart rate 83 bpm 83 bpm [facility] Body temperature 97.8 Fahrenheit 97.8 Fahrenh t [facility] Diastolic blood 76 mmHg 76 mmHg [facility] Systolic blood 130 mmHg 130 mmHg [facility] Respiratory rate 16 bpm 16 bpm [facility] Heart rate 94 bpm 94 bpm [facility] Body temperature 96.8 Fahrenheit 96.8 Fahrenh t [facility] Diastolic blood 81 mmHg 81 mmHg [facility] Systolic blood 141 mmHg 141 mmHg [facility] Respiratory rate 18 bpm 18 bpm [facility] Heart rate 93 bpm 93 bpm [facility] Body weight 84.536471 kg 84.756772 kg [facility] Oxygen 96 % 96 % [place] saturation in Medical Arterial blood Center by Pulse oximetry Body height 165.547933 cm 165.019701 cm [facility] Body mass index 31.11 kg/m2 31.11 kg/m2 [facility] (BMI) [Ratio] [facility] Body temperature 36.562916 Aishwarya 36.545981 [facility] Respiratory rate 18 /min 18 /min [facility] Heart rate 69 /min 69 /min [facility] Diastolic blood 76 mm[Hg] 76 mm[Hg] [facility] Systolic blood 119 mm[Hg] 119 mm[Hg] [facility] Body temperature 37.727532 Aishwarya 37.995604 [facility] Respiratory rate 18 /min 18 /min [facility] Oxygen 97 % 97 % [facility] saturation in Medical Arterial blood Center by Pulse oximetry Heart rate 69 /min 69 /min [facility] Diastolic blood 78 mm[Hg] 78 mm[Hg] [facility] Systolic blood 136 mm[Hg] 136 mm[Hg] [facility] Body temperature 36.899449 Aishwarya 36.619515 [facility] Respiratory rate 18 /min 18 /min [facility] Heart rate 82 /min 82 /min [facility] Diastolic blood 83 mm[Hg] 83 mm[Hg] [facility] Systolic blood 130 mm[Hg] 130 mm[Hg] [facility] Body temperature 36.738943 Aishwarya 36.581034 [facility] Respiratory rate 18 /min 18 /min [facility] Oxygen 97 % 97 % [facility] saturation in Medical Arterial blood Center by Pulse oximetry Heart rate 76 /min 76 /min [facility] Diastolic blood 75 mm[Hg] 75 mm[Hg] [facility] Systolic blood 124 mm[Hg] 124 mm[Hg] [facility] Body temperature 36.299203 Aishwarya 36.149159 [facility] Respiratory rate 18 /min 18 /min [facility] Heart rate 88 /min 88 /min [facility] Diastolic blood 83 mm[Hg] 83 mm[Hg] [facility] Systolic blood 147 mm[Hg] 147 mm[Hg] [facility] Body weight 84.574576 kg 84.640614 kg [facility] Body height 165.420263 cm 165.544511 cm [facility] Body mass index 31.11 kg/m2 31.11 kg/m2 [facility] (BMI) [Ratio] [facility] Body temperature 37.542501 Aishwarya 37.941568 [facility] Respiratory rate 18 /min 18 /min [facility] Heart rate 86 /min 86 /min [facility] Diastolic blood 77 mm[Hg] 77 mm[Hg] [facility] Systolic blood 137 mm[Hg] 137 mm[Hg] [facility] Body temperature 36.977587 Aishwarya 36.593333 [facility] Respiratory rate 18 /min 18 /min [facility] Heart rate 78 /min 78 /min [facility] Diastolic blood 78 mm[Hg] 78 mm[Hg] [facility] Systolic blood 137 mm[Hg] 137 mm[Hg] [facility] Oxygen 97 % 97 % [facility] saturation in Medical Arterial blood Center by Pulse oximetry Body temperature 36.848054 Aishwarya 36.099782 [facility] Respiratory rate 20 /min 20 /min [facility] Heart rate 79 /min 79 /min [facility] Diastolic blood 65 mm[Hg] 65 mm[Hg] [facility] Systolic blood 133 mm[Hg] 133 mm[Hg] [facility] Body weight 84.130931 kg 84.041383 [facility] [place] Body height 165.935381 cm 165.273680 cm [facility] Body mass index 31.12 kg/m2 31.12 kg/m2 [facility] (BMI) [Ratio] [facility] Body temperature 36.149083 Aishwarya 36.444519 [facility] Respiratory rate 18 /min 18 /min [facility] Heart rate 76 /min 76 /min [facility] Diastolic blood 76 mm[Hg] 76 mm[Hg] [facility] Systolic blood 133 mm[Hg] 133 mm[Hg] [facility] Oxygen 98 % 98 % [facility] saturation in Medical Arterial blood Center by Pulse oximetry Body temperature 37.192759 Aishwarya 37.017179 [facility] Respiratory rate 18 /min 18 /min [facility] Oxygen 98 % 98 % [facility] saturation in Medical Arterial blood Center by Pulse oximetry Heart rate 78 /min 78 /min [facility] Diastolic blood 78 mm[Hg] 78 mm[Hg] [facility] Systolic blood 138 mm[Hg] 138 mm[Hg] [facility] Oxygen 100 % 100 % [facility] saturation in Medical Arterial blood Center by Pulse oximetry Body temperature 36.485876 Aishwarya 36.921854 [facility] Respiratory rate 18 /min 18 /min [facility] Oxygen 100 % 100 % [facility] saturation in Medical Arterial blood Center by Pulse oximetry Heart rate 82 /min 82 /min [facility] Diastolic blood 92 mm[Hg] 92 mm[Hg] [facility] Systolic blood 152 mm[Hg] 152 mm[Hg] [facility] Body temperature 37.326638 Aishwarya 37.035080 [facility] Respiratory rate 18 /min 18 /min [facility] Oxygen 97 % 97 % [facility] saturation in Medical Arterial blood Center by Pulse oximetry Heart rate 100 /min 100 /min [facility] Diastolic blood 81 mm[Hg] 81 mm[Hg] [facility] [place] Systolic blood 141 mm[Hg] 141 mm[Hg] [facility] Body temperature 36.482904 Aishwarya 36.187817 [facility] Respiratory rate 18 /min 18 /min [facility] Oxygen 98 % 98 % [facility] [place] saturation in Medical Arterial blood Center by Pulse oximetry Heart rate 82 /min 82 /min [facility] Diastolic blood 66 mm[Hg] 66 mm[Hg] [facility] [place] Systolic blood 122 mm[Hg] 122 mm[Hg] [facility] Body temperature 36.170376 Aishwarya 36.998071 [facility] Respiratory rate 18 /min 18 /min [facility] Oxygen 96 % 96 % [facility] saturation in Medical Arterial blood Center by Pulse oximetry Heart rate 84 /min 84 /min [facility] Diastolic blood 65 mm[Hg] 65 mm[Hg] [facility] Systolic blood 125 mm[Hg] 125 mm[Hg] [facility] Body temperature 37.137221 Aishwarya 37.930318 [facility] Respiratory rate 20 /min 20 /min [facility] Oxygen 99 % 99 % [facility] saturation in Medical Arterial blood Center by Pulse oximetry Heart rate 92 /min 92 /min [facility] Diastolic blood 81 mm[Hg] 81 mm[Hg] [facility] Systolic blood 139 mm[Hg] 139 mm[Hg] [facility] Body temperature 37.910953 Aishwarya 37.900063 [facility] Respiratory rate 18 /min 18 /min [facility] Oxygen 97 % 97 % [facility] saturation in Medical Arterial blood Center by Pulse oximetry Heart rate 89 /min 89 /min [facility] Diastolic blood 69 mm[Hg] 69 mm[Hg] [facility] Systolic blood 144 mm[Hg] 144 mm[Hg] [facility] Body temperature 36.583544 Aishwarya 36.115081 [facility] Respiratory rate 18 /min 18 /min [facility] Oxygen 99 % 99 % [facility] saturation in Medical Arterial blood Center by Pulse oximetry Heart rate 102 /min 102 /min [facility] Diastolic blood 75 mm[Hg] 75 mm[Hg] [facility] Systolic blood 147 mm[Hg] 147 mm[Hg] [facility] Body weight 65.417092 kg 65.796251 [facility] Body temperature 36.746323 Aishwarya 36.774487 [facility] Respiratory rate 18 /min 18 /min [facility] Oxygen 99 % 99 % [facility] saturation in Medical Arterial blood Center by Pulse oximetry Heart rate 101 /min 101 /min [facility] Body height 157.487799 cm 157.071322 cm [facility] Diastolic blood 68 mm[Hg] 68 mm[Hg] [facility] Systolic blood 135 mm[Hg] 135 mm[Hg] [facility] Body mass index 26.2 kg/m2 26.2 kg/m2 [facility] (BMI) [Ratio] [facility] Body temperature 36.445610 Aishwarya 36.039278 [facility] Respiratory rate 17 /min 17 /min [facility] Oxygen 99 % 99 % [facility] saturation in Medical Arterial blood Center by Pulse oximetry Heart rate 84 /min 84 /min [facility] Diastolic blood 86 mm[Hg] 86 mm[Hg] [facility] Systolic blood 137 mm[Hg] 137 mm[Hg] [facility] Body temperature 36.818176 Aishwarya 36.285150 [facility] Respiratory rate 17 /min 17 /min [facility] Oxygen 97 % 97 % [facility] saturation in Medical Arterial blood Center by Pulse oximetry Heart rate 95 /min 95 /min [facility] Diastolic blood 90 mm[Hg] 90 mm[Hg] [facility] Systolic blood 132 mm[Hg] 132 mm[Hg] [facility] Body temperature 36.903613 Aishwarya 36.983113 [facility] Respiratory rate 18 /min 18 /min [facility] Oxygen 98 % 98 % [facility] saturation in Medical Arterial blood Center by Pulse oximetry Heart rate 78 /min 78 /min [facility] Diastolic blood 82 mm[Hg] 82 mm[Hg] [facility] Systolic blood 134 mm[Hg] 134 mm[Hg] [facility] Body weight 74.722828 kg 74.308478 kg [facility] Body temperature 36.318015 Aishwarya 36.196552 [facility] Respiratory rate 18 /min 18 /min [facility] Oxygen 97 % 97 % [facility] saturation in Medical Arterial blood Center by Pulse oximetry Heart rate 80 /min 80 /min [facility] Body height 165.628284 cm 165.433752 cm [facility] Diastolic blood 84 mm[Hg] 84 mm[Hg] [facility] Systolic blood 132 mm[Hg] 132 mm[Hg] [facility] Body mass index 27.4 kg/m2 27.4 kg/m2 [facility] (BMI) [Ratio] [facility] Body temperature 37.234449 Aishwarya 37.001318 [facility] Respiratory rate 18 /min 18 /min [facility] Oxygen 97 % 97 % [facility] saturation in Medical Arterial blood Center by Pulse oximetry Heart rate 97 /min 97 /min [facility] Diastolic blood 68 mm[Hg] 68 mm[Hg] [facility] Systolic blood 117 mm[Hg] 117 mm[Hg] [facility] Body temperature 36.947562 Aishwarya 36.080759 [facility] Respiratory rate 18 /min 18 /min [facility] Oxygen 98 % 98 % [facility] saturation in Medical Arterial blood Center by Pulse oximetry Heart rate 70 /min 70 /min [facility] Diastolic blood 70 mm[Hg] 70 mm[Hg] [facility] Systolic blood 110 mm[Hg] 110 mm[Hg] [facility] Body temperature 36.586197 Aishwarya 36.476433 [facility] Respiratory rate 17 /min 17 /min [facility] Oxygen 100 % 100 % [facility] saturation in Medical Arterial blood Center by Pulse oximetry Heart rate 71 /min 71 /min [facility] Diastolic blood 48 mm[Hg] 48 mm[Hg] [facility] Systolic blood 111 mm[Hg] 111 mm[Hg] [facility] Body temperature 35.699054 Aishwarya 35.159337 [facility] Respiratory rate 18 /min 18 /min [facility] Oxygen 99 % 99 % [facility] saturation in Medical Arterial blood Center by Pulse oximetry Heart rate 84 /min 84 /min [facility] Diastolic blood 94 mm[Hg] 94 mm[Hg] [facility] Systolic blood 126 mm[Hg] 126 mm[Hg] [facility] Body temperature 37.576344 Aishwarya 37.740452 [facility] Respiratory rate 18 /min 18 /min [facility] Oxygen 97 % 97 % [facility] saturation in Medical Arterial blood Center by Pulse oximetry Heart rate 105 /min 105 /min [facility] Diastolic blood 109 mm[Hg] 109 mm[Hg] [facility] Systolic blood 160 mm[Hg] 160 mm[Hg] [facility] Body temperature 36.692035 Aishwarya 36.774002 [facility] Respiratory rate 17 /min 17 /min [facility] Oxygen 97 % 97 % [facility] saturation in Medical Arterial blood Center by Pulse oximetry Heart rate 81 /min 81 /min [facility] Diastolic blood 85 mm[Hg] 85 mm[Hg] [facility] Systolic blood 142 mm[Hg] 142 mm[Hg] [facility] Body weight 83.284476 kg 83.116445 kg [facility] Body temperature 36.104532 Aishwarya 36.564689 [facility] Respiratory rate 17 /min 17 /min [facility] Oxygen 99 % 99 % [facility] saturation in Medical Arterial blood Center by Pulse oximetry Heart rate 94 /min 94 /min [facility] Diastolic blood 90 mm[Hg] 90 mm[Hg] [facility] Systolic blood 136 mm[Hg] 136 mm[Hg] [facility] [place] Body weight 70.551320 kg 70.173664 kg [facility] Body temperature 37.714560 Aishwarya 37.641206 [facility] Respiratory rate 18 /min 18 /min [facility] Oxygen 97 % 97 % [facility] saturation in Medical Arterial blood Center by Pulse oximetry Heart rate 109 /min 109 /min [facility] Body height 165.739618 cm 165.542128 cm [facility] Diastolic blood 94 mm[Hg] 94 mm[Hg] [facility] Systolic blood 163 mm[Hg] 163 mm[Hg] [facility] Body mass index 25.6 kg/m2 25.6 kg/m2 [facility] (BMI) [Ratio] [facility] Center Patient Treatment Plan of Care Planned Activity Planned Date Details Description Data Source (s) Cephalexin 250 MG Oral Capsule [facility] Folic Acid 1 MG Oral Tablet [facility] Vitamin B [address] [facility] Metoclopramide 10 MG Oral [facility] Saccharomyces boulardii lyo [facility] 250 MG Oral Capsule Center [Florastor] Ondansetron 4 MG Oral Tablet [facility] Levetiracetam 500 MG Oral [facility] doxycycline monohydrate 100 mg [facility] Levetiracetam 500 MG Oral [facility] Levetiracetam 500 MG Oral [facility] Levetiracetam 500 MG Oral [facility] Ibuprofen 400 MG Oral Tablet [facility] 24 HR Nicotine 0.583 MG/HR S [facility] Transdermal Patch Center Thiamine 100 MG Oral Tablet [facility] Folic Acid 1 MG Oral Tablet [facility] ferrous gluconate 324 MG Oral [facility] Vitamin B 12 0.5 MG Oral [facility] Tablet [place] Amoxicillin 80 MG/ML Oral [facility] Suspension [place] Ibuprofen 400 MG Oral Tablet [facility] Sulfamethoxazole 800 MG / Sa [facility] Trimethoprim [address] Tablet Phenazopyridine hydrochloride [facility] 200 MG Oral Tablet Center Ciprofloxacin 250 MG Oral [facility]
[2020-01-14] MEDS ORDERED: MASKS NR ONE (23:24)
[2020-01-14] MEDS: chlordiazePOXIDE HCL 25 MG CAPSULE PO SCH (23:55)
[2020-01-14] MEDS: THIAMINE HCL 100 MG TABLET (FP) PO SCH (23:56)
[2020-01-15] MEDS: chlordiazePOXIDE HCL 25 MG CAPSULE PO SCH ×4 (06:20→22:26)
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
[2020-01-15] MEDS: NICOTINE 21 MG/24 HOURS TOPICAL PATCH TD SCH (10:32)
[2020-01-15] MEDS: PRENATAL VITAMINS W/ FOLIC ACID TABLET (FP) PO SCH (10:32)
[2020-01-15 10:33] LABS: HEMATOCRIT 30.5 % (32.4-45.2); HEMOGLOBIN 9.5 GM/dL (10.7-15.3); MCH 36.3 pg (25.7-33.7); MCHC 31.1 g/dl (32.0-36.0); MEAN CELL VOLUME 116.6 fl (80-96); MEAN PLT VOLUME 8.9 fl (7.5-11.1); PLATELET COUNT 184 K/MM3 (134-434); RBC 2.62 M/mm3 (3.60-5.2); RDW 16.4 % (11.6-15.6)
[2020-01-15 10:39] LABS: ALBUMIN 2.4 g/dl (3.4-5.0); BILIRUBIN,TOTAL 1.3 mg/dL (0.2-1); BLOOD UREA NITROGEN 13.2 mg/dL (7-18); CREATININE 0.9 mg/dL (0.55-1.3); POTASSIUM 3.5 mmol/L (3.5-5.1); TOT PROT 5.8 g/dl (6.4-8.2)
--- NOTE | 2020-01-15 13:27 | PN ---
[facility] CIWA - CIWA Score Nausea/Vomitin-No Nausea/No Vomiting Muscle Tremors: 3 Anxiety: 3 Agitation: 3 Paroxysmal Sweats: 3 Orientation: 0-Oriented Tacttile Disturbances: 0-None Auditory Disturbances: 0-None Visual Disturbances: 0-None Headache: 0-None Present CIWA-Ar Total Score: 12 S Progress Note (SOAP) Subjective: sweats shakes body aches Objective: 01/15/20 13:26 Vital Signs Temperature 97.7 F 01/15/20 08:50 Pulse Rate 87 01/15/20 08:50 Respiratory Rate 18 01/15/20 08:50 Blood Pressure 106/60 01/15/20 08:50 O2 Sat by Pulse Oximetry (%) 96 01/15/20 06:13 Laboratory Tests 01/14/20 01/14/20 01/15/20 07:00 22:03 07:00 WBC 5.0 RBC 2.62 L Hgb 9.5 L Hct 30.5 L D MCV 116.6 H MCH 36.3 H D MCHC 31.1 L RDW 16.4 H Plt Count 184 D MPV 8.9 Sodium Potassium Chloride Carbon Dioxide Anion Gap BUN Creatinine Est GFR (CKD-EPI)AfAm Est GFR (CKD-EPI)NonAf Random Glucose Calcium Total Bilirubin AST ALT Alkaline Phosphatase Total Protein Albumin POC Urine HCG, Qual Negative Syphilis Serology Non-reactive 01/15/20 07:00 WBC RBC Hgb Hct MCV MCH MCHC RDW Plt Count MPV Sodium 145 Potassium 3.5 Chloride 114 H Carbon Dioxide 22 Anion Gap 9 BUN 13.2 Creatinine 0.9 Est GFR (CKD-EPI)AfAm 92.70 Est GFR (CKD-EPI)NonAf 79.98 Random Glucose 69 L Calcium 8.0 L Total Bilirubin 1.3 H AST 114 H ALT 47 Alkaline Phosphatase 181 H Total Protein 5.8 L Albumin 2.4 L POC Urine HCG, Qual Syphilis Serology labs noted aaox3 ambulating no acute distress low H:H noted iron supplement ordered will repeat labs Assessment: 01/15/20 13:26 withdrawals Plan: continue detox iron supplement tid ordered repeat labs
[2020-01-15] MEDS: FERROUS SO4 325 MG TABLET (FP) PO SCH (18:39)
[2020-01-15] MEDS ORDERED: SUVOREXANT 10 MG TABLET PO PRN (22:00)
[2020-01-15] MEDS: THIAMINE HCL 100 MG TABLET (FP) PO SCH (22:26)
[2020-01-15] MEDS: levETIRAcetam 500 MG TABLET (FP) PO SCH (22:27)
[2020-01-15] MEDS: MELATONIN 5 MG TABLETS PO SCH (22:31)
[2020-01-16] MEDS: chlordiazePOXIDE HCL 25 MG CAPSULE PO SCH ×2 (06:20→10:41)
[2020-01-16] MEDS: levETIRAcetam 500 MG TABLET (FP) PO SCH (06:22)
[2020-01-16] MEDS: FERROUS SO4 325 MG TABLET (FP) PO SCH ×2 (07:34→12:17)
[2020-01-16 09:49] VITALS: BP 102/61; PULSE 95; TEMP 97.7
[2020-01-16] MEDS: NICOTINE 21 MG/24 HOURS TOPICAL PATCH TD SCH (10:41)
[2020-01-16] MEDS: PRENATAL VITAMINS W/ FOLIC ACID TABLET (FP) PO SCH (10:41)
[2020-01-16] MEDS ORDERED: MASKS NR ONE (13:05)
--- NOTE | 2020-01-16 13:53 | PN ---
[facility] Progress Note Note: pt refused to continue detox; claims she wants to go home. Pt was encouraged to stay to complete his detox to prevent relapse, seizure, DT, OD and or loss, pt chose to sign out AMA.
--- NOTE | 2020-01-16 13:55 | DS ---
[facility] Detox Discharge Summary Admission Date: 01/14/20 - History Present History: Alcohol Dependence, Cannabis Dependence - Physical Exam Results Vital Signs: Vital Signs Temperature 97.7 F 01/16/20 09:04 Pulse Rate 95 H 01/16/20 09:04 Respiratory Rate 18 01/16/20 09:04 Blood Pressure 102/61 01/16/20 09:04 O2 Sat by Pulse Oximetry (%) 97 01/16/20 05:48 Pertinent Admission Physical Exam Findings: Vital Signs Temperature 97.7 F 01/16/20 09:04 Pulse Rate 95 H 01/16/20 09:04 Respiratory Rate 18 01/16/20 09:04 Blood Pressure 102/61 01/16/20 09:04 O2 Sat by Pulse Oximetry (%) 97 01/16/20 05:48 Laboratory Tests 01/14/20 01/14/20 01/15/20 07:00 22:03 07:00 WBC 5.0 RBC 2.62 L Hgb 9.5 L Hct 30.5 L D MCV 116.6 H MCH 36.3 H D MCHC 31.1 L RDW 16.4 H Plt Count 184 D MPV 8.9 Sodium Potassium Chloride Carbon Dioxide Anion Gap BUN Creatinine Est GFR (CKD-EPI)AfAm Est GFR (CKD-EPI)NonAf Random Glucose Calcium Total Bilirubin AST ALT Alkaline Phosphatase Total Protein Albumin POC Urine HCG, Qual Negative Syphilis Serology Non-reactive 01/15/20 07:00 WBC RBC Hgb Hct MCV MCH MCHC RDW Plt Count MPV Sodium 145 Potassium 3.5 Chloride 114 H Carbon Dioxide 22 Anion Gap 9 BUN 13.2 Creatinine 0.9 Est GFR (CKD-EPI)AfAm 92.70 Est GFR (CKD-EPI)NonAf 79.98 Random Glucose 69 L Calcium 8.0 L Total Bilirubin 1.3 H AST 114 H ALT 47 Alkaline Phosphatase 181 H Total Protein 5.8 L Albumin 2.4 L POC Urine HCG, Qual Syphilis Serology aaox3 ambulating pt signed out AMA. - Treatment Hospital Course: Rehab Referral Accepted - Medication Discharge Medications: Ambulatory Orders levETIRAcetam [Keppra -] 750 mg PO TID 01/15/20 - Diagnosis (1) Alcohol abuse Status: Acute (2) Alcohol dependence with withdrawal, uncomplicated Status: Acute (3) Alcohol-induced mood disorder Status: Acute (4) Alcohol-induced sleep disorder Status: Acute (5) At risk for dehydration due to poor fluid intake Status: Acute (6) Eloped from emergency department Status: Acute (7) Skin turgor poor Status: Acute (8) Superficial bruising of lower leg Status: Acute Qualifiers: Encounter type: initial encounter (9) Unspecified nystagmus Status: Acute (10) Alcohol dependence Status: Chronic Qualifiers: Substance use status: uncomplicated Qualified Code(s): F10.20 - Alcohol dependence, uncomplicated (11) Anemia Status: Chronic Qualifiers: Anemia type: iron deficiency (12) Cannabis dependence Status: Chronic (13) Chronic low back pain Status: Chronic Qualifiers: Back pain laterality: midline Sciatica presence: without sciatica Qualified Code(s): M54.5 - Low back pain; G89.29 - Other chronic pain (14) Insomnia Status: Chronic Qualifiers: Insomnia type: unspecified Qualified Code(s): G47.00 - Insomnia, unspecified (15) Low back pain Status: Chronic Qualifiers: Chronicity: chronic Back pain laterality: unspecified Sciatica presence: without sciatica Qualified Code(s): M54.5 - Low back pain; G89.29 - Other chronic pain (16) Nicotine dependence Status: Chronic Qualifiers: Nicotine product type: cigarettes Substance use status: uncomplicated Qualified Code(s): F17.210 - Nicotine dependence, cigarettes, uncomplicated (17) Nicotine dependence, unspecified, uncomplicated Status: Chronic Qualifiers: Nicotine product type: cigarettes Qualified Code(s): F17.210 - Nicotine dependence, cigarettes, uncomplicated (18) Opiate dependence Status: Chronic Qualifiers: Substance use status: uncomplicated Qualified Code(s): F11.20 - Opioid dependence, uncomplicated (19) Seizure Status: Chronic (20) Seizure disorder Status: Chronic (21) Depressed affect Status: Suspected - AMA Did Patient Leave Against Medical Advice: Yes
[2020-01-17] MEDS ORDERED: chlordiazePOXIDE HCL 10 MG CAPSULE PO PRN
[2020-01-17] MEDS ORDERED: chlordiazePOXIDE HCL 10 MG CAPSULE PO SCH (05:00)
[2020-01-18] MEDS ORDERED: chlordiazePOXIDE HCL 10 MG CAPSULE PO SCH (05:00)
[2020-01-19] MEDS ORDERED: chlordiazePOXIDE HCL 10 MG CAPSULE PO ONE (05:00)
== END 2020-01-16 13:26 | disposition left against medical advice (07) | DRG 770 ==
LOC: YASAS 20:43 → Y6N 22:52
PROVIDERS: ADMIT Allergy & Immunology; ATTEND Allergy & Immunology
PROC: HZ2ZZZZ Detoxification Services for Substance Abuse Treatment (ICD-10-PCS; principal; 2020-01-14)
DX: F10.230 Alcohol dependence with withdrawal, uncomplicated (principal); F11.20 Opioid dependence, uncomplicated; F12.20 Cannabis dependence, uncomplicated; F17.210 Nicotine dependence, cigarettes, uncomplicated; F10.282 Alcohol dependence with alcohol-induced sleep disorder; F10.24 Alcohol dependence with alcohol-induced mood disorder; D50.9 Iron deficiency anemia, unspecified; G40.909 Epilepsy, unspecified, not intractable, without status epilepticus; G47.00 Insomnia, unspecified; M54.5 Low back pain; G89.29 Other chronic pain; H55.00 Unspecified nystagmus; R23.8 Other skin changes; R63.8 Other symptoms and signs concerning food and fluid intake; R45.89 Other symptoms and signs involving emotional state; R60.0 Localized edema; Z62.810 Personal history of physical and sexual abuse in childhood; Z88.1 Allergy status to other antibiotic agents; Z59.0 Homelessness; Z98.84 Bariatric surgery status; Z90.49 Acquired absence of other specified parts of digestive tract; Z86.718 Personal history of other venous thrombosis and embolism
CPT/HCPCS: 36415; 80053; 80177; 81025; 85027; 86780; U0003

== ENCOUNTER 2020-11-11 10:26 | Inpatient (IN) | payer OTHER ==
[2020-11-11 10:36] VITALS: BMI 29.0
[2020-11-11] MEDS ORDERED: IBUPROFEN 400 MG TABLET (FP) PO PRN (10:55)
[2020-11-11] MEDS ORDERED: MAGNESIUM CITRATE 300 ML BOTTLE PO PRN (10:55)
[2020-11-11] MEDS ORDERED: MAGNESIUM HYDROX 2400MG/30ML ORAL SUSPENSION 30 ML CUP PO PRN (10:55)
[2020-11-11] MEDS ORDERED: MENTHOL/PHENOL 1 EACH UD MM PRN (10:55)
[2020-11-11] MEDS ORDERED: NICOTINE POLACRILEX 2 MG GUM BUC PRN (10:55)
[2020-11-11] MEDS ORDERED: BISMUTH SUBSALICYLATE 262 MG/15 ML BTL PO PRN (10:55)
[2020-11-11] MEDS ORDERED: METHOCARBAMOL 500 MG TABLET PO PRN (10:55)
[2020-11-11] MEDS ORDERED: ACETAMINOPHEN 325 MG TABLET (FP) PO PRN ×2 (10:55)
[2020-11-11] MEDS ORDERED: LORazepam 1 MG TABLET PO PRN (10:55)
[2020-11-11] MEDS ORDERED: MAG HYDROX/AL HYDROX/SIMETH 30 ML UNIT-DOSE CUP PO PRN (10:55)
[2020-11-11] MEDS ORDERED: ONDANSETRON *ODT* 4 MG TABLET SL PRN (10:55)
[2020-11-11] MEDS: NICOTINE 21 MG/24 HOURS TOPICAL PATCH TD SCH (12:42)
[2020-11-11] MEDS: PRENATAL VITAMINS W/ FOLIC ACID TABLET (FP) PO SCH (12:45)
[2020-11-11] MEDS: levETIRAcetam 250 MG TABLET PO SCH ×2 (13:08→22:12)
[2020-11-11] MEDS: hydrOXYzine PAMOATE 25 MG CAPSULE (FP) PO SCH ×3 (13:08→22:12)
[2020-11-11 13:15] LABS: HEMOGLOBIN 10.7 GM/dL (10.7-15.3); MCH 35.2 pg (25.7-33.7); MCHC 33.5 g/dl (32.0-36.0); MEAN CELL VOLUME 105.2 fl (80-96); MEAN PLT VOLUME 10.2 fl (7.5-11.1); PLATELET COUNT 111 10^3/uL (134-434); RBC 3.04 M/mm3 (3.60-5.2); RDW 15.3 % (11.6-15.6); WHITE BLOOD COUNT 5.6 K/mm3 (4.0-10.0)
[2020-11-11 13:40] LABS: CHLORIDE 104 mmol/L (98-107); SODIUM 140 mmol/L (136-145)
[2020-11-11 13:46] LABS: ALBUMIN 2.5 g/dl (3.4-5.0); CALCIUM 7.8 mg/dL (8.5-10.1); CO2 24 mmol/L (21-32)
[2020-11-11 13:47] LABS: BLOOD UREA NITROGEN 10.6 mg/dL (7-18); GLUCOSE,RANDOM 91 mg/dL (74-106)
[2020-11-11 13:49] LABS: SGPT/ALT 44 U/L (13-61)
[2020-11-11 13:50] LABS: CREATININE 0.9 mg/dL (0.55-1.3); SGOT/AST 166 U/L (15-37)
[2020-11-11 13:52] LABS: ALK PHOS 224 U/L (45-117)
[2020-11-11 13:53] LABS: BILIRUBIN,TOTAL 4.8 mg/dL (0.2-1)
[2020-11-11 13:56] LABS: ANION GAP 12 MMOL/L (8-16)
[2020-11-11] MEDS ORDERED: POTASSIUM CHLORIDE TABS 20 MEQ TABLET.ER (FP) PO ONE (14:07)
[2020-11-11] MEDS: LORazepam 2 MG TABLET PO SCH ×2 (17:41→22:12)
[2020-11-11] MEDS ORDERED: POTASSIUM CHLORIDE ORAL LIQUID 20 MEQ/15 ML PO ONE (18:30)
[2020-11-11] MEDS ORDERED: MELATONIN 5 MG TABLETS PO SCH (22:00)
[2020-11-11] MEDS: THIAMINE HCL 100 MG TABLET (FP) PO SCH (22:12)
[2020-11-12] MEDS: levETIRAcetam 250 MG TABLET PO SCH ×3 (06:21→22:05)
[2020-11-12] MEDS: LORazepam 2 MG TABLET PO SCH ×4 (06:22→22:06)
[2020-11-12] MEDS: hydrOXYzine PAMOATE 25 MG CAPSULE (FP) PO SCH ×5 (06:22→22:08)
[2020-11-12] MEDS: PRENATAL VITAMINS W/ FOLIC ACID TABLET (FP) PO SCH (10:14)
[2020-11-12] MEDS: NICOTINE 21 MG/24 HOURS TOPICAL PATCH TD SCH (10:14)
[2020-11-12 10:31] LABS: INR 1.11 (0.83-1.09); PROTHROMBIN TIME (PATIENT) 13.4 SEC (9.7-13.0)
[2020-11-12 11:08] LABS: CALCIUM 7.9 mg/dL (8.5-10.1)
[2020-11-12 11:09] LABS: ALBUMIN 2.2 g/dl (3.4-5.0); BLOOD UREA NITROGEN 11.1 mg/dL (7-18); TOT PROT 5.4 g/dl (6.4-8.2)
[2020-11-12 11:54] LABS: HIV INTERPRETATION NEGATIVE (NEGATIVE)
[2020-11-12] MEDS: LACTULOSE 20 GM/30 ML UDC (FOR ORAL USE ONLY) PO SCH ×3 (13:45→22:05)
[2020-11-12] MEDS ORDERED: SUVOREXANT 10 MG TABLET PO PRN (22:00)
[2020-11-12] MEDS: THIAMINE HCL 100 MG TABLET (FP) PO SCH (22:05)
[2020-11-13] MEDS: hydrOXYzine PAMOATE 25 MG CAPSULE (FP) PO SCH ×3 (06:08→13:52)
[2020-11-13] MEDS: LORazepam 1 MG TABLET PO SCH ×2 (06:08→10:32)
[2020-11-13] MEDS: levETIRAcetam 250 MG TABLET PO SCH ×2 (06:08→13:52)
[2020-11-13] MEDS: LACTULOSE 20 GM/30 ML UDC (FOR ORAL USE ONLY) PO SCH ×2 (10:32→13:52)
[2020-11-13] MEDS: PRENATAL VITAMINS W/ FOLIC ACID TABLET (FP) PO SCH (10:32)
[2020-11-13] MEDS: NICOTINE 21 MG/24 HOURS TOPICAL PATCH TD SCH (10:33)
[2020-11-13 11:34] VITALS: PULSE 91
[2020-11-13] MEDS ORDERED: NICOTINE 10 MG CARTRIDGE (INHALER) IH SCH (11:45)
[2020-11-13 13:49] VITALS: BP 121/73; TEMP 95.9
[2020-11-14] MEDS ORDERED: LORazepam 0.5 MG TABLET PO PRN
[2020-11-14] MEDS ORDERED: LORazepam 0.5 MG TABLET PO SCH (05:00)
[2020-11-15] MEDS ORDERED: LORazepam 0.5 MG TABLET PO ONE (05:00)
== END 2020-11-13 14:50 | disposition left against medical advice (07) | DRG 770 ==
LOC: YASAS 10:26 → Y6N 11:23
PROVIDERS: ADMIT Allergy & Immunology; ATTEND Allergy & Immunology
PROC: HZ2ZZZZ Detoxification Services for Substance Abuse Treatment (ICD-10-PCS; principal; 2020-11-11)
DX: F10.230 Alcohol dependence with withdrawal, uncomplicated (principal); F10.280 Alcohol dependence with alcohol-induced anxiety disorder; F10.282 Alcohol dependence with alcohol-induced sleep disorder; F17.210 Nicotine dependence, cigarettes, uncomplicated; F32.9 Major depressive disorder, single episode, unspecified; K74.60 Unspecified cirrhosis of liver; G40.909 Epilepsy, unspecified, not intractable, without status epilepticus; M54.5 Low back pain; G89.29 Other chronic pain; E72.20 Disorder of urea cycle metabolism, unspecified; E87.6 Hypokalemia; R74.01 Elevation of levels of liver transaminase levels; S09.90XA Unspecified injury of head, initial encounter; W18.12XA Fall from or off toilet with subsequent striking against object, initial encounter; Y93.89 Activity, other specified; Y92.231 Patient bathroom in hospital as the place of occurrence of the external cause; Z86.718 Personal history of other venous thrombosis and embolism; Z88.1 Allergy status to other antibiotic agents; Z98.84 Bariatric surgery status; Z56.0 Unemployment, unspecified
CPT/HCPCS: 36415; 80053; 80177; 81025; 82140; 85027; 85610; 86780; 87389; C9803; U0003; U0005

== ENCOUNTER 2020-11-13 03:16 | Emergency (ER) | payer OTHER ==
[2020-11-13 04:18] VITALS: BP 104/63; PULSE 104; BMI 29.5
[2020-11-13 06:53] VITALS: TEMP 98
[2020-11-13 07:19] LABS: BASO % 0.5 % (0-2.0); EOS % 1.5 % (0-4.5); HEMATOCRIT 24.7 % (32.4-45.2); HEMOGLOBIN 8.5 GM/dL (10.7-15.3); LYMPH % 24.1 % (8-40); MCH 36.4 pg (25.7-33.7); MCHC 34.2 g/dl (32.0-36.0); MEAN CELL VOLUME 106.3 fl (80-96); MEAN PLT VOLUME 9.8 fl (7.5-11.1); MONO % 9.7 % (3.8-10.2); NEUT % 64.2 % (42.8-82.8); PLATELET COUNT 75 10^3/uL (134-434); RBC 2.33 M/mm3 (3.60-5.2); RDW 15.2 % (11.6-15.6); WHITE BLOOD COUNT 3.5 K/mm3 (4.0-10.0)
[2020-11-13 07:36] LABS: BLOOD UREA NITROGEN 11.1 mg/dL (7-18); CALCIUM 7.7 mg/dL (8.5-10.1)
[2020-11-13 09:21] LABS: ANISOCYTOSIS 1+; MACROCYTOSIS 1+; PLATELET ESTIMATE DECREASED; TARGET CELLS 1+
== END 2020-11-13 08:30 | disposition home or self-care (01) ==
LOC: JER 03:16
DX: G40.89 Other seizures (principal); W18.30XA Fall on same level, unspecified, initial encounter; Y92.129 Unspecified place in nursing home as the place of occurrence of the external cause
CPT/HCPCS: 36415; 70450-TC; 72125-TC; 80048; 83036; 85025; 99285-25